=== PATIENT | female | born 1955 | race Caucasian/White ===

== ENCOUNTER 2019-10-26 10:25 | Outpatient (CLI) | payer OTHER, SELFPAY ==
--- NOTE | ~2019-10-26 | MM_ITS ---
EXAMINATION: MM screening [facility] BI w jasmin HISTORY: Screening mammogram TECHNIQUE: Craniocaudal and mediolateral oblique 3-D tomosynthesis images were obtained and synthetic 2-D images were generated. CAD analysis was submitted and interpreted. COMPARISON: Comparison to multiple prior studies sequentially, with oldest reviewed study dated 09/29. BREAST PARENCHYMAL COMPOSITION: There are scattered areas of fibroglandular density. FINDINGS: Postsurgical changes redemonstrated in the left breast without change. There is no evidence of suspicious mass, calcification, or architectural distortion to suggest malignancy in either breas t. There has been no suspicious interval change. IMPRESSION: 1. No mammographic evidence of malignancy. 2. Recommend routine screening mammography in one year. BI-RADS Category 2: Benign finding(s). Reviewed, dictated and finalized at location A. ITY ASSURANCE INSPECTOR
== END 2019-10-26 10:26 | disposition home or self-care (01) ==
PROVIDERS: PCP Family Medicine; Referring Provider Nurse Practitioner Obstetrics & Gynecology; Visit Provider Internal Medicine Hematology & Oncology
DX: Z12.31 Encounter for screening mammogram for malignant neoplasm of breast (principal)
CPT/HCPCS: 77063; 77067

== ENCOUNTER 2020-07-03 08:05 | Outpatient (CLI) | payer OTHER, SELFPAY ==
[2020-07-03 09:22] LABS: Basophils Absolute Auto 0.1 K/mm3 (0.0-0.1); Basophils Percent Auto 1.1 % (0.2-1.2); Eosinophils Absolute Auto 0.6 K/mm3 (0-0.3); Eosinophils Percent Auto 9.2 % (0-4.4); Hematocrit 38.7 % (37.0-47.0); Hemoglobin 12.9 g/dL (12.0-15.0); Immature Granulocyte Absolute 0.01 K/mm3 (0.00-0.031); Immature Granulocyte Percent A 0.2 % (0-0.5); Lymphocytes Absolute Auto 2.34 K/mm3 (0.9-3.2); Lymphocytes Percent Auto 35.4 % (18.3-44.2); Mean Corpuscular HGB Conc 33.3 g/dl (32-36); Mean Platelet Volume 9.8 fl (7.4-10.4); Monocytes Absolute Auto 0.7 K/mm3 (0.1-0.6); Monocytes Percent Auto 10.7 % (2.6-8.5); Neutrophils Absolute Auto 2.9 K/mm3 (1.3-6.7); Neutrophils Percent Auto 43.4 % (45.5-73.1); Platelet Count Result 280 k/mm3 (150-375); Red Blood Count 4.16 M/mm3 (4.2-5.4); Red Cell Distribution Width 12.8 % (11.5-14.5); White Blood Count 6.6 K/mm3 (4.5-10.0)
[2020-07-03 11:49] LABS: Alanine Aminotransferase 20 U/L (4-35); Albumin Level 4.7 g/dL (3.5-5.1); Alkaline Phosphatase 82 U/L (38-126); Anion Gap 10 mmol/L (8-16); Aspartate Amino Transferase 34 U/L (14-36); Bilirubin,Total 0.4 mg/dL (0.2-1.3); Blood Urea Nitrogen 16 mg/dL (7-17); Calcium 9.7 mg/dL (8.4-10.2); Carbon Dioxide 31 mmol/L (22-30); Chloride 101 mmol/L (98-107); Cholesterol 192 mg/dL (0-200); Estimated Glomerular Filt Rate > 60; Glucose 98 mg/dL (65-105); HDL Direct 58 mg/dL; Potassium 4.3 mmol/L (3.4-5.0); Sodium 142 mmol/L (137-145); Triglycerides 140 mg/dL (<150)
[2020-07-03 11:59] LABS: LDL Cholesterol Direct 101 mg/dL
[2020-07-03 12:05] LABS: Free T4 Free Thyroxine 1.36 ng/mL (0.78-2.19)
[2020-07-03 12:19] LABS: Immunoglobulin G 722 mg/dL (700-1600); Immunoglobulin M 66 mg/dL (40-230)
[2020-07-03 12:26] LABS: Thyroid Stimulating Hormone 0.988 uIU/mL (0.465-4.680)
[2020-07-03 12:42] LABS: Immunoglobulin A 1028 mg/dL (70-400)
[2020-07-03 12:59] LABS: Hemoglobin A1C 5.5 % (<5.7)
[2020-07-05 21:43] LABS: Kappa\\Lambda Light Chains 6.11 (0.26-1.65); Lambda Light Chain 15.7 mg/L (5.7-26.3)
[2020-07-06 21:42] LABS: Abnormal Protein Band 1 0.5 g/dL; Alpha 1 Globulin 0.3 g/dL (0.2-0.3); Alpha 2 Globulin 0.8 g/dL (0.5-0.9); Beta 1 Globulin 0.5 g/dL (0.4-0.6); Gamma Globulin 1.2 g/dL (0.8-1.7); Protein, Total 7.3 g/dL (6.1-8.1)
== END 2020-07-03 08:06 | disposition home or self-care (01) ==
PROVIDERS: PCP Family Medicine; Visit Provider Internal Medicine Hematology & Oncology
DX: E11.9 Type 2 diabetes mellitus without complications (principal); E78.00 Pure hypercholesterolemia, unspecified; E03.9 Hypothyroidism, unspecified
CPT/HCPCS: 36415; 80053; 80061; 82784; 83036; 83883; 84155; 84165; 84439; 84443; 85025; 86334

== ENCOUNTER 2020-10-30 13:52 | Outpatient (CLI) | payer OTHER, SELFPAY ==
--- NOTE | ~2020-10-30 | DEXA_ITS ---
Bone Density Report Name: Mirian Morgan Age: 65 Sex: Female Ethnicity: White Date of : 1955 Indication: osteopenia; parental hip fracture; height loss; cancer; postmenopausal Referring Provider: Tony Hammer Study: Bone densitometry was performed. Exam Date: October 30, 2020 Accession number: [id number] Bone Density: Region BMD T-score Z-score Classification AP Spine (L1, L2, L3) 0.847 -1.6 0.3 Osteopenia Femoral Neck (Left) 0.674 -1.6 0.1 Osteopenia Total Hip (Left) 0.890 -0.4 0.9 Normal Total Hip Bilateral Avg 0.905 -0.3 1.0 Normal Femoral Neck (Right) 0.683 -1.5 0.1 Osteopenia Total Hip (Right) 0.919 -0.2 1.2 Normal World Health Organization criteria for BMD impression classify patients as: Normal (T-score at or above -1.0), Osteopenia (T-score between -1.0 and -2.5), or Osteoporosis (T-score at or below -2.5). 10-year Fracture Risk(1): Major Osteoporotic Fracture 16% Hip Fracture 1.6% Reported Risk Factors: [place] (), Neck BMD=0.683, BMI=29.4, parental fracture (1) FRAX(R) Version 3.08. Fracture probability calculated for an untreated patient. Fracture probability may be lower if the patient has received treatment. Previous Exams: Region Exam Age BMD T-score BMD Change BMD Change Date g/cm2 vs Baseline vs Previous AP Spine(L1, L2, L3) 10/30/2020 65 0.847 -1.6 -0.060(-6.6%)* -0.047(-5.3%)* 10/20/2018 63 0.894 -1.1 -0.012(-1.4%) -0.012(-1.4%) 10/05/2015 60 0.907 -1.0 Total Hip(Left) 10/30/2020 65 0.890 -0.4 0.008(0.9%) -0.117(-11.6%) 10/20/2018 63 1.006 0.5 0.124(14.1%)* 0.124(14.1%)* 10/05/2015 60 0.882 -0.5 Total Hip(Right) 10/30/2020 65 0.919 -0.2 -0.031(-3.2%)* -0.115(-11.2%) 10/20/2018 63 1.034 0.8 0.085(8.9%)* 0.085(8.9%)* 10/05/2015 60 0.950 0.1 *Denotes significance at 95% confidence level, LSC for AP Spine = 0.022 g/cm2, LSC for Total Hip = 0.027 g/cm2 Clinical Information Provided by Patient: Parent has had a hip fracture Has used the following medications: Vitamin D, Calcium Has the following medical conditions: Cancer, BREAST CA Patient maximum height was 67 Menopause Age: 48 Onset of menses at age 8 Number of children 0 Impression: The patient has low bone mass, based on the Total Spine T-score. The patient has an estimated ten-year risk of hip fracture of 1.6% and an estimated ten-year risk of major fracture of 16%, based on the WHO
--- NOTE | ~2020-10-30 | MM_ITS ---
EXAMINATION: MM screening marjorie BI w jasmin HISTORY: Screening TECHNIQUE: Craniocaudal and mediolateral oblique 3-D tomosynthesis images were obtained and synthetic 2-D images were generated. CAD analysis was submitted and interpreted. COMPARISON: No prior mammogram is available for comparison at this institution. BREAST PARENCHYMAL COMPOSITION: Comparison to multiple prior studies sequentially, with oldest review ed study dated 10/05/2015. FINDINGS: Stable architectural distortion of the left breast, consistent with previous lumpectomy sit e. There is no evidence of suspicious mass, calcification, or architectural distortion to suggest mal ignancy in either breast. There has been no suspicious interval change. IMPRESSION: 1. No mammographic evidence of malignancy. 2. Recommend routine screening mammography in one year. BI-RADS Category 2: Benign finding(s). Reviewed, dictated and finalized at location A. E TECHNOLOGIST
== END 2020-10-30 13:53 | disposition home or self-care (01) ==
LOC: ANHIMG 13:55
PROVIDERS: PCP Family Medicine; Visit Provider Internal Medicine Hematology & Oncology
DX: Z12.31 Encounter for screening mammogram for malignant neoplasm of breast (principal); M81.0 Age-related osteoporosis without current pathological fracture; M85.88 Other specified disorders of bone density and structure, other site; M85.852 Other specified disorders of bone density and structure, left thigh; M85.851 Other specified disorders of bone density and structure, right thigh
CPT/HCPCS: 77063; 77067; 77080

== ENCOUNTER 2021-07-04 08:44 | Outpatient (CLI) | payer MEDICARE, SELFPAY ==
[2021-07-04 09:06] LABS: Basophils Absolute Auto 0.1 K/mm3 (0.0-0.1); Basophils Percent Auto 1.3 % (0.2-1.2); Eosinophils Absolute Auto 0.4 K/mm3 (0-0.3); Eosinophils Percent Auto 7.3 % (0-4.4); Hematocrit 38.1 % (37.0-47.0); Hemoglobin 12.9 g/dL (12.0-15.0); Immature Granulocyte Absolute 0.01 K/mm3 (0.00-0.031); Immature Granulocyte Percent A 0.2 % (0-0.5); Lymphocytes Absolute Auto 2.06 K/mm3 (0.9-3.2); Mean Corpuscular HGB Conc 33.9 g/dl (32-36); Mean Corpuscular Hemoglobin 31.5 pg (26-34); Mean Corpuscular Volume 92.9 fl (80-100); Mean Platelet Volume 8.9 fl (7.4-10.4); Monocytes Absolute Auto 0.6 K/mm3 (0.1-0.6); Monocytes Percent Auto 9.7 % (2.6-8.5); Neutrophils Absolute Auto 2.9 K/mm3 (1.3-6.7); Neutrophils Percent Auto 47.5 % (45.5-73.1); Platelet Count Result 273 k/mm3 (150-375); Red Cell Distribution Width 12.5 % (11.5-14.5); White Blood Count 6.1 K/mm3 (4.5-10.0)
[2021-07-04 11:16] LABS: Alanine Aminotransferase 29 U/L (4-35); Albumin Level 4.7 g/dL (3.5-5.1); Alkaline Phosphatase 78 U/L (38-126); Anion Gap 9 mmol/L (8-16); Aspartate Amino Transferase 33 U/L (14-36); Bilirubin,Total 0.6 mg/dL (0.2-1.3); Blood Urea Nitrogen 21 mg/dL (7-17); Calcium 9.7 mg/dL (8.4-10.2); Carbon Dioxide 27 mmol/L (22-30); Chloride 105 mmol/L (98-107); Estimated Glomerular Filt Rate > 60; Glucose 115 mg/dL (65-110); Potassium 4.3 mmol/L (3.4-5.0); Sodium 141 mmol/L (137-145)
[2021-07-04 11:52] LABS: Immunoglobulin G 672 mg/dL (700-1600); Immunoglobulin M 59 mg/dL (40-230)
[2021-07-04 12:19] LABS: Immunoglobulin A 993 mg/dL (70-400)
[2021-07-08 13:05] LABS: Kappa\\Lambda Light Chains 6.12 (0.26-1.65); Lambda Light Chain 16.8 mg/L (5.7-26.3)
[2021-07-08 20:49] LABS: Abnormal Protein Band 1 0.5 g/dL; Alpha 1 Globulin 0.3 g/dL (0.2-0.3); Alpha 2 Globulin 0.8 g/dL (0.5-0.9); Beta 1 Globulin 0.5 g/dL (0.4-0.6); Gamma Globulin 1.3 g/dL (0.8-1.7); Protein, Total 7.3 g/dL (6.1-8.1)
== END 2021-07-04 08:45 | disposition home or self-care (01) ==
PROVIDERS: PCP Family Medicine; Referring Provider Internal Medicine Hematology & Oncology; Visit Provider Internal Medicine Endocrinology, Diabetes & Metabolism
DX: D47.2 Monoclonal gammopathy (principal)
CPT/HCPCS: 36415; 80053; 82784; 83883; 84155; 84165; 85025

== ENCOUNTER 2021-11-01 14:18 | Outpatient (CLI) | payer MEDICARE, SELFPAY ==
--- NOTE | ~2021-11-01 | MM_ITS ---
EXAMINATION: MM screening [facility] BI w jasmin HISTORY: Screening mammogram, history of left breast cancer TECHNIQUE: Craniocaudal and mediolateral oblique 3-D tomosynthesis images were obtained and synthetic 2-D images were generated. CAD analysis was submitted and interpreted. COMPARISON: 10/30/2020, 10/26/2019, 10/20/2018 BREAST PARENCHYMAL COMPOSITION: There are scattered areas of fibroglandular density. FINDINGS: There are stable lumpectomy changes in the upper outer quadrant of the left breast. There i s no evidence of suspicious mass, calcification, or architectural distortion to suggest malignancy in either breast. There has been no suspicious interval change. IMPRESSION: 1. No mammographic evidence of malignancy. 2. Recommend routine screening mammography in one year. BI-RADS Category 2: Benign finding(s). Reviewed, dictated and finalized at location A. ING ANODE WORKER
== END 2021-11-01 14:19 | disposition home or self-care (01) ==
LOC: ANHIMG 14:21
PROVIDERS: PCP Family Medicine; Visit Provider Internal Medicine Hematology & Oncology
DX: Z12.31 Encounter for screening mammogram for malignant neoplasm of breast (principal)
CPT/HCPCS: 77063; 77067

== ENCOUNTER 2022-07-03 08:24 | Outpatient (CLI) | payer MEDICARE, SELFPAY ==
[2022-07-03 08:50] LABS: Basophils Absolute Auto 0.1 K/mm3 (0.0-0.1); Eosinophils Absolute Auto 0.3 K/mm3 (0-0.3); Eosinophils Percent Auto 5.1 % (0-4.4); Hematocrit 39.6 % (37.0-47.0); Hemoglobin 13.4 g/dL (12.0-15.0); Immature Granulocyte Absolute 0.02 K/mm3 (0.00-0.031); Immature Granulocyte Percent A 0.3 % (0-0.5); Lymphocytes Absolute Auto 2.11 K/mm3 (0.9-3.2); Mean Corpuscular HGB Conc 33.8 g/dl (32-36); Mean Corpuscular Hemoglobin 31.5 pg (26-34); Mean Corpuscular Volume 93.2 fl (80-100); Mean Platelet Volume 9.3 fl (7.4-10.4); Monocytes Absolute Auto 0.6 K/mm3 (0.1-0.6); Neutrophils Absolute Auto 2.9 K/mm3 (1.3-6.7); Neutrophils Percent Auto 48.6 % (45.5-73.1); Platelet Count Result 263 k/mm3 (150-375); Red Blood Count 4.25 M/mm3 (4.2-5.4)
[2022-07-03 09:39] LABS: Cholesterol 272 mg/dL (0-200); HDL Direct 47 mg/dL; Triglycerides 199 mg/dL (<150)
[2022-07-03 09:42] LABS: Alanine Aminotransferase 72 U/L (6-35); Albumin Level 4.7 g/dL (3.5-5.1); Alkaline Phosphatase 74 U/L (38-126); Anion Gap 12 mmol/L (8-16); Aspartate Amino Transferase 55 U/L (14-36); Bilirubin,Total 0.5 mg/dL (0.2-1.3); Blood Urea Nitrogen 20 mg/dL (7-17); Calcium 9.4 mg/dL (8.4-10.2); Carbon Dioxide 27 mmol/L (22-30); Chloride 100 mmol/L (98-107); Estimated Glomerular Filt Rate > 60; Glucose 133 mg/dL (65-110); Potassium 4.6 mmol/L (3.4-5.0); Sodium 139 mmol/L (137-145)
[2022-07-03 09:50] LABS: LDL Cholesterol Direct 157 mg/dL
[2022-07-03 10:06] LABS: Creatinine Urine 115.3 mg/dL
[2022-07-03 10:09] LABS: Immunoglobulin G 634 mg/dL (700-1600); Immunoglobulin M 56 mg/dL (40-230)
[2022-07-03 10:28] LABS: Immunoglobulin A 991 mg/dL (70-400)
[2022-07-03 10:28] LABS: MALB Creatinine Ratio < 5.2 mg/g (0-30); Microalbumin Urine Random < 6.0 mg/L (0-16.7)
[2022-07-03 14:06] LABS: Free T4 Free Thyroxine 1.28 ng/mL (0.78-2.19); Vitamin D 25 Hydroxy 51.3 ng/mL
[2022-07-06 06:09] LABS: Abnormal Protein Band 1 0.5 g/dL; Albumin 4.2 g/dL (3.8-4.8); Alpha 1 Globulin 0.3 g/dL (0.2-0.3); Alpha 2 Globulin 0.8 g/dL (0.5-0.9); Beta 1 Globulin 0.5 g/dL (0.4-0.6); Gamma Globulin 1.2 g/dL (0.8-1.7); Protein, Total 7.5 g/dL (6.1-8.1)
[2022-07-07 15:23] LABS: Kappa\\Lambda Light Chains 5.42 (0.26-1.65); Lambda Light Chain 13.4 mg/L (5.7-26.3)
== END 2022-07-03 08:25 | disposition home or self-care (01) ==
LOC: ANHLAB 08:26
PROVIDERS: Nurse Practitioner Family; PCP Family Medicine; Visit Provider Internal Medicine Hematology & Oncology
DX: D47.2 Monoclonal gammopathy (principal); E11.9 Type 2 diabetes mellitus without complications; K76.0 Fatty (change of) liver, not elsewhere classified; M85.851 Other specified disorders of bone density and structure, right thigh; M85.852 Other specified disorders of bone density and structure, left thigh; I10 Essential (primary) hypertension; E55.9 Vitamin D deficiency, unspecified; E03.9 Hypothyroidism, unspecified
CPT/HCPCS: 36415; 80053; 80061; 82043; 82306; 82607; 82784; 83883; 84155; 84165; 84439; 84443; 85025

== ENCOUNTER 2022-11-04 13:43 | Outpatient (CLI) | payer MEDICARE, SELFPAY ==
--- NOTE | ~2022-11-04 | MM_ITS ---
EXAMINATION: MM screening marjorie BI w jasmin HISTORY: Screening mammogram, history of left breast cancer TECHNIQUE: Craniocaudal and mediolateral oblique 3-D tomosynthesis images were obtained and synthetic 2-D images were generated. CAD analysis was submitted and interpreted. COMPARISON: 11/01/2021, 10/30/2020, 10/26/2019 BREAST PARENCHYMAL COMPOSITION: There are scattered areas of fibroglandular density. FINDINGS: Stable lumpectomy changes are again noted in the upper outer quadrant of the left breast. N o suspicious mass, calcification, or architectural distortion are identified in either breast to sugg est malignancy. There has been no suspicious interval change. IMPRESSION: 1. No mammographic evidence of malignancy. 2. Recommend routine screening mammography in one year. BI-RADS Category 2: Benign finding(s). Reviewed, dictated and finalized at location A. AURANT COOK
--- NOTE | ~2022-11-04 | DEXA_ITS ---
Bone Density Report Name: FRANCESCO JEAN Age: 67 Sex: Female Ethnicity: White Date of : 1955 Indication: postmenopausal; screening for osteoporosis; parental hip fracture; height loss; cancer; Referring Provider: ARMOND VALDEZ Study: Bone densitometry was performed. Exam Date: November 04, 2022 Accession number: [id number] Bone Density: Region BMD T-score Z-score Classification AP Spine(L1, L2, L3) 0.885 -1.2 0.8 Osteopenia Femoral Neck (Left) 0.674 -1.6 0.2 Osteopenia Total Hip (Left) 0.916 -0.2 1.3 Normal Femoral Neck (Right) 0.691 -1.4 0.3 Osteopenia Total Hip (Right) 0.961 0.2 1.6 Normal Total Hip Mean 0.939 0.0 1.5 Normal World Health Organization criteria for BMD impression classify patients as: Normal (T-score at or above -1.0), Osteopenia (T-score between -1.0 and -2.5), or Osteoporosis (T-score at or below -2.5). 10-year Fracture Risk(1): Major Osteoporotic Fracture 15% Hip Fracture 2.4% Reported Risk Factors: [place] (), Neck BMD=0.674, BMI=33.2, parental fracture (1) FRAX(R) Version 3.08. Fracture probability calculated for an untreated patient. Fracture probability may be lower if the patient has received treatment. Clinical Information Provided by Patient: Parent has had a hip fracture Has used the following medications: Prolia (i.e. denosumab), Vitamin D, Calcium Has the following medical conditions: Cancer, Breast Cancer Patient maximum height was 67 Menopause Age: 48 Onset of menses at age 8 Number of children 0 Impression: The patient has low bone mass, based on the Left Femoral Neck T-score. The patient has an estimated ten-year risk of hip fracture of 2.4% and an estimated ten-year risk of major fracture of 15%, based on the WHO FRAX algorithm. The patient has risk factors, including: parental hip fracture. Discussion: BONE DENSITY IS LOW AT ONE OR MORE SKELETAL SITES. This patient's lowest T-score is low at one or more skeletal sites. It meets the World Health Organization's (WHO) criteria for ?low bone mass? (T-score between -1.0 and -2.5). The patient's 10-year risk of fracture as calculated by FRAX is less than the threshold where pharmacological therapy is recommended by the National Osteoporosis Foundation (NOF). However, all treatment decisions require clinical judgment and consideration of individual patient factors, including patient preferences, comorbidities, previous drug use, risk factors not captured in the FRAX model (e.g., frailty, falls, vitamin D deficiency, increased bone turnover, interval significant decline in bone density) and possible under or overestimation of fracture risk by FRAX. The patient should follow a healthful lifestyle (good nutrition with adequate calcium and vitamin D, and appropriate weight-bearing exercise).
== END 2022-11-04 13:44 | disposition home or self-care (01) ==
LOC: ANHIMG 13:45
PROVIDERS: PCP Family Medicine; Visit Provider Internal Medicine Hematology & Oncology
DX: Z12.31 Encounter for screening mammogram for malignant neoplasm of breast (principal); M81.0 Age-related osteoporosis without current pathological fracture; M85.88 Other specified disorders of bone density and structure, other site; M85.852 Other specified disorders of bone density and structure, left thigh; M85.851 Other specified disorders of bone density and structure, right thigh
CPT/HCPCS: 77063; 77067; 77080

== ENCOUNTER 2023-07-03 08:18 | Outpatient (CLI) | payer MEDICARE, SELFPAY ==
[2023-07-03 08:39] LABS: Basophils Absolute Auto 0.1 K/mm3 (0.0-0.1); Basophils Percent Auto 1.1 % (0.2-1.2); Eosinophils Absolute Auto 0.5 K/mm3 (0-0.3); Eosinophils Percent Auto 8.3 % (0-4.4); Hematocrit 37.1 % (37.0-47.0); Hemoglobin 12.3 g/dL (12.0-15.0); Immature Granulocyte Absolute 0.06 K/mm3 (0.00-0.031); Immature Granulocyte Percent A 0.9 % (0-0.5); Lymphocytes Absolute Auto 2.07 K/mm3 (0.9-3.2); Lymphocytes Percent Auto 31.9 % (18.3-44.2); Mean Corpuscular HGB Conc 33.2 g/dl (32-36); Mean Corpuscular Hemoglobin 30.4 pg (26-34); Mean Corpuscular Volume 91.8 fl (80-100); Mean Platelet Volume 9.7 fl (7.4-10.4); Monocytes Absolute Auto 0.7 K/mm3 (0.1-0.6); Monocytes Percent Auto 10.2 % (2.6-8.5); Neutrophils Absolute Auto 3.1 K/mm3 (1.3-6.7); Neutrophils Percent Auto 47.6 % (45.5-73.1); Platelet Count Result 254 k/mm3 (150-375); Red Blood Count 4.04 M/mm3 (4.2-5.4); Red Cell Distribution Width 13.5 % (11.5-14.5); White Blood Count 6.5 K/mm3 (4.5-10.0)
[2023-07-03 10:38] LABS: Alanine Aminotransferase 113 U/L (6-35); Albumin Level 4.5 g/dL (3.5-5.1); Alkaline Phosphatase 83 U/L (38-126); Anion Gap 8 mmol/L (8-16); Aspartate Amino Transferase 83 U/L (14-36); Bilirubin,Total 0.4 mg/dL (0.2-1.3); Blood Urea Nitrogen 17 mg/dL (7-17); Calcium 9.7 mg/dL (8.4-10.2); Carbon Dioxide 29 mmol/L (22-30); Chloride 101 mmol/L (98-107); Estimated Glomerular Filt Rate > 60; Glucose 150 mg/dL (65-110); Potassium 4.3 mmol/L (3.4-5.0); Sodium 138 mmol/L (137-145)
[2023-07-03 13:27] LABS: Immunoglobulin G 470 mg/dL (700-1600); Immunoglobulin M 33 mg/dL (40-230)
[2023-07-03 17:51] LABS: Cholesterol 173 mg/dL (0-200); HDL Direct 39 mg/dL; Triglycerides 214 mg/dL (<150)
[2023-07-03 18:01] LABS: LDL Cholesterol Direct 92 mg/dL
[2023-07-03 18:26] LABS: Microalbumin Urine Random 7.1 mg/L (0-16.7)
[2023-07-03 18:27] LABS: Creatinine Urine 137.2 mg/dL; MALB Creatinine Ratio 5.2 mg/g (0-30)
[2023-07-03 18:40] LABS: Free T4 Free Thyroxine 1.47 ng/mL (0.78-2.19); Vitamin D 25 Hydroxy 47.1 ng/mL
[2023-07-04 00:06] LABS: Immunoglobulin A 1294 mg/dL (70-400)
== END 2023-07-03 08:19 | disposition home or self-care (01) ==
PROVIDERS: Nurse Practitioner Family; PCP Family Medicine; Visit Provider Internal Medicine Hematology & Oncology
DX: E03.9 Hypothyroidism, unspecified (principal); E11.9 Type 2 diabetes mellitus without complications; E55.9 Vitamin D deficiency, unspecified; E66.9 Obesity, unspecified; E78.00 Pure hypercholesterolemia, unspecified; I10 Essential (primary) hypertension; D47.2 Monoclonal gammopathy
CPT/HCPCS: 36415; 80053; 80061; 82043; 82306; 82607; 82784; 84439; 84443; 85025

== ENCOUNTER 2023-07-14 08:51 | Outpatient (CLI) | payer MEDICARE, SELFPAY ==
[2023-07-16 15:05] LABS: Alpha 1 Globulin 0.3 g/dL (0.2-0.3); Alpha 2 Globulin 0.9 g/dL (0.5-0.9); Beta 1 Globulin 0.4 g/dL (0.4-0.6); Gamma Globulin 1.6 g/dL (0.8-1.7); Protein, Total 7.6 g/dL (6.1-8.1)
[2023-07-18 21:33] LABS: Lambda Light Chain 12.5 mg/L (5.7-26.3)
== END 2023-07-14 08:52 | disposition home or self-care (01) ==
PROVIDERS: PCP Family Medicine; Visit Provider Internal Medicine Hematology & Oncology
DX: D47.2 Monoclonal gammopathy (principal)
CPT/HCPCS: 36415; 83883; 84155; 84165

== ENCOUNTER 2023-08-13 08:06 | Outpatient (CLI) | payer MEDICARE, SELFPAY ==
--- NOTE | ~2023-08-13 | US_ITS ---
US abdomen limited INDICATION: Fatty liver PROCEDURE: Realtime right upper abdominal ultrasound. COMPARISON: 07/20/2018 FINDINGS: The pancreas is normal without focal mass or pancreatic ductal dilation. For echotexture i s increased, consistent with fatty infiltration. There is normal directional flow in the portal vein . The gallbladder is normal without stones, gallbladder wall thickening or pericholecystic fluid. Comm on bile duct measures 4 mm. No sonographic Reyna's sign. IMPRESSION: 1: Fatty infiltration of the liver. Reviewed, dictated and finalized at location A. PLATE STAMPER
== END 2023-08-13 08:07 | disposition home or self-care (01) ==
PROVIDERS: PCP Family Medicine; Visit Provider Internal Medicine Gastroenterology
DX: K76.0 Fatty (change of) liver, not elsewhere classified (principal)
CPT/HCPCS: 76705

== ENCOUNTER → 2023-08-18 14:06 | Outpatient (CLI) | payer MEDICARE, SELFPAY ==
--- NOTE | ~2023-08-18 | XR_ITS ---
XR lumbar spine 2-3V 08/18/2023 15:22 Indication: Low back pain Procedure: 3 views lumbar spine Comparison: CT dated 05/21/2018 Findings: There is a mild superior endplate compression fracture of L5, age indeterminate. There is m oderate disc narrowing at L4-5 and L5-S1. There is grade 1 spondylolisthesis at L4-5. There is facet hypertrophy at L4-5 and L5-S1. Impression: 1: Age-indeterminate superior endplate compression fracture of L5 with approximately 15% loss of vert ebral body height. Consider correlation with CT or MRI. 2: Moderate lumbar spondylosis. Reviewed, dictated and finalized at location A. [employer] Impression: 1: Age-indeterminate superior endplate compression fracture of L5 with approxim ately 15% loss of vertebral body height. Consider correlation with CT or MRI. 2: Moderate lumbar spondylosis.
== END ==
PROVIDERS: PCP Family Medicine; Visit Provider Nurse Practitioner Family
DX: M47.896 Other spondylosis, lumbar region (principal)
CPT/HCPCS: 72100

== ENCOUNTER → 2023-08-21 10:40 | Outpatient (CLI) | payer MEDICARE, SELFPAY ==
--- NOTE | ~2023-08-21 | CT_ITS ---
Noncontrast CT scan of the lumbar spine CLINICAL HISTORY: Back pain TECHNIQUE: Axial noncontrast imaging of the lumbar spine was performed. Sagittal and coronal reformat jeanette images were constructed. Dose reduction technique was used on this scan by utilizing automated ex posure control and iterative reconstruction technique. The dose-length product (DLP) was 846.80 mGy-c m. FINDINGS: There is mild compression deformity superior endplate region of L5, probably acute to subac gosia. There is 7 mm anterolisthesis of L4 over L5. At L1-L2, there is no significant disc bulge or herniation. No spinal canal stenosis or neural forami nal narrowing. At L2-L3, there is minimal disc bulge with mild facet arthropathy. No central canal stenosis. There i s mild left neural foraminal narrowing. Right neural foramen preserved. At L3-L4, there is minimal disc bulge and mild facet arthropathy. No definite central canal stenosis or neural foraminal narrowing. At L4-L5, disc bulge/uncovering with facet arthropathy result in probable severe spinal canal stenosi s/thecal sac compression. There is advanced bilateral neural foraminal narrowing. At L5-S1, there is no significant disc bulge or herniation. No spinal canal stenosis. There is probab le mild to moderate bilateral neural foraminal narrowing. Paravertebral soft tissues are unremarkable. Impression: Mild compression deformity of L5, probably acute. 7 mm anterolisthesis of L4 over L5. Severe degenerative spondylosis at L4-L5, as detailed above. Mild degenerative spondylosis the remainder of the lumbar spine. Reviewed, dictated and finalized at [facility]. DULE ANALYST Impression: Mild compression deformity of L5, probably acute. 7 mm anterolisthesis of L4 over L5. Severe degenerative spondylosis at L4-L5, as detailed above. Mild degenerative spondylosis the remainder of the lumbar spine.
== END ==
PROVIDERS: PCP Chiropractor; Visit Provider Nurse Practitioner Family
DX: M54.41 Lumbago with sciatica, right side (principal); M47.896 Other spondylosis, lumbar region
CPT/HCPCS: 72131

== ENCOUNTER → 2023-09-26 11:00 | Outpatient (CLI) | payer MEDICARE, SELFPAY ==
--- NOTE | ~2023-09-26 | MR_ITS ---
MRI of the lumbar spine Clinical History: Fracture, pain Technique: Axial T2-weighted images, and sagittal T1-weighted, T2-weighted, and and T2 fat-sat images were acquired. Findings: There is probable acute, mild compression fracture deformity at the inferior plate region o f L3. There is an acute to subacute moderate compression deformity of L5. There is 6 mm anterolisthes is of L4 over L5. At L1-L2, there is no disc bulge or herniation. There is mild facet joint hypertrophy. No central can al stenosis or neural foraminal narrowing. At L2-L3, there is minimal disc bulge with mild to moderate facet arthropathy. No central canal steno sis or neural foraminal narrowing. At L3-L4, there is no disc bulge or herniation. There is advanced facet arthropathy. No central canal stenosis. There is mild to moderate bilateral neural foraminal narrowing. At L4-L5, there is disc bulge and severe facet arthropathy, which in conjunction with mild retropulsi on/listhesis, results in severe spinal canal stenosis/thecal sac compression. There is moderate to ad vanced bilateral neural foraminal narrowing. At L5-S1, there is minimal disc bulge. No central canal stenosis or neural foraminal narrowing eviden t. Paravertebral soft tissues are unremarkable. Impression: Acute, mild compression fracture of the inferior endplate region of L3. Acute to subacute moderate compression fracture deformity of L5. 6 mm anterolisthesis of L4 over L5. Associated severe degenerative spondylosis at L4-L5, as detailed above. Reviewed, dictated and finalized at [facility]. ER SERVICES REPRESENTATIVE Impression: Acute, mild compression fracture of the inferior endplate region of L3. Acute to subacute moderate compression fracture deformity of L5. 6 mm anterolisthesis of L4 over L5. Associated severe degenerative spondylosis at L4-L5, as detailed above.
== END ==
PROVIDERS: PCP Chiropractor; Visit Provider Nurse Practitioner Family
DX: S32.000A Wedge compression fracture of unspecified lumbar vertebra, initial encounter for closed fracture (principal); X58.XXXA Exposure to other specified factors, initial encounter
CPT/HCPCS: 72148

== ENCOUNTER 2023-10-02 18:41 | Emergency (ER) | payer MEDICARE, SELFPAY ==
[2023-10-02] VITALS (9 sets, daily range): BP systolic 174–189; BP diastolic 81–95; PULSE 79–125; RESP 15–20; TEMP 36.7; O2SAT 94–100
--- NOTE | ~2023-10-02 | CT_ITS ---
EXAMINATION: CT lumbar spine wo con DATE: 10/02/2023 20:37 INDICATION: Worsening low back pain post kyphoplasty one day prior. TECHNIQUE: Computed tomography (CT) of the lumbar spine was performed without intravenous contrast. A utomated exposure control and iterative reconstruction technique were employed. The dose-length produ ct was 1418.45 mGy-cm. COMPARISON: CT dated 08/21/2023 and lumbar spine MR dated 09/26/2023 FINDINGS: Unchanged 7 mm anterolisthesis L4 on L5. Superior endplate compression fracture at T10 with 10% centr al vertebral body height loss. T12 burst fracture with one third anterior vertebral body height loss and 2 mm retropulsion. L3 inferior endplate compression fracture with 10% central vertebral body heig ht loss. L5 compression fracture with 50% central vertebral body height loss. The fractures at T12, L 3 and L5 are relatively recent with marrow edema on the MRI from 6 days prior and with either new or increased vertebral body height loss when compared with the CT from 6 weeks prior. The anterior to ce ntral vertebral body height loss at T12 appears normally increased since the recent MRI. There is new 15% central vertebral body height loss at L2 with increased concavity to the inferior endplate consi stent with a compression fracture new since the recent MRI. Also new since the most recent prior study are vertebroplasties at both L3 and L5. Additional subacut e sagittally oriented insufficiency fractures at the bilateral sacral ala. Mild disc height loss at L 4-L5 and L5-S1. Mild subcutaneous edema posterior to the lower lumbar spine likely related to the rec ent prior vertebral plasties. The following disc levels are specifically discussed: T11-T12: The disc does not extend beyond the endplate margin. There is mild central canal stenosis re sulting from the 2 mm retropulsion of the superior aspect of the posterior wall of T12. There is mild bilateral facet joint osteoarthritis. There is no neural foraminal stenosis. T12-L1: The disc does not extend beyond the endplate margin. There is mild bilateral facet joint oste oarthritis. There is no neural foraminal stenosis. There is no central canal stenosis. L1-L2: The disc does not extend beyond the endplate margin. There is mild right and moderate left fac et joint osteoarthritis. There is no neural foraminal stenosis. There is no central canal stenosis. L2-L3: Disc is mildly bulging. There is moderate bilateral facet joint osteoarthritis. There is mild bilateral neural foraminal stenosis. There is mild central canal stenosis. L3-L4: Small bilateral foraminal zone disc protrusions. There is mild left and moderate right facet j oint osteoarthritis. There is mild bilateral neural foraminal stenosis. There is mild central canal s tenosis. L4-L5: Disc is bulging. There is severe bilateral facet joint osteoarthritis. There is moderate bilat eral neural foraminal stenosis. There is severe central canal stenosis. L5-S1: Disc is bulging. There is mild to moderate bilateral facet joint osteoarthritis. There is mild right and minimal left neural foraminal stenosis. There is no central canal stenosis. IMPRESSION: 1. Multiple acute and subacute compression and burst fractures in the thoracic spine with interval ve rtebroplasties at L3 and L5. There has been minimal progression of the subacute T12 compression fract ure and there is a new mild inferior endplate compression fracture at L3. 2. Mild lumbar spondylosis but with unchanged 7 mm anterolisthesis L4 on L5 which contributes to beatriz re central canal stenosis at this level. 3. Subacute bilateral sagittal oriented sacral ala insufficiency fractures. Reviewed, dictated and finalized at location A. L VIAL GRINDER
--- NOTE | 2023-10-02 19:38 | ED.BACK ---
HPI - Back Pain/Injury General Chief Complaint: Back Pain/Injury Stated Complaint: CHRONIC BACK PAIN WORSE AFTER KYPHOPLASTY Time Seen by Provider: 10/02/23 19:02 History of Present Illness HPI Narrative: Patient is a 68-year-old female presenting with lower back pain. Patient states that she was dealing with a lot of chronic back pain over the last 6 months. States that she was seeing an interventional pain doctor and she underwent kyphoplasty of L3 and L5 yesterday. States that she was told that she would have no pain following the procedure. Unfortunately, she had severe lower back pain today that felt like her prior episodes of back pain. States that it was shooting pain up and down her back. No numbness or weakness. Reports intermittent incontinence that was present prior to the procedure. No saddle anesthesia. No fevers or chills. Related Data Home Medications Medication Instructions Recorded Confirmed aspirin 81 mg tablet,delayed 81 mg PO DAILY 08/09/19 08/18/23 release (Adult Low Dose Aspirin) omega 4-fwb-fjq-fish oil 1,000 mg 1 cap PO BID 02/08/20 08/18/23 (120 mg-180 mg) capsule (Fish Oil) cholecalciferol (vitamin D3) 25 2,000 unit PO DAILY 02/09/20 08/18/23 mcg (1,000 unit) capsule fluticasone furoate 50 inhalation PRN 07/12/20 08/18/23 mcg/actuation blister powder for inhalation magnesium 250 mg tablet 500 mg PO DAILY 05/16/21 08/18/23 acetaminophen 650 mg 650 mg PO Q12H 07/17/23 08/18/23 tablet,extended release (Tylenol 8 Hour) calcium carb,cit ER 600 mg-vit D3 tablet PO 07/17/23 08/18/23 12.5 mcg (500 unit) tablet,ext.rel fluticasone propionate 50 1 spray intranasal DAILY PRN 07/17/23 08/18/23 mcg/actuation nasal spray,suspension lactulose 10 gram oral packet 10 g PO BID 07/17/23 08/18/23 naproxen sodium 220 mg tablet 220 mg PO BID PRN 07/17/23 08/18/23 (Aleve) perservision multivitamin w/300IU BYMOUTH 07/17/23 08/18/23 Vit D melatonin 3 mg capsule 3 mg PO QHS 08/18/23 08/18/23 Allergies Allergy/AdvReac Type Severity Reaction Status Date / Time venom-wasp Allergy Severe swelling Verified 10/02/23 18:43 latex Allergy Mild rash Verified 10/02/23 18:43 Vymqexl-VOG-EiG Reductase AdvReac Intermediate muscle Verified 10/02/23 18:43 Inhibitor cramping Review of Systems Review of Systems: All systems reviewed & are unremarkable except as noted in HPI and below PMFSH Past Medical History Medical History Breast CA Diabetes type 2, controlled Essential hypertension Hepatic steatosis History of left breast cancer 05/2009 - s/p lumpectomy, radiation, & chemotherapy History of malignant carcinoid tumor of large intestine Hypothyroidism, acquired MGUS (monoclonal gammopathy of unknown significance) Normal colonoscopy GRETEL (obstructive sleep apnea) Osteopenia Pure hypercholesterolemia, unspecified Slow transit constipation Tortuous colon Urinary incontinence, mixed Vitamin D deficiency, unspecified Surgical History Surgical History History of appendectomy (~2003) History of arthroscopy of left knee 1986 - s/p skiing accident History of lumpectomy of left breast (~05/2009) History of right hemicolectomy (~2003) History of tonsillectomy (~1958) History of wisdom tooth extraction (~1974) Family History Family History Father Hypertension Family history of diabetes mellitus in first degree relative Family history of arthritis Family history of type 2 diabetes mellitus Mother Hypertension Family history of cardiac disorder Family history of arthritis Patient's mother is Sibling Diabetes mellitus Hypertension Family history of arthritis Family history of type 2 diabetes mellitus Other Family history of congestive heart failure Family history of emphysema F
[2023-10-02] MEDS: oxyCODONE/ACETAMINOPHEN (*CRX) 5-325 MG TABLET 1 TABLET PO (20:15)
[2023-10-02] MEDS: ONDANSETRON HCL ODT 4 MG TABLET PO (20:16)
== END 2023-10-02 22:06 | disposition home or self-care (01) ==
PROVIDERS: Emergency Provider Emergency Medicine; PCP Family Medicine
DX: M48.56XA Collapsed vertebra, not elsewhere classified, lumbar region, initial encounter for fracture (principal); Z98.890 Other specified postprocedural states; E11.9 Type 2 diabetes mellitus without complications; I10 Essential (primary) hypertension; E03.9 Hypothyroidism, unspecified; E78.00 Pure hypercholesterolemia, unspecified; E55.9 Vitamin D deficiency, unspecified; N39.46 Mixed incontinence; G47.33 Obstructive sleep apnea (adult) (pediatric); M85.80 Other specified disorders of bone density and structure, unspecified site; Z85.3 Personal history of malignant neoplasm of breast; Z85.030 Personal history of malignant carcinoid tumor of large intestine; Z92.21 Personal history of antineoplastic chemotherapy; Z92.3 Personal history of irradiation; Z90.49 Acquired absence of other specified parts of digestive tract; Z79.82 Long term (current) use of aspirin; Z79.84 Long term (current) use of oral hypoglycemic drugs; M47.816 Spondylosis without myelopathy or radiculopathy, lumbar region; M48.061 Spinal stenosis, lumbar region without neurogenic claudication
CPT/HCPCS: 72131; 99284; A9270

== ENCOUNTER 2023-10-07 16:57 | Observation (INO) | payer MEDICARE, SELFPAY ==
--- NOTE | ~2023-10-07 | CT_ITS ---
EXAMINATION: CT lumbar spine wo con DATE: 10/07/2023 20:09 INDICATION: lumbar pain . TECHNIQUE: Computed tomography (CT) of the lumbar spine was performed without intravenous contrast. A utomated exposure control and iterative reconstruction technique were employed. The dose-length produ ct was 1442.85 mGy-cm. COMPARISON: 10/02/2023. FINDINGS: 5 nonrib-bearing lumbar-type vertebral bodies. Pedicles intact. Stable 2 mm retrolisthesis at L2-3. Stable 6 mm anterolisthesis at L4-5. Worsening, now moderate height loss at L2. Stable mild height loss at L3. Subtle increased height loss of the burst fracture at T12. Stable height loss L5. Subtle increased concavity of the superior endplate of L1. Stable vertebroplasty cement at L3 and L5. Multilevel facet arthropathy. Multilevel degenerative disc disease. Stable bilateral sacral insuffic iency fractures. Severe central canal narrowing at L4-5. IMPRESSION: Worsening, now moderate compression fracture at L2. Mild interval worsening of the T12 burst fracture . Subtle, new superior endplate deformity at L1. Reviewed, dictated and finalized at location K. ONAL COVERAGE SPECIALIST IMPRESSION: Worsening, now moderate compression fracture at L2. Mild interval worsening of the T12 burst fracture. Subtle, new superior endplate deformity at L1.
[2023-10-07 17:16] VITALS: BP 157/76; PULSE 122; RESP 22; TEMP 36.4; O2SAT 94
[2023-10-07 19:25] VITALS: BP 167/79; PULSE 128; RESP 17; O2SAT 94
--- NOTE | 2023-10-07 19:41 | ED.BACK ---
HPI - Back Pain/Injury General Chief Complaint: Back Pain/Injury Stated Complaint: low back pain Time Seen by Provider: 10/07/23 19:17 History of Present Illness HPI Narrative: 68-year-old female with a history of multiple compression fractures s/p L3 and L5 kyphoplasty on 10/01/[address] Rodríguez reports to the emergency department for low back pain. Patient states she was getting off of the toilet this morning and got up too quickly, lunged forward and tweaked her back. She did not fall to the ground or hit her head. Since then, she is reporting increasing pain to her low back that is worse with movement. She has been wearing an LSO while ambulating in the car, otherwise does not wear it. She has been ambulating with a walker or using a wheelchair as needed. The patient was seen in our ER on 10/02/2023 for back pain after her procedure. She had a CT scan done at that time which showed a new compression fracture of L2. Patient states she contacted her pain management doctor who is scheduled another kyphoplasty for L2 in 2 days. The patient was prescribed 5 mg Percocets without improvement, she was recently pump to 7.5 mg Percocets with some improvement. she is also taking methocarbamol. States today, the Percocet and methocarbamol has not been taking pain. She reports some urinary incontinence that is chronic and unchanged from her baseline. Denies urinary retention saddle anesthesia lower extremity weakness or numbness. Denies fever or rashes to kyphoplasty site. Related Data Home Medications Medication Instructions Recorded Confirmed aspirin 81 mg tablet,delayed 81 mg PO DAILY 08/09/19 08/18/23 release (Adult Low Dose Aspirin) omega 3-sjo-uxb-fish oil 1,000 mg 1 cap PO BID 02/08/20 08/18/23 (120 mg-180 mg) capsule (Fish Oil) cholecalciferol (vitamin D3) 25 2,000 unit PO DAILY 02/09/20 08/18/23 mcg (1,000 unit) capsule fluticasone furoate 50 inhalation PRN 07/12/20 08/18/23 mcg/actuation blister powder for inhalation magnesium 250 mg tablet 500 mg PO DAILY 05/16/21 08/18/23 acetaminophen 650 mg 650 mg PO Q12H 11/16/23 12/18/23 tablet,extended release (Tylenol 8 Hour) calcium carb,cit ER 600 mg-vit D3 tablet PO 07/17/23 08/18/23 12.5 mcg (500 unit) tablet,ext.rel fluticasone propionate 50 1 spray intranasal DAILY PRN 07/17/23 08/18/23 mcg/actuation nasal spray,suspension lactulose 10 gram oral packet 10 g PO BID 07/17/23 08/18/23 naproxen sodium 220 mg tablet 220 mg PO BID PRN 07/17/23 08/18/23 (Aleve) perservision multivitamin w/300IU BYMOUTH 07/17/23 08/18/23 Vit D melatonin 3 mg capsule 3 mg PO QHS 08/18/23 08/18/23 Allergies Allergy/AdvReac Type Severity Reaction Status Date / Time venom-wasp Allergy Severe swelling Verified 10/07/23 18:31 latex Allergy Mild rash Verified 10/07/23 18:31 Roeskco-EXQ-MwW Reductase AdvReac Intermediate muscle Verified 10/07/23 18:31 Inhibitor cramping Review of Systems Review of Systems: CONSTITUTIONAL: Denies fever, chills, or sweats. EYES: Denies visual changes, redness, or discharge. ENT: Denies rhinorrhea, congestion, sore throat, or otalgia. CARDIOVASCULAR: Denies chest pain, palpitations, or edema. RESPIRATORY: Denies cough or dyspnea. GASTROINTESTINAL: Denies abdominal pain, nausea, vomiting, or diarrhea. GENITOURINARY: Denies dysuria or hematuria. SKIN: Denies rash or itching. MUSCULOSKELETAL: See HPI NEUROLOGIC: Denies headache, numbness, or weakness. PSYCHIATRIC: Denies anxiety or depression. FOR[facility]LY [facility] Past Medical History Medical History Breast CA Diabetes type 2, controlled Essential hypertension Hepatic steatosis History of left breast cancer 05/2009 - s/p lumpectomy, radiation, & chemotherapy History of malignant carcinoid tumor of large intestine Hypothyroidism, acquired MGUS (monoclonal gammopathy of unknown significance) Normal colonoscopy GRETEL (obstructive sle
[2023-10-07] MEDS: ONDANSETRON HCL ODT 4 MG TABLET PO (19:47)
[2023-10-07] MEDS: HYDROmorphone HCL INJ (*CRX) 1 MG/ML SYR IM ×2 (19:48→23:04)
[2023-10-07 21:03] VITALS: BP 177/81; PULSE 117; RESP 17; O2SAT 94
--- NOTE | 2023-10-07 21:47 | ECG_ITS ---
Measurements Intervals [place] Rate: 113 P: 30 SD: 143 QRS: -48 QRSD: 86 T: 30 QT: 320 QTc: 440 Interpretive Statements SINUS TACHYCARDIA LEFT ANTERIOR FASCICULAR BLOCK [QRS AXIS <= -45, QR IN I, RS IN II] POSSIBLE ANTERIOR MYOCARDIAL INFARCTION , PROBABLY OLD [30 ms Q WAVE IN V3/V4, OR R < 0.2 mV IN V4] NO PREVIOUS ECG AVAILABLE FOR COMPARISON Electronically Signed On 10-08-2023 15:10:34 WEB PRODUCTION ASSISTANT by Andrew Tellez M.D.
[2023-10-07 22:19] VITALS: BP 159/88; PULSE 112; O2SAT 94
[2023-10-07 23:06] VITALS: BP 158/91; PULSE 121; O2SAT 93
[2023-10-07 23:25] LABS: Basophils Absolute Auto 0.1 K/mm3 (0.0-0.1); Basophils Percent Auto 0.8 % (0.2-1.2); Eosinophils Absolute Auto 0.4 K/mm3 (0-0.3); Eosinophils Percent Auto 3.6 % (0-4.4); Hemoglobin 11.2 g/dL (12.0-15.0); Immature Granulocyte Absolute 0.09 K/mm3 (0.00-0.031); Immature Granulocyte Percent A 0.9 % (0-0.5); Immature Platelet Fraction Pct 3.6 % (0.9-11.2); Lymphocytes Absolute Auto 2.15 K/mm3 (0.9-3.2); Lymphocytes Percent Auto 22.4 % (18.3-44.2); Mean Corpuscular Hemoglobin 29.8 pg (26-34); Mean Corpuscular Volume 93.1 fl (80-100); Mean Platelet Volume 10.1 fl (7.4-10.4); Monocytes Absolute Auto 0.9 K/mm3 (0.1-0.6); Monocytes Percent Auto 9.5 % (2.6-8.5); Neutrophils Percent Auto 62.8 % (45.5-73.1); Nucleated Red Blood Cells Perc 0.3 % (0.0-0.2); Platelet Count Result 282 k/mm3 (150-375); Red Blood Count 3.76 M/mm3 (4.2-5.4); Red Cell Distribution Width 14.2 % (11.5-14.5); White Blood Count 9.6 K/mm3 (4.5-10.0)
[2023-10-07 23:35] LABS: Alanine Aminotransferase 49 U/L (6-35); Albumin Level 4.6 g/dL (3.5-5.1); Alkaline Phosphatase 99 U/L (38-126); Anion Gap 9 mmol/L (8-16); Aspartate Amino Transferase 42 U/L (14-36); Bilirubin,Total 0.4 mg/dL (0.2-1.3); Blood Urea Nitrogen 24 mg/dL (7-17); Calcium 9.7 mg/dL (8.4-10.2); Carbon Dioxide 27 mmol/L (22-30); Chloride 100 mmol/L (98-107); Estimated CRCL calculation 64 ml/min; Estimated Glomerular Filt Rate > 60; Glucose 146 mg/dL (65-110); Potassium 4.3 mmol/L (3.4-5.0); Sodium 136 mmol/L (137-145)
[2023-10-07 23:38] LABS: Appearance Urine Cloudy (Clear); Bacteria Urine None Seen /hpf; Bilirubin Urine Negative (Negative); Blood Urine Negative (Negative); Calcium Oxalate Crystals Urine Present /hpf; Color Urine Dark Yellow (Yellow); Glucose Urine UA Negative (Negative); Hyaline Casts Urine Present /lpf; Ketones Urine Trace mg/dL (Negative); Leukocyte Esterase Ur Negative LEU/UL (Negative); Need Manual Microscopic Reviewed; Nitrate Urine Negative (Negative); Protein Urine 1+ mg/dL (Negative); RBC Urine 0-2 /hpf (0-2); Squamous Epithelial Cell Urine Occasional /hpf (Few); WBC Urine 0-5 /hpf
[2023-10-07 23:40] LABS: Add Urine Microscopic? YES; Specific Grav Ur 1.037 (1.001-1.035)
[2023-10-08] MEDS: SODIUM CHLORIDE 0.9% IV 1,000 ML 999 ML IV CONT (00:06)
[2023-10-08 00:24] VITALS: BP 174/95; PULSE 107; RESP 17; O2SAT 93
[2023-10-08 01:39] VITALS: BP 165/81; PULSE 109; RESP 20; TEMP 36.6; O2SAT 91; BMI 32.0
[2023-10-08] MEDS: HYDROmorphone HCL INJ (*CRX) 1 MG/ML SYR IV PUSH ×3 (01:43→10:36)
[2023-10-08] MEDS: ONDANSETRON INJ 4 MG/2 ML VIAL IV PUSH ×4 (01:45→15:09)
[2023-10-08 05:11] VITALS: BP 163/89; PULSE 113; RESP 18; TEMP 36.7; O2SAT 91
[2023-10-08 08:18] VITALS: O2SAT 96
[2023-10-08 08:36] LABS: Glucose Point of Care 196 mg/dl (65-105)
--- NOTE | 2023-10-08 11:41 | PM.IMHP ---
H&P: HPI History of Present Illness Date/Time: 10/08/23 7634 Chief Complaint: Back Pain, Compression Fx Narrative: 68-year-old female with a history of multiple compression fractures s/p L3 and L5 kyphoplasty on 10/01/[address] Rodríguez. She presented to ER with concerns for ongoing back pain that was not well controlled with PO mediations. Of note patient was also seen in ER on 10/02 for same issue of uncontrolled back pain, at this occurrence CT which showed a new compression fracture of L2.? Patient states she contacted her pain management doctor who is scheduled another kyphoplasty for L2?on tomorrow 10/09 at 8:15am, at that time her pain medication of Percocet was increased to 7.5mg and methocarbamol TID. She returned to ER for this episode stated she tweaked her back when trying to insert suppository for constipation. CT on 10/07 showed Worsening, now moderate compression fracture at L2. Mild interval worsening of the T12 burst fracture. Subtle, new superior endplate deformity at L1. She denied and saddle anestheisa, lower extremity weakness. Her urinary issues are a chronic condition and remain at baseline. She was admitted for pain control, PT and OT. She stated that her back is very fragile and she is afraid to move due to potentially getting another fracture. She was ordered dilaudid and zofran for overnight control. Today she stated that her pain is ok if she doesn't move. Reluctant to start PO medications as she said they did not control pain. Review of Systems Review of Systems: All systems reviewed & are unremarkable except as noted in HPI and below PMFSH Past Medical History Medical History (Updated 10/08/23 @ 12:07 by Wilma Bustos APRN) Breast CA Constipation due to pain medication Diabetes type 2, controlled Essential hypertension Hepatic steatosis History of left breast cancer 05/2009 - s/p lumpectomy, radiation, & chemotherapy History of malignant carcinoid tumor of large intestine Hypothyroidism, acquired MGUS (monoclonal gammopathy of unknown significance) Normal colonoscopy GRETEL (obstructive sleep apnea) Osteopenia Pure hypercholesterolemia, unspecified Slow transit constipation Tortuous colon Urinary incontinence, mixed Vitamin D deficiency, unspecified Surgical History Surgical History History of appendectomy (~2003) History of arthroscopy of left knee 1986 - s/p skiing accident History of lumpectomy of left breast (~05/2009) History of right hemicolectomy (~2003) History of tonsillectomy (~1958) History of wisdom tooth extraction (~1974) Family History Family History Father Hypertension Family history of diabetes mellitus in first degree relative Family history of arthritis Family history of type 2 diabetes mellitus Mother Hypertension Family history of cardiac disorder Family history of arthritis Patient's mother is Sibling Diabetes mellitus Hypertension Family history of arthritis Family history of type 2 diabetes mellitus Other Family history of congestive heart failure Family history of emphysema Family history of glaucoma Social History Social History Social History: Patient lives in [place] with her Severino Allen. Smoking status: Never smoker Alcohol intake: never Drinks per week: 1 Alcohol use details: rarely Substance use: never Substance use type: does not use Do You Feel Safe in your Home?: Yes Lack of Transportation: No Lack of Food: Never True Current Housing: I Have Housing Concerned About Future Housing: No Difficulty Paying Gas/Electric Bills: No Difficulty Paying for Meds: No Currently Unemployed: No Education: Bachelor's Degree Difficulty w/ Childcare or Family Care: No Living arrangements: with family Occupation/Education: retir
[2023-10-08 12:27] LABS: Glucose Point of Care 163 mg/dl (65-105)
[2023-10-08] MEDS: LORazepam (*CRX) 0.5 MG TABLET PO (12:32)
[2023-10-08] MEDS: amLODIPine BESYLATE 5 MG TABLET 10 MG PO (12:32)
[2023-10-08] MEDS: methocarbamoL 750 MG TABLET PO ×2 (12:33→17:04)
[2023-10-08] MEDS: lisinopriL 10 MG TABLET PO (12:33)
[2023-10-08 12:34] VITALS: BP 172/88; PULSE 101; RESP 18; TEMP 36.7; O2SAT 91
--- NOTE | 2023-10-08 14:23 | WPDNEUROSGCN ---
Assessment and Plan Assessment and plan (1) Low back pain: Code(s): M54.50 - Low back pain, unspecified Status: Acute (2) Thoracic compression fracture: Code(s): S22.000A - Wedge compression fracture of unspecified thoracic vertebra, initial encounter for closed fracture Status: Acute (3) Compression fx, lumbar spine: Qualifiers: Encounter type: initial encounter Lumbar vertebra fracture level: L2 Qualified Code(s): S32.020A - Wedge compression fracture of second lumbar vertebra, initial encounter for closed fracture Code(s): S32.000A - Wedge compression fracture of unspecified lumbar vertebra, initial encounter for closed fracture Status: Acute Assessment and Plan: The patient is a pleasant 68-year-old female who presents with intractable back pain with a history of L3, 5 compression fractures status post recent kyphoplasty and was found to have new and worsening compression fractures at T12, L2 and inferior endplate of L3. On exam the patient is neurologically intact without any focal deficits, she also has no radicular leg symptoms. The patient has an hwh-ldb-nrzik LSO brace and is currently wearing it, I did look at this brace and help with adjustment specially from a sitting to stand position there is some areas that is pushing on her back and making her discomfort worse at times. Patient is scheduled to follow-up with [facility] and have an L2 kyphoplasty tomorrow, patient can be discharged home with good pain control then she can proceed with this procedure as it may help alleviate her acute fracture pain. I explained to her that there is no surgical interventions at this time for these fractures and her exam is reassuring. I do recommend she continue to wear the LSO brace when sitting upright and ambulating, she can remove this for showers briefly and when lying reclined. I would plan to treat her in the brace for at least 3 months. I encouraged her to follow up with the Reclast treatment and may be beneficial for her to see a bone health specialist. Patient is going to discuss further with electric brain wave equipment mechanic. The patient can follow-up with us in our outpatient clinic the next 4-6 weeks, we would obtained thoracolumbar x-rays AP and lateral views in the upright position just prior to this visit. Our info will be left in the discharge tab. Krysta Jason PA-C Neurosurgery Consult date: 10/08/23 Reason for consult: Compression fractures HPI: Mirian Morgan is a 68 year old female with hx significant subacute L3,5 compression fractures. The patient states she developed sudden onset of back pain in early August while taking a 20-30minute car ride. When her pain persisted she saw her PCP and xrays were obtained that revealed these compression fractures. She then had an MRI on 09/26/23 to determine chronicity, the L3 was reported acute and the L5 was subacute. The patient then saw Dr. Rodríguez with [facility], a lumbar brace was provided and then the patient had kyphoplasty procedures at both levels. She states when the pain continued she presented to the ED on 10/02/23 and was found to have a mild new compression fractures at T12 and L2, and new inferior endplate compression at L3 on CT scan. The patient was discharged home, scheduled to have L2 kyphoplasty but then then re-presented to the ER for intractable back pain with repeat CT study on 10/07/23 showing further progression of the L2 and T12 compression fractures. She denies any wrap around torso pain and no leg symptoms including weakness, radicular pain, or sensory changes. She is set up to start Reclast injections upon discharge and is also proceeding with an L2 kyphoplasty. Review of Systems Review of Systems: All systems reviewed & are unremarkable except as noted in HPI and below PMFSH Past Medical History Medical History (Updated 10/08/23 @ 14:35 by Krysta Jason PA-C) Breast CA Constipation due to pain medication
[2023-10-08] MEDS: oxyCODONE HCL (*CRX) 2.5 MG TAB IR PO (15:04)
[2023-10-08] MEDS: oxyCODONE/ACETAMINOPHEN (*CRX) 5-325 MG TABLET 1 TABLET PO (15:05)
[2023-10-08] MEDS: LACTULOSE 20 GM/30 ML UDC 10 GM PO (17:04)
[2023-10-08] MEDS: OMEGA 3 POLYUNSAT FATTY ACIDS 1 GM CAP PO (17:04)
--- NOTE | 2023-10-08 17:58 | PM.DS ---
DS: Admitting Diagnosis Discharge Date 10/08/23 Admitting Diagnosis Back pain DS: Discharge Diagnosis Discharge Diagnosis (1) Compression fx, lumbar spine: Qualifiers: Encounter type: initial encounter Lumbar vertebra fracture level: L2 Qualified Code(s): S32.020A - Wedge compression fracture of second lumbar vertebra, initial encounter for closed fracture Code(s): S32.000A - Wedge compression fracture of unspecified lumbar vertebra, initial encounter for closed fracture Status: Acute Assessment and Plan: S/P L3 and L5 kyphoplasty on 10/01/[address] Rodríguez CT on 10/07: Worsening, now moderate compression fracture at L2. Mild interval worsening of the T12 burst fracture. Subtle, new superior endplate deformity at L1. Appt with Dr Rod[facility]guez at [facility] in [place] on 10/09 for Kyphoplasty for new lumbar fractures. Patient stated she work with PCP to get Reclast infusions- not yet occurred will happen at [facility] Admitted for pain control- IV dilaudid 1mg q4hr 10/08: 1500- Neurosurgery consult- patient can be discharged home with good pain control then she can proceed with this procedure as it may help alleviate her acute fracture pain. Continue LSO brace.Follow-up with outpatient clinic the next 4-6 weeks Pain controlled without IV medication at this time. OK to DC home and Kypho tomorrow am Address further pain control with Dr Rodríguez at [facility] in [place] (2) Low back pain: Code(s): M54.50 - Low back pain, unspecified Status: Acute Assessment and Plan: See #1 (3) Essential hypertension: Code(s): I10 - Essential (primary) hypertension Status: Acute Assessment and Plan: Hypertensive in ER- likely due to pain Patient also admits to not taking medications yesterday Resume home amlodipine and lisinopril Remains hypertensive but contributes to anxiety of anticipation of pain. DC home, continue home medications (4) Hypothyroidism, acquired: Code(s): E03.9 - Hypothyroidism, unspecified Status: Acute Assessment and Plan: Occurred after chemo for breast cancer Resume home Synthroid. DC home, continue home medicatons (5) Vitamin D deficiency, unspecified: Code(s): E55.9 - Vitamin D deficiency, unspecified Status: Acute Assessment and Plan: Osteopenia Continue home Vitamin D DC home, Continue home medications (6) Osteopenia: Qualifiers: Osteopenia location: femoral neck Laterality: bilateral Qualified Code(s): M85.851 - Other specified disorders of bone density and structure, right thigh; M85.852 - Other specified disorders of bone density and structure, left thigh Code(s): M85.80 - Other specified disorders of bone density and structure, unspecified site Status: Acute Assessment and Plan: Acute and Chronic PCP for reclast infusions- Not yet receiving. Continue Calcium, Vit D, Ocuvite DC home with home medications follow up with the Reclast treatment and may be beneficial for her to see a bone health specialist (7) Constipation due to pain medication: Code(s): K59.03 - Drug induced constipation Status: Acute Assessment and Plan: Acute and Chronic Stated last BM was last week. Hx of GI issues with constipation. HX of hemicolectomy. Constipation increased due to use of percocet Continue lactulose Ordered Senokot Continue home bowel regimen. Pain medication sparingly to reduce incident of constipation DS: Summary Hospital Course Reason for hospitalization: Back Pain Hospital Course: 68-year-old female with a history of multiple compression fractures s/p L3 and L5 kyphoplasty on 10/01/[address] Rodríguez. She presented to ER with concerns for ongoing back pain that was not well controlled with PO mediations. Of note patient was also seen in ER on 10/02 for same issue of uncontrolled back pain, at this occurrence CT which showed a new
== END 2023-10-08 18:59 | disposition home or self-care (01) ==
LOC: ANHED 10-08 00:17 → ANH2MED 10-08 01:16
PROVIDERS: Admitting Provider Internal Medicine; Emergency Provider Physician Assistant; PCP Family Medicine; Visit Provider Internal Medicine
DX: S32.020A Wedge compression fracture of second lumbar vertebra, initial encounter for closed fracture (principal); S22.080A Wedge compression fracture of T11-T12 vertebra, initial encounter for closed fracture; X50.0XXA Overexertion from strenuous movement or load, initial encounter; Z99.89 Dependence on other enabling machines and devices; Z98.890 Other specified postprocedural states; N39.46 Mixed incontinence; E11.9 Type 2 diabetes mellitus without complications; R00.0 Tachycardia, unspecified; I10 Essential (primary) hypertension; I44.4 Left anterior fascicular block; E03.9 Hypothyroidism, unspecified; M85.851 Other specified disorders of bone density and structure, right thigh; M85.852 Other specified disorders of bone density and structure, left thigh; K59.03 Drug induced constipation; D47.2 Monoclonal gammopathy; G47.33 Obstructive sleep apnea (adult) (pediatric); E78.00 Pure hypercholesterolemia, unspecified; E55.9 Vitamin D deficiency, unspecified; Z90.49 Acquired absence of other specified parts of digestive tract; Z85.3 Personal history of malignant neoplasm of breast; Z79.82 Long term (current) use of aspirin; Z92.21 Personal history of antineoplastic chemotherapy; Z92.3 Personal history of irradiation; Z79.1 Long term (current) use of non-steroidal anti-inflammatories (NSAID); Z79.84 Long term (current) use of oral hypoglycemic drugs; Z79.899 Other long term (current) drug therapy; Z83.3 Family history of diabetes mellitus; Z82.49 Family history of ischemic heart disease and other diseases of the circulatory system
CPT/HCPCS: 36415; 72131; 80053; 81001; 82948; 85025; 85055; 93005; 96361; 96372; 96374; 96375; 96376; 99285; A9270; G0378; J1100; J1170; J2405; J7030

== ENCOUNTER 2023-10-15 17:01 | Outpatient (CLI) | payer MEDICARE, SELFPAY | END 2023-10-15 17:02 | disposition home or self-care (01) | PROVIDERS: PCP Family Medicine; Visit Provider Family Medicine | DX: N39.0 Urinary tract infection, site not specified (principal) | CPT/HCPCS: 87086 ==

== ENCOUNTER 2023-11-05 10:16 | Outpatient (CLI) | payer MEDICARE, SELFPAY ==
--- NOTE | ~2023-11-05 | XR_ITS ---
EXAMINATION: XR lumbar spine 2-3V DATE: 11/05/2023 10:39 INDICATION: Lumbar compression fracture. TECHNIQUE: 3 views of lumbar spine were obtained. COMPARISON: Lumbar spine radiographs 08/18/2023, CT 10/07/2023 FINDINGS: There is 5 mm anterolisthesis of L4 on L5. There is a compression fracture of T11 with 1/5 loss of height. There is a burst fracture of T12 with 2/5 loss of height. There are fractures of L1, L2, L3, and L5 vertebral bodies with changes of vertebroplasties. There is moderately decreased disc height at L4-L5. There is multilevel facet joint osteoarthritis, severe at L4-L5. IMPRESSION: 1. T11 compression fracture, new from 10/07/2023. 2. T12 burst fracture, worsened from 10/07/2023. 3. Moderate lumbar spondylosis. Reviewed, dictated and finalized at location E. P TREATMENT SPECIALIST
== END 2023-11-05 10:17 ==
PROVIDERS: PCP Family Medicine; Visit Provider Physician Assistant
DX: S22.081A Stable burst fracture of T11-T12 vertebra, initial encounter for closed fracture (principal); X58.XXXA Exposure to other specified factors, initial encounter; S22.081D Stable burst fracture of T11-T12 vertebra, subsequent encounter for fracture with routine healing; X58.XXXD Exposure to other specified factors, subsequent encounter; M47.896 Other spondylosis, lumbar region
CPT/HCPCS: 72100

== ENCOUNTER 2023-11-07 10:00 | Outpatient (CLI) | payer MEDICARE, SELFPAY ==
--- NOTE | ~2023-11-07 | DEXA_ITS ---
Bone Density Report Name: FRANCESCO JEAN Age: 68 Sex: Female Ethnicity: White Date of : 1955 Indication: osteopenia; parental hip fracture; height loss; prior fracture; cancer; Referring Provider: CHANEL ARGUETA Study: Bone densitometry was performed. Exam Date: November 07, 2023 Accession number: [id number] Bone Density: Region BMD T-score Z-score Classification AP Spine(L4) 0.812 -2.3 0.0 Osteopenia Femoral Neck (Left) 0.618 -2.1 -0.3 Osteopenia Total Hip (Left) 0.842 -0.8 0.7 Normal Femoral Neck (Right) 0.692 -1.4 0.4 Osteopenia Total Hip (Right) 0.785 -1.3 0.2 Osteopenia Total Hip Mean 0.813 -1.1 0.5 Osteopenia World Health Organization criteria for BMD impression classify patients as: Normal (T-score at or above -1.0), Osteopenia (T-score between -1.0 and -2.5), or Osteoporosis (T-score at or below -2.5). 10-year Fracture Risk: FRAX not reported because: Prior hip or vertebral fracture Previous Exams: Region Exam Age BMD T-score BMD Change BMD Change Date g/cm2 vs Baseline vs Previous AP Spine (L4) 11/07/2023 68 0.812 -2.3 -0.116 (-12.5% -0.092 (-10.1% 10/20/2018 63 0.904 -1.4 -0.024 (-2.6%) -0.024 (-2.6%) 10/05/2015 60 0.928 -1.2 Total Hip(Left) 11/07/2023 68 0.842 -0.8 -0.040 (-4.5%) -0.074 (-8.1%) 11/04/2022 67 0.916 -0.2 0.034 (3.9%)* 0.026 (3.0%) 10/30/2020 65 0.890 -0.4 0.008 (0.9%) -0.117 (-11.6% 10/20/2018 63 1.006 0.5 0.124 (14.1%)* 0.124 (14.1%)* 10/05/2015 60 0.882 -0.5 Total Hip(Right) 11/07/2023 68 0.785 -1.3 -0.165 (-17.3% -0.176 (-18.3% 11/04/2022 67 0.961 0.2 0.012 (1.2%) 0.042 (4.6%)* 10/30/2020 65 0.919 -0.2 -0.031 (-3.2%) -0.115 (-11.2% 10/20/2018 63 1.034 0.8 0.085 (8.9%)* 0.085 (8.9%)* 10/05/2015 60 0.950 0.1 *Denotes significance at 95% confidence level, LSC for AP Spine = 0.022 g/cm2, LSC for Total Hip = 0.027 g/cm2 Clinical Information Provided by Patient: Have had a previous hip or vertebral fracture Has had a low trauma fracture Parent has had a hip fracture Has used the following medications: Vitamin D, Calcium Has the following medical conditions: Cancer, Breast Cancer Patient maximum height was 67 Menopause Age: 48 No regular weight bearing exercise Onset of menses at age 8 Number of children 0 Impression: The patient has low bone mass, based on the Total Spine T-score. The patient has ri
--- NOTE | ~2023-11-07 | MM_ITS ---
EXAMINATION: MM diagnostic marjorie BI w jasmin HISTORY: Outside 11/07/2023 CT abdomen pelvis examination reported spiculated nodular density with calc ifications and overlying skin thickening/retraction in the left breast TECHNIQUE: ML, MLO and CC 3-D tomosynthesis images of both breasts were performed and synthetic 2-D i mages were generated. CAD analysis was submitted and interpreted. COMPARISON: 11/04/2022, 11/01/2021 bilateral screening mammogram examinations BREAST PARENCHYMAL COMPOSITION: There are scattered areas of fibroglandular density. FINDINGS: Stable postoperative changes are again noted in the left breast from partial mastectomy for breast cancer, without significant change since 11/01/2021. There is chronic scarring, benign calcific ation and overlying retraction. No interval suspicious mass or new architectural distortion, malignant calcification, skin thickening or new retraction of either breast is evident. IMPRESSION: 1. Status post left partial mastectomy for breast cancer; no evidence of malignancy in either breast is detected 2. Routine annual mammographic screening and any additional breast imaging as may be clinically appro priate is recommended BI-RADS Category 2: Benign finding(s). Reviewed, dictated and finalized at location A. P IMPRESSION: 1. Status post left partial mastectomy for breast cancer; no evidence of malign jane in either breast is detected 2. Routine annual mammographic screening and any additional breast imaging as m ay be clinically appropriate is recommended BI-RADS Category 2: Benign finding(s).
== END 2023-11-07 10:01 | disposition home or self-care (01) ==
LOC: ANHIMG 10:01
PROVIDERS: PCP Family Medicine; Visit Provider Family Medicine
DX: S22.000A Wedge compression fracture of unspecified thoracic vertebra, initial encounter for closed fracture (principal); S32.000A Wedge compression fracture of unspecified lumbar vertebra, initial encounter for closed fracture; Z78.0 Asymptomatic menopausal state; R92.8 Other abnormal and inconclusive findings on diagnostic imaging of breast; M85.88 Other specified disorders of bone density and structure, other site; M85.852 Other specified disorders of bone density and structure, left thigh; M85.851 Other specified disorders of bone density and structure, right thigh
CPT/HCPCS: 77062; 77066; 77080; G0279

== ENCOUNTER 2023-11-08 08:14 | Outpatient (CLI) | payer MEDICARE, SELFPAY ==
--- NOTE | ~2023-11-08 | XR_ITS ---
EXAMINATION: XR thoracic spine 2V DATE: 11/08/2023 10:17 INDICATION: Wedge compression fracture of unspecified vertebra. TECHNIQUE: 3 views of the thoracic spine standing were obtained. COMPARISON: Lumbar spine radiographs 11/05/2023, 08/18/2023, CT 10/07/2023 FINDINGS: Bone alignment is normal. There is a compression fracture of T11 with 1/5 loss of height. T here is a burst fracture of T12 with 2/5 loss of height. There is mildly decreased disc height at T8- T9. There are endplate osteophytes at multiple levels. IMPRESSION: 1. T11 compression fracture, stable from 11/05/2023, but new from 10/07/2023. 2. Subacute T12 burst fracture, stable from 10/07/23. 3. Mild thoracic spondylosis. Reviewed, dictated and finalized at location E. CARRIER
--- NOTE | ~2023-11-08 | XR_ITS ---
EXAMINATION: XR lumbar spine 2-3V DATE: 11/08/2023 10:17 INDICATION: Wedge compression fracture of unspecified vertebral body of lumbar region. TECHNIQUE: 3 views of lumbar spine on 4 radiographs including standing views were obtained. COMPARISON: Lumbar spine radiographs 11/05/2023, CT 10/07/2023 FINDINGS: There is 3 degrees levocurvature of thoracolumbar spine. There is 5 mm anterolisthesis of L 4 on L5. Again seen are fractures of T11-L5 vertebral bodies with changes of vertebroplasty at L1, L2 , L3, and L5. The compression fractures of T11 and L4 are stable from 11/05/2023, but new from 10/07/2023 . There is mildly decreased disc height at L2-L3, L4-L5, and L5-S1. There is multilevel facet joint o steoarthritis, severe in lower lumbar spine. IMPRESSION: 1. Subacute compression fractures of T11 and L4, stable from 11/05/2023, but new from 10/07/23. 2. Mild lumbar spondylosis. Reviewed, dictated and finalized at location E. C PASTOR
== END 2023-11-08 08:15 ==
PROVIDERS: PCP Family Medicine; Visit Provider Physician Assistant
DX: M47.894 Other spondylosis, thoracic region (principal); M47.896 Other spondylosis, lumbar region; S22.080D Wedge compression fracture of T11-T12 vertebra, subsequent encounter for fracture with routine healing; X58.XXXD Exposure to other specified factors, subsequent encounter
CPT/HCPCS: 72070; 72100

== ENCOUNTER 2023-11-11 14:17 | Outpatient (CLI) | payer MEDICARE, SELFPAY ==
--- NOTE | ~2023-11-11 | XR_ITS ---
EXAMINATION: [id number] DATE: 11/11/2023 14:35 INDICATION: Right rib pain. TECHNIQUE: A frontal view of the chest and 2 views on 3 radiographs of the right ribs were obtained. COMPARISON: None. FINDINGS: There is no pneumonia, pleural effusion, or pneumothorax. The heart size is normal. Surgica l clips overlie left axilla. There is a fracture of anterior right seventh rib. IMPRESSION: 1. Fracture of right seventh rib. Reviewed, dictated and finalized at location A.
== END 2023-11-11 14:18 ==
LOC: MICIMG 14:18
PROVIDERS: PCP Family Medicine; Visit Provider Nurse Practitioner Family
DX: R07.81 Pleurodynia (principal); S22.31XA Fracture of one rib, right side, initial encounter for closed fracture; X58.XXXA Exposure to other specified factors, initial encounter
CPT/HCPCS: 71101

== ENCOUNTER 2023-12-15 08:28 | Outpatient (CLI) | payer MEDICARE, SELFPAY ==
[2023-12-15 09:18] LABS: Basophils Percent Auto 0.8 % (0.2-1.2); Eosinophils Absolute Auto 0.1 K/mm3 (0-0.3); Eosinophils Percent Auto 3.3 % (0-4.4); Hematocrit 34.5 % (37.0-47.0); Hemoglobin 11.5 g/dL (12.0-15.0); Immature Granulocyte Absolute 0.03 K/mm3 (0.00-0.031); Immature Granulocyte Percent A 0.8 % (0-0.5); Lymphocytes Absolute Auto 0.52 K/mm3 (0.9-3.2); Lymphocytes Percent Auto 14.4 % (18.3-44.2); Mean Corpuscular HGB Conc 33.3 g/dl (32-36); Mean Corpuscular Hemoglobin 31.2 pg (26-34); Mean Corpuscular Volume 93.5 fl (80-100); Mean Platelet Volume 8.7 fl (7.4-10.4); Monocytes Absolute Auto 0.5 K/mm3 (0.1-0.6); Neutrophils Absolute Auto 2.4 K/mm3 (1.3-6.7); Neutrophils Percent Auto 65.7 % (45.5-73.1); Platelet Count Result 272 k/mm3 (150-375); Red Blood Count 3.69 M/mm3 (4.2-5.4); Red Cell Distribution Width 15.9 % (11.5-14.5); White Blood Count 3.6 K/mm3 (4.5-10.0)
[2023-12-15 09:55] LABS: Alanine Aminotransferase 30 U/L (6-35); Albumin Level 4.4 g/dL (3.5-5.1); Alkaline Phosphatase 123 U/L (38-126); Anion Gap 6 mmol/L (4-12); Aspartate Amino Transferase 25 U/L (14-36); Bilirubin,Total 0.4 mg/dL (0.2-1.3); Blood Urea Nitrogen 11 mg/dL (7-17); Carbon Dioxide 27 mmol/L (22-30); Chloride 105 mmol/L (98-107); Estimated Glomerular Filt Rate > 60; Glucose 208 mg/dL (65-110); Sodium 138 mmol/L (137-145)
[2023-12-15 09:57] LABS: Immunoglobulin A 571 mg/dL (70-400); Immunoglobulin G 402 mg/dL (700-1600); Immunoglobulin M 34 mg/dL (40-230)
[2023-12-15 21:39] LABS: Free T4 Free Thyroxine 1.83 ng/mL (0.78-2.19)
[2023-12-17 00:53] LABS: Protein, Total 6.5 g/dL (6.1-8.1)
[2023-12-17 13:14] LABS: Ionized Calcium 5.1 mg/dL (4.7-5.5)
[2023-12-17 14:14] LABS: Kappa\\Lambda Light Chains 3.86 (0.26-1.65); Lambda Light Chain 9.2 mg/L (5.7-26.3)
[2023-12-17 17:19] LABS: Abnormal Protein Band 1 0.3 g/dL (NONE DETECTED); Albumin 3.5 g/dL (3.8-4.8); Alpha 1 Globulin 0.4 g/dL (0.2-0.3); Beta 1 Globulin 0.5 g/dL (0.4-0.6); Gamma Globulin 0.7 g/dL (0.8-1.7)
[2023-12-19 06:53] LABS: Immunoglobulin A 534 mg/dL (70-320); TTG IGA AB <1.0 U/mL
[2023-12-20 03:48] LABS: Adrenocorticotropic Hormone 15 pg/mL (6-50)
== END 2023-12-15 08:29 | disposition home or self-care (01) ==
LOC: ANHLAB 08:30
PROVIDERS: Internal Medicine; PCP Family Medicine; Visit Provider Internal Medicine Hematology & Oncology
DX: E11.65 Type 2 diabetes mellitus with hyperglycemia (principal); E83.52 Hypercalcemia; I10 Essential (primary) hypertension; M81.0 Age-related osteoporosis without current pathological fracture; R20.2 Paresthesia of skin
CPT/HCPCS: 36415; 80053; 82024; 82330; 82784; 83883; 84155; 84165; 84439; 84443; 85025; 86364

== ENCOUNTER 2023-12-17 14:36 | Outpatient (CLI) | payer MEDICARE, SELFPAY ==
[2023-12-17 16:31] LABS: Total Volume 24 Hour Urine 1600 ml
[2023-12-17 17:02] LABS: Creatinine 24 Hour Urine 0.9 gm/24 (0.8-1.8); Creatinine Urine 57.2 mg/dL
== END 2023-12-17 14:37 | disposition home or self-care (01) ==
PROVIDERS: PCP Family Medicine; Visit Provider Internal Medicine Hematology & Oncology
DX: E83.52 Hypercalcemia (principal); R20.2 Paresthesia of skin; E11.65 Type 2 diabetes mellitus with hyperglycemia; I10 Essential (primary) hypertension; M81.0 Age-related osteoporosis without current pathological fracture
CPT/HCPCS: 81050; 82340; 82570

== ENCOUNTER 2023-12-23 09:27 | Outpatient (CLI) | payer MEDICARE, SELFPAY ==
--- NOTE | ~2023-12-23 | MR_ITS ---
EXAMINATION: MR lumbar spine wo/w con DATE: 12/23/2023 11:11 INDICATION: Plasmacytoma with spinal cord compression. Mid and low back pain. TECHNIQUE: Magnetic resonance imaging (MRI) of the lumbar spine was performed without and with 15 mL MultiHance intravenous contrast. COMPARISON: CT lumbar spine 10/07/2023, MRI lumbar spine 09/26/23, radiographs 11/08/2023 FINDINGS: There is 6 degrees dextrocurvature of lumbar spine. There is 5 mm anterolisthesis of L4 on L5. There is a compression fracture of superior endplate of T11 with less than 1/5 loss of height and edema-like marrow signal intensity. There is a chronic compression fracture of T12 with worsening fr om 09/26/2023. There are burst fractures of L1, L2, L3, and L5 with edema-like marrow signal intensity , enhancement, and changes of vertebroplasty. There is a chronic compression fracture of L4 with 1/5 loss of height with worsening from 09/26/2023. The distal spinal cord signal intensity is normal. The conus medullaris is at L1. The following disc levels are specifically discussed: L1-L2: The disc does not extend beyond the endplate margin. There is moderate bilateral facet joint o steoarthritis. There is mild right neural foraminal stenosis. There is mild central canal stenosis. L2-L3: Disc is bulging. There is severe bilateral facet joint osteoarthritis. There is mild bilateral neural foraminal stenosis. There is mild central canal stenosis. L3-L4: There is a right foraminal protrusion. There is severe bilateral facet joint osteoarthritis. T here is mild bilateral neural foraminal stenosis. There is no central canal stenosis. L4-L5: The disc is mildly bulging. There is severe bilateral facet joint osteoarthritis. There is mil d bilateral neural foraminal stenosis. There is moderate central canal stenosis. L5-S1: The disc does not extend beyond the endplate margin. There is severe bilateral facet joint ost eoarthritis. There is mild bilateral neural foraminal stenosis. There is no central canal stenosis. IMPRESSION: 1. Subacute L1 compression fracture, stable from 11/08/2023. 2. Moderate lumbar spondylosis. Reviewed, dictated and finalized at location E.
--- NOTE | ~2023-12-23 | MR_ITS ---
EXAMINATION: MR thoracic spine wo/w con DATE: 12/23/2023 11:11 INDICATION: Thoracic radiculopathy. Mid to low back pain. TECHNIQUE: Magnetic resonance imaging (MRI) of the thoracic spine was performed without and with 15 m L MultiHance intravenous contrast. COMPARISON: Thoracic spine radiographs 11/08/2023 FINDINGS: Bone alignment is normal. There are compression fractures of T3 and T4 with less than 1/5 l oss of height with edema-like marrow signal intensity. There is enhancement in the posterior elements of T4 and T5. There is a burst fracture of T8 with 1/5 loss of height and edema-like marrow signal i ntensity and enhancement. There is a burst fracture of T9 with 1/5 loss of height and edema-like dominik ow signal intensity and enhancement. There is a compression fracture of T11 with 1/5 loss of height a nd edema-like marrow signal intensity and enhancement. There is a chronic burst fracture of T12. Ther e is mildly decreased disc height at multiple levels. At T3-T4, there is a central protrusion with mi ld central canal stenosis. At T8-T9, there is a central extrusion with mild central canal stenosis. There is multilevel facet joint osteoarthritis, severe at many levels. There is multilevel mild neura l foraminal stenosis bilaterally. There is moderate neural foraminal stenosis bilaterally at T10-T11. The spinal cord signal intensity is normal. IMPRESSION: 1. Enhancement in the posterior elements at T4 and T5, consistent with malignancy. 2. Subacute compression fractures of T3, T4, and T11. 3. Acute versus subacute burst fractures of T8 and T9. 4. Mild thoracic spondylosis. Reviewed, dictated and finalized at location E. IMPRESSION: 1. Enhancement in the posterior elements at T4 and T5, consistent with malignan cy. 2. Subacute compression fractures of T3, T4, and T11. 3. Acute versus subacute burst fractures of T8 and T9. 4. Mild thoracic spondylosis.
== END 2023-12-23 09:28 ==
PROVIDERS: PCP Internal Medicine Hematology & Oncology; Visit Provider Anesthesiology Pain Medicine
DX: M47.24 Other spondylosis with radiculopathy, thoracic region (principal); S22.030D Wedge compression fracture of third thoracic vertebra, subsequent encounter for fracture with routine healing; S22.040D Wedge compression fracture of fourth thoracic vertebra, subsequent encounter for fracture with routine healing; S22.080D Wedge compression fracture of T11-T12 vertebra, subsequent encounter for fracture with routine healing; S32.010D Wedge compression fracture of first lumbar vertebra, subsequent encounter for fracture with routine healing; X58.XXXD Exposure to other specified factors, subsequent encounter; M47.896 Other spondylosis, lumbar region
CPT/HCPCS: 72157; 72158; A9577

== ENCOUNTER 2024-01-02 12:50 | Outpatient (RCR) | payer MEDICARE, SELFPAY ==
--- NOTE | 2023-12-26 09:59 | PHAR ---
DARZALEX ROUNDED FROM 1,350MG DOWN TO 1,300 MG (3.8%) TO REDUCE WASTE DUE TO VIAL SIZE.
[2024-01-02 13:31] LABS: Alanine Aminotransferase 25 U/L (6-35); Albumin Level 4.7 g/dL (3.5-5.1); Alkaline Phosphatase 115 U/L (38-126); Anion Gap 10 mmol/L (4-12); Aspartate Amino Transferase 32 U/L (14-36); Bilirubin,Total 0.4 mg/dL (0.2-1.3); Blood Urea Nitrogen 14 mg/dL (7-17); Carbon Dioxide 26 mmol/L (22-30); Chloride 106 mmol/L (98-107); Estimated CRCL calculation 84 ml/min; Estimated Glomerular Filt Rate > 60; Glucose 170 mg/dL (65-110); Potassium 3.9 mmol/L (3.4-5.0); Sodium 142 mmol/L (137-145)
[2024-01-02 14:11] VITALS: BP 148/73; PULSE 112; RESP 18; TEMP 36.7; O2SAT 98
[2024-01-02] MEDS: ZOLEDRONIC ACID 4 MG/100 ML 100 ML 300 MG IVPB (14:25)
[2024-01-02 15:58] LABS: Hepatitis B Surface Antigen Negative (Negative)
== END 2024-01-14 08:27 ==
LOC: AMCINF 12:50
PROVIDERS: Referring Provider Family Medicine; Visit Provider Internal Medicine Hematology & Oncology
DX: C90.00 Multiple myeloma not having achieved remission (principal); C79.51 Secondary malignant neoplasm of bone; M85.89 Other specified disorders of bone density and structure, multiple sites; Z86.2 Personal history of diseases of the blood and blood-forming organs and certain disorders involving the immune mechanism; Z85.3 Personal history of malignant neoplasm of breast; Z90.49 Acquired absence of other specified parts of digestive tract; Z98.1 Arthrodesis status; Z98.890 Other specified postprocedural states; Z92.3 Personal history of irradiation
CPT/HCPCS: 36415; 80053; 81479; 85610; 85730; 87340; 96365; J3489

== ENCOUNTER 2024-01-02 12:58 | Outpatient (CLI) | payer MEDICARE, SELFPAY ==
[2024-01-02 14:10] LABS: INR 0.9; Prothrombin Time 12.6 Seconds (11.1-14.7)
[2024-01-02 14:11] LABS: Partial Thromboplastin Time 23.4 Seconds (22.3-36.8)
== END 2024-01-02 12:59 | disposition home or self-care (01) ==
LOC: ANHLAB 13:01
PROVIDERS: Surgery; PCP Internal Medicine Hematology & Oncology; Visit Provider Internal Medicine Hematology & Oncology
DX: C90.00 Multiple myeloma not having achieved remission (principal); Z01.818 Encounter for other preprocedural examination
CPT/HCPCS: 36415; 85610; 85730

== ENCOUNTER 2024-01-05 01:26 | Day surgery (SDC) | payer MEDICARE, SELFPAY ==
[2024-01-01 09:40] VITALS: BMI 28.3
--- NOTE | 2024-01-01 10:17 | PC.NURSE ---
Report to the Outpatient Waiting Room, entrance under the green pavilion located off [facility], at time __9:00AM on date ___01/05/24____. Planned Procedure Time: __11:00AM . Time changes happen often and if your time is changed the preop area will call you the afternoon before. - You and your visitor will be asked to self-screen and do not enter if you have any COVID symptoms. - A mask is optional within the hospital at this time. Patients may have clear liquids (water, carbonated beverages, clear teas, apple juice) until 3 hours prior to surgery with a maximum of 20 ounces. - No food from midnight until time of surgery. Take the following medications with a SIP of water the morning of surgery: ___AMLODIPINE, LEVOTHYROXINE.__LORAZEPAM, ZOFRAN & HYDROCODONE NEEDED DO NOT STOP ANY OF YOUR OTHER PRESCRIPTION MEDICATIONS PRIOR TO SURGERY ?EXCEPT THE FOLLOWING Medications to discontinue per physician ___HOLD ALL VITAMINS/SUPPLEMENTS 3 DAYS PRE-OP Date to take last dose 01/01/24 Please no make-up, nail thai, hairspray, perfume, deodorant, or body powder the day of surgery. No jewelry (including any body piercings) or valuables the day of surgery, leave them at home. Please take a shower or bath the night before, or the morning of, surgery with an antibacterial soap. Wear comfortable, loose fitting clothing. - Jewelry must be removed prior to entering the operating room. Rings and piercings that are not removed may be cut off. - The hospital will not accept responsibility for valuables. - Please leave all valuables, including medications, at home the day of surgery. If you are going home after surgery, a licensed regional company truck driver must drive you home. - NO public transportation without another adult if you receive anesthesia. - We recommend that an adult stay with you for 24 hours following discharge. - We also recommend that you do not drive, make important decision, drink alcoholic beverages, or take any drugs that were not prescribed by your health care provider for at least 24 hours after your discharge time. Follow any additional instructions given to you from your surgeon. If you or anyone in your household have experienced Covid symptoms in the past week, please notify your surgeon or the nurse liaison at the phone number below for possible testing. Telephone instructions given to ____PATIENT and asked if any additional questions and then verbalized understanding. Patient advised to call surgeon office or pre surgery nurse liaison [phone] if any additional questions.
[2024-01-05] VITALS (7 sets, daily range): BP systolic 101–127; BP diastolic 57–64; PULSE 92–110; RESP 15–20; TEMP 37; O2SAT 93–96
--- NOTE | ~2024-01-05 | XR_ITS ---
EXAMINATION: XR chest port-a-cath/central DATE: 01/05/2024 13:52 INDICATION: Port placement. TECHNIQUE: A single frontal view of the chest was obtained. COMPARISON: Chest single view 11/11/2023 FINDINGS: There is mild atelectasis in the lower lung zones. No pleural effusion or pneumothorax. The heart size is normal. There are surgical clips in the left axilla. There is a right subclavian port with tip at superior cavoatrial junction. IMPRESSION: 1. Port tip at the superior cavoatrial junction. Reviewed, dictated and finalized at location A.
--- NOTE | ~2024-01-05 | XR_ITS ---
EXAMINATION: XR fl guide central line place DATE: 01/05/2024 13:52 INDICATION: Port placement. TECHNIQUE: 2 intraoperative fluoroscopic views of the chest were obtained. I was not present. Fluoros copy exposure time was 21 seconds. COMPARISON: Chest single view 01/05/2024 FINDINGS: The endotracheal tube tip is in expected position in the trachea. There is a right chest po rt with tip at superior cavoatrial junction. There is mild atelectasis in right lower lung zone. IMPRESSION: 1. Port tip at superior cavoatrial junction. Reviewed, dictated and finalized at location A.
[2024-01-05 10:36] LABS: Glucose Point of Care 138 mg/dl (65-105)
--- NOTE | 2024-01-05 11:33 | WPDANESEPPF ---
Anes - Initial Pre Proc Eval Procedure: Operation Date: 01/05/24 11:00 Proposed Procedures p Insertion Lydia Cath - Eddie Chen MD Date/Time: 01/05/24 11:33 Surgeon: Eddie Chen MD Pre Op Diagnosis: multiple myeloma, non remission Patient Data Age: 68 Gender: F Height: 1.7 m Weight: 83.4 kg Allergies Allergy/AdvReac Type Severity Reaction Status Date / Time venom-wasp Allergy Severe swelling Verified 01/05/24 10:35 latex Allergy Mild rash Verified 01/05/24 10:35 Pojmcii-[id number]-[id number] Reductase AdvReac Intermediate muscle Verified 01/05/24 10:35 Inhibitor cramping Home Medications Medication Instructions Recorded Confirmed Type cholecalciferol (vitamin D3) 25 1,000 unit PO HS 02/09/20 01/05/24 History mcg (1,000 unit) capsule ezetimibe 10 mg tablet (Zetia) 10 mg PO DAILY 90 days #90 tabs 03/20/23 01/05/24 Rx calcium carb,cit ER 600 mg-vit D3 1 tablet PO BID 07/17/23 01/05/24 History 12.5 mcg (500 unit) tablet,ext.rel amlodipine 10 mg tablet 10 mg PO DAILY #90 tabs 09/12/23 01/05/24 Rx lorazepam 0.5 mg tablet 0.5 mg PO BID PRN Anxiety #60 tabs 11/11/23 01/05/24 Rx diclofenac sodium 1 % topical gel 4 g topical TID PRN Pain 12/02/23 01/05/24 History docusate sodium 100 mg capsule 100 mg PO DAILY 12/02/23 01/05/24 History levothyroxine 112 mcg tablet 112 mcg PO DAILY@0630 12/02/23 01/05/24 History ondansetron 4 mg disintegrating 4 mg PO Q6H PRN nausea and vomiting 12/02/23 01/05/24 History tablet sennosides 8.6 mg tablet (senna) 8.6 mg PO BID 12/02/23 01/05/24 History blood-glucose meter (Blood Glucose #1 ea 12/13/23 01/05/24 Rx Monitoring kit) pen needle, diabetic 31 gauge x #100 ea 12/13/23 01/05/24 Rx 1/4 (1st Tier Unifine Pentips) simethicone 80 mg chewable tablet 80 mg PO QID PRN gas pain #30 tabs 12/13/23 01/05/24 Rx sitagliptin phosphate 50 mg tablet 50 mg PO DAILY #90 tabs 12/16/23 01/05/24 Rx (Januvia) lactulose 10 gram/15 mL oral 20 g PO DAILY 12/19/23 01/05/24 History solution magnesium oxide 400 mg PO DAILY 12/19/23 01/05/24 History omega-3 fatty acids 1,000 mg 1,000 mg PO BID 12/19/23 01/05/24 History capsule rosuvastatin 5 mg tablet 5 mg PO .3xweekly 12/19/23 01/05/24 History vitamins A,C,L-idyh-pgwvzy 4,296 1 cap PO BID 12/19/23 01/05/24 History mcg-226 mg-90 mg capsule (PreserVision AREDS) lisinopril 30 mg tablet 30 mg PO DAILY #90 tabs 12/22/23 01/05/24 Rx acetaminophen 500 mg tablet 1,000 mg PO Q6H PRN Pain 01/01/24 01/05/24 History acyclovir 400 mg tablet 400 mg PO DAILY 01/01/24 01/05/24 History aspirin 81 mg tablet 81 mg PO DAILY 01/01/24 01/05/24 History dexamethasone 4 mg tablet 40 mg PO WEEKLY 01/01/24 01/05/24 History ibuprofen 200 mg tablet 200 mg PO Q6H PRN Pain 01/01/24 01/05/24 History lenalidomide 25 mg capsule 25 mg PO HS 01/01/24 01/05/24 History (Revlimid) lidocaine-prilocaine 2.5 %-2.5 % See Rx Instructions .Route .COMPLEX 01/01/24 01/05/24 History topical cream methocarbamol 500 mg tablet 500 mg PO TID PRN Spasms 01/01/24 01/05/24 History ondansetron HCl 8 mg tablet 8 mg PO Q6-8H PRN Nausea 01/01/24 01/05/24 History oxycodone-acetaminophen 5 mg-325 1 tablet PO Q6-8H PRN Pain 01/01/24 01/05/24 History mg tablet polyethylene glycol 3350 17 17 g PO DAILY 01/01/24 01/05/24 History gram/dose oral powder (Miralax) sulfamethoxazole 800 1 tablet PO DIRECTED 01/01/24 01/05/24 History mg-trimethoprim 160 mg tablet Laboratory Tests 01/05/24 09:44 POC Capillary Glucose 138 H mg/dl (65-105) Patient hx anesthesia problems: post op nausea/vomiting Family hx anesthesia problems: none Results Review: All pre-operative results and documents have been reviewed as part of the pre-operative evaluation. [facility] Past Medical History Medical History Breast CA Constipation due to pain medication Diabetes type 2, controlled Essential hypertension Hepatic steato
--- NOTE | 2024-01-05 12:11 | PM.IMHP ---
H&P: HPI History of Present Illness Date/Time: 01/05/24 12:11 Chief Complaint: Refractory multiple myeloma. Narrative: Patient is a 68-year-old female who has a history of multiple myeloma which is now become refractory. She needs chemotherapy and a possible bone marrow transplant. She presents for placement kaiden catheter. Patient has a prior history of left breast cancer and underwent left breast lumpectomy, left breast radiation, and left actually lymph node dissection in 2008. She had a kaiden catheter at that time placed the right upper anterior chest. A kaiden catheter was removed amount 12 to 13 years ago. She has had no prior history of DVT in the right upper extremity. Review of Systems Review of Systems: The remainder of the review of systems to include constitutional, HEENT, cardiovascular, respiratory, GI, , integumentary, musculoskeletal, endocrine, immunologic, hematologic, psychiatric, and neurologic are all negative except for which is mentioned above in the HPI. [facility] Past Medical History Medical History Breast CA Constipation due to pain medication Diabetes type 2, controlled Essential hypertension Hepatic steatosis History of left breast cancer 05/2009 - s/p lumpectomy, radiation, & chemotherapy History of malignant carcinoid tumor of large intestine Hypothyroidism, acquired MGUS (monoclonal gammopathy of unknown significance) Normal colonoscopy GRETEL (obstructive sleep apnea) Osteopenia Pure hypercholesterolemia, unspecified Slow transit constipation Tortuous colon Urinary incontinence, mixed Vitamin D deficiency, unspecified Surgical History Surgical History History of appendectomy (~2003) History of arthroscopy of left knee 1986 - s/p skiing accident History of lumpectomy of left breast (~05/2009) History of right hemicolectomy (~2003) History of tonsillectomy (~1958) History of wisdom tooth extraction (~1974) Family History Family History Father Hypertension Family history of diabetes mellitus in first degree relative Family history of arthritis Family history of type 2 diabetes mellitus Mother Hypertension Family history of cardiac disorder Family history of arthritis Patient's mother is Sibling Diabetes mellitus Hypertension Family history of arthritis Family history of type 2 diabetes mellitus Other Family history of congestive heart failure Family history of emphysema Family history of glaucoma Social History Social History Social History: Patient lives in [place] with her Severino Allen. Smoking status: Never smoker Alcohol intake: current Drinks per week: 1 Alcohol use details: rarely Substance use: never Substance use type: does not use Do You Feel Safe in your Home?: Yes Lack of Transportation: No Lack of Food: Never True Current Housing: I Have Housing Concerned About Future Housing: No Difficulty Paying Gas/Electric Bills: No Difficulty Paying for Meds: No Currently Unemployed: No Education: Bachelor's Degree Difficulty w/ Childcare or Family Care: No Living arrangements: with family Additional living arrangements comments: [facility] Occupation/Education: retired Gender identity (if verbalized by the patient): Female Sexual Orientation (if Verbalized by the Patient): Straight or Heterosexual Spiritual care concerns: No Agree to blood products: Yes Meds Home Medications and Allergies Home Medications Medication Instructions Recorded Confirmed Type cholecalciferol (vitamin D3) 25 1,000 unit PO HS 02/09/20 01/05/24 History mcg (1,000 unit) capsule ezetimibe 10 mg tablet (Zetia) 10 mg PO DAILY 90 days #90 tabs 03/20/23 01/05/24 Rx calcium carb,cit ER 600
--- NOTE | 2024-01-05 12:17 | WPDHPUPDATE1 ---
History and Physical Update Update Date/Time: 01/05/24 12:17 History and Physical has been reviewed, including an updated exam of the patient. There are NO changes in the patient's condition. Risks, benefits, and alternatives have been discussed and questions answered. Patient agrees to proceed with procedure.
[2024-01-05] MEDS: ceFAZolin 2 GM/D5W 50 ML 2 GM/50 ML BAG IVPB (12:33)
[2024-01-05] MEDS: BUPivacaine HCL 0.5% 10 ML AMP 30 ML INFILTRATE (13:11)
[2024-01-05] MEDS: LIDO 1%/EPINEPHRINE 1:100,000 20 ML VIAL 30 ML INFILTRATE (13:12)
[2024-01-05] MEDS: HEPARIN SODIUM 1,000 UNITS/ML VIAL 1000 UNITS IV PUSH (13:15)
[2024-01-05] MEDS: HEPARIN SODIUM 5,000 UNITS/ML VIAL 5000 UNITS IRRIGATION (13:15)
--- NOTE | 2024-01-05 13:34 | W.PM.PROC2 ---
Procedure Note - Detailed Date of Procedure 01/05/24 Pre-op Diagnosis multiple myeloma, non remission Post-op Diagnosis Same Procedure Performed Placement of right subclavian vein single-lumen port a catheter with intraoperative fluoroscopy Surgeon Eddie Chen MD Sider Mechanic Viviane Mejia CLASSIFIED COPY CONTROL CLERK Anesthesia General Indications Patient is a 68-year-old female who is being treated for multiple myeloma. She needs a kaiden catheter placed. Findings None significant Description of Procedure After informed consent was obtained patient brought to the operating room she was placed supine position then general anesthesia endotracheally was admitted here as the patient had a laryngospasm upon induction. She was stable with intubation. We then proceeded to prep and drape the bilateral upper anterior neck and chest in usual sterile fashion. Time-out was then performed correctly identifying the patient as well as procedure to be performed. She was given perioperative IV antibiotics. I then approach placement of the kaiden catheter via the right subclavian vein. 1% lidocaine mixed 0.5% Marcaine was then injected just below the medial 3rd of the right clavicle in the right upper anterior chest. A transverse incision was then made the scalpel then dissection was carried down through the subcutaneous tissues with electrocautery into the anterior pectoralis fascia was encountered. Then with blunt finger and electrocautery dissection I created the subcutaneous port pocket below the incision. I then placed the patient in the head-down Trendelenburg position. A long 18gauge needle was then used to attempt cannulation of the right subclavian vein. On the 1st attempt I ended up cannulating the right subclavian artery. There was right pulsatile blood return and the needle was removed. Pressure was held on the area to achieve good hemostasis. On the 2nd attempt I was able to easily cannulate the right subclavian vein. There was prompt return of dark venous appearing blood. A guidewire was passed through the needle into the right subclavian vein and down into the superior vena cava. Needle was removed and an intraoperative fluoroscopy was used to look at the tip of the guidewire. The guidewire was in proper position a distal superior vena cava. I then proceeded to advanced a dilator breakaway sheath over the guidewire. The dilator and guidewire were removed leaving the sheath in place. Lastly a 9.6 Bulgarian single-lumen catheter was advanced through the sheath into the right subclavian vein subsequently down into the right atrium of the heart. The sheath was then torn away leaving the catheter in place. Then with intraoperative fluoroscopy I visualized the tip of the catheter and then pulled back on the catheter externals the chest wall into the tip was in the superior vena cava on fluoroscopy. The catheter was then cut to the appropriate length the skin level and attached to the Smart Port. The port was then secured in subcu port pocket on 3 sides with 3-0 Prolene sutures. I then accessed the port and aspirated blood through the port. It was then flushed with heparinized saline solution. The port pocket was then irrigated sterile saline solution hemostasis was good. I then closed the port pocket utilizing interrupted 3-0 Vicryl sutures in subcutaneous tissues. The skin edges were then approximated utilizing a running subcuticular 4 Monocryl suture. I then accessed the port 1 last time percutaneously utilizing the Felix needle. It aspirated blood easily again and then I flushed with 5000units of IV heparin. There is then cleaned and then skin glue was applied. The patient tolerated the procedure well no complications. All sponges, needles, and instrument counts were correct at the end procedure. EBL was _25__cc. The patient was awakened and taken to recovery in stable and satisfactory condition. Postprocedure chest x-ray is pending at time of dictation . Im
[2024-01-05] MEDS: LACTATED RINGERS 1,000 ML 30 ML IV CONT (13:38)
[2024-01-05 13:58] LABS: Glucose Point of Care 124 mg/dl (65-105)
[2024-01-05] MEDS: ACETAMINOPHEN 325 MG TABLET 650 MG PO (14:55)
== END 2024-01-05 15:22 | disposition home or self-care (01) ==
PROVIDERS: PCP Family Medicine; Referring Provider Internal Medicine Hematology & Oncology; Visit Provider Surgery
PROC: (CPT 36561; principal; 2024-01-05 11:00)
DX: C90.00 Multiple myeloma not having achieved remission (principal); E11.9 Type 2 diabetes mellitus without complications; I10 Essential (primary) hypertension; E03.9 Hypothyroidism, unspecified; G47.33 Obstructive sleep apnea (adult) (pediatric); M85.88 Other specified disorders of bone density and structure, other site; E78.00 Pure hypercholesterolemia, unspecified; N39.46 Mixed incontinence; E55.9 Vitamin D deficiency, unspecified; K59.00 Constipation, unspecified; Z79.82 Long term (current) use of aspirin; Z79.891 Long term (current) use of opiate analgesic; Z79.85 Long-term (current) use of injectable non-insulin antidiabetic drugs; Z79.1 Long term (current) use of non-steroidal anti-inflammatories (NSAID); Z79.84 Long term (current) use of oral hypoglycemic drugs; Z98.890 Other specified postprocedural states; Z90.49 Acquired absence of other specified parts of digestive tract; Z85.3 Personal history of malignant neoplasm of breast; Z92.3 Personal history of irradiation; Z92.21 Personal history of antineoplastic chemotherapy; Z85.038 Personal history of other malignant neoplasm of large intestine; Z82.49 Family history of ischemic heart disease and other diseases of the circulatory system
CPT/HCPCS: 36561; 77001; 82948; A9270; C1788; J0330; J0690; J1100; J1644; J2250; J2405; J2704; J3010; J7030; J7120

== ENCOUNTER 2024-01-30 11:00 | Outpatient (RCR) | payer MEDICARE, SELFPAY ==
[2023-12-30 13:37] VITALS: BMI 30.2
[2023-12-30 13:38] VITALS: BMI 30.2
== END 2024-01-30 14:42 | disposition home or self-care (01) ==
LOC: ANHDMC 11:00
PROVIDERS: PCP Internal Medicine Hematology & Oncology; Visit Provider Internal Medicine
DX: E11.65 Type 2 diabetes mellitus with hyperglycemia (principal); M81.0 Age-related osteoporosis without current pathological fracture; Z71.3 Dietary counseling and surveillance
CPT/HCPCS: 97802; G0108

== ENCOUNTER 2024-02-02 04:28 | Day surgery (SDC) | payer MEDICARE, SELFPAY ==
[2024-01-29 09:18] VITALS: BMI 31.4
--- NOTE | 2024-01-29 09:43 | PC.NURSE ---
Addendum entered by Anna Ochoa RN 01/30/24 08:21: Pt aware nothing to eat or drink after midnight. Original Note: Report to the Outpatient Waiting Room, entrance under the [facility] pavilion located off [facility], at time _11:00AM on date ___02/02/24____. Planned Procedure Time: __1:00PM . Time changes happen often and if your time is changed the preop area will call you the afternoon before. - You and your visitor will be asked to self-screen and do not enter if you have any COVID symptoms. - A mask is optional within the hospital at this time. Patients may have clear liquids (water, carbonated beverages, clear teas, apple juice) until 3 hours prior to surgery with a maximum of 20 ounces. - No food from midnight until time of surgery - Infants may have breast milk until 4 hours before surgery, infant formula 6 hours prior to surgery. - Children will be allowed to drink immediately following surgery. If applicable, please bring a bottle or sippy cup to assist with drinking. Juice, water, soda, and popsicles are readily available. For infants on formula, please bring formula the day of surgery. Pacifiers are allowed. Take the following medications with a SIP of water the morning of surgery: ____LEVOTHYROXINE. MAY TAKE LORAZEPAM, ZOFRAN OR OXYCODONE NEEDED. DO NOT STOP ANY OF YOUR OTHER PRESCRIPTION MEDICATIONS PRIOR TO SURGERY ?EXCEPT THE FOLLOWING Medications to discontinue per physician ___HOLD ASPIRIN AND NSAIDS 7 DAYS PRE-OP PER DR VELASQUEZ AHUJA AWARE THAT SHE WILL BE HOLDING FOR ONLY 6 DAYS PER PATIENT (LAST DOSE 01/27/24) HOLD ALL VITAMINS/SUPPLEMENTS 3 DAYS PRE-OP PER ANESTHESIA- LAST DOSE 01/29/24 Please no make-up, nail kyrgyz, hairspray, perfume, deodorant, or body powder the day of surgery. No jewelry (including any body piercings) or valuables the day of surgery, leave them at home. Please take a shower or bath the night before, or the morning of, surgery with an antibacterial soap. Wear comfortable, loose fitting clothing. Children are encouraged to wear pajamas. - Jewelry must be removed prior to entering the operating room. Rings and piercings that are not removed may be cut off. - The hospital will not accept responsibility for valuables. - Please leave all valuables, including medications, at home the day of surgery. If you are going home after surgery, a licensed driver/sales workers must drive you home. - NO public transportation without another adult if you receive anesthesia. - We recommend that an adult stay with you for 24 hours following discharge. - We also recommend that you do not drive, make important decision, drink alcoholic beverages, or take any drugs that were not prescribed by your health care provider for at least 24 hours after your discharge time. For Pediatric surgeries, we recommend two adults accompany the child home. Follow any additional instructions given to you from your surgeon. If you or anyone in your household have experienced Covid symptoms in the past week, please notify your surgeon or the nurse liaison at the phone number below for possible testing. Telephone instructions given to ___PATIENT and asked if any additional questions and then verbalized understanding. Patient advised to call surgeon office or pre surgery nurse liaison [phone] if any additional questions.
[2024-02-02] VITALS (10 sets, daily range): BP systolic 114–156; BP diastolic 46–77; PULSE 89–101; RESP 16–19; TEMP 36–36.1; O2SAT 96–100
--- NOTE | ~2024-02-02 | XR_ITS ---
EXAMINATION: XR fluoroscopy no charge DATE: 02/02/2024 14:40 INDICATION: Wedge compression fractures of thoracic and lumbar vertebrae with nonunion. Chronic back pain. TECHNIQUE: 43 intraoperative fluoroscopic views of the thoracic and lumbar spine were obtained. I was not present. Fluoroscopy exposure time was 6 minutes and 54 seconds. COMPARISON: Thoracic and lumbar spine MRI 12/23/2023 FINDINGS: Images demonstrate fractures of T8, T9, T11, and L4 vertebral bodies with changes of verteb roplasty. Again seen are changes of vertebroplasties at multiple lumbar levels. IMPRESSION: 1. New vertebroplasties at T8, T9, T11, and L4. Reviewed, dictated and finalized at location A.
--- NOTE | 2024-02-02 07:26 | WPDHPUPDATE1 ---
History and Physical Update Update Date/Time: 02/02/24 07:26 History and Physical has been reviewed, including an updated exam of the patient. There are NO changes in the patient's condition. Risks, benefits, and alternatives have been discussed and questions answered. Patient agrees to proceed with procedure.
--- NOTE | 2024-02-02 07:28 | W.PM.PROC2 ---
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 Senile Osteoporosis, Chronic Back Pain, Multiple Myeloma Post-op Diagnosis Same Procedure Performed Percutaneous Balloon- assisted vertebral augmentation of T8, T9, T11, L4 under Fluoroscopic Guidance (Kyphoplasty) with intraosseous bone biopsy at T8, T9, L4. Surgeon Jose Maria Grady MD Anesthesia General (GETA with local infiltration in the prone position.) and Local Description of Procedure INFORMED CONSENT: Risks, benefits and alternatives to the procedure were discussed in detail with the patient who expressed explicit understanding and consent to proceed. Patient was informed verbally and in written form regarding the risks associated with the procedure including the low risk of serious infection, bleeding/bruising, allergic reaction, pulmonary embolus/edema, extravasation of cement requiring surgical intervention, worsening fracture, nerve or organ injury, paralysis, procedural site pain or discomfort, worsening pain and/or mobility, failure to treat and/or disfigurement. The patient expressed explicit understanding and consent to proceed. All materials required for the procedure were available prior to procedure start. Site and side were marked prior to procedure and confirmed in the presence of the patient. PROCEDURE IN DETAIL: After full informed consent was obtained, IV access was obtained by Anesthesia without difficulty. The patient was escorted to the operative theater. Supplemental oxygen initiated to maintain O2 saturation between 92-99%. Careful positioning was undertaken and ASA standard monitors applied and checked routinely throughout the case. Prophylactic antibiotics were administered prior to procedure start. Patient was placed in the prone position in optimal extension using pillows and the thoracolumbar spine was prepared and draped in the usual sterile manner using ChloraPrep scrub, allowed to dry completely. Fluoroscopy in the AP and lateral position was used with perfect linear projections at the T8 level. Percutaneous trocar was introduced from a rightward approach (transpedicular approach) via a small stab skin incision using a #11 scalpel following adequate anesthesia via infiltration of a 1:1 admixture of 2% PF lidocaine with epinephrine and 0.5% PF bupivacaine through a 2 inch 27-gauge needle after negative aspiration. Anesthesia was extended to periosteum with a 3.5 inch 22g Quincke spinal needle. A 10-gauge trocar with a yoon tip was introduced through the skin and docked on the right posterior pedicle of T8 in the superolateral (11 o'clock) position. Under live fluoroscopy, alternating between AP and lateral views, the trocar was advanced anteriorly, medially and inferiorly using a metal surgical mallet, taking care to advance only in the AP view, using lateral views to confirm depth and direction. In the AP view, as the tip of the trocar approached (but did not violate) the medial inferior border of the pedicle, lateral view was utilized to confirm advancement of the trocar through the pedicle and into the posterior third of the vertebral body. Using the store custodian-provided bone biopsy device, an intravertebral core biopsy was obtained from each level treated and sent in an appropriately-labeled sterile specimen cup with formalin for pathological analysis. A 20 ml balloon catheter prefilled with IsoVue 300M contrast medium was advanced to the anteromedial portion of the vertebral body in the lateral view and inflated with contrast to a volume 5 ml or less at a pressure of 700 psi or less, creating an appropriately sized cavity within the anteromedial vertebral body. The cement introducer was then advanced into the far end of the cavity and the void was filled in a continuous fashion, monitored in both the lateral and AP views utilizing a total of 3-5 mm of polymethylmethacrylate containing nonionic
[2024-02-02 11:23] LABS: Glucose Point of Care 144 mg/dl (65-105)
[2024-02-02] MEDS: SCOPOLAMINE 1 MG PATCH 1 PATCH TRANSDERM (12:12)
[2024-02-02] MEDS: LACTATED RINGERS 1,000 ML 30 ML IV CONT (12:20)
[2024-02-02] MEDS: ceFAZolin 2 GM/D5W 50 ML 2 GM/50 ML BAG IVPB (12:23)
[2024-02-02] MEDS: LIDOCAINE HCL 2% PF INJ 5 ML VIAL 10 ML INFILTRATE (13:02)
[2024-02-02] MEDS: ACETAMINOPHEN 500 MG TABLET 1000 MG PO (15:41)
[2024-02-02 16:10] LABS: Glucose Point of Care 180 mg/dl (65-105)
[2024-02-02] MEDS: diazePAM INJ (*CRX) 10 MG/2 ML SYRINGE 2.5 MG IV PUSH (16:30)
== END 2024-02-02 17:25 | disposition home or self-care (01) ==
PROVIDERS: PCP Family Medicine; Visit Provider Anesthesiology Pain Medicine
PROC: (CPT 22514; principal; 2024-02-02 13:00)
DX: S22.000K Wedge compression fracture of unspecified thoracic vertebra, subsequent encounter for fracture with nonunion (principal); S32.00 Fracture of unspecified lumbar vertebra; X50.0XXD Overexertion from strenuous movement or load, subsequent encounter; C90.00 Multiple myeloma not having achieved remission; M48.04 Spinal stenosis, thoracic region; M81.0 Age-related osteoporosis without current pathological fracture; E11.42 Type 2 diabetes mellitus with diabetic polyneuropathy; I10 Essential (primary) hypertension; E03.9 Hypothyroidism, unspecified; G47.33 Obstructive sleep apnea (adult) (pediatric); E78.00 Pure hypercholesterolemia, unspecified; E55.9 Vitamin D deficiency, unspecified; K59.03 Drug induced constipation; K59.01 Slow transit constipation; Z85.030 Personal history of malignant carcinoid tumor of large intestine; Z85.3 Personal history of malignant neoplasm of breast; Z92.3 Personal history of irradiation; Z92.21 Personal history of antineoplastic chemotherapy
CPT/HCPCS: 22514; 22515 ×3; 82948; 88307; 88311; 88342; 99199; A9270; J0690; J2371; J2405; J2704; J3010; J3360; J7120; Q9965

== ENCOUNTER 2024-04-14 13:30 | Outpatient (CLI) | payer MEDICARE, SELFPAY ==
--- NOTE | 2024-04-14 14:30 | NEURO_ITS ---
Impression: # Complains of gait dysfunction. History of multiple myeloma and kyphoplasty. # Left peroneal neuropathy. # Needle/EMG exam with no fibs but decreased motor unit potentials. # Spontaneous Babinski noted bilaterally during exam. # Clinical correlation recommended. Nerve Conduction Studies Anti Sensory Summary Table Stim Site NR Peak (ms) P-T Amp (?V) Site1 Site2 Delta-P (ms) Dist (cm) Elian (m/s) Left Sup Fibular Anti Sensory (Ant Lat Mall) 14 cm 3.7 6.8 14 cm Ant Lat Mall 3.7 16.0 43 Right Sup Fibular Anti Sensory (Ant Lat Mall) 14 cm 4.0 20.7 14 cm Ant Lat Mall 4.0 16.0 40 Left Sural Anti Sensory (Lat Mall) Calf 3.9 23.3 Calf Lat Mall 3.9 16.0 41 Right Sural Anti Sensory (Lat Mall) Calf 3.5 15.2 Calf Lat Mall 3.5 16.0 46 Motor Summary Table Stim Site NR Onset (ms) O-P Amp (mV) Site1 Site2 Delta-0 (ms) Dist (cm) Elian (m/s) Left Peroneal Motor (Vastus Med) MINIMAL RESPONSE Ankle NR Popit Ankle 0.0 Popit NR Right Peroneal Motor (Vastus Med) Ankle 3.4 2.2 Popit Ankle 8.6 40.0 47 Popit 12.0 1.9 Left Tibial Motor (Abd Vilallba Brev) Ankle 4.1 1.7 Knee Ankle 9.3 42.0 45 Knee 13.4 1.6 Right Tibial Motor (Abd Villalba Brev) Ankle 4.1 2.5 Knee Ankle 9.2 43.0 47 Knee 13.3 1.3 F Wave Studies NR F-Lat (ms) L-R F-Lat (ms) Left Peroneal (Mrkrs) (EDB) NO RESPONSE NR Right Peroneal (Mrkrs) (EDB) 52.50 Left Tibial (Mrkrs) (Abd Hallucis) 54.84 0.54 Right Tibial (Mrkrs) (Abd Hallucis) 54.30 0.54 EMG Side Muscle Nerve Root Ins Act Fibs Amp Dur Recrt Comment Right AntTibialis Dp Br Fibular L4-5 Nml Nml Nml >12ms +2 Right Gastroc Tibial S1-2 Nml Nml Nml >12ms +2 Right Fibularis Long Sup Br Fibular L5-S1 Nml Nml Nml >12ms +2 Right Flex Dig Long Tibial L5-S2 Nml Nml Nml >12ms Nml Right Ext Dig Brev Dp Br Fibular L5, S1 Nml Nml Nml >12ms +2 Right QuadratusFem QuadFemoris L4-5, S1 Nml Nml Nml >12ms +2 Left AntTibialis Dp Br Fibular L4-5 Nml Nml Nml >12ms +2 Left Gastroc Tibial S1-2 Nml Nml Nml >12ms +2 Left Fibularis Long Sup Br Fibular L5-S1 Nml Nml Nml >12ms +2 Left Flex Dig Long Tibial L5-S2 Nml Nml Nml >12ms +1 Left Ext Dig Brev Dp Br Fibular L5, S1 Nml Nml Nml >12ms +2 Left QuadratusFem QuadFemoris L4-5, S1 Nml Nml Nml >12ms +2 MTDD
== END 2024-04-14 13:31 | disposition home or self-care (01) ==
LOC: ANHNEURO 13:31
PROVIDERS: PCP Family Medicine; Visit Provider Nurse Practitioner Family
DX: S24.101A Unspecified injury at T1 level of thoracic spinal cord, initial encounter (principal); M79.669 Pain in unspecified lower leg; X58.XXXA Exposure to other specified factors, initial encounter; R94.131 Abnormal electromyogram [EMG]
CPT/HCPCS: 95886; 95910

== ENCOUNTER 2024-11-16 10:05 | Outpatient (CLI) | payer MEDICARE, SELFPAY ==
--- NOTE | ~2024-11-16 | XR_ITS ---
XR chest 2V Ordering provider: Jose Maria Grady MD History: 69 years Female with . S22.009A - Unspecified fracture of unspecified thoracic v... . Comparison: January 05, 2024 FINDINGS: MEDIASTINUM: The cardiac silhouette is not enlarged. Right Port-A-Cath with the tip overlying superio r vena cava. LUNGS: No infiltrates, effusions or pneumothorax. OTHER: No free air under the diaphragm. Multilevel vertebroplasty. IMPRESSION: No acute cardiopulmonary pathology. Reviewed, dictated and finalized at location A.
--- NOTE | 2024-11-16 10:14 | ECG_ITS ---
Test Date: 2024-11-16 10:51:55 Measurements Intervals Ohlman Rate: 64 P: 36 CO: 165 QRS: -29 QRSD: 81 T: 24 QT: 364 QTc: 377 Interpretive Statements SINUS RHYTHM LOW QRS VOLTAGE IN PRECORDIAL LEADS [QRS DEFLECTION < 1.0 mV IN CHEST LEADS] POSSIBLE ANTERIOR MYOCARDIAL INFARCTION [30 ms Q WAVE IN V3/V4, OR R < 0.2 mV IN V4], OF INDETERMINATE AGE ABNORMAL ECG ARTIFACT LIMITS INTERPRETATION Electronically Signed On 11-17-2024 12:05:01 CDT by Shakir Jaimes M.D.
--- OUTSIDE RECORDS SUMMARY | 2024-11-16 11:24 | XMS_ITS | Encounter Summary ---
Author Organization [facility] Address [address] [place] [address] Care Team Providers Care Bereavement Coordinator Name Role Phone Desiree Woodruff MD Primary Care Pro vider Encounter Details Date Type Department Care Team (Late st Contact Info) Description 11/04/2023 Telephone [facility] - [place] [address] [facility] [address] [place] [address] Tony Hammer MD [address] [facility] [address] [place] [address] Social History Tobacco Use Types Packs/Day Years Used Date Smoking Tobacco: Never Smokeless Tobacco: Never Alcohol Use Standard Drinks/Week Comments Yes 0 (1 standard drink = 0.6 oz pur e alcohol) Comments No Sex and Gender Information Value Date Recorded Sex Assigned at Not on file 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
--- OUTSIDE RECORDS SUMMARY | 2024-11-16 11:24 | XMS_ITS | Encounter Summary ---
Author Organization [facility] Address [address] [place] [address] Care Team Providers Care Production Team Leader Name Role Phone Desiree Woodruff MD Primary Care Pro vider Encounter Details Date Type Department Care Team (Late st Contact Info) Description 11/15/2024 Orders Only [facility]ology - [place] [address] 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
--- OUTSIDE RECORDS SUMMARY | 2024-11-16 11:24 | XMS_ITS | Clinical Summary ---
Author Organization [facility] Address [address] [place] [address] Phone Care Team Providers Care Outpatient Admitting Clerk Name Role Phone Mali Corona MD Primary Care Provider Mali Corona MD Unavailable [phone] Allergies Active Allergy Reactions Criticality Noted Date Comments Latex Rash 10/09/2023 Medications calcium carbonate 600 MG Tablet Take 600 mg by mouth 2 times daily. Active Multiple Vitamins-Mineral s (PRESERVISION AREDS 2+MULTI VIT PO) Take 1 Tablet by mouth in the morning and at bedtime. Active aspirin 81 MG Chewable Tablet Take 81 mg by mouth daily. Active fish oil-omega-3 fatty acids 1000 MG Capsule Take 1,000 mg by mouth in the morning and at bedtime. Active levothyroxine (SYNTHROID) 112 MCG Tablet Take 112 mcg by mouth daily. Active Cholecalciferol (Vitamin D3) 1000 units Capsule Take 2,000 Units by mouth daily. Active metFORMIN (GLUCOPHAGE) 500 MG Tablet Take 1,000 mg by mouth 2 times daily (with meals). Active rosuvastatin (CRESTOR) 5 MG Tablet Take 5 mg by mouth three times a week. Friday, Friday, Active amLODIPine (NORVASC) 10 MG Tablet Take 10 mg by mouth daily. Active lisinopril (PRINIVIL, ZESTRIL) 10 MG Tablet Take 10 mg by mouth daily. Active Magnesium 250 MG Tablet Take 250 mg by mouth in the morning and at bedtime. Active ezetimibe (ZETIA) 10 MG Tablet Take 10 mg by mouth daily. Active linaclotide (LINZESS) 290 MCG Capsule Take 290 mcg by mouth as needed for Other. Active methocarbamol (ROBAXIN) 750 MG Tablet Take 750 mg by mouth 3 times daily. Active oxyCODONE-acetam inophen (PERCOCET) 7.5-325 MG Tablet Take 1 Tablet by mouth every 4 hours as needed. Active ondansetron (ZOFRAN-ODT) 4 MG TABLET DISPERSIBLE Take 1 Tablet by mouth every 6 hours as needed for Nausea - 1st line. 30 Tablet Active senna (SENOKOT) 8.6 MG Tablet Take 1 Tablet by mouth daily. 30 Tablet 4 Active Active Problems Problem Noted Date Diagnosed Date Constipation 10/10/2023 Osteoporosis of lumbar spine 10/09/2023 Lumbar back pain 10/09/2023 Type 2 diabetes mellitus 10/09/2023 Hypertension 10/09/2023 Hyperlipidemia 10/09/2023 Hypothyroidism 10/09/2023 Anemia 10/09/2023 Breast cancer 10/09/2023 Status post left breast lumpectomy 10/09/2023 Family History Medical History Relation Name Comments No Known Problems Father No Known Problems Mother Relation Name Status Comments Father Mother Social History Tobacco Use Types Packs/Day Years Used Date Smoking Tobacco: Never Smokeless Tobacco: Never Tobacco Cessation:Counseling Given: Not Answered Alcohol Use Standard Drinks/Week Comments Never 0 (1 standard drink = 0.6 oz pur e alcohol) [facility] Utilities Answer Date Recorded In the past 12 months has [employer], gas, oil, or water [employer] threatened to shut off services in your home? Patient declined 10/09/2023 Social Connection and Isolation Panel [NHANES] A nswer Date Recorded In a typical week, how many times do you talk on the phone with family, friends, or neighbors? Patient declined 10/09/2023 How often do you get togethe r with friends or relatives? Patient declined 10/09/2023 How often do you attend religion or presybeterian serv ices? Patient declined 10/09/2023 Do you belong to any clubs o r organizations such as religion groups, unions, fraternal or athletic groups, or school groups? Patient declined 10/09/2023 How often do you attend meet ings of the clubs or organizations you belong to? Patient declined 10/09/2023 Are you , , di vorced, , never , or living with a partner? Patient declined 10/09/2023 AUDIT-C Answer Date Recorded Q1: How often do you have a drink containing alc ohol? Patient declined 10/09/2023 Q2: How many drinks containi ng alcohol do you have on a typical day when you are drinking? Patient declined 10/09/2023 Q3: How often do you have si x or more drinks on one occasion? Patient declined 10/09/2023 Overall Financial Resource Strain (CARDIA) Answe r Date Recorded How hard is it for you to pa y for the very basics like food, housing, medical care, and heating? Patient declined 10/09/2023 [facility] - Occupational Stress Questionnaire Answer Date Recorded Do you feel stress - tense, restless, nervous, or anxious, or unable to sleep at night because your mind is troubled all the time - these days? Patient declined 10/09/2023 Exercise Vital Sign Answer Date Recorde d On average, how many days pe r week do you engage in moderate to strenuous exercise (like a brisk walk)? Patient declined On average, how many minutes do you engage in exercise at this level? Patient declined 10/09/2023 Hunger Vital Sign Answer Date Recorded Within the past 12 months, y ou worried that your food would run out before you got the money to buy more. Patient declined Within the past 12 months, t he food you bought just didn't last and you didn't have money to get more. Patient declined 04/2024 PRAPARE - Transportation Answer Date Re corded In the past 12 months, has l ack of transportation kept you from medical appointments or from getting medications? Patient declined 10/09/2023 In the past 12 months, has l ack of transportation kept you from meetings, work, or from getting things needed for daily living? Patient declined 10/09/2023 Housing Stability Vital Sign Answer Tyson e Recorded In the last 12 months, was t here a time when you were not able to pay the mortgage or rent on time? Patient declined 10/09/19 24 In the last 12 months, how many places have you lived? 1 10/09/2023 In the last 12 months, was t here a time when you did not have a steady place to sleep or slept in a chcf (including now)? Patient declined 10/09/2023 Sexually Active Control Partners Comments Not Currently Comments No Sex and Gender Information Value Date Recorded Sex Assigned at Not on file Legal Sex Female 12:06 PM STOVE MECHANIC Gender Identity Not on file Sexual Orientation Not on file Last Filed Vital Signs Vital Sign Reading Time Taken Comments Blood Pressure 150/81 10/10/2023 5:27 AM STOVE MECHANIC Pulse 117 10/10/2023 8:16 AM STOVE MECHANIC Temperature 36.6 C (97.9 F) 10/10/2023 5:27 AM STOVE MECHANIC Respiratory Rate 22 10/10/2023 5:27 AM STOVE MECHANIC Oxygen Saturation 91% 10/10/2023 8:16 AM STOVE MECHANIC Inhaled Oxygen Concentration - - Weight 90.7 kg (200 lb) 10/09/2023 10:43 PM STOVE MECHANIC Height 170.2 cm (5' 7 ) 10/09/2023 10:43 PM STOVE MECHANIC Body Mass Index 31.32 10/09/2023 10:43 PM STOVE MECHANIC Plan of Treatment Health Maintenance Due Date Last Done Comments Diabetes: Eye Exam 1953 Diabetes: Foot Exam 1955 Hepatitis C Virus (HCV) Screening 1955 Colonoscopy 1998 Colorectal Cancer Screening 1998 Cologuard 2003 Immunochemical Fecal Occult Blood 2003 Mammogram 10/30/2021 10/30/2020, 09/2020, 10/26/2019 DEXA Bone Density 10/30/2022 10/30/2020 Diabetes: Hemoglobin A1c 04/08/2024 10/09/2023 Influenza Immunization (#1) 2024 10, 05/30/2022, 06/06/2021, Additional history exists SARS-COV-2 Immunization ( season) 2024 05/19/2023, 01/08/2023, 05/10/2022, Additional history exists Diabetes: Nephropathy Screening 10/09/2024 10/09/2023 DTaP/Tdap/Td Immunization Discontinued 05/17/2018 TdaP Immunization Completed 05/17/2018 Zoster Immunization Completed 05/10/2019, 9 Pneumococcal Immunization (50+ years) Completed 07/16/2022, 05/10/2019 Respiratory Syncytial Virus (RSV) Immunization (Adult) Completed 07/31/2023 Hepatitis B Immunization Aged Out No longer eligible based on patient's age to complete this topic Meningococcal Immunization (ACWY) Aged Out No longer eligible based on patient's age to complete this topic Rotavirus Immunization Aged Out No lo nger eligible based on patient's age to complete this topic Medical Devices Implanted Type Area Pencil Inspector Device Identifier Shelf Expiration Date Model / Serial / Lot [employer]ople[employer] M4 Hospital Account Liaison With [employer] Implanted:Qty: 2 on 10/09/2023 by Altagracia Rodríguez MD at [facility] N/A: Spine Lumbar BAIRON 10/01/2024 [id number] / [id number] / [id number] Procedures Procedure Name Priority Date/Time Associated Diagnosis Comments CMP (COMPREHENSIVE METABOLIC PANEL) STAT 10/09/2023 2:33 PM STOVE MECHANIC HEMOGLOBIN A1C W/ ESTIMATED GLUCOSE STAT 10/09/2023 2:33 PM STOVE MECHANIC from Last 3 Months or Most Recently Relevant to Health Maintenance Results * (ABNORMAL) Hemoglobin A1C w/ Estimated Glucose (10/09/2023 2:33 PM STOVE MECHANIC) HGB-A1C 6.8(H) 4.0 - 6.0 % 10/09/2023 3:09 PM STOVE MECHANIC [facility] Est Average Glucose 148.5 mg/dL 10/09/2023 3:09 PM STOVE MECHANIC [facility] Blood Venipuncture / Unknown 10/09/2023 2:33 PM STOVE MECHANIC 10/09/2023 2:39 PM STOVE MECHANIC Narrative [facility] - 10/09/2023 3:09 PM STOVE MECHANIC HEMOGLOBIN A1C: DIABETIC PATIENTS: WELL-CONTROLLED: 6.2 - 7.0 INTERMEDIATE WELL-CONTROLLED: 7.0 - 9.0 POORLY-CONTROLLED: >9.0 us Kathya Hayes MD CHEMISTRY ORDERABLES Final Re sult [facility] [address] [place] [address] * (ABNORMAL) CMP (Comprehensive Metabolic Panel) (10/09/2023 2:33 PM STOVE MECHANIC) SODIUM 141 136 - 145 mmol/L 10/09/2023 3:09 PM [facility] POTASSIUM 3.9 3.5 - 5.1 mmol/L 10/09/2023 3:09 PM [facility] CHLORIDE 106 98 - 107 mmol/L 10/09/2023 3:09 PM [facility] CO2, VENOUS 25 22 - 30 mmol/L 10/09/2023 3:09 PM [facility] ANION GAP 13.9 <18.0 mmol/L 10/09/2023 3:09 PM [facility] GLUCOSE 109(H) 70 - 99 mg/dL 10/09/2023 3:09 PM [facility] BUN 13 10 - 20 mg/dL 10/09/2023 3:09 PM [facility] CREATININE, BLOOD 0.73 0.60 - 1.00 mg/dL 10/09/2023 3:09 PM [facility] BUN/CREATININE RATIO 18 12 - 20 ratio 10/09/2023 3:09 PM [facility] TOTAL PROTEIN 7.8 6.3 - 8.2 g/dL 10/09/2023 3:09 PM [facility] ALBUMIN 3.9 3.5 - 5.0 g/dL 10/09/2023 3:09 PM [facility] A/G RATIO 1.0 1.0 - 2.2 10/09/2023 3:09 PM STOVE MECHANIC [facility] CALCIUM 9.0 8.7 - 10.5 mg/dL 10/09/2023 3:09 PM STOVE MECHANIC [facility] T BILI 0.3 0.2 - 1.2 mg/dL 10/09/2023 3:09 PM STOVE MECHANIC [facility] SGOT (AST) 44(H) 5 - 34 U/L 10/09/2023 3:09 PM STOVE MECHANIC [facility] SGPT (ALT) 44 0 - 55 U/L 10/09/2023 3:09 PM STOVE MECHANIC [facility] ALKALINE PHOSPHATASE 81 40 - 150 U/L 10/09/2023 3:09 PM STOVE MECHANIC [facility] GFR, ESTIMATED >60 >=60 10/09/2023 3:09 PM [facility] Comment: Creatinine Clearance is the preferred criteria for selecting drug dose adjustments in renally impaired patients. The GFR is provided as additional pertinent clinical information. GFR is reported in mL/min/1.73 sq m. Calculation based on the Chronic Kidney Disease Epidemiology Collaboration (CKD- EPI) equation refit without adjustment for race. GFR, EST. >60 >=60 024 3:09 PM STOVE MECHANIC [facility] GFR, EST. NONAFRICAN >60 >=60 10/09/2023 3:09 PM [facility] Blood Venipuncture / Unknown 10/09/2023 2:33 PM STOVE MECHANIC 10/09/2023 2:39 PM STOVE MECHANIC us Kathya Hayes MD CHEMISTRY ORDERABLES Final Re sult [facility] [address] [place] [address] from Last 3 Months or Most Recently Relevant to Health Maintenance Insurance MEDICARE C [facility] Advance Directives * Full Code (Latest Code Status on File) Date Activated Date Inactivated Comments 10/09/2023 2:07 PM 10/10/2023 3:51 PM CPR-Full Treat ment: FULL ARREST: Attempt Resuscitation/CPR wit intubation and mechanical ventilation. PRE-ARREST: Use entire range of life support measures to stabilize the patient. Care Teams Outpatient Admitting Clerk Relationship Specialty Start Date End Date Mali Corona MD [address] [place] [address] [address] [place] [address] PCP - General Family Medicine 10/09/23 Mali Corona MD [address] [place] [address] [address] [place] [address] Family Medicine 10/09/23
--- OUTSIDE RECORDS SUMMARY | 2024-11-16 11:24 | XMS_ITS | Encounter Summary ---
Author Organization [facility] Address [address] [place] [address] Phone Care Team Providers Care Toilet And Laundry Soap Supervisor Name Role Phone Ovi Rodriguez MD Unavailable [phone] Florence Acosta MD Unavailable [phone] Mali Corona MD Primary Care Provider Tony Hammer MD Unavailable [phone] Claudette Rosen DPT Unavailable [phone] Encounter Details Date Type Department Care Team (Late st Contact Info) Description 11/15/2024 Orders Only [facility] Bone Marrow Transplant [address] [facility] [address] [place] [address] Zafar Gary, RN Multiple myeloma in remission (HCC) (Primary Dx) Social History Tobacco Use Types Packs/Day Years Used Date Smoking Tobacco: Never Smokeless Tobacco: Never Alcohol Use Standard Drinks/Week Comments Not Currently 0 (1 standard drink = 0.6 oz pur e alcohol) OASIS D0700: Social Isolation Answer Da te Recorded Frequency of experiencing loneliness or isolatio n Never 08/04/2024 OASIS A1250: Transportation Answer Date Recorded Lack of Transportation (Medical) No 08/04/2024 Lack of Transportation (Non-Medical) No 08/04/2024 Patient Unable or Declines to Respond No 08/04/2024 OASIS B1300: Health Literacy Answer Tyson e Recorded Frequency of needing help to read materials from doctor or pharmacy Never 08/04/2024 [facility] Utilities Answer Date Recorded In the past 12 months has th e electric, gas, oil, or water company threatened to shut off services in your home? No 06/09/2024 Social Connection and Isolat ion Panel [NHANES] Answer Date Recorded In a typical week, how many times do you talk on the phone with family, friends, or neighbors? More than three times a week 06/09/2024 How often do you get togethe r with friends or relatives? More than three times a week 06/09/2024 How often do you attend chur ch or confucianist services? Never 06/09/2024 Do you belong to any clubs o r organizations such as druze groups, unions, fraternal or athletic groups, or school groups? Yes 06/09/2024 How often do you attend meet ings of the clubs or organizations you belong to? More than 4 times per year 06/09/2024 Are you , , di vorced, , never , or living with a partner? 06/09/2024 AUDIT-C Answer Date Recorded Q1: How often do you have a drink containing alcohol? Never 06/23/2024 Q2: How many drinks containi ng alcohol do you have on a typical day when you are drinking? Patient does not drink Q3: How often do you have si x or more drinks on one occasion? Never 06/23/2024 Overall Financial Resource Strain (CARDIA) Answe r Date Recorded How hard is it for you to pa y for the very basics like food, housing, medical care, and heating? Not hard at all 06/09/2024 PHQ-2 Answer Date Recorded PHQ-2 Total Score 0 06/09/2024 Hunger Vital Sign Answer Date Recorded Within the past 12 months, y ou worried that your food would run out before you got the money to buy more. Never true 06/09/20 24 Within the past 12 months, t he food you bought just didn't last and you didn't have money to get more. Never true 06/09/2024 PRAPARE - Transportation Answer Date Re corded In the past 12 months, has l ack of transportation kept you from medical appointments or from getting medications? No 05/2024 In the past 12 months, has l ack of transportation kept you from meetings, work, or from getting things needed for daily living? No 06/09/2024 Housing Stability Vital Sign Answer Tyson e Recorded In the last 12 months, was t here a time when you were not able to pay the mortgage or rent on time? No 11/27/2023 In the last 12 months, how many places have you lived? 1 11/27/2023 In the last 12 months, was t here a time when you did not have a steady place to sleep or slept in a [place] (including now)? No 11/27/2023 Housing Stability Vital Sign Answer Tyson e Recorded In the last 12 months, was t here a time when you were not able to pay the mortgage or rent on time? No 06/09/2024 In the past 12 months, how m any times have you moved where you were living? 0 06/09/2024 At any time in the past 12 m [facility], were you homeless or living in a [place] (including now)? No 06/09/2024 Personal Safety Answer Date Recorded Have you ever been in or are you currently in a harmful physical or emotional relationship or is someone making you feel afraid or unsafe? Denies 06/23/2024 Comments No Sex and Gender Information Value Date Recorded Sex Assigned at Not on file Legal Sex Female 11:17 AM UNDERWRITER SOLICITATION DIRECTOR Gender Identity Not on file Sexual Orientation Not on file documented as of this encounter Plan of Treatment Not on file documented as of this encounter Visit Diagnoses Diagnosis Multiple myeloma in remission (HCC)- Primary Multiple myeloma in remission documented in this encounter Orders Appointment Requests Count Last Ordered Date Fi rst Ordered Date ONCBCN VACCINE APPOINTMENT REQUEST 1 2024 documented in this encounter Care Teams Toilet And Laundry Soap Supervisor Relationship Specialty Start Date End Date Mali Corona MD [facility] [address] [place] [address] PCP - General Family Practice 12/11/23 Ovi Rodriguez MD [address] [id number] [place] [address] Medical Oncologist/Gas Roller Operator Medical Oncology 11/28/23 Florence Acosta MD [address] [facility] [phone] [place] [address] Radiation Oncologist Radiation Oncology 12/08/23 Tony Hammer MD [address] [address] Referring Physician Hematology 01/07/24 Claudette Rosen DPT [address] [facility] [address] [place] [address] Physical Therapist Physical Therapy 08/12/24 documented as of this encounter
--- OUTSIDE RECORDS SUMMARY | 2024-11-16 11:24 | XMS_ITS | Encounter Summary ---
Author Organization [facility] Address [address] [place] [address] Care Team Providers Care Sales Mgr Name Role Phone Ovi Rodriguez MD Unavailable [phone] Florence Acosta MD Unavailable [phone] Mali Corona MD Primary Care Provider Tony Hammer MD Unavailable [phone] Claudette Rosen DPT Unavailable [phone] Encounter Details Date Type Department Care Team (Late st Contact Info) Description 10/11/2024 Telephone [facility] Advanced Medicine Radiation Oncology [address] [facility] Advanced Medicine [place], [place] [id number] Florence Acosta MD [address] [facility] [address] [place] [address] Social History Tobacco Use Types Packs/Day Years [...] materials from doctor or pharmacy Never 08/04/2024 [facility] Utilities Answer Date Recorded In the past [...] often do you attend chur ch or yazidism services? Never 06/09/2024 Do you belong to any clubs o r organizations such as voodoo groups, unions, fraternal or athletic groups, or [...] medical appointments or from getting medications? No 10/0 05/2024 In the past 12 months, has [...] place to sleep or slept in a detention (including now)? No 11/27/2023 Housing Stability Vital Sign Answer Tyson e Recorded In the last 12 months, was t here a time when you were not able to pay the mortgage or rent on time? No 06/09/2024 In the past 12 months, how m any times have you moved where you were living? 0 06/09/2024 At any time in the past 12 m [facility], were you homeless or living in a detention (including now)? No 06/09/2024 Personal Safety Answer Date Recorded Have you ever been in or are you currently in a harmful physical or emotional relationship or is someone making you feel afraid or unsafe? Denies 06/23/2024 Comments No Sex and Gender Information Value Date Recorded Sex Assigned at Not on file Legal Sex Female 11:17 AM MANAGER BANK Gender Identity Not on file Sexual Orientation Not on file documented as of this encounter Plan of Treatment Not on file documented as of this encounter Visit Diagnoses Not on filedocumented in this encounter Care Teams Sales Mgr Relationship Specialty Start Date End Date Mali Corona MD [facility] [address] [place] [address] PCP - General Family Practice 12/11/23 Ovi Rodriguez MD [address] [phone] [place] [address] Medical Oncologist/Brasswind Instrument Repairer Medical Oncology 11/28/23 Florence Acosta MD [address] [facility] [phone] [place] [address] Radiation Oncologist Radiation Oncology 12/08/23 Tony Hammer MD [address] [facility] [address] [place] [phone] Referring Physician Hematology 01/07/24 Claudette Rosen DPT [address] [facility] [address] [place] [address] Physical Therapist Physical Therapy 08/12/24 documented as of this encounter
--- OUTSIDE RECORDS SUMMARY | 2024-11-16 11:24 | XMS_ITS | Clinical Summary ---
Author Organization [facility] 8 [facility] Address [address] [facility] [address] [place] [address] Phone Care Team Providers Care Licsw Name Role Phone Ovi Rodriguez MD Unavailable [phone] Florence Acosta MD Unavailable [phone] Mali Corona MD Primary Care Provider Tony Hammer MD Unavailable [phone] Claudette Rosen DPT Unavailable [phone] Allergies Active Allergy Reactions Criticality Noted Date Comments Latex Rash Medium 07/07/2015 Morphine Other (See comments) Low 05/27/2024 Constipation Oxycodone Vomiting Low 05/27/2024 Medications EPINEPHrine (EPIPEN) 0.3 mg/0.3 mL auto-injection syringeIndicatio ns:Anaphylaxis 017 Active ONETOUCH VERIO stripIndications :Diabetes Mellitus TEST BID 3 019 Active ONETOUCH DELICA LANCETS 33 gauge misc UTD BID 3 019 Active ezetimibe (ZETIA) 10 mg tabletIndication s:hyperlipidemia Take 1 tablet (10 mg total) by mouth daily Active fteqmnib-uup-wbf n-FA-vit K-lut 8 mg iron-400 mcg-50 mcg tabletIndication s:supplement 017 Active naloxone (NARCAN) 4 mg/actuation spray,non-aeroso lIndications:Opi oid Toxicity 02/05/2 024 Active omega-3 fatty acids-fish oil 300-1,000 mg capsuleIndicatio ns:hypertriglyce ridemia Take by mouth 2 (two) times a day Active polyethylene glycol (MIRALAX) 17 gram/dose bulk powderIndication s:constipation Take 17 g by mouth daily as needed Active rosuvastatin (CRESTOR) 5 mg tabletIndication s:hyperlipidemia Take 1 tablet (5 mg total) by mouth 3 (three) times a week Active amLODIPine (NORVASC) 10 mg tabletIndication s:hypertension Take 1 tablet (10 mg total) by mouth daily 2024 Active magnesium oxide (MAG-OX) 400 mg (241.3 mg elemental magnesium) tabletIndication s:hypomagnesemia Take 0.5 tablets (200 mg total) by mouth daily 024 2024 Active senna (SENOKOT) 8.6 mg tabletIndication s:constipation Take 1 tablet by mouth 2 (two) times a day 024 2024 Active levothyroxine (SYNTHROID) 112 mcg tabletIndication s:hypothyroidism Take 1 tablet (112 mcg total) by mouth early education teacher before breakfast Active diclofenac sodium (VOLTAREN) 1 % gelIndications:O steoarthritis Apply 4 g topically 3 (three) times a day Active dextrose 15 gram/32 mL gel in packetIndication s:hypoglycemic disorder Take 32 mL (15 g total) by mouth every 15 (fifteen) minutes as needed (blood glucose less than 70 mg/dL) Active lidocaine-priloc thao creamIndications :Administration of Local Anesthesia Apply topically Active TRESIBA 100 unit/mL (3 mL) pen for injectionIndicat ions:type 2 diabetes mellitus INJECT 6 UNITS UNDER SKIN EVERY DAY Active furosemide (LASIX) 40 mg tabletIndication s:Edema Take 1 tablet (40 mg total) by mouth daily as needed (for swelling. Do not take if no swelling present. Notify provider if taking consecutively for more than 5 days) 30 tablet Active Gvoke HypoPen 2-Pack 1 mg/0.2 mL auto-injectorInd ications:hypogly cemic disorder INJECT 0.2ML SUBCUTANEOUSLY ONCE A SINGLE DOSE. MAY REPEAT AFTER 15 MINUTES IF NO RESPONSE Active Easy Touch 32 gauge x 32 needleIndication s:Diabetes Mellitus USE TO INJECT FOUR TIMES DAILY Active lisinopriL (PRINIVIL,ZESTRI L) 30 mg tabletIndication s:hypertension Take 5 mg by mouth daily pt taking 1/[address] Edouard instuctions Active nystatin 100,000 unit/mL suspensionIndica tions:oral candidiasis Take 5 mL (500,000 Units total) by mouth 4 (four) times a day 473 mL Active Additional Information Patient not taking.Reported on 11/09/2024 cholecalciferol 25 mcg (1,000 unit) tabletIndication s:Vitamin D Deficiency Take 1 tablet (1,000 Units total) by mouth daily Active calcium carbonate-vitami n D3 (CALTRATE 600 + D) 1500 mg (600 mg elemental) -400 units per tabletIndication s:Prevention of Vitamin D Deficiency Take 1 tablet by mouth daily Active Januvia 50 mg tabletIndication s:type 2 diabetes mellitus Take 1 tablet (50 mg total) by mouth daily Active docusate sodium (COLACE) 100 mg capsuleIndicatio ns:constipation Take 1 capsule (100 mg total) by mouth 2 (two) times a day as needed for constipation Active ondansetron ODT (ZOFRAN-ODT) 8 mg disintegrating tabletIndication s:Prevention of Radiation-Induce d Nausea and Vomiting Take 1 tablet (8 mg total) by mouth every 8 (eight) hours as needed for nausea or vomiting 60 tablet Active prochlorperazine (COMPAZINE) 5 mg tabletIndication s:Nausea and Vomiting Take 1 tablet (5 mg total) by mouth every 6 (six) hours as needed for nausea or vomiting 30 tablet Active LYUMJEV 100 unit/mL pen for injectionIndicat ions:type 2 diabetes mellitus Blood glucose mg/dL: 149 or less: No insulin 150-199: administer 1 unit 200-249: administer 2 units 250-299: administer 3 units 300-349: administer 4 units 350-399: administer 5 units Over 400: adminster 5 units and call provider to discuss adjustments Active vit C,M-Ot-wcysr-lut ein-zeaxan 250-90-40-1 mg capsuleIndicatio ns:eye health Take 1 capsule by mouth 2 (two) times a day. Indications: eye health Active al & mag hydroxide with simethicone-diph enhydramine-lido mary ellen (MAGIC MOUTHWASH) suspension 6-9-8Cdmcayiybog :Multiple myeloma not having achieved remission (HCC) Swish and swallow 15 mL every 4 (four) hours as needed (swish and swallow every 4 hours as needed) 280 mL 2 Active Additional Information Patient not taking.Reported on 11/09/2024 traMADoL (ULTRAM) 50 mg tabletIndication s:Pain Take 1 tablet (50 mg total) by mouth every 6 (six) hours as needed for pain 90 tablet Active metoprolol XL (TOPROL-XL) 50 mg extended release tablet Take 1 tablet (50 mg total) by mouth daily Active melatonin 3 mg tablet,disintegr ating Take by mouth nightly Active Revlimid 10 mg capsuleIndicatio ns:Multiple myeloma in remission (HCC) TAKE 1 CAPSULE( 10MG TOTAL) BY MOUTH DAILY 28 capsule Active dexAMETHasone (DECADRON) 4 mg tablet TAKE 5 TABLETS BY MOUTH ONCE FOR 1 DOSE ON 10/13/2024. Active aspirin 81 mg enteric coated tablet Take 1 tablet (81 mg total) by mouth daily Active valACYclovir (VALTREX) 500 mg tabletIndication s:Prophylaxis, Medical Take 1 tablet (500 mg total) by mouth daily 90 tablet 3 025 2025 Active methocarbamoL (ROBAXIN) 500 mg tabletIndication s:Muscle Spasm Take 1 tablet (500 mg total) by mouth 3 (three) times a day as needed for muscle spasms 120 tablet 025 2025 Active LORazepam (ATIVAN) 0.5 mg tabletIndication s:anxiety Take 1 tablet (0.5 mg total) by mouth 2 (two) times a day as needed for anxiety 30 tablet 025 Active lenalidomide (REVLIMID) 10 mg capsuleIndicatio ns:Multiple myeloma in remission (HCC) Take 1 capsule (10 mg total) by mouth daily Take whole with water. Do not break, chew, or open. 025 Active LORazepam (ATIVAN) 0.5 mg tabletIndication s:anxiety Take by mouth 2 (two) times a day as needed 024 2024 Discontinued(R eorder) methocarbamoL (ROBAXIN) 500 mg tabletIndication s:Muscle Spasm Take 1 tablet (500 mg total) by mouth 3 (three) times a day as needed for muscle spasms 024 2024 Discontinued(R eorder) valACYclovir (VALTREX) 500 mg tabletIndication s:Prophylaxis, Medical Take 1 tablet (500 mg total) by mouth daily 90 tablet 3 024 2024 Discontinued(R eorder) lenalidomide (REVLIMID) 10 mg capsuleIndicatio ns:multiple myeloma Take 1 capsule (10 mg total) by mouth daily for 28 days 28 capsule 025 2024 Discontinued Active Problems Patient Care Coordination No te Formatting of this note is d ifferent from the original. BMT Inpatient Care Coordination Overview [place] [address] Treatment Plan Reason for Admission Auto Transplant/IEC Planning BMT/IEC Plan Melph Auto 06/09/2024 HLA typing/IDMs [] Insurance Approval [] Discharge Planning Anticipated Discharge Date 06/25/24 Patient Education Completed [x] 06/22/24- D/C bag given, auto edu, appts discussed and told will be @ [facility], questions answered 06/23/24- Edu w/ , questions answered 06/25/24- Discussed updated appts Issue to be Resolved Before Discharge Discharge Disposition home Requests Sent to Case Management, Pharmacy PA Team, or Medical Assistants Post-Discharge Follow-Up Living Situation/Distance from [place], [place] (35 min) Caregiver Spouse + family Lab/Transfusion Frequency Venous Access & Care Port 06/24/24- Re: port positional & IR evaluation: IR attending thinks 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 She might have a fibrin sheath, but with 1 of the lines out there might be a mandaen of blood flow. He said he doesn't think we will gain much by doing an evaluation. He suggests waiting, seeing if the line restores flow, and then if not they can schedule her for evaluation later Local Oncologist Contact Dr. Mario Alvarado in [place], [place] Post-Discharge Office Visit (H30) [facility] [place] [facility] @ [facility] Miscellaneous Notes: 12/01/23- Called Dr. Hammer ) to set up appt for when pt gets out of rehab- left , requested call back. Spoke with them- pt scheduled with Dr. Hammer December 17 @ 3:30. Will fax H&P and Prog Note. Told them pt will follow with us for transplant-related workup-- follow with them (Dr. Hammer) for chemo, etc. Faxed H&P and Progress note to Dr. Hammer (F: [phone]) Problem Noted Date Diagnosed Date HTN (hypertension) 06/08/2024 Assessment & Plan (06/08/2024 2:20 AM CDT): Continue with nonoperative 30 mg p.o. q.a.m. HLD (hyperlipidemia) 06/08/2024 Assessment & Plan (06/08/2024 2:20 AM CDT): Patient was previously on ezetimibe and rosuvastatin as home meds. Holding rosuvastatin given complaints of myalgias which she attributes to rosuvastatin use Continue with ezetimibe 10 mg p.o. q.d. Chronic pain syndrome 06/08/2024 Assessment & Plan (06/08/2024 2:22 AM CDT): The patient previously was using Tylenol as home med. She has prior history of allergies to oxycodone. Agreed to a trial of tramadol p.r.n. 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 Report called and patient transported. She is aware of the RUSTY and the urgency of evaluation.Once stable, I will address the underlying osteoporosis and potential evaluation for aggressive Rx. The MGUS was considered and there is path report showing no MM or other malignancy in the specimen Age-related osteoporosis wit h current pathological fracture with delayed healing 11/13/2023 Overview (11/13/2023): Bone Health 10/2023 T-score fn= -2.2 Spine cannot be performed. Secondary processes have been looked at to some degree. Assessment & Plan (11/13/2023 1:18 PM CDT): We cut the visit short given the shocking description of what may well represent the RUSTY. I will need to see the PTH level as well. I also will need a repeat T4 and TSH. MGUS has an actual very much known significance when it comes to bone and can accelerate bone loss. At this point options include DMAb, ZOL and FLORENTINO- and I would favor the later but this again is a reference note to review once we have excluded the RUSTY. Mass of thoracic vertebra 11/13/2023 Senile osteoporosis 11/07/2023 Anemia 10/09/2023 Assessment & Plan (06/08/2024 2:22 AM CDT): On admission,H/H- Transfuse per BMT protocol Type 2 diabetes mellitus, wi th long-term current use of insulin 10/09/2023 Assessment & Plan (06/08/2024 2:21 AM CDT): The patient was previously on Tresiba 6 units q.h.s. along with LYUMJEV (Lispro- aabc) slide as home regimen along with p.o. Januvia 50 mg p.o. q.d. Holding Januvia on admission Continue with Lantus 6 units SC q.h.s. Continue with SSI Hypothyroidism 10/09/2023 Assessment & Plan (06/08/2024 2:19 AM CDT): Continue with levothyroxine 112 mcg p.o. q.d. Malignant neoplasm of upper- outer quadrant of left breast in female, estrogen receptor positive 07/31/2018 Carcinoid tumor 05/08/2015 Breast cancer 12/22/2003 Resolved Problems Problem Noted Date Diagnosed Date Resolved Date Multiple myeloma and immunop roliferative neoplasms 06/07/2024 09/30/2024 Assessment & Plan (06/08/2024 2:19 AM CDT): The patient was initially diagnosed with multiple myeloma complicated by plasmacytoma in 10/2023. She initially presented with complaints of lower extremity numbness with scans remarkable for lytic lesions over the T4/T5, compression fracture at T10- T12, severe spinal canal stenosis L4-L5. MRI demonstrated multiple enhancing spinal lesions with largest at T4-T6, smaller lesions at T12 and L iliac, T11 compression fx, severe spinal canal stenosis and vertebral augmentation L1-L5. Biopsy from the vertebral mass was remarkable for kappa restricted plasma cell neoplasm. SPEP on admission was remarkable for small 1.0 g/dl M-spike while initial bone marrow biopsy was remarkable for normocellular marrow with trilineage hematopoiesis and ~10-20% involvement by plasma cell neoplasm. Initial PET-CT from 11/19 was remarkable for multiple bone and soft tissue lesions, especially in the spine, consistent with patient's known plasma cell neoplasm. The patient s deficits improved with steroids during that admission while ortho Oncology deferred any intervention at that point. per Radiation Oncology recommendations the patient underwent 10 fractions of 30 Gy local XRT to the spine after which she was started on DRd regimen. 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 [address] [place] [address] Multiple myeloma in remission (HCC) 11/09/2024 12:45 PM CDT Infusion [facility] [address] [place] [address] Multiple myeloma in remission (HCC) 11/09/2024 10:45 AM CDT Infusion [facility] [address] [place] [address] Multiple myeloma in remission (HCC) (Primary Dx) 11/09/2024 10:15 AM CDT Office Visit [facility] Bone Marrow Transplant [address] [place] [address] Jarrod Garcia, NIGEL Multiple myeloma in remission (HCC) (Primary Dx); Multiple myeloma not having achieved remission (HCC) 11/09/2024 9:45 AM CDT Clinical Support [facility] [address] [place] [address] Multiple myeloma in remission (HCC) 11/09/2024 9:32 AM CDT - 11/09/2024 11:59 PM CDT Hospital Encounter [facility] [address] [place] [phone] Multiple myeloma in remission (HCC) Discharge Disposition: Discharge to home or self care 11/09/2024 7:45 AM CDT - 11/09/2024 11:59 PM CDT Hospital Encounter [facility] [address] [place] [phone] Multiple myeloma in remission (HCC); Multiple myeloma not having achieved remission (HCC) Discharge Disposition: Discharge to home or self care 11/09/2024 Orders Only [facility] Bone Marrow Transplant [address] [facility] [address] [place] [address] Sarita Patiño, [facility] 10/28/2024 11:00 AM EARLY CHILDHOOD EDUCATION SPECIALIST Therapy [facility] Physical Therapy [address] [facility] [address] [place] [address] Claudette Rosen, DPYo Multiple myeloma not having achieved remission (HCC) (Primary Dx); Hx of spinal cord compression 10/26/2024 Telephone [facility] Orthopaedic Surgery [address] [facility] Advanced Medicine 12th [place] [address] [place] [address] Omid Hurtado PA 10/25/2024 Orders Only [facility] Bone Marrow Transplant [address] [facility] Floor 6 [place] [address] Rupa Zaragoza, [facility] 10/14/2024 Orders Only [facility] Bone Marrow Transplant [address] [facility] Floor 6 [place] [address] Rupa Zaragoza, [facility] 10/12/2024 3:00 PM EARLY CHILDHOOD EDUCATION SPECIALIST Infusion [facility] [place] [address] [place] [address] Multiple myeloma in remission (HCC) 10/12/2024 1:00 PM EARLY CHILDHOOD EDUCATION SPECIALIST Infusion [facility] [place] [address] [place] [address] Multiple myeloma in remission (HCC) 10/12/2024 12:00 PM EARLY CHILDHOOD EDUCATION SPECIALIST Infusion [facility] [address] [place] [address] Multiple myeloma in remission (HCC) (Primary Dx) 10/12/2024 11:15 AM EARLY CHILDHOOD EDUCATION SPECIALIST Clinical Support [place] [address] [place] [address] Multiple myeloma in remission (HCC) 10/12/2024 11:05 AM EARLY CHILDHOOD EDUCATION SPECIALIST - 10/12/2024 11:59 PM EARLY CHILDHOOD EDUCATION SPECIALIST Hospital Encounter [facility] [address] [place] [address] Multiple myeloma not having achieved remission (HCC); Multiple myeloma in remission (HCC) Discharge Disposition: Discharge to home or self care 10/12/2024 Orders Only [facility] Oncology [address] [facility] Floor 6 [place] [phone] Ovi Rodriguez MD 10/12/2024 Orders Only [facility] Bone Marrow Transplant [address] [facility] Floor 6 [place] [address] Rupa Zaragoza, [facility] 10/12/2024 Orders Only [facility] Bone Marrow Transplant [address] [place] [phone] Zafar Gary, EBONIE Multiple myeloma in remission (HCC) (Primary Dx) 10/11/2024 Telephone [facility] Radiation Oncology [address] [place] [address] Advanced [place] [address] Florence Acosta MD 10/11/2024 Orders Only [facility] Bone Marrow Transplant [address] [facility] Floor 6 [place] [phone] Jarrod Garcia DNP 10/11/2024 Orders Only [facility] Bone Marrow Transplant [address] [facility] Floor [address] [place] [phone] Rupa Zaragoza [facility] 10/06/2024 Orders Only [facility] Bone Marrow Transplant [address] [facility] Floor 6 [place] [phone] Rupa Zaragoza [facility] 10/06/2024 Orders Only [facility] Bone Marrow Transplant [address] [facility] 6 [place] [phone] JocelynRupa daltonJoyce 10/06/2024 Telephone [facility] Advanced Medicine Radiation Oncology [address] [place] [address] Marleny Melo NP 10/06/2024 Orders Only [facility] Bone Marrow Transplant [address] [facility] 6 [place] [phone] Zafar Gary, EBONIE Multiple myeloma in remission (HCC) (Primary Dx) 10/06/2024 Orders Only [facility] Advanced Medicine Radiation Oncology [address] [place] [address] Marleny Melo NP Breast nodule (Primary Dx); Inconclusive mammogram; Multiple myeloma in remission (HCC) 10/05/2024 3:00 PM EARLY CHILDHOOD EDUCATION SPECIALIST Therapy [facility] Occupational Therapy [address] [phone] Nu Dawson OT Weakness (Primary Dx); Decreased activities of daily living (ADL) 10/05/2024 1:44 PM EARLY CHILDHOOD EDUCATION SPECIALIST - 10/05/2024 11:59 PM EARLY CHILDHOOD EDUCATION SPECIALIST Hospital Encounter [facility] Advanced [facility] [address] [place] [address] Hx of breast cancer; Breast pain Discharge Disposition: Discharge to home or self care 10/05/2024 1:00 PM EARLY CHILDHOOD EDUCATION SPECIALIST - 10/05/2024 11:59 PM EARLY CHILDHOOD EDUCATION SPECIALIST Hospital Encounter [facility] Advanced [facility] [address] [place] [address] Hx of breast cancer; Breast pain Discharge Disposition: Discharge to home or self care 10/05/2024 10:15 AM EARLY CHILDHOOD EDUCATION SPECIALIST Office Visit [facility] Bone Marrow Transplant [address] [place] [phone] Ovi Rodriguez MD Multiple myeloma in remission (HCC) (Primary Dx); 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 [address] [place] [address] Discharge Disposition: Discharge to home or self care 10/01/2024 8:44 AM EARLY CHILDHOOD EDUCATION SPECIALIST - 10/01/2024 11:59 PM EARLY CHILDHOOD EDUCATION SPECIALIST Hospital Encounter 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) Discharge Disposition: Discharge to home or self care 10/01/2024 Plan of Care Documentation [facility] Occupational Therapy [address] [place] [phone] 09/30/2024 3:00 PM EARLY CHILDHOOD EDUCATION SPECIALIST Therapy [facility] Physical Therapy [address] [place] [phone] Claudette Rosen, DPT Multiple myeloma not having achieved remission (HCC) (Primary Dx); Hx of spinal cord compression 09/30/2024 2:00 PM EARLY CHILDHOOD EDUCATION SPECIALIST Therapy [facility] Occupational Therapy [address] [place] [phone] Nu Dawson, OT Weakness (Primary Dx); Decreased activities of daily living (ADL); Deficit in activities of daily living (ADL) 09/29/2024 8:43 PM EARLY CHILDHOOD EDUCATION SPECIALIST - 09/29/2024 11:59 PM EARLY CHILDHOOD EDUCATION SPECIALIST Hospital Encounter [facility] [address] [place] [address] Discharge Disposition: Discharge to home or self care 09/29/2024 8:42 PM EARLY CHILDHOOD EDUCATION SPECIALIST - 09/29/2024 11:59 PM EARLY CHILDHOOD EDUCATION SPECIALIST Hospital Encounter [facility] ([facility]) [address] [place] [address] Discharge Disposition: Discharge to home or self care 09/29/2024 8:00 PM EARLY CHILDHOOD EDUCATION SPECIALIST - 09/29/2024 11:59 PM EARLY CHILDHOOD EDUCATION SPECIALIST Hospital Encounter [facility] ([facility]) [address] [place] [id number] Discharge Disposition: Discharge to home or self care 09/29/2024 7:57 PM EARLY CHILDHOOD EDUCATION SPECIALIST - 09/29/2024 11:59 PM EARLY CHILDHOOD EDUCATION SPECIALIST Hospital Encounter [facility] ([facility]) [address] [place] [id number] Discharge Disposition: Discharge to home or self care 09/29/2024 Telephone [facility] Radiation Oncology [address] [place] [address] Advanced Medicine [facility] [place] [address] Marleny Melo, TING 09/28/2024 Telephone [facility] Oncology [facility] [place] [phone] Farida Mckeon RMA 09/28/2024 Orders Only [facility] Bone Marrow Transplant [address] [place] [phone] Zafar Gary, RN 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 ([facility]) [address] [place] [id number] Hx of spinal cord compression; Multiple myeloma in remission (HCC); Bilateral low back pain without sciatica, unspecified chronicity Discharge Disposition: Discharge to home or self care 09/24/2024 Orders Only [facility] ONCOLOGY Scanning, Provider 09/21/2024 Telephone [facility] Bone Marrow Transplant [address] [facility] 6 [place] [address] Jarrod Garcia, NIGEL 09/21/2024 Orders Only [facility] Bone Marrow Transplant [address] [facility] 6 [place] [phone] Sarita Patiño myrtle 09/21/2024 Orders Only [facility] Bone Marrow Transplant [address] [place] [phone] Zafar Gary, RN Multiple myeloma not having achieved remission (HCC) (Primary Dx) 09/17/2024 Orders Only [facility] Bone Marrow Transplant [facility] 6 [place] [phone] Sarita Patiño myrtle 09/14/2024 2:28 PM EARLY CHILDHOOD EDUCATION SPECIALIST - 09/14/2024 11:59 PM EARLY CHILDHOOD EDUCATION SPECIALIST Hospital Encounter [facility] PATHOLOGY [address] [address] 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) Discharge Disposition: Discharge to home or self care 09/14/2024 1:00 PM EARLY CHILDHOOD EDUCATION SPECIALIST Infusion [facility] [address] [place] [address] 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); Multiple myeloma not having achieved remission (HCC) 09/14/2024 12:00 PM EARLY CHILDHOOD EDUCATION SPECIALIST Infusion [facility] [address] [place] [address] Multiple myeloma not having achieved remission (HCC) (Primary Dx) 09/14/2024 11:30 AM EARLY CHILDHOOD EDUCATION SPECIALIST Office Visit [facility] Bone Marrow Transplant [address] [place] [address] Jarrod Garcia, NIGEL 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); Multiple myeloma not having achieved remission (HCC); Abscess 09/14/2024 11:00 AM EARLY CHILDHOOD EDUCATION SPECIALIST Clinical Support [facility] [address] [place] [address] 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) 09/14/2024 9:32 AM EARLY CHILDHOOD EDUCATION SPECIALIST - 09/14/2024 11:59 PM EARLY CHILDHOOD EDUCATION SPECIALIST Hospital Encounter [facility] [address] [place] [phone] Multiple myeloma not having achieved remission (HCC); 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); Vitamin D deficiency Discharge Disposition: Discharge to home or self care 09/14/2024 Orders Only [facility] [address] [place] [id number] Ovi Rodriguez MD 09/14/2024 Orders Only [facility] Oncology [facility] [place] [phone] Ovi Rodriguez MD 09/07/2024 Orders Only [facility] Bone Marrow Transplant [address] [place] [phone] Zafar Gary RN 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) 09/02/2024 Telephone [facility] Radiation Oncology [facility] [place] [address] Florence Acosta MD 09/02/2024 Telephone [facility] Radiation Oncology [facility] [place] [address] Marleny Melo NP 09/02/2024 Telephone [facility] Radiation Oncology [address] [facility] [place] [address] Marleny Melo NP 08/30/2024 10:00 AM EARLY CHILDHOOD EDUCATION SPECIALIST Therapy [facility] Physical Therapy [address] [phone] Claudette Rosen DPT Multiple myeloma not having achieved remission (HCC) (Primary Dx); Hx of spinal cord compression 08/26/2024 1:07 PM EARLY CHILDHOOD EDUCATION SPECIALIST - 08/26/2024 11:59 PM EARLY CHILDHOOD EDUCATION SPECIALIST Hospital Encounter [facility] [address] [place] [address] Breast pain; Hx of breast cancer Discharge Disposition: Discharge to home or self care 08/26/2024 1:07 PM EARLY CHILDHOOD EDUCATION SPECIALIST - 08/26/2024 11:59 PM EARLY CHILDHOOD EDUCATION SPECIALIST Hospital Encounter [facility] [address] [place] [address] Breast pain; Hx of breast cancer Discharge Disposition: Discharge to home or self care 08/23/2024 11:00 AM EARLY CHILDHOOD EDUCATION SPECIALIST Therapy [facility] Physical Therapy [address] [facility] [address] [place] [phone] Claudette Rosen, DPYo Multiple myeloma not having achieved remission (HCC) (Primary Dx); Hx of spinal cord compression from Last 3 Months Immunizations Immunization Administration Dates Next Due COVID-19 mRNA ([employer]) 0.3 m L (30 mcg) vaccine (12 years and up) 11/09/2024,10/12/2024 Influenza, Quad, Adjuvantate d, Intramuscular 06/30/2023,06/06/2021,05/30/2020 Influenza, Quadrivalent, Hig h Dose, Preservative Free, Intrr 05/30/2022 Influenza, Quadrivalent, Spl it, Preservative Free, Intramuscular 05/18/2018,05/17/2018 Influenza, Trivalent, High D ose, Split, Preservative Free, Intramuscular 10/12/2024,05/10/2019 Influenza, Trivalent, IM (MDV) 05/26/2017 Influenza, Trivalent, Preser vative Free, Intramuscular 06/25/2016,05/29/2015 Influenza, Unspecified 08/05/2017,07/16/2016,01/2015 Pneumococcal Conjugate Pcv20 07/16/2022 Pneumococcal Polysaccharide PPV23 05/10/2019 RSV Vaccine, Pref, Recombina nt, Subunit, Adjuvanted, PF, IM (Arexvy) 07/31/2023 Tdap 05/18/2018,05/17/2018 ZOSTER LIVE 08/05/2017,07/16/2016 ZOSTER Recombinant 05/10/2019,03/03/2019 Surgical History Surgery Date Site/Laterality Comments HEMICOLECTOMY 09/01/2003 - 08/31/2004 BREAST LUMPECTOMY 09/01/2008 - 08/31/2009 TONSILECTOMY, ADENOIDECTOMY, BILATERAL MYRINGOTOMY AND TUBES BIOPSY DEEP BONE 11/14/2023 N/A PORTACATH PLACEMENT 01/05/2024 BREAST BIOPSY 09/01/2010 - 08/31/2011 Right BREAST BIOPSY 09/01/2008 - 08/31/2009 Left PORT REMOVAL 09/01/2009 - 08/31/2010 LEFT COLECTOMY 09/01/2003 - 08/31/2004 TONSILLECTOMY 09/01/1958 - 08/31/1959 MOLE REMOVAL 09/01/1983 - 08/31/1984 Right shoulder COLONOSCOPY 09/01/2017 - 08/31/20182003, 2005, 2008 TUNNELED LINE PLACEMENT > 5 YEARS 05/31/2024 N/A REMOVE TUNNELED LINE 06/23/2024 Left Medical History Medical History Date Comments Diabetes mellitus (HCC) Hypertension Hypercholesteremia Hypothyroid Osteoporosis Spinal stenosis Cancer (HCC) PONV (postoperative nausea and vomiting) Motion sickness Sleep apnea Family History Medical History Relation Name Comments Hip fracture Mother Anesthesia problems Neg Hx Malig Hypertension Neg Hx Malig Hyperthermia Neg Hx Pseudochol deficiency Neg Hx Relation Name Status Comments Mother Social History Tobacco Use Types Packs/Day Years Used Date Smoking Tobacco: Never Smokeless Tobacco: Never Tobacco Cessation:Counseling Given: Not Answered Alcohol Use Standard Drinks/Week Comments Not Currently [...] materials from doctor or pharmacy Never 08/04/2024 [facility] Utilities Answer Date Recorded In the [...] often do you attend chur ch or buddhism services? Never 06/09/2024 Do you belong to any clubs o r organizations such as christianity groups, unions, fraternal or athletic groups, or [...] place to sleep or slept in a alf (including now)? No 11/27/2023 Housing Stability Vital Sign Answer Tyson e Recorded In the last 12 months, was t here a time when you were not able to pay the mortgage or rent on time? No 06/09/2024 In the past 12 months, how m any times have you moved where you were living? 0 06/09/2024 At any time in the past 12 m [facility], were you homeless or living in a alf (including now)? No 06/09/2024 Personal Safety Answer Date Recorded Have you ever been in or are you currently in a harmful physical or emotional relationship or is someone making you feel afraid or unsafe? Denies 06/23/2024 Comments No Sex and Gender Information Value Date Recorded Sex Assigned at Not on file Legal Sex Female 11:17 AM EARLY CHILDHOOD EDUCATION SPECIALIST Gender Identity Not on file Sexual Orientation Not on file Obstetrics History Last Filed Vital Signs Vital Sign Reading Time Taken Comments Blood Pressure 121/57 11/09/2024 2:00 PM CDT Pulse 75 11/09/2024 2:00 PM CDT Temperature 36.1 C (97 F) 11/09/2024 2:00 PM CDT Respiratory Rate 18 11/09/2024 2:00 PM CDT Oxygen Saturation 97% 11/09/2024 2:00 PM CDT Inhaled Oxygen Concentration - - Weight 86.9 kg (191 lb 9.6 oz) 11/09/2024 10:58 AM CDT Height 167.6 cm (5' 6 ) 06/07/2024 6:26 PM CDT Body Mass Index 30.93 06/07/2024 6:26 PM CDT Plan of Treatment Health Maintenance Due Date Last Done Comments Colon Cancer Screening-Colonoscopy 1953 Hepatitis C Screening 1955 Dilated Eye Exam 1953 Foot Exam 1953 Hepatitis B Screening 1971 Well Visit 65+ 2018 Hemoglobin A1C 11/25/2024 05/28/2024, 0804/2024, 11/14/2023 Covid-19 Vaccine ( season) 2025 11/09/2024, 10/12/2024, 05/19/2024, Additional history exists Depression Screening 05/27/2025 05/27/2024, 11/13/19 Fall Risk Assessment 06/25/2025 06/25/2024 Breast Cancer Screening-Mammogram 08/26/2025 08/26/2024, 10/30/2020, 10/30/2020, Additional history exists Albumin Creatinine Ratio, Urine 11/09/2025 , 08/03/2024 Lipid Panel 11/09/2025 11/09/2024, 10/2023, 05/28/2024, Additional history exists eGFR 11/09/2025 11/09/2024, 10/30, 10/12/2024, Additional history exists Osteoporosis Screening-Bone Density Scan 04/28/2026 04/28/2024, 11/13/2023, 11/13/2023, Additional history exists DTaP/Tdap/Td Vaccine (3 - Td or Tdap) 05/18/2028 05/18/2018, 05/17/2018 Zoster Vaccine Completed 05/10/2019, 10/2018, 08/05/2017, Additional history exists Pneumococcal vaccine 65+ Completed 07/16/2022, 0 05/2019 Influenza Vaccine Completed 10/12/2024, , 05/30/2022, Additional history exists Procedures Procedure Name Priority Date/Time Associated Diagnosis Comments DIFFERENTIAL AUTO Routine 11/09/2024 12:00 PM CDT Multiple myeloma in remission (HCC) CBC WITH AUTO DIFFERENTIAL Routine 11/09/2024 12:00 PM CDT Multiple myeloma in remission (HCC) CLINICAL PATHOLOGY REPORT Routine 11/09/2024 10:05 AM CDT EGFR Routine 11/09/2024 10:05 AM CDT Multiple myeloma in remission (HCC) TYPE AND SCREEN Routine 11/09/2024 10:05 AM CDT Multiple myeloma not having achieved remission (HCC) COMPREHENSIVE METABOLIC PANEL Routine 11/09/2024 10:05 AM CDT Multiple myeloma in remission (HCC) IGA Routine 11/09/2024 10:05 AM CDT Multiple myeloma in remission (HCC) IGG Routine 11/09/2024 10:05 AM CDT Multiple myeloma in remission (HCC) IGM Routine 11/09/2024 10:05 AM CDT Multiple myeloma in remission (HCC) IMMUNOGLOBULIN FREE LIGHT CHAINS Routine 11/09/2024 10:05 AM CDT Multiple myeloma in remission (HCC) LACTATE DEHYDROGENASE Routine 11/09/2024 10:05 AM CDT Multiple myeloma in remission (HCC) PROTEIN ELECTROPHORESIS, WITH REFLEX, SERUM Routine 11/09/2024 10:05 AM CDT Multiple myeloma in remission (HCC) EGFR Routine 11/09/2024 9:51 AM CDT T4, FREE Routine 11/09/2024 9:51 AM CDT TSH Routine 11/09/2024 9:51 AM CDT ALBUMIN CREATININE RATIO, URINE Routine 11/09/2024 9:51 AM CDT COMPREHENSIVE METABOLIC PANEL Routine 11/09/2024 9:51 AM CDT LIPID PANEL Routine 11/09/2024 9:51 AM CDT VITAMIN D 25 HYDROXY Routine 11/09/2024 9:51 AM CDT EGFR STAT 10/12/2024 11:19 AM EARLY CHILDHOOD EDUCATION SPECIALIST Multiple myeloma in remission (HCC) DIFFERENTIAL AUTO Routine 10/12/2024 11:19 AM EARLY CHILDHOOD EDUCATION SPECIALIST Multiple myeloma in remission (HCC) CBC WITH AUTO DIFFERENTIAL Routine 10/12/2024 11:19 AM EARLY CHILDHOOD EDUCATION SPECIALIST Multiple myeloma in remission (HCC) COMPREHENSIVE METABOLIC PANEL STAT 10/12/2024 11:19 AM EARLY CHILDHOOD EDUCATION SPECIALIST Multiple myeloma in remission (HCC) TYPE AND SCREEN Routine 10/12/2024 11:19 AM EARLY CHILDHOOD EDUCATION SPECIALIST Multiple myeloma not having achieved remission (HCC) DIAGNOSTIC MAMMOGRAM RIGHT W BRANNON Schedule Routine, Read Routine (OP Routine) 10/05/2024 2:19 PM EARLY CHILDHOOD EDUCATION SPECIALIST Hx of breast cancer Breast pain US BREAST RIGHT LIMITED Schedule Routine, Read Routine (OP Routine) 10/05/2024 1:51 PM EARLY CHILDHOOD EDUCATION SPECIALIST Hx of breast cancer Breast pain IMMUNOGLOBULIN FREE LIGHT CHAINS Routine 10/05/2024 10:00 AM EARLY CHILDHOOD EDUCATION SPECIALIST 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) PROTEIN ELECTROPHORESIS, WITH REFLEX, SERUM Routine 10/05/2024 10:00 AM EARLY CHILDHOOD EDUCATION SPECIALIST 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) EGFR Routine 10/05/2024 10:00 AM EARLY CHILDHOOD EDUCATION SPECIALIST 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) DIFFERENTIAL AUTO Routine 10/05/2024 10:00 AM EARLY CHILDHOOD EDUCATION SPECIALIST 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) CBC WITH AUTO DIFFERENTIAL Routine 10/05/2024 10:00 AM EARLY CHILDHOOD EDUCATION SPECIALIST 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) COMPREHENSIVE METABOLIC PANEL Routine 10/05/2024 10:00 AM EARLY CHILDHOOD EDUCATION SPECIALIST 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) IGA Routine 10/05/2024 10:00 AM EARLY CHILDHOOD EDUCATION SPECIALIST 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) IGG Routine 10/05/2024 10:00 AM EARLY CHILDHOOD EDUCATION SPECIALIST 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) IGM Routine 10/05/2024 10:00 AM EARLY CHILDHOOD EDUCATION SPECIALIST 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) LACTATE DEHYDROGENASE Routine 10/05/2024 10:00 AM EARLY CHILDHOOD EDUCATION SPECIALIST 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) TYPE AND SCREEN Routine 10/05/2024 10:00 AM EARLY CHILDHOOD EDUCATION SPECIALIST Multiple myeloma not having achieved remission (HCC) CLINICAL PATHOLOGY REPORT Routine 10/05/2024 10:00 AM EARLY CHILDHOOD EDUCATION SPECIALIST PET/CT FDG SKULL TO THIGH Schedule Routine, Read Routine (OP Routine) 10/01/2024 11:24 AM EARLY CHILDHOOD EDUCATION SPECIALIST 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) NEURO MR OUTSIDE REFERENCE Routine 09/29/2024 8:43 PM EARLY CHILDHOOD EDUCATION SPECIALIST NEURO MR OUTSIDE REFERENCE Routine 09/29/2024 8:42 PM EARLY CHILDHOOD EDUCATION SPECIALIST NEURO CT OUTSIDE REFERENCE Routine 09/29/2024 8:00 PM EARLY CHILDHOOD EDUCATION SPECIALIST NEURO CT OUTSIDE REFERENCE Routine 09/29/2024 7:57 PM EARLY CHILDHOOD EDUCATION SPECIALIST MRI SPINE TOTAL COMPLETE W WO CONTRAST Schedule Routine, Read Routine (OP Routine) 09/27/2024 2:45 PM EARLY CHILDHOOD EDUCATION SPECIALIST Hx of spinal cord compression Multiple myeloma in remission (HCC) Bilateral low back pain without sciatica, unspecified chronicity SCAN - PATHOLOGY 09/24/2024 CLONOSEQ Routine 09/15/2024 11:49 AM EARLY CHILDHOOD EDUCATION SPECIALIST HEMATOLOGIC MOLECULAR ALGORITHM Routine 09/15/2024 11:49 AM EARLY CHILDHOOD EDUCATION SPECIALIST 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) SURGICAL PATHOLOGY Routine 09/14/2024 2: 28 PM EARLY CHILDHOOD EDUCATION SPECIALIST 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) FLOW LEUKEMIA/LYMPHOMA Routine 09/14/2024 2:27 PM EARLY CHILDHOOD EDUCATION SPECIALIST 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) CYTOGENETICS TRACKING ORDER Routine 09/14/2024 2:27 PM EARLY CHILDHOOD EDUCATION SPECIALIST 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) SPECIMEN TRACKING Routine 09/14/2024 12:03 PM EARLY CHILDHOOD EDUCATION SPECIALIST 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) CLINICAL PATHOLOGY REPORT Routine 09/14/2024 11:11 AM EARLY CHILDHOOD EDUCATION SPECIALIST EGFR Routine 09/14/2024 11:11 AM EARLY CHILDHOOD EDUCATION SPECIALIST 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) DIFFERENTIAL AUTO Routine 09/14/2024 11:11 AM EARLY CHILDHOOD EDUCATION SPECIALIST 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) BETA 2 MICROGLOBULIN SERUM Routine 09/14/2024 11:11 AM EARLY CHILDHOOD EDUCATION SPECIALIST 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) CBC WITH AUTO DIFFERENTIAL Routine 09/14/2024 11:11 AM EARLY CHILDHOOD EDUCATION SPECIALIST 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) COMPREHENSIVE METABOLIC PANEL Routine 09/14/2024 11:11 AM EARLY CHILDHOOD EDUCATION SPECIALIST 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) IGA Routine 09/14/2024 11:11 AM EARLY CHILDHOOD EDUCATION SPECIALIST 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) IGG Routine 09/14/2024 11:11 AM EARLY CHILDHOOD EDUCATION SPECIALIST 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) IGM Routine 09/14/2024 11:11 AM EARLY CHILDHOOD EDUCATION SPECIALIST 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) IMMUNOTYPING Routine 09/14/2024 11:11 AM EARLY CHILDHOOD EDUCATION SPECIALIST 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) IMMUNOGLOBULIN FREE LIGHT CHAINS Routine 09/14/2024 11:11 AM EARLY CHILDHOOD EDUCATION SPECIALIST 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) LACTATE DEHYDROGENASE Routine 09/14/2024 11:11 AM EARLY CHILDHOOD EDUCATION SPECIALIST 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) PROTEIN ELECTROPHORESIS, WITH REFLEX, SERUM Routine 09/14/2024 11:11 AM EARLY CHILDHOOD EDUCATION SPECIALIST 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) VITAMIN D 25 HYDROXY Routine 09/14/2024 11:11 AM EARLY CHILDHOOD EDUCATION SPECIALIST 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) Vitamin D deficiency TYPE AND SCREEN Routine 09/14/2024 11:11 AM EARLY CHILDHOOD EDUCATION SPECIALIST Multiple myeloma not having achieved remission (HCC) CYTOGENETICS Routine 09/14/2024 12:00 AM EARLY CHILDHOOD EDUCATION SPECIALIST US BREAST RIGHT LIMITED Schedule Routine, Read Routine (OP Routine) 08/26/2024 2:39 PM EARLY CHILDHOOD EDUCATION SPECIALIST Breast pain Hx of breast cancer DIAGNOSTIC MAMMOGRAM BILATERAL W BRANNON Schedule Routine, Read Routine (OP Routine) 08/26/2024 2:03 PM EARLY CHILDHOOD EDUCATION SPECIALIST Breast pain Hx of breast cancer HEMOGLOBIN A1C Routine 05/28/2024 8:28 AM CDT Other blood donor, stem cells Multiple myeloma not having achieved remission (HCC) DEXA AXIAL AND FOREARM BONE DENSITY SCAN Schedule Routine, Read Routine (OP Routine) 04/28/2024 2:49 PM CDT Multiple myeloma not having achieved remission (HCC) from Last 3 Months or Most Recently Relevant to Health Maintenance Results * (ABNORMAL) Differential, auto (11/09/2024 12:00 PM CDT) Neutrophil abs 3.0 1.5 - 6.5 K/cumm Comment:Testing performed by : [facility], [place] [address] Imm gran abs 0.0 0.0 - 0.1 K/cumm DEBORAH MATTA Comment:Testing performed by : [facility] [place] [address] Lymphocyte abs 1.0 0.8 - 3.3 K/cumm CERNER CH Comment:Testing performed by : [facility] [place] [address] Monocyte abs 0.6 0.2 - 0.8 K/cumm CERNER CH Comment:Testing performed by : [facility] [place] [address] Eosinophil abs 0.6(H) 0.0 - 0.5 K/cumm CERNER CH Comment:Testing performed by : [facility] [place] [address] Basophil abs 0.1 0.0 - 0.1 K/cumm CERNER CH Comment:Testing performed by : [facility] [place] [address] Neutrophil pct 57.3 % CERNER CH Comment: Interpretive Data Percent cell count reference ranges are not reported, since discordance with absolute values may lead to misinterpretation of CBC data. Current Interpretive Data was last revised on 2017. Testing performed by: [facility] [place] [address] Imm gran pct 0.6 % CERNER CH Comment: Interpretive Data Percent cell count reference ranges are not reported, since discordance with absolute values may lead to misinterpretation of CBC data. Current Interpretive Data was last revised on 2017. Testing performed by: [facility] [place] [address] Lymphocyte pct 18.3 % CERNER CH Comment: Interpretive Data Percent cell count reference ranges are not reported, since discordance with absolute values may lead to misinterpretation of CBC data. Current Interpretive Data was last revised on 2017. Testing performed by: [facility] [place] [address] Monocyte pct 11.7 % CERNER CH Comment: Interpretive Data Percent cell count reference ranges are not reported, since discordance with absolute values may lead to misinterpretation of CBC data. Current Interpretive Data was last revised on 2017. Testing performed by: [facility] [place] [address] Eosinophil pct 10.6 % CERNER CH Comment: Interpretive Data Percent cell count reference ranges are not reported, since discordance with absolute values may lead to misinterpretation of CBC data. Current Interpretive Data was last revised on 2017. Testing performed by: [facility] [place] [address] Basophil pct 1.5 % DEBORAH Comment: Interpretive Data Percent cell count reference ranges are not reported, since discordance with absolute values may lead to misinterpretation of CBC data. Current Interpretive Data was last revised on 2017. Testing performed by: [facility] [place] [address] Blood 11/09/2024 12:0 0 PM CDT 11/09/2024 12:06 PM CDT Ovi Rodriguez MD LAB BLOOD ORDERABLES Fin al Result DEBORAH [address] [address] Department [place] [address] * (ABNORMAL) CBC with auto differential (11/09/2024 12:00 PM CDT) WBC 5.3 3.8 - 9.9 K/cumm Comment:Testing performed by : [facility] [place] [address] Hgb 11.6(L) 11.9 - 15.5 g/dL DEBORAH Comment:Testing performed by : [facility] [place] [address] Hct 34.4(L) 35.6 - 45.5 % DEBORAH Comment:Testing performed by : [facility] [place] [address] Plt 174 150 - 400 K/cumm DEBORAH Comment:Testing performed by : [facility] [place] [address] MPV 9.3 9.1 - 12.3 fL DEBORAH Comment:Testing performed by : [facility] [place] [address] RBC 3.70(L) 3.90 - 5.20 M/cumm DEBORAH Comment:Testing performed by : [facility] [place] [address] MCV 93.0 81.3 - 96.4 fL CERJUAN CH Comment:Testing performed by : [facility] at [facility], [place] [address] MCH 31.4 27.1 - 33.3 pg DEBORAH MATTA Comment:Testing performed by : [facility] at [facility], [place] [address] MCHC 33.7 32.3 - 35.7 g/dL DEBORAH MATTA Comment:Testing performed by : [facility] [place] [address] RDW CV 13.1 11.1 - 14.9 % DEBORAH MATTA Comment:Testing performed by : [facility] [place] [address] RDW SD 44.5 35.7 - 48.1 fL DEBORAH MATTA Comment:Testing performed by : [facility] [place] [address] NRBC abs 0.00 0.00 - 0.01 K/cumm DEBORAH MATTA Comment:Testing performed by : [facility] [place] [address] Blood 11/09/2024 12:0 0 PM CDT 11/09/2024 12:06 PM CDT Ovi Rodriguez MD LAB BLOOD ORDERABLES Fin al Result Performing Organization Address City/State/[facility] Co de Phone Number DEBORAH [address] [place] [address] * Clinical pathology report (11/09/2024 10:05 AM CDT) Miscellaneous 11/09/2024 10: 05 AM CDT 11/11/2024 8:36 AM CDT Narrative 11/11/2024 4:31 PM CDT EPIC results best viewed via link to PDF [facility] Department of Pathology [address] [place] [address] Final Report Note to Patients: This report may contain a detailed description of human tissue sent by a health care provider to the laboratory for pathologic evaluation. The content of this report is essential for diagnosis and may provide important critical findings. This information may be unfamiliar to patients to review without a medical professional present. It is advised that the patient review this report in the presence of a health care provider who can answer questions and explain the details. Patient Name: FRANCESCO JEAN Address: [address] [place] [address] Gender: F : 1955 (Age: 69) Service: Location: N : [id number] Hospital #: [id number] Patient Type: CH EP REF LAB SERIES Taken: 11/09/2024 Received: 11/11/2024 Accessioned: 11/11/2024 Physician(s): Ovi Rodriguez M.D. Specimen(s) Received A: Blood (serum) Serum Protein ElectrophoresisReported:11/11/2024 Interpretation: Serum Protein Electrophoresis: Marked hypogammaglobulinemia. Comment: Serum Protein Electrophoresis: Electrophoresis shows a marked hypogammaglobulinemia. See Epic and/or separate report for protein fraction table. Cachorro Etienne MD PhDReport Electronically Reviewed and Signed Out By Cachorro Etienne MD PhD 11/11/2024 16:30:53 The performance characteristics of some immunohistochemical stains, fluorescence in-situ hybridization tests and immunophenotyping by flow cytometry cited in this report (if any) were determined by the Surgical Pathology Department at [facility] as part of an ongoing quality management coordinator program and in compliance with federally mandated regulations drawn from the Clinical Laboratory Improvement Act of 1988 (CLIA '88). Some of these tests rely on the use of analyte specific reagents and are subject to specific labeling requirements by the US Food and Drug Administration. Such diagnostic tests may only be performed in a facility that is certified by the Department of Health and Human Services as a high complexity laboratory under CLIA '88. The FDA has determined that such clearance or approval is not necessary. This test is used for clinical purposes. It should not be regarded as investigational or for research. Nevertheless, federal rules concerning the medical use of analyte specific reagents require that the following disclaimer be attached to the report: This test was developed and its performance characteristics determined by the Surgical Pathology Department [facility]. It has not been cleared or approved by the U. S. Food and Drug Administration. REPORT IMAGES AND SCANNED DOCUMENTS, IF INCLUDED, ONLY VIEWABLE IN PDF VERSION OF REPORTe o Ovi Rdoriguez MD LAB PATHOLOGY ORDERABLES Final Result * eGFR (11/09/2024 10:05 AM CDT) eGFR 84 >=60 mL/min/1. 73 m2 Comment: Interpretive Data Reference Interval Normal >/= 90 mL/min/1.73m2 Mildly decreased* 60 - 89 mL/min/1.73m2 Mildly to moderately decreased 45 - 59 mL/min/1.73m2 Moderately to severely decreased 30 - 44 mL/min/1.73m2 Severely decreased 15 - 29 mL/min/1.73m2 Kidney Failure < 15 mL/min/1.73m2 *Relative to young adult level Estimated glomerular filtration rate is determined by the 2020 CKD-EPI equation recommended by the National Kidney Foundation (A Unifying Approach to GFR Estimation: Recommendations of the NKF-ASK Task Force on Reassessing the Inclusion of Race in Diagnosing Kidney Disease, JASN 2020). The CKD-EPI equation should not be used for patients with unstable renal function and has not been validated in children and those over 70. Current interpretive data was last reviewed 2021. Testing performed by: [facility] at [facility], [place] [address] Blood 11/09/2024 10:0 5 AM CDT 11/09/2024 10:10 AM CDT Ovi Rodriguez MD LAB BLOOD ORDERABLES Fin al Result [facility] [address] Department [place] [address] * Immunoglobulin free light chains (11/09/2024 10:05 AM CDT) [place]/Lambda ratio 1.40 0.26 - 1.65 [place] free light chain 1.44 0.33 - 1.94 mg/dL DEBORAH MATTA Comment: Interpretive Data The Iza Ig [place] FLC assay procedure was used. Results from different manufacturers or methods may not be comparable. Serial testing should be performed using the same method. Lambda free light chain 1.06 0.57 - 2.63 mg/dL DEBORAH MATTA Comment: Interpretive Data The Iza Ig Lambda FLC assay procedure was used. Results from different manufacturers or methods may not be comparable. Serial testing should be performed using the same method. Blood 11/09/2024 10:0 5 AM CDT 11/09/2024 11:45 AM CDT Ovi Rodriguez MD LAB BLOOD ORDERABLES Fin al Result Performing Organization Address [facility] Co de Phone Number DEBORAH MATTA [address] [address] Department of [employer] [place] [address] * (ABNORMAL) Type and screen (11/09/2024 10:05 AM CDT) [place], indirect Positive(A) ABO Rh A Positive [facility] Blood 11/09/2024 10:0 5 AM CDT 11/09/2024 10:56 AM CDT Narrative [facility] - 11/09/2024 12:45 PM CDT Has the patient had Daratumumab or Isatuximab in the past 6 months?->Unknown Ovi Rodriguez MD LAB BLOOD BANK TEST ORDE RABLES Final Result Performing Organization Address [facility] de Phone Number DEBORAH MATTA [address] Department of [employer] [place] [address] * (ABNORMAL) Protein electrophoresis with reflex, serum with interpretation (11/09/2024 10:05 AM CDT) Protein, sr 5.8(L) 6.2 - 8.2 g/dL Albumin 3.8 3.2 - 5.0 g/dL CERNER CH Alpha-1 globulin 0.3 0.2 - 0.4 g/dL CERNER CH Alpha-2 globulin 0.7 0.5 - 1.0 g/dL CERNER CH Beta-1 globulin 0.4 0.3 - 0.6 g/dL CERNER CH Beta-2 globulin 0.3 0.2 - 0.6 g/dL CERNER CH Gamma globulin 0.2(L) 0.5 - 1.7 g/dL CERNER SPEP interp See Cl Path Rpt CERNER CH Blood 11/09/2024 10:0 5 AM CDT 11/09/2024 11:45 AM CDT Ovi Rodriguez MD LAB BLOOD ORDERABLES Fin al Result Performing Organization Address [facility] de Phone Number DEBORAH [address] [address] Department of [employer] [place] [address] * Lactate dehydrogenase (LD) (11/09/2024 10:05 AM CDT) Lactate dehydrogenase (LDH) 179 100 - 250 Units/L Comment:Testing performed by : [facility] at [facility], [place] [address] Blood 11/09/2024 10:0 5 AM CDT 11/09/2024 10:10 AM CDT Ovi Rodriguez MD LAB BLOOD ORDERABLES Mohan jeanette Result - Final Performing Organization Address [facility] de Phone Number [facility] [address] [address] Department of [employer] [place] [address] * (ABNORMAL) IgA (11/09/2024 10:05 AM CDT) Immunoglobulin A 68(L) 70 - 400 mg/dL Blood 11/09/2024 10:0 5 AM CDT 11/09/2024 10:50 AM CDT Ovi Rodriguez MD LAB BLOOD ORDERABLES Fin al Result Performing Organization Address [facility] de Phone Number [facility] [address] [address] Department of [employer] [place] [address] * (ABNORMAL) IgM (11/09/2024 10:05 AM CDT) Immunoglobulin M <25(L) 40 - 150 mg/dL Blood 11/09/2024 10:0 5 AM CDT 11/09/2024 10:50 AM CDT Ovi Rodriguez MD LAB BLOOD ORDERABLES Fin al Result Performing Organization Address City/[facility]/ZIP Co de Phone Number DEBORAH MATTA [address] [address] Department [employer] [place], [place] [id number] * (ABNORMAL) IgG (11/09/2024 10:05 AM CDT) [facility] Immunoglobulin G <300(L) 700 - 1,600 mg/dL Blood 11/09/2024 10:0 5 AM CDT 11/09/2024 10:50 AM CDT Ovi Rodriguez MD LAB BLOOD ORDERABLES Fin al Result Performing Organization Address [facility] de Phone Number DEBORAH MATTA [address] [address] Department [employer] [place] [address] * (ABNORMAL) Comprehensive metabolic panel (11/09/2024 10:05 AM CDT) [facility] Sodium 139 135 - 145 mmol/L Comment:Testing performed by : [facility] [place] [address] Potassium, pl 4.5 3.3 - 4.9 mmol/L CERNER CH Comment:Testing performed by : [facility] [place] [id number] Chloride 104 97 - 110 mmol/L CERNER CH Comment:Testing performed by : [facility] [place] [address] CO2 26 22 - 32 mmol/L CERNER CH Comment:Testing performed by : [facility] [place] [address] Anion gap 9 2 - 15 mmol/L CERNER CH Comment:Testing performed by : [facility] [place] [address] BUN 22 6 - 25 mg/dL CERNER CH Comment:Testing performed by : [facility] [place] [id number] Creatinine 0.76 0.60 - 1.10 mg/dL CERNER CH Comment:Testing performed by : [facility] [place] [id number] Glucose 117 70 - 199 mg/dL CERNER CH Comment: Interpretive Data Fasting glucose >/= 126 mg/dl is diagnostic for diabetes. Fasting is defined as no caloric intake for at least 8 hours. Fasting glucose between 100 mg/dl to 125 mg/dl is diagnostic of prediabetes. In a patient with classic symptoms of hyperglycemia or hyperglycemic crisis, a random glucose >/= 200 mg/dl is diagnostic for diabetes. In the absence of unequivocal hyperglycemia, results should be confirmed by repeat testing. The classification and Diagnosis of Diabetes Diabetes Care 2021; 46: S19-S40. Current interpretive data was last revised 2022. Testing performed by: [facility] [place] [address] Calcium 9.3 8.5 - 10.3 mg/dL CERNER CH Comment:Testing performed by : [facility] [place] [address] Bilirubin, total 0.2 0.1 - 1.2 mg/dL CERNER CH Comment:Testing performed by : [facility] [place] [address] Protein, pl 6.2(L) 6.5 - 8.5 g/dL CERNER CH Comment:Testing performed by : [facility] [place] [address] Albumin 3.9 3.5 - 5.0 g/dL CERNER CH Comment:Testing performed by : [facility] [place] [address] Alk phos 62 40 - 130 Units/L CERNER CH Comment:Testing performed by : [facility] [place] [address] ALT 19 7 - 45 Units/L CERNER CH Comment:Testing performed by : [facility] [place] [address] AST 20 10 - 45 Units/L CERNER CH Comment:Testing performed by : [facility] [place] [address] Blood 11/09/2024 10:0 5 AM CDT 11/09/2024 10:10 AM CDT Ovi Rodriguez MD LAB BLOOD ORDERABLES Mohan jeanette Result - Final Performing Organization Address City/State/[facility] de Phone Number DEBORAH MATTA [address] Department [place] [address] * eGFR (11/09/2024 9:51 AM CDT) eGFR 84 >=60 mL/min/1. 73 m2 Comment: Interpretive Data Reference Interval Normal >/= 90 mL/min/1.73m2 Mildly decreased* 60 - 89 mL/min/1.73m2 Mildly to moderately decreased 45 - 59 mL/min/1.73m2 Moderately to severely decreased 30 - 44 mL/min/1.73m2 Severely decreased 15 - 29 mL/min/1.73m2 Kidney Failure < 15 mL/min/1.73m2 *Relative to young adult level Estimated glomerular filtration rate is determined by the 2020 CKD-EPI equation recommended by the National Kidney Foundation (A Unifying Approach to GFR Estimation: Recommendations of the NKF-ASK Task Force on Reassessing the Inclusion of Race in Diagnosing Kidney Disease, JASN 2020). The CKD-EPI equation should not be used for patients with unstable renal function and has not been validated in children and those over 70. Current interpretive data was last reviewed 2021. Testing performed by: [facility] at [facility], [place] [address] Blood 11/09/2024 9:51 AM CDT 11/09/2024 10:10 AM CDT us Henry Gross MD LAB BLOOD ORDERABLES Final R esult Performing Organization Address [facility] Co de Phone Number DEBORAH MATTA [address] [address] Department of [employer] [place] [address] * Albumin Creatinine Ratio, Urine (11/09/2024 9:51 AM CDT) Albumin Ur <12.0 mg/L Comment: Interpretive Data No reference range established. Current interpretive data was last revised 2019. Creatinine Ur 26.0 mg/dL DEBORAH Comment: Interpretive Data No reference range established. Current interpretive data was last revised 2019. Albumin Creatinine Ratio, Ur See Comment 1 - 29 DEBORAH MATTA Comment:Unable to calculate Urine 11/09/2024 9:51 AM CDT 11/09/2024 10:51 AM CDT Henry Gross MD LAB URINE ORDERABLES Final R esult Performing Organization Address [facility] Co de Phone Number KURTJUAN [address] [address] [facility] [employer] [place] [address] * Vitamin D 25 hydroxy (11/09/2024 9:51 AM CDT) Vitamin D 25-OH 32 30 - 80 ng/mL Blood 11/09/2024 9:51 AM CDT 11/09/2024 11:45 AM CDT Henry Gross MD LAB BLOOD ORDERABLES Final R esult Performing Organization Address [facility] Co de Phone Number KURTJUAN MATTA [address] [address] [facility] [employer] [place] [address] * TSH (11/09/2024 9:51 AM CDT) Thyroid Stimulating Hormone 3.13 0.30 - 4.20 mcIUnit/mL Blood 11/09/2024 9:51 AM CDT 11/09/2024 10:50 AM CDT Henry Gross MD LAB BLOOD ORDERABLES Final R esult Performing Organization Address [facility] Co de Phone Number DEBORAH MATTA [address] [address] [facility] [employer] [place], [place] [id number] * T4, free (11/09/2024 9:51 AM CDT) Free T4 1.40 0.90 - 1.70 ng/dL Blood 11/09/2024 9:51 AM CDT 11/09/2024 10:50 AM CDT us Henry Gross MD LAB BLOOD ORDERABLES Final R esult DEBORAH MATAT [address] [address] Department [place] [address] * Lipid panel (11/09/2024 9:51 AM CDT) Cholesterol 161 30 - 199 mg/dL Comment: Interpretive Data Ages < or = 19 years Acceptable: <170 mg/dL Borderline high: 170-199 mg/dL High: >or= 200 mg/dL Ages > or = 20 years Desirable: <200 mg/dL Borderline high: 200-239 mg/dL High: >or= 240 mg/dL Literature References: 1. Expert Panel on Integrated Guidelines for Cardiovascular Health and Risk Reduction in Children and Adolescents. Pediatrics 2011;128:S213 2. NCEP Expert Panel. Circulation 2004;110:227 Current Interpretive Data was last revised on 2018. Triglycerides 105 <=149 mg/dL DEBORAH MATTA Comment: Interpretive Data Ages < or = 9 years Acceptable: <75 mg/dL Borderline high: 75-99 mg/dL High: >or= 100 mg/dL Ages 10 to 20 years Acceptable: <90 mg/dL Borderline high: 90-129 mg/dL High: >or= 130 mg/dL Ages > or = 20 years Desirable: <150 mg/dL Borderline high: 150-199 mg/dL High: 200-499 mg/dL Very high: >or= 499 mg/dL Literature References: 1. Expert Panel on Integrated Guidelines for Cardiovascular Health and Risk Reduction in Children and Adolescents. Pediatrics 2011;128:S213 2. NCEP Expert Panel. Circulation 2004;110:227 Current Interpretive Data was last revised on 2018. HDL 69 >=40 mg/dL DEBORAH MATTA Comment: Interpretive Data Ages < or = 19 years Acceptable: >45 mg/dL Borderline low: 40-45 mg/dL Low: <40 mg/dL Ages > or = 20 years Desirable: >or= 60 mg/dL Low: <40 mg/dL Literature References: 1. Expert Panel on Integrated Guidelines for Cardiovascular Health and Risk Reduction in Children and Adolescents. Pediatrics 2011;128:S213 2. NCEP Expert Panel. Circulation 2004;110:227 Current Interpretive Data was last revised on 2018. LDL, calculated 73 <=129 mg/dL DEBORAH MATTA Comment: Interpretive Data Ages < or = 19 years Acceptable: <110 mg/dL Borderline high: 110-129 mg/dL High: >or= 130 mg/dL Ages > or = 20 years Optimal: <100 mg/dL Near optimal: 100-129 mg/dL Borderline high: 130-159 mg/dL High: >160 mg/dL Calculated using the Dariel LDL-C estimating equation. This equation was implemented on 2024. Prior to this date LDL-C was estimated using the Friedewald equation. Literature References: 1. Expert Panel on Integrated Guidelines for Cardiovascular Health and Risk Reduction in Children and Adolescents. Pediatrics 2011;128:S213 2. NCEP Expert Panel. Circulation 2004;110:227 3. Dariel Crawford et al. LARRY Cardiol. 2019December 30;5(5):540-548. doi: 10.1001/jamacardio.2020.0013 Current Interpretive Data was last revised on 2024. Non-HDL Cholesterol 92 mg/dL DEBORAH MATTA Comment: Interpretive Data Ages < or = 19 years Acceptable: <120 mg/dL Borderline high: 120-144 mg/dL High: >145 mg/dL Ages > or = 20 years When triglycerides are >200 mg/dL, Non-HDL cholesterol is a secondary target of therapy with treatment goals that are 30 mg/dL greater than the LDL cholesterol target. Literature References: 1. Expert Panel on Integrated Guidelines for Cardiovascular Health and Risk Reduction in Children and Adolescents. Pediatrics 2011;128:S213 2. NCEP Expert Panel. Circulation 2004;110:227 Current Interpretive Data was last revised on 2018. Chol/HDL ratio 2 DEBORAH MATTA Blood 11/09/2024 9:51 AM CDT 11/09/2024 10:50 AM CDT us Henry Gross MD LAB BLOOD ORDERABLES Final R esult DEBORAH MATTA [address] [facility] Department [place] [address] * (ABNORMAL) Comprehensive metabolic panel (11/09/2024 9:51 AM CDT) Sodium 138 135 - 145 mmol/L Comment:Testing performed by : [facility] [place] [address] Potassium, pl 4.5 3.3 - 4.9 mmol/L CERNER Comment:Testing performed by : [facility] [place] [address] Chloride 104 97 - 110 mmol/L CERNER Comment:Testing performed by : [facility] [place] [address] CO2 25 22 - 32 mmol/L CERNER Comment:Testing performed by : [facility] [place] [address] Anion gap 9 2 - 15 mmol/L [facility] Comment:Testing performed by : [facility] [place] [address] BUN 22 6 - 25 mg/dL [facility] Comment:Testing performed by : [facility] [place] [address] Creatinine 0.76 0.60 - 1.10 mg/dL [facility] Comment:Testing performed by : [facility] [place] [address] Glucose 117 70 - 199 mg/dL [facility] Comment: Interpretive Data Fasting glucose >/= 126 mg/dl is diagnostic for diabetes. Fasting is defined as no caloric intake for at least 8 hours. Fasting glucose between 100 mg/dl to 125 mg/dl is diagnostic of prediabetes. In a patient with classic symptoms of hyperglycemia or hyperglycemic crisis, a random glucose >/= 200 mg/dl is diagnostic for diabetes. In the absence of unequivocal hyperglycemia, results should be confirmed by repeat testing. The classification and Diagnosis of Diabetes Diabetes Care 202; 46: S19-S40. Current interpretive data was last revised 2022. Testing performed by: [facility] [place] [address] Calcium 9.2 8.5 - 10.3 mg/dL [facility] Comment:Testing performed by : [facility] [place] [id number] Bilirubin, total 0.2 0.1 - 1.2 mg/dL CERNER Comment:Testing performed by : [facility] [place] [address] Protein, pl 6.0(L) 6.5 - 8.5 g/dL CERNER CH Comment:Testing performed by : [facility] [place] [address] Albumin 4.0 3.5 - 5.0 g/dL CERNER Comment:Testing performed by : [facility] [place] [address] Alk phos 62 40 - 130 Units/L CERNER CH Comment:Testing performed by : [facility] [place] [address] ALT 18 7 - 45 Units/L CERNER Comment:Testing performed by : [facility] [place] [address] AST 20 10 - 45 Units/L CERNER Comment:Testing performed by : [facility] [place] [address] Blood 11/09/2024 9:51 AM CDT 11/09/2024 9:52 AM CDT Henry Gross MD LAB BLOOD ORDERABLES Final R esult DEBORAH MATTA [address] [address] Department [place] [address] * eGFR (10/12/2024 11:19 AM EARLY CHILDHOOD EDUCATION SPECIALIST) eGFR >90 >=60 mL/min/1. 73 m2 Comment: Interpretive Data Reference Interval Normal >/= 90 mL/min/1.73m2 Mildly decreased* 60 - 89 mL/min/1.73m2 Mildly to moderately decreased 45 - 59 mL/min/1.73m2 Moderately to severely decreased 30 - 44 mL/min/1.73m2 Severely decreased 15 - 29 mL/min/1.73m2 Kidney Failure < 15 mL/min/1.73m2 *Relative to young adult level Estimated glomerular filtration rate is determined by the 2020 CKD-EPI equation recommended by the National Kidney Foundation (A Unifying Approach to GFR Estimation: Recommendations of the NKF-ASK Task Force on Reassessing the Inclusion of Race in Diagnosing Kidney Disease, JASN 202). The CKD-EPI equation should not be used for patients with unstable renal function and has not been validated in children and those over 70. Current interpretive data was last reviewed 2021. Testing performed by: [facility] [place] [address] Blood 10/12/2024 11:1 9 AM EARLY CHILDHOOD EDUCATION SPECIALIST 10/12/2024 11:25 AM EARLY CHILDHOOD EDUCATION SPECIALIST us Ovi Rodriguez MD LAB BLOOD ORDERABLES Fin al Result DEBORAH [address] [address] Department [place] [address] * (ABNORMAL) Differential, auto (10/12/2024 11:19 AM EARLY CHILDHOOD EDUCATION SPECIALIST) Neutrophil abs 9.1(H) 1.5 - 6.5 K/cumm Comment:Testing performed by : [facility] [place] [address] Imm gran abs 0.0 0.0 - 0.1 K/cumm CERNER Comment:Testing performed by : [facility] [place] [address] Lymphocyte abs 1.4 0.8 - 3.3 K/cumm CERJUAN Comment:Testing performed by : [facility] [place] [address] Monocyte abs 0.9(H) 0.2 - 0.8 K/cumm CERNER Comment:Testing performed by : [facility] [place] [address] Eosinophil abs 1.5(H) 0.0 - 0.5 K/cumm CERJUAN Comment:Testing performed by : [facility] [place] [address] Basophil abs 0.1 0.0 - 0.1 K/cumm CERNER Comment:Testing performed by : [facility] [place] [address] Neutrophil pct 70.0 % CERNER Comment: Interpretive Data Percent cell count reference ranges are not reported, since discordance with absolute values may lead to misinterpretation of CBC data. Current Interpretive Data was last revised on 2017. Testing performed by: [facility] [place] [address] Imm gran pct 0.3 % CERNER Comment: Interpretive Data Percent cell count reference ranges are not reported, since discordance with absolute values may lead to misinterpretation of CBC data. Current Interpretive Data was last revised on 2017. Testing performed by: [facility] [place] [address] Lymphocyte pct 10.7 % CERNER Comment: Interpretive Data Percent cell count reference ranges are not reported, since discordance with absolute values may lead to misinterpretation of CBC data. Current Interpretive Data was last revised on 2017. Testing performed by: [facility] [place] [address] Monocyte pct 7.1 % CERNER Comment: Interpretive Data Percent cell count reference ranges are not reported, since discordance with absolute values may lead to misinterpretation of CBC data. Current Interpretive Data was last revised on 2017. Testing performed by: [facility] [place] [address] Eosinophil pct 11.4 % CERNER Comment: Interpretive Data Percent cell count reference ranges are not reported, since discordance with absolute values may lead to misinterpretation of CBC data. Current Interpretive Data was last revised on 2017. Testing performed by: [facility] [place] [address] Basophil pct 0.5 % CERNER Comment: Interpretive Data Percent cell count reference ranges are not reported, since discordance with absolute values may lead to misinterpretation of CBC data. Current Interpretive Data was last revised on 2017. Testing performed by: [facility] [place] [address] Blood 10/12/2024 11:1 9 AM EARLY CHILDHOOD EDUCATION SPECIALIST 10/12/2024 11:23 AM EARLY CHILDHOOD EDUCATION SPECIALIST us Ovi Rodriguez MD LAB BLOOD ORDERABLES Fin al Result DEBORAH MATTA [id number] [address] Department [place] [address] * (ABNORMAL) CBC with auto differential (10/12/2024 11:19 AM EARLY CHILDHOOD EDUCATION SPECIALIST) WBC 13.0(H) 3.8 - 9.9 K/cumm Comment:Testing performed by : [facility] [place] [address] Hgb 11.5(L) 11.9 - 15.5 g/dL CERNER CH Comment:Testing performed by : [facility] [place] [address] Hct 34.1(L) 35.6 - 45.5 % CERNER CH Comment:Testing performed by : [facility] [place] [address] Plt 198 150 - 400 K/cumm CERNER CH Comment:Testing performed by : [facility] [place] [address] MPV 9.1 9.1 - 12.3 fL CERNER CH Comment:Testing performed by : [facility] [place] [address] RBC 3.59(L) 3.90 - 5.20 M/cumm CERNER CH Comment:Testing performed by : [facility] [place] [address] MCV 95.0 81.3 - 96.4 fL CERNER CH Comment:Testing performed by : [facility] [place] [address] MCH 32.0 27.1 - 33.3 pg CERNER CH Comment:Testing performed by : [facility] [place] [address] MCHC 33.7 32.3 - 35.7 g/dL CERNER CH Comment:Testing performed by : [facility] [place] [address] RDW CV 12.5 11.1 - 14.9 % CERNER CH Comment:Testing performed by : [facility] [place] [address] RDW SD 43.8 35.7 - 48.1 fL CERNER CH Comment:Testing performed by : [facility] [place] [address] NRBC abs 0.00 0.00 - 0.01 K/cumm CERJUAN Comment:Testing performed by : [facility] [place] [address] Blood 10/12/2024 11:1 9 AM EARLY CHILDHOOD EDUCATION SPECIALIST 10/12/2024 11:23 AM EARLY CHILDHOOD EDUCATION SPECIALIST Ovi Rodriguez MD LAB BLOOD ORDERABLES Fin al Result Performing Organization Address [facility] Co de Phone Number DEBORAH SIGRID [id number] [address] Department of [employer] [place] [address] * (ABNORMAL) Type and screen (10/12/2024 11:19 AM EARLY CHILDHOOD EDUCATION SPECIALIST) Pathologist [facility] ABO Rh A Positive [place], indirect Positive(A) DEBORAH Blood 10/12/2024 11:1 9 AM EARLY CHILDHOOD EDUCATION SPECIALIST 10/12/2024 1:26 PM EARLY CHILDHOOD EDUCATION SPECIALIST Narrative DEBORAH - 10/12/2024 2:20 PM EARLY CHILDHOOD EDUCATION SPECIALIST Has the patient had Daratumumab or Isatuximab in the past 6 months?->Unknown Ovi Rodriguez MD LAB BLOOD BANK TEST ORDE RABLES Final Result Performing Organization Address [facility] de Phone Number DEBORAH [id number] [address] Department of [employer] [place] [address] * (ABNORMAL) Comprehensive metabolic panel (10/12/2024 11:19 AM EARLY CHILDHOOD EDUCATION SPECIALIST) Pathologist [facility] Sodium 141 135 - 145 mmol/L Comment:Testing performed by : [facility] [place] [address] Potassium, pl 4.4 3.3 - 4.9 mmol/L CERNER CH Comment:Testing performed by : [facility] [place] [address] Chloride 103 97 - 110 mmol/L CERNER CH Comment:Testing performed by : [facility] [place] [address] CO2 28 22 - 32 mmol/L CERNER CH Comment:Testing performed by : [facility] [place] [address] Anion gap 10 2 - 15 mmol/L CERNER CH Comment:Testing performed by : [facility] [place] [address] BUN 18 6 - 25 mg/dL CERNER CH Comment:Testing performed by : [facility] [place] [address] Creatinine 0.65 0.60 - 1.10 mg/dL CERNER CH Comment:Testing performed by : [facility] [place] [address] Glucose 134 70 - 199 mg/dL CERNER CH Comment: Interpretive Data Fasting glucose >/= 126 mg/dl is diagnostic for diabetes. Fasting is defined as no caloric intake for at least 8 hours. Fasting glucose between 100 mg/dl to 125 mg/dl is diagnostic of prediabetes. In a patient with classic symptoms of hyperglycemia or hyperglycemic crisis, a random glucose >/= 200 mg/dl is diagnostic for diabetes. In the absence of unequivocal hyperglycemia, results should be confirmed by repeat testing. The classification and Diagnosis of Diabetes Diabetes Care 2021; 46: S19-S40. Current interpretive data was last revised 2022. Testing performed by: [facility] [place] [address] Calcium 10.1 8.5 - 10.3 mg/dL CERNER CH Comment:Testing performed by : [facility] [place] [address] Bilirubin, total 0.3 0.1 - 1.2 mg/dL CERNER CH Comment:Testing performed by : [facility] [place] [address] Protein, pl 6.3(L) 6.5 - 8.5 g/dL CERNER CH Comment:Testing performed by : [facility] [place] [address] Albumin 4.2 3.5 - 5.0 g/dL CERNER CH Comment:Testing performed by : [facility] [place] [address] Alk phos 72 40 - 130 Units/L CERNER CH Comment:Testing performed by : [facility] [place] [address] ALT 11 7 - 45 Units/L CERNER CH Comment:Testing performed by : [facility] [place] [address] AST 17 10 - 45 Units/L CERNER CH Comment:Testing performed by : [facility], [place] [address] Blood 10/12/2024 11:1 9 AM EARLY CHILDHOOD EDUCATION SPECIALIST 10/12/2024 11:23 AM EARLY CHILDHOOD EDUCATION SPECIALIST us Ovi Rodriguez MD LAB BLOOD ORDERABLES Fin al Result DEBORAH MATTA [address] [address] Department [place] [address] * Diagnostic Mammogram Right W [place] (10/05/2024 2:19 PM EARLY CHILDHOOD EDUCATION SPECIALIST) Anatomical Region Laterality Modality Breast Right Mammography 10/05/2024 2:43 PM EARLY CHILDHOOD EDUCATION SPECIALIST Impressions 10/05/2024 3:15 PM EARLY CHILDHOOD EDUCATION SPECIALIST Slight interval evolution of likely fat necrosis/hematoma in the upper outer right breast 10:00 position 3 cm from the nipple mammographically. 12 week follow-up repeat right diagnostic mammogram and RIGHT breast ultrasound is recommended to document further evolution/resolution. OVERALL FINAL ASSESSMENT: BI-RADS Category 3: Probably Benign. RECOMMENDATION: 12 week follow-up repeat right breast digastric mammogram and RIGHT breast ultrasound recommended to document further evolution/resolution of likely resolving fat necrosis/hematoma in the upper outer right breast 10:00 position 3 cm from the nipple. Dr. Evaristo Mohr discussed the above findings and recommendations with the patient, who expressed her understanding of the management plan. Dictated by: Evaristo Mohr M.D. The radiology attending physician has personally reviewed this study, and had reviewed and/or edited this written report and agrees with it. Electronically signed by: Mitzy Abdalla M.D. Narrative 10/05/2024 3:15 PM EARLY CHILDHOOD EDUCATION SPECIALIST EXAMINATION: RIGHT UNILATERAL DIGITAL DIAGNOSTIC MAMMOGRAM AND DIGITAL BREAST TOMOSYNTHESIS; RIGHT BREAST SONOGRAM HISTORY: 69-year-old patient with history of left-sided breast cancer status post remote breast conservation therapy and multiple myeloma presenting for six-week follow-up of suspected upper outer right breast hematoma/fat necrosis. COMPARISON: Mammogram and ultrasound from 08/26/2024, and additional mammograms dating back to. TECHNIQUE: Full field digital mammographic views of the RIGHT breast were performed, including computer aided detection (CAD) and digital breast tomosynthesis (DBT). Directed ultrasound evaluation of the RIGHT breast was performed. BREAST PARENCHYMAL COMPOSITION: There are scattered areas of fibroglandular density. MAMMOGRAM FINDINGS: Redemonstrated focal asymmetry in the superficial upper outer right breast at superficial depth 3 cm from the nipple, which has developed slightly more internal fat density compared to prior examination, particularly within a more rounded component at the posterior-superior aspect which also appears slightly decreased in size (now measuring 2.4 mm, previously 3.3 mm on 08/26/2024). This is felt again to likely represent fat necrosis which has slightly evolved from prior. No additional suspicious mammographic abnormalities are identified in the RIGHT breast. SONOGRAM FINDINGS: Redemonstrated mixed echogenicity mass with internal cystic spaces at the right breast 10:00 position 3 cm from the nipple, which has developed slightly more internal fat attenuation compared to prior examination in keeping with evolving fat necrosis/hematoma and measures 1.5 x 0.8 x 1.1 cm in size (previously 1.5 x 0.7 x 1.1 cm). This is not significantly changed in size given differences in measurement technique. Procedure Note Mitzy Abdalla MD - 10/05/2024 EXAMINATION: RIGHT UNILATERAL DIGITAL DIAGNOSTIC MAMMOGRAM AND DIGITAL BREAST TOMOSYNTHESIS; RIGHT BREAST SONOGRAM HISTORY: 69-year-old patient with history of left-sided breast cancer status post remote breast conservation therapy and multiple myeloma presenting for six-week follow-up of suspected upper outer right breast hematoma/fat necrosis. COMPARISON: Mammogram and ultrasound from 08/26/2024, and additional mammograms dating back to. TECHNIQUE: Full field digital mammographic views of the RIGHT breast were performed, including computer aided detection (CAD) and digital breast tomosynthesis (DBT). Directed ultrasound evaluation of the RIGHT breast was performed. BREAST PARENCHYMAL COMPOSITION: There are scattered areas of fibroglandular density. MAMMOGRAM FINDINGS: Redemonstrated focal asymmetry in the superficial upper outer right breast at superficial depth 3 cm from the nipple, which has developed slightly more internal fat density compared to prior examination, particularly within a more rounded component at the posterior-superior aspect which also appears slightly decreased in size (now measuring 2.4 mm, previously 3.3 mm on 08/26/2024). This is felt again to likely represent fat necrosis which has slightly evolved from prior. No additional suspicious mammographic abnormalities are identified in the RIGHT breast. SONOGRAM FINDINGS: Redemonstrated mixed echogenicity mass with internal cystic spaces at the right breast 10:00 position 3 cm from the nipple, which has developed slightly more internal fat attenuation compared to prior examination in keeping with evolving fat necrosis/hematoma and measures 1.5 x 0.8 x 1.1 cm in size (previously 1.5 x 0.7 x 1.1 cm). This is not significantly changed in size given differences in measurement technique. IMPRESSION: Slight interval evolution of likely fat necrosis/hematoma in the upper outer right breast 10:00 position 3 cm from the nipple mammographically. 12 week follow-up repeat right diagnostic mammogram and RIGHT breast ultrasound is recommended to document further evolution/resolution. OVERALL FINAL ASSESSMENT: BI-RADS Category 3: Probably Benign. RECOMMENDATION: 12 week follow-up repeat right breast digastric mammogram and RIGHT breast ultrasound recommended to document further evolution/resolution of likely resolving fat necrosis/hematoma in the upper outer right breast 10:00 position 3 cm from the nipple. Dr. Evaristo Mohr discussed the above findings and recommendations with the patient, who expressed her understanding of the management plan. Dictated by: Evaristo Mohr M.D. The radiology attending physician has personally reviewed this study, and had reviewed and/or edited this written report and agrees with it. Electronically signed by: Mitzy Abdalla M.D. us Marleny Melo NP IMG MAMMO PROCEDURES Final Resul t * US Breast Right Limited (10/05/2024 1:51 PM EARLY CHILDHOOD EDUCATION SPECIALIST) Anatomical Region Laterality Modality Breast Right Ultrasound 10/05/2024 2:43 PM EARLY CHILDHOOD EDUCATION SPECIALIST Impressions 10/05/2024 3:15 PM EARLY CHILDHOOD EDUCATION SPECIALIST Slight interval evolution of likely fat necrosis/hematoma in the upper outer right breast 10:00 position 3 cm from the nipple mammographically. 12 week follow-up repeat right diagnostic mammogram and RIGHT breast ultrasound is recommended to document further evolution/resolution. OVERALL FINAL ASSESSMENT: BI-RADS Category 3: Probably Benign. RECOMMENDATION: 12 week follow-up repeat right breast digastric mammogram and RIGHT breast ultrasound recommended to document further evolution/resolution of likely resolving fat necrosis/hematoma in the upper outer right breast 10:00 position 3 cm from the nipple. Dr. Evaristo Mohr discussed the above findings and recommendations with the patient, who expressed her understanding of the management plan. Dictated by: Evaristo Mohr M.D. The radiology attending physician has personally reviewed this study, and had reviewed and/or edited this written report and agrees with it. Electronically signed by: Mitzy Abdalla M.D. Narrative 10/05/2024 3:15 PM EARLY CHILDHOOD EDUCATION SPECIALIST EXAMINATION: RIGHT UNILATERAL DIGITAL DIAGNOSTIC MAMMOGRAM AND DIGITAL BREAST TOMOSYNTHESIS; RIGHT BREAST SONOGRAM HISTORY: 69-year-old patient with history of left-sided breast cancer status post remote breast conservation therapy and multiple myeloma presenting for six-week follow-up of suspected upper outer right breast hematoma/fat necrosis. COMPARISON: Mammogram and ultrasound from 08/26/2024, and additional mammograms dating back to. TECHNIQUE: Full field digital mammographic views of the RIGHT breast were performed, including computer aided detection (CAD) and digital breast tomosynthesis (DBT). Directed ultrasound evaluation of the RIGHT breast was performed. BREAST PARENCHYMAL COMPOSITION: There are scattered areas of fibroglandular density. MAMMOGRAM FINDINGS: Redemonstrated focal asymmetry in the superficial upper outer right breast at superficial depth 3 cm from the nipple, which has developed slightly more internal fat density compared to prior examination, particularly within a more rounded component at the posterior-superior aspect which also appears slightly decreased in size (now measuring 2.4 mm, previously 3.3 mm on 08/26/2024). This is felt again to likely represent fat necrosis which has slightly evolved from prior. No additional suspicious mammographic abnormalities are identified in the RIGHT breast. SONOGRAM FINDINGS: Redemonstrated mixed echogenicity mass with internal cystic spaces at the right breast 10:00 position 3 cm from the nipple, which has developed slightly more internal fat attenuation compared to prior examination in keeping with evolving fat necrosis/hematoma and measures 1.5 x 0.8 x 1.1 cm in size (previously 1.5 x 0.7 x 1.1 cm). This is not significantly changed in size given differences in measurement technique. Procedure Note Mitzy Abdalla MD - 10/05/2024 EXAMINATION: RIGHT UNILATERAL DIGITAL DIAGNOSTIC MAMMOGRAM AND DIGITAL BREAST TOMOSYNTHESIS; RIGHT BREAST SONOGRAM HISTORY: 69-year-old patient with history of left-sided breast cancer status post remote breast conservation therapy and multiple myeloma presenting for six-week follow-up of suspected upper outer right breast hematoma/fat necrosis. COMPARISON: Mammogram and ultrasound from 08/26/2024, and additional mammograms dating back to. TECHNIQUE: Full field digital mammographic views of the RIGHT breast were performed, including computer aided detection (CAD) and digital breast tomosynthesis (DBT). Directed ultrasound evaluation of the RIGHT breast was performed. BREAST PARENCHYMAL COMPOSITION: There are scattered areas of fibroglandular density. MAMMOGRAM FINDINGS: Redemonstrated focal asymmetry in the superficial upper outer right breast at superficial depth 3 cm from the nipple, which has developed slightly more internal fat density compared to prior examination, particularly within a more rounded component at the posterior-superior aspect which also appears slightly decreased in size (now measuring 2.4 mm, previously 3.3 mm on 08/26/2024). This is felt again to likely represent fat necrosis which has slightly evolved from prior. No additional suspicious mammographic abnormalities are identified in the RIGHT breast. SONOGRAM FINDINGS: Redemonstrated mixed echogenicity mass with internal cystic spaces at the right breast 10:00 position 3 cm from the nipple, which has developed slightly more internal fat attenuation compared to prior examination in keeping with evolving fat necrosis/hematoma and measures 1.5 x 0.8 x 1.1 cm in size (previously 1.5 x 0.7 x 1.1 cm). This is not significantly changed in size given differences in measurement technique. IMPRESSION: Slight interval evolution of likely fat necrosis/hematoma in the upper outer right breast 10:00 position 3 cm from the nipple mammographically. 12 week follow-up repeat right diagnostic mammogram and RIGHT breast ultrasound is recommended to document further evolution/resolution. OVERALL FINAL ASSESSMENT: BI-RADS Category 3: Probably Benign. RECOMMENDATION: 12 week follow-up repeat right breast digastric mammogram and RIGHT breast ultrasound recommended to document further evolution/resolution of likely resolving fat necrosis/hematoma in the upper outer right breast 10:00 position 3 cm from the nipple. Dr. Evaristo Mohr discussed the above findings and recommendations with the patient, who expressed her understanding of the management plan. Dictated by: Evaristo Mohr M.D. The radiology attending physician has personally reviewed this study, and had reviewed and/or edited this written report and agrees with it. Electronically signed by: Mitzy Abdalla M.D. Marleny Melo EARLY CHILDHOOD EDUCATION WORKER IMG MAMMO PROCEDURES Final Resul t * (ABNORMAL) Immunoglobulin free light chains (10/05/2024 10:00 AM EARLY CHILDHOOD EDUCATION SPECIALIST) [place]/Lambda ratio 2.00(H) 0.26 - 1.65 [place] free light chain 0.63 0.33 - 1.94 mg/dL DEBORAH MATTA Comment: Interpretive Data The Iza Ig [place] FLC assay procedure was used. Results from different manufacturers or methods may not be comparable. Serial testing should be performed using the same method. Lambda free light chain 0.31(L) 0.57 - 2.63 mg/dL DEBORAH Comment: Interpretive Data The Iza Ig [place] FLC assay procedure was used. Results from different manufacturers or methods may not be comparable. Serial testing should be performed using the same method. Blood 10/05/2024 10:0 0 AM EARLY CHILDHOOD EDUCATION SPECIALIST 10/05/2024 11:28 AM EARLY CHILDHOOD EDUCATION SPECIALIST Jarrod Garcia [facility] LAB BLOOD ORDERABLES Amanda santana Result [facility] [address] [address] Department [place] [address] * (ABNORMAL) Protein electrophoresis with reflex, serum with interpretation (10/05/2024 10:00 AM EARLY CHILDHOOD EDUCATION SPECIALIST) Protein, sr 6.0(L) 6.2 - 8.2 g/dL Albumin 3.9 3.2 - 5.0 g/dL CERNER CH Alpha-1 globulin 0.3 0.2 - 0.4 g/dL CERNER CH Alpha-2 globulin 0.8 0.5 - 1.0 g/dL CERNER CH Beta-1 globulin 0.4 0.3 - 0.6 g/dL CERNER CH Beta-2 globulin 0.3 0.2 - 0.6 g/dL CERNER CH Gamma globulin 0.2(L) 0.5 - 1.7 g/dL [facility] interp See Cl Path Rpt [facility] Blood 10/05/2024 10:0 0 AM EARLY CHILDHOOD EDUCATION SPECIALIST 10/05/2024 11:28 AM EARLY CHILDHOOD EDUCATION SPECIALIST Jarrod Garcia [facility] LAB BLOOD ORDERABLES Amanda l Result Performing Organization Address [facility] Co de Phone Number DEBORAH MATTA [address] [address] Department of [employer] [place] [address] * eGFR (10/05/2024 10:00 AM EARLY CHILDHOOD EDUCATION SPECIALIST) eGFR >90 >=60 mL/min/1. 73 m2 Comment: Interpretive Data Reference Interval Normal >/= 90 mL/min/1.73m2 Mildly decreased* 60 - 89 mL/min/1.73m2 Mildly to moderately decreased 45 - 59 mL/min/1.73m2 Moderately to severely decreased 30 - 44 mL/min/1.73m2 Severely decreased 15 - 29 mL/min/1.73m2 Kidney Failure < 15 mL/min/1.73m2 *Relative to young adult level Estimated glomerular filtration rate is determined by the 2020 CKD-EPI equation recommended by the National Kid[employer] (A Unifying Approach to GFR Estimation: Recommendations of the NKF-ASK Task Force on Reassessing the Inclusion of Race in Diagnosing Kidney Disease, JASN 2020). The CKD-EPI equation should not be used for patients with unstable renal function and has not been validated in children and those over 70. Current interpretive data was last reviewed 2021. Testing performed by: [facility], [place] [address] Blood 10/05/2024 10:0 0 AM EARLY CHILDHOOD EDUCATION SPECIALIST 10/05/2024 10:06 AM EARLY CHILDHOOD EDUCATION SPECIALIST Jarrod Weber Jose [facility] LAB BLOOD ORDERABLES Amanda l Result Performing Organization Address City/[facility]/ZIP Co de Phone Number DEBORAH [address] [address] Department [place] [address] * (ABNORMAL) Differential, auto (10/05/2024 10:00 AM EARLY CHILDHOOD EDUCATION SPECIALIST) Neutrophil abs 4.0 1.5 - 6.5 K/cumm Comment:Testing performed by : [facility] [place] [address] Imm gran abs 0.0 0.0 - 0.1 K/cumm CERNER CH Comment:Testing performed by : [facility] [place] [address] Lymphocyte abs 1.6 0.8 - 3.3 K/cumm CERNER CH Comment:Testing performed by : [facility] [place] [address] Monocyte abs 0.9(H) 0.2 - 0.8 K/cumm CERNER CH Comment:Testing performed by : [facility] [place] [address] Eosinophil abs 1.6(H) 0.0 - 0.5 K/cumm CERNER CH Comment:Testing performed by : [facility] [place] [address] Basophil abs 0.1 0.0 - 0.1 K/cumm CERNER CH Comment:Testing performed by : [facility] [place] [address] Neutrophil pct 49.3 % CERNER CH Comment: Interpretive Data Percent cell count reference ranges are not reported, since discordance with absolute values may lead to misinterpretation of CBC data. Current Interpretive Data was last revised on 2017. Testing performed by: [facility] [place] [address] Imm gran pct 0.4 % CERNER CH Comment: Interpretive Data Percent cell count reference ranges are not reported, since discordance with absolute values may lead to misinterpretation of CBC data. Current Interpretive Data was last revised on 2017. Testing performed by: [facility] [place] [address] Lymphocyte pct 19.0 % CERNER CH Comment: Interpretive Data Percent cell count reference ranges are not reported, since discordance with absolute values may lead to misinterpretation of CBC data. Current Interpretive Data was last revised on 2017. Testing performed by: [facility] [place] [address] Monocyte pct 11.4 % CERNER Comment: Interpretive Data Percent cell count reference ranges are not reported, since discordance with absolute values may lead to misinterpretation of CBC data. Current Interpretive Data was last revised on 2017. Testing performed by: [facility] [place] [id number] Eosinophil pct 19.3 % DBEORAH MATTA Comment: Interpretive Data Percent cell count reference ranges are not reported, since discordance with absolute values may lead to misinterpretation of CBC data. Current Interpretive Data was last revised on 2017. Testing performed by: [facility] [place] [address] Basophil pct 0.6 % DEBORAH Comment: Interpretive Data Percent cell count reference ranges are not reported, since discordance with absolute values may lead to misinterpretation of CBC data. Current Interpretive Data was last revised on 2017. Testing performed by: [facility] [place] [address] Blood 10/05/2024 10:0 0 AM EARLY CHILDHOOD EDUCATION SPECIALIST 10/05/2024 10:06 AM EARLY CHILDHOOD EDUCATION SPECIALIST Jarrod Garcia [facility] LAB BLOOD ORDERABLES Amanda dillon Result DEBORAH [address] Department [place] [address] * (ABNORMAL) CBC with auto differential (10/05/2024 10:00 AM EARLY CHILDHOOD EDUCATION SPECIALIST) WBC 8.2 3.8 - 9.9 K/cumm Comment:Testing performed by : [facility] [place] [address] Hgb 11.8(L) 11.9 - 15.5 g/dL DEBORAH MATTA Comment:Testing performed by : [facility] [place] [address] Hct 35.0(L) 35.6 - 45.5 % DEBORAH MATTA Comment:Testing performed by : [facility] [place] [address] Plt 220 150 - 400 K/cumm DEBORAH MATTA Comment:Testing performed by : [facility] [place] [address] MPV 9.1 9.1 - 12.3 fL DEBORAH Comment:Testing performed by : [facility] [place] [address] RBC 3.65(L) 3.90 - 5.20 M/cumm DEBORAH CH Comment:Testing performed by : [facility] [place] [address] MCV 95.9 81.3 - 96.4 fL DEBORAH CH Comment:Testing performed by : [facility] [place] [address] MCH 32.3 27.1 - 33.3 pg DEBORAH CH Comment:Testing performed by : [facility] [place] [address] MCHC 33.7 32.3 - 35.7 g/dL DEBORAH CH Comment:Testing performed by : [facility] [place] [address] RDW CV 12.7 11.1 - 14.9 % DEBORAH CH Comment:Testing performed by : [facility] [place] [address] RDW SD 44.7 35.7 - 48.1 fL DEBORAH CH Comment:Testing performed by : [facility] [place] [address] NRBC abs 0.00 0.00 - 0.01 K/cumm DBEORAH MATTA Comment:Testing performed by : [facility] [place] [address] Blood 10/05/2024 10:0 0 AM EARLY CHILDHOOD EDUCATION SPECIALIST 10/05/2024 10:06 AM EARLY CHILDHOOD EDUCATION SPECIALIST Jarrod Garcia [facility] LAB BLOOD ORDERABLES Amanda l Result DEBORAH [address] Department [place] [address] * Lactate dehydrogenase (LD) (10/05/2024 10:00 AM EARLY CHILDHOOD EDUCATION SPECIALIST) Lactate dehydrogenase (LDH) 183 100 - 250 Units/L Comment:Testing performed by : [facility] [place] [address] Blood 10/05/2024 10:0 0 AM EARLY CHILDHOOD EDUCATION SPECIALIST 10/05/2024 10:06 AM EARLY CHILDHOOD EDUCATION SPECIALIST Jarrod Weber Jose DNP LAB BLOOD ORDERABLES Edit ed Result - Final Performing Organization Address [facility]/State/ZIP Co de Phone Number DEBORAH MATTA [id number] [address] [facility] [employer] [place] [address] * (ABNORMAL) IgA (10/05/2024 10:00 AM EARLY CHILDHOOD EDUCATION SPECIALIST) Immunoglobulin A <50(L) 70 - 400 mg/dL Blood 10/05/2024 10:0 0 AM EARLY CHILDHOOD EDUCATION SPECIALIST 10/05/2024 10:44 AM EARLY CHILDHOOD EDUCATION SPECIALIST Jarrod Tia Garcia [facility] LAB BLOOD ORDERABLES Amanda l Result Performing Organization Address [facility] de Phone Number KURTJUAN MATTA [address] [address] [facility] [employer] [place] [address] * (ABNORMAL) IgM (10/05/2024 10:00 AM EARLY CHILDHOOD EDUCATION SPECIALIST) Immunoglobulin M <25(L) 40 - 150 mg/dL Blood 10/05/2024 10:0 0 AM EARLY CHILDHOOD EDUCATION SPECIALIST 10/05/2024 10:44 AM EARLY CHILDHOOD EDUCATION SPECIALIST Jarrod Garcia [facility] LAB BLOOD ORDERABLES Amanda l Result Performing Organization Address [facility] Co de Phone Number KURTJUAN MATTA [address] [facility] [employer] [place] [address] * (ABNORMAL) IgG (10/05/2024 10:00 AM EARLY CHILDHOOD EDUCATION SPECIALIST) Immunoglobulin G <300(L) 700 - 1,600 mg/dL Blood 10/05/2024 10:0 0 AM EARLY CHILDHOOD EDUCATION SPECIALIST 10/05/2024 10:44 AM EARLY CHILDHOOD EDUCATION SPECIALIST Jarrod Garcia DNP LAB BLOOD ORDERABLES Amanda l Result Performing Organization Address City/[facility] Co de Phone Number DEBORAH [address] [place] [address] * (ABNORMAL) Comprehensive metabolic panel (10/05/2024 10:00 AM EARLY CHILDHOOD EDUCATION SPECIALIST) Sodium 142 135 - 145 mmol/L Comment:Testing performed by : [facility] [place] [address] Potassium, pl 4.6 3.3 - 4.9 mmol/L CERNER CH Comment:Testing performed by : [facility] [place] [address] Chloride 105 97 - 110 mmol/L CERNER CH Comment:Testing performed by : [facility] [place] [address] CO2 26 22 - 32 mmol/L CERNER CH Comment:Testing performed by : [facility] [place] [address] Anion gap 11 2 - 15 mmol/L CERNER CH Comment:Testing performed by : [facility] [place] [address] BUN 18 6 - 25 mg/dL CERNER CH Comment:Testing performed by : [facility] [place] [address] Creatinine 0.67 0.60 - 1.10 mg/dL CERNER CH Comment:Testing performed by : [facility] [place] [address] Glucose 131 70 - 199 mg/dL CERNER Comment: Interpretive Data Fasting glucose >/= 126 mg/dl is diagnostic for diabetes. Fasting is defined as no caloric intake for at least 8 hours. Fasting glucose between 100 mg/dl to 125 mg/dl is diagnostic of prediabetes. In a patient with classic symptoms of hyperglycemia or hyperglycemic crisis, a random glucose >/= 200 mg/dl is diagnostic for diabetes. In the absence of unequivocal hyperglycemia, results should be confirmed by repeat testing. The classification and Diagnosis of Diabetes Diabetes Care 202; 46: S19-S40. Current interpretive data was last revised 2022. Testing performed by: [facility] [place] [address] Calcium 9.5 8.5 - 10.3 mg/dL CERNER CH Comment:Testing performed by : [facility] [place] [address] Bilirubin, total 0.2 0.1 - 1.2 mg/dL CERNER CH Comment:Testing performed by : [facility] [place] [address] Protein, pl 6.2(L) 6.5 - 8.5 g/dL CERNER CH Comment:Testing performed by : [facility] [place] [address] Albumin 4.2 3.5 - 5.0 g/dL CERNER CH Comment:Testing performed by : [facility] [place] [address] Alk phos 73 40 - 130 Units/L CERNER CH Comment:Testing performed by : [facility] [place] [address] ALT 13 7 - 45 Units/L CERNER CH Comment:Testing performed by : [facility] [place] [address] AST 19 10 - 45 Units/L CERNER CH Comment:Testing performed by : [facility] [place] [address] Blood 10/05/2024 10:0 0 AM EARLY CHILDHOOD EDUCATION SPECIALIST 10/05/2024 10:06 AM EARLY CHILDHOOD EDUCATION SPECIALIST us Jarrod Garcia DNP LAB BLOOD ORDERABLES Edit ed Result - Final DEBORAH MATTA [address] [place] [address] * (ABNORMAL) Type and screen (10/05/2024 10:00 AM EARLY CHILDHOOD EDUCATION SPECIALIST) ABO Rh A Positive L[place], indirect Positive(A) CERNER Blood 10/05/2024 10:0 0 AM EARLY CHILDHOOD EDUCATION SPECIALIST 10/05/2024 10:47 AM EARLY CHILDHOOD EDUCATION SPECIALIST [facility]ative [facility] 10/05/2024 1:00 PM EARLY CHILDHOOD EDUCATION SPECIALIST Has the patient had Daratumumab or Isatuximab in the past 6 months?->Unknown Ovi Rodriguez MD LAB BLOOD BANK TEST ORDE RABLES Final Result DEBORAH MATTA [address] [place] [address] * Clinical pathology report (10/05/2024 10:00 AM EARLY CHILDHOOD EDUCATION SPECIALIST) Miscellaneous 10/05/2024 10: 00 AM EARLY CHILDHOOD EDUCATION SPECIALIST 10/07/2024 8:33 AM EARLY CHILDHOOD EDUCATION SPECIALIST Narrative 10/10/2024 10:56 AM EARLY CHILDHOOD EDUCATION SPECIALIST [facility] results best viewed via link to PDF [facility] Department of Pathology [address] [place] [id number] Final Report Note to Patients: This report may contain a detailed description of human tissue sent by a health care provider to the laboratory for pathologic evaluation. The content of this report is essential for diagnosis and may provide important critical findings. This information may be unfamiliar to patients to review without a medical professional present. It is advised that the patient review this report in the presence of a health care provider who can answer questions and explain the details. Patient Name: FRANCESCO JEAN Address: [address] [place] [address] Gender: F : 1955 (Age: 69) Service: Location: [facility] #: [id number] Patient Type: [facility] REF LAB SERIES Taken: 10/05/2024 Received: 10/07/2024 Accessioned: 10/07/2024 Physician(s): OWEN Beckman Specimen(s) Received A: Blood (serum) Serum Protein ElectrophoresisReported:10/10/2024 Interpretation: Serum Protein Electrophoresis: Marked hypogammaglobulinemia. Comment: Serum Protein Electrophoresis: Electrophoresis shows a marked hypogammaglobulinemia. See [facility] and/or separate report for protein fraction table. Cachorro Etienne MD PhDReport Electronically Reviewed and Signed Out By Cachorro Etienne MD PhD 10/10/2024 10:54:06 The performance characteristics of some immunohistochemical stains, fluorescence in-situ hybridization tests and immunophenotyping by flow cytometry cited in this report (if any) were determined by the Surgical Pathology Department at [facility] as part of an ongoing quality management coordinator program and in compliance with federally mandated regulations drawn from the Clinical Laboratory Improvement Act of 1988 (CLIA '88). Some of these tests rely on the use of analyte specific reagents and are subject to specific labeling requirements by the US Food and Drug Administration. Such diagnostic tests may only be performed in a facility that is certified by the Department of Health and Human Services as a high complexity laboratory under CLIA '88. The FDA has determined that such clearance or approval is not necessary. This test is used for clinical purposes. It should not be regarded as investigational or for research. Nevertheless, federal rules concerning the medical use of analyte specific reagents require that the following disclaimer be attached to the report: This test was developed and its performance characteristics determined by the Surgical Pathology Department [facility]. It has not been cleared or approved by the U. S. Food and Drug Administration. REPORT IMAGES AND SCANNED DOCUMENTS, IF INCLUDED, ONLY VIEWABLE IN PDF VERSION OF REPORTe o Jarrod Weber [facility] LAB PATHOLOGY ORDERABLES Final Result * PET/CT FDG Skull to Thigh (10/01/2024 11:24 AM EARLY CHILDHOOD EDUCATION SPECIALIST) Anatomical Region Laterality Modality N/A Positron Emissio n Tomography (PET) 10/01/2024 11:5 8 AM EARLY CHILDHOOD EDUCATION SPECIALIST Impressions 10/01/2024 12:23 PM EARLY CHILDHOOD EDUCATION SPECIALIST 1. Near complete resolution of previously hypermetabolic osseous lesions as described above in keeping with patient's known myeloma. 2. No new hypermetabolic osseous lesion. Dictated by: Familia Hodge MD The radiology attending physician has personally reviewed this study, and had reviewed and/or edited this written report and agrees with it. Electronically signed by: DO Greta Spain 10/01/2024 12:23 PM EARLY CHILDHOOD EDUCATION SPECIALIST EXAMINATION: TUMOR FDG-PET/CT IMAGING DATE OF STUDY: 10/01/2024 SCANNER: [facility] N PET Vision (NV1). This is a high-resolution scanner, which can result in higher SUVs (and even detection of new small lesions) compared to older scanners. RADIOPHARMACEUTICAL: 17.08 mCi F-18 Fluorodeoxyglucose (FDG) i.v. Injection site: Port HISTORY: 69-year-old woman with with IgA-kappa multiple myeloma diagnosed October 2023 via biopsy of T4-T5 mass, status post radiation, chemotherapy completed May 2024, and autologous stem cell transplant on 06/09/2024. 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 The study is requested for restaging after completion of therapy. Subsequent treatment strategy. TECHNIQUE: The patient's fasting blood glucose level, measured by glucometer before injection of FDG, was 118 mg/dL. After intravenous administration of FDG, noncontrast CT images were obtained for attenuation correction and for fusion with emission PET images to allow for anatomical localization of PET findings. Emission PET images were then obtained. The study was interpreted on the [employer] workstation. The mean liver SUV (reported for software quality engineer purposes) is 3.0. The total scanned area was skull vertex to knees. Images of the body were obtained starting 62 minutes after injection of tracer. All reported SUVs are maximum SUVs, unless otherwise specified. COMPARISON: FDG PET/CT 11/19/2023, MRI total spine 09/27/2024 DESCRIPTORS OF LESION FDG AVIDITY: Minimal: <= blood pool Mild: > blood pool and <= liver Moderate: > liver and <= 2x SUVmax liver Moderate to marked: >2x SUVmax liver and <= 3x SUVmax liver Marked: > 3x SUVmax liver FINDINGS: Increased FDG uptake along the tip of a right internal jugular chest port catheter, likely representing a fibrin sheath. Interval near complete resolution of previously hypermetabolic osseous lesions involving the T4-T5 posterior elements, left posterior iliac bone, right acetabulum, and right proximal femoral shaft. There is mild residual uptake in the proximal right femoral shaft, with SUV of 3.0, previously 2.7 (axial image 272). Degenerative pattern uptake noted about both glenohumeral joints. Mild superior endplate compression deformities of T3, T4, T7, and T12 without increased FDG uptake. Kyphoplasty changes are noted at T8, T9, T11, and all lumbar vertebral bodies for management of compression deformities, none of which demonstrate suspicious focal FDG uptake. Left breast partial mastectomy changes and left axillary lymph node dissection without suspicious FDG uptake. Additional CT findings: Carotid artery, thoracic aorta, and coronary artery calcifications. Right lower lobe and lingular atelectasis. Trace pericardial effusion. Atherosclerotic calcifications of the abdominal aorta and its branches. Urinary bladder is decompressed. High density material noted within the distal small bowel which is nondilated. Changes of right hemicolectomy and reanastomosis. Right vastus lateralis lipoma. Procedure Note Swingle, Christopher David, DO - 10/01/2024 EXAMINATION: TUMOR FDG-PET/CT IMAGING DATE OF STUDY: 10/01/2024 SCANNER: [facility] Red [employer] (NV1). This is a high-resolution scanner, which can result in higher SUVs (and even detection of new small lesions) compared to older scanners. RADIOPHARMACEUTICAL: 17.08 mCi F-18 Fluorodeoxyglucose (FDG) i.v. Injection site: Port HISTORY: 69-year-old woman with with IgA-kappa multiple myeloma diagnosed October 2023 via biopsy of T4-T5 mass, status post radiation, chemotherapy completed May 2024, and autologous stem cell transplant on 06/09/2024. 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 The study is requested for restaging after completion of therapy. Subsequent treatment strategy. TECHNIQUE: The patient's fasting blood glucose level, measured by glucometer before injection of FDG, was 118 mg/dL. After intravenous administration of FDG, noncontrast CT images were obtained for attenuation correction and for fusion with emission PET images to allow for anatomical localization of PET findings. Emission PET images were then obtained. The study was interpreted on the [employer] workstation. The mean liver SUV (reported for software quality engineer purposes) is 3.0. The total scanned area was skull vertex to knees. Images of the body were obtained starting 62 minutes after injection of tracer. All reported SUVs are maximum SUVs, unless otherwise specified. COMPARISON: FDG PET/CT 11/19/2023, MRI total spine 09/27/2024 DESCRIPTORS OF LESION FDG AVIDITY: Minimal: <= blood pool Mild: > blood pool and <= liver Moderate: > liver and <= 2x SUVmax liver Moderate to marked: >2x SUVmax liver and <= 3x SUVmax liver Marked: > 3x SUVmax liver FINDINGS: Increased FDG uptake along the tip of a right internal jugular chest port catheter, likely representing a fibrin sheath. Interval near complete resolution of previously hypermetabolic osseous lesions involving the T4-T5 posterior elements, left posterior iliac bone, right acetabulum, and right proximal femoral shaft. There is mild residual uptake in the proximal right femoral shaft, with SUV of 3.0, previously 2.7 (axial image 272). Degenerative pattern uptake noted about both glenohumeral joints. Mild superior endplate compression deformities of T3, T4, T7, and T12 without increased FDG uptake. Kyphoplasty changes are noted at T8, T9, T11, and all lumbar vertebral bodies for management of compression deformities, none of which demonstrate suspicious focal FDG uptake. Left breast partial mastectomy changes and left axillary lymph node dissection without suspicious FDG uptake. Additional CT findings: Carotid artery, thoracic aorta, and coronary artery calcifications. Right lower lobe and lingular atelectasis. Trace pericardial effusion. Atherosclerotic calcifications of the abdominal aorta and its branches. Urinary bladder is decompressed. High density material noted within the distal small bowel which is nondilated. Changes of right hemicolectomy and reanastomosis. Right vastus lateralis lipoma. IMPRESSION: 1. Near complete resolution of previously hypermetabolic osseous lesions as described above in keeping with patient's known myeloma. 2. No new hypermetabolic osseous lesion. Dictated by: Familia Hodge MD The radiology attending physician has personally reviewed this study, and had reviewed and/or edited this written report and agrees with it. Electronically signed by: Aleks Cesar DO us Ovi Rodriguez MD IMG PET PROCEDURES Final Result * Neuro MR Outside Reference (09/29/2024 8:43 PM EARLY CHILDHOOD EDUCATION SPECIALIST) Impressions [facility] - 09/29/2024 8:43 PM EARLY CHILDHOOD EDUCATION SPECIALIST These images are for Reference purposes only and have not been reviewed by [facility] Radiology. There will be no report generated by a [facility] Radiologist. Narrative RAD_PACS_[facility] - 09/29/2024 8:43 PM EARLY CHILDHOOD EDUCATION SPECIALIST EXAMINATION: Images For Reference Purposes Only us Florence Acosta MD IMG MRI PROCEDURES Final R esult [facility]ACS[facility] * Neuro MR Outside Reference (09/29/2024 8:42 PM EARLY CHILDHOOD EDUCATION SPECIALIST) Impressions [facility] - 09/29/2024 8:42 PM EARLY CHILDHOOD EDUCATION SPECIALIST These images are for Reference purposes only and have not been reviewed by [facility] Radiology. There will be no report generated by a [facility] Radiologist. Narrative RAD_PACS_[facility] - 09/29/2024 8:42 PM EARLY CHILDHOOD EDUCATION SPECIALIST EXAMINATION: Images For Reference Purposes Only Florence Acosta MD IMG MRI PROCEDURES Final R esult Performing Organization Address [facility] de Phone Number [email or web address] * Neuro CT Outside Reference (09/29/2024 8:00 PM EARLY CHILDHOOD EDUCATION SPECIALIST) Impressions RAD_PACS_[facility] - 09/29/2024 8:00 PM EARLY CHILDHOOD EDUCATION SPECIALIST These images are for Reference purposes only and have not been reviewed by [facility] Radiology. There will be no report generated by a [facility] Radiologist. Narrative RAD_PACS_[facility] - 09/29/2024 8:00 PM EARLY CHILDHOOD EDUCATION SPECIALIST EXAMINATION: Images For Reference Purposes Only Florence Acosta MD IMG CT PROCEDURES Final Re sult Performing Organization Address [facility] de Phone Number [email or web address] * Neuro CT Outside Reference (09/29/2024 7:57 PM EARLY CHILDHOOD EDUCATION SPECIALIST) Impressions RAD_PACS_[facility] - 09/29/2024 7:57 PM EARLY CHILDHOOD EDUCATION SPECIALIST These images are for Reference purposes only and have not been reviewed by [facility] Radiology. There will be no report generated by a [facility] Radiologist. Narrative RAD_PACS_[facility] - 09/29/2024 7:57 PM EARLY CHILDHOOD EDUCATION SPECIALIST EXAMINATION: Images For Reference Purposes Only Floernce Acosta MD IMG CT PROCEDURES Final Re sult Performing Organization Address [facility] de Phone Number [email or web address] * MRI Spine Total Complete W WO Contrast (09/27/2024 2:45 PM EARLY CHILDHOOD EDUCATION SPECIALIST) Anatomical Region Laterality Modality Spine N/A Magnetic Resonan ce 09/27/2024 5:21 PM EARLY CHILDHOOD EDUCATION SPECIALIST Impressions 09/27/2024 5:23 PM EARLY CHILDHOOD EDUCATION SPECIALIST 1. Multiple pathologic fractures, including new fractures as above without new high grade stenosis or cord compression. 2. Multilevel osseous metastatic disease, overall progressed. 3. Resolution of epidural metastatic disease at T5, status post laminectomy/decompression with chronic myelomalacia at this level. Dictated by: Raul Macias M.D. The radiology attending physician has personally reviewed this study, and had reviewed and/or edited this written report and agrees with it. Electronically signed by: Rosas Arroyo M.D. Narrative 09/27/2024 5:23 PM EARLY CHILDHOOD EDUCATION SPECIALIST EXAMINATION: 1. Magnetic resonance imaging (MRI) of the cervical spine without and with contrast 2. Magnetic resonance imaging (MRI) of the thoracic spine without and with contrast 3. Magnetic resonance imaging (MRI) of the lumbar spine without and with contrast HISTORY: 69-year-old woman with persistent mid to lower back pain, concern for lytic malignant lesion. TECHNIQUE: Multiplanar multi-weighted MRI of the cervical spine was performed without and with intravenous contrast using the standard protocol. Multiplanar multi-weighted MRI of the thoracic was performed without and with intravenous contrast using the standard protocol. Multiplanar multi-weighted MRI of the lumbar spine was performed without and with intravenous contrast using the standard protocol. Contrast information: 16 mL Gadoterate Meglumine COMPARISON: MR of the spine from 11/13/2023 FINDINGS: Exam degraded by motion. CERVICAL SPINE: Mild multilevel cervical spondylosis. The alignment of the cervical spine is normal. Vertebral bodies demonstrate normal signal intensity on all sequences. No acute fracture is identified. The craniocervical junction is normal. The visualized portions of the skull base and the posterior fossa are normal.Faint T2 hyperintense signal in the spinal cord at C5-C6 which could represent motion versus compressive myelopathy; could not be confirmed on remaining views due to motion. The remaining spinal cord demonstrates normal signal intensity on limited views. Intervertebral disks show mild degenerative changes, similar to prior exam. Normal flow voids are present in the vertebral arteries. There is no abnormal contrast enhancement. THORACIC/LUMBAR SPINE: New lytic infiltrative marrow lesions and endplate fracture with mild compression deformities, most prominently including T7-T9, T11-L1, and L4; similar to mildly progressed chronic pathologic compression fractures at L2, L3 and L5. Multiple vertebral body augmentations such as L1-L3 and at L5. Mild upper endplate fractures at T3 and T4 are chronic, but new since 11/13/2023. Improvement in focus of dorsal metastatic disease at the posterior elements of T5. Postlaminectomy changes. Abnormal spinal cord signal here suggests myelomalacia. Levoconvex curvature of the thoracic spine. Similar moderate to severe spinal canal stenosis representing a combination of degenerative change and infiltrative ventral epidural metastatic disease with degree of stenosis similar to the prior examination, most pronounced at L2-L3, and L4-L5. The disks are normal in configuration. There is no facet arthropathy. There is no neuroforaminal stenosis. There is no spinal canal stenosis. The conus medullaris terminates at the level of L2. Procedure Note Rosas Arroyo MD - 09/27/2024 EXAMINATION: 1. Magnetic resonance imaging (MRI) of the cervical spine without and with contrast 2. Magnetic resonance imaging (MRI) of the thoracic spine without and with contrast 3. Magnetic resonance imaging (MRI) of the lumbar spine without and with contrast HISTORY: 69-year-old woman with persistent mid to lower back pain, concern for lytic malignant lesion. TECHNIQUE: Multiplanar multi-weighted MRI of the cervical spine was performed without and with intravenous contrast using the standard protocol. Multiplanar multi-weighted MRI of the thoracic was performed without and with intravenous contrast using the standard protocol. Multiplanar multi-weighted MRI of the lumbar spine was performed without and with intravenous contrast using the standard protocol. Contrast information: 16 mL Gadoterate Meglumine COMPARISON: MR of the spine from 11/13/2023 FINDINGS: Exam degraded by motion. CERVICAL SPINE: Mild multilevel cervical spondylosis. The alignment of the cervical spine is normal. Vertebral bodies demonstrate normal signal intensity on all sequences. No acute fracture is identified. The craniocervical junction is normal. The visualized portions of the skull base and the posterior fossa are normal.Faint T2 hyperintense signal in the spinal cord at C5-C6 which could represent motion versus compressive myelopathy; could not be confirmed on remaining views due to motion. The remaining spinal cord demonstrates normal signal intensity on limited views. Intervertebral disks show mild degenerative changes, similar to prior exam. Normal flow voids are present in the vertebral arteries. There is no abnormal contrast enhancement. THORACIC/LUMBAR SPINE: New lytic infiltrative marrow lesions and endplate fracture with mild compression deformities, most prominently including T7-T9, T11-L1, and L4; similar to mildly progressed chronic pathologic compression fractures at L2, L3 and L5. Multiple vertebral body augmentations such as L1-L3 and at L5. Mild upper endplate fractures at T3 and T4 are chronic, but new since 11/13/2023. Improvement in focus of dorsal metastatic disease at the posterior elements of T5. Postlaminectomy changes. Abnormal spinal cord signal here suggests myelomalacia. Levoconvex curvature of the thoracic spine. Similar moderate to severe spinal canal stenosis representing a combination of degenerative change and infiltrative ventral epidural metastatic disease with degree of stenosis similar to the prior examination, most pronounced at L2-L3, and L4-L5. The disks are normal in configuration. There is no facet arthropathy. There is no neuroforaminal stenosis. There is no spinal canal stenosis. The conus medullaris terminates at the level of L2. IMPRESSION: 1. Multiple pathologic fractures, including new fractures as above without new high grade stenosis or cord compression. 2. Multilevel osseous metastatic disease, overall progressed. 3. Resolution of epidural metastatic disease at T5, status post laminectomy/decompression with chronic myelomalacia at this level. Dictated by: Raul Macias M.D. The radiology attending physician has personally reviewed this study, and had reviewed and/or edited this written report and agrees with it. Electronically signed by: Rosas Arroyo M.D. us Marleny Melo EARLY CHILDHOOD EDUCATION WORKER IMG MRI PROCEDURES Final Result * SCAN - PATHOLOGY (09/24/2024) us Provider Scanning Edited Result - Final * ClonoSeq (09/15/2024 11:49 AM EARLY CHILDHOOD EDUCATION SPECIALIST) ClonoSeq See attached scanned report for results. Bone marrow 09/15/2024 11:4 9 AM EARLY CHILDHOOD EDUCATION SPECIALIST 09/15/2024 3:43 PM EARLY CHILDHOOD EDUCATION SPECIALIST us Ovi Rodriguez MD LAB PATHOLOGY ORDERABLES Final Result [facility] Department [place] [address] * Hematologic Molecular Algorithm Bone marrow (09/15/2024 11:49 AM EARLY CHILDHOOD EDUCATION SPECIALIST) Heme Molecular Algorithm Received Bone marrow 09/15/2024 11:4 9 AM EARLY CHILDHOOD EDUCATION SPECIALIST 09/15/2024 12:35 PM EARLY CHILDHOOD EDUCATION SPECIALIST Narrative [facility] - 09/22/2024 11:37 AM EARLY CHILDHOOD EDUCATION SPECIALIST Tube information: [place] top Clinical History / Treatment Plan:->MM s/p auto sct Select diagnosis - - Appropriate molecular tests will be performed based on histopathological diagnosis.->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; No additional testing indicated us Ovi Rodriguez MD LAB BODY FLUIDS AND STOO LS ORDERABLES Final Result [facility] Department [place] [address] * Surgical pathology (09/14/2024 2:28 PM EARLY CHILDHOOD EDUCATION SPECIALIST) Bone marrow (Bone Marrow Biopsy) 09/14/2024 2:28 PM EARLY CHILDHOOD EDUCATION SPECIALIST 09/15/2024 9:38 AM EARLY CHILDHOOD EDUCATION SPECIALIST Narrative PATHOLOGY [facility] - 09/16/2024 3:39 PM EARLY CHILDHOOD EDUCATION SPECIALIST EPIC results best viewed via link to PDF [facility] Laboratory [place] [address] Note to Patients: This report may contain a detailed description of human tissue sent by a health care provider to the laboratory for pathologic evaluation. The content of this report is essential for diagnosis and may provide important critical findings. This information may be unfamiliar to patients to review without a medical professional present. It is advised that the patient review this report in the presence of a health care provider who can answer questions and explain the details. SURGICAL PATHOLOGY REPORT FINAL WITH ADDENDUM Patient Name: FRANCESCO JEAN Gender: F : 1955 (Age: 69) Address: [address] [place], [place] [id number] [facility] #: [id number] Taken:09/14/2024 Received:09/15/2024 Reported: 09/16/2024 Patient Type: [facility] SPECIMEN Service: Laboratory Location: Physician(s): Ovi Rodriguez M.D. Diagnosis: Bone marrow, right posterior iliac crest, core biopsy, clot, and aspirate: - Normocellular bone marrow with progressive multilineage hematopoiesis - No increase in plasma cells - See flow cytometry addendum and comment /09/16/2024 12:14 By this signature, I attest that the above diagnosis is based upon my personal examination of the slides(and/or other material indicated in the diagnosis). Dick Dunaway M.D. Report Electronically Reviewed and Signed Out By Dick Dunaway M.D. 09/16/2024 15:39:49 Diagnosis Comment For details on the peripheral blood smear (if submitted), bone marrow aspirate, and core biopsy, please see the attached synoptic report. If applicable, correlation with concurrent flow cytometry (Addenda/Procedures below), cytogenetics/FISH, and molecular studies is suggested for full evaluation. Microscopic Description and Comment: Microscopic examination substantiates the above cited diagnosis. History: The patient is a 69-year-old woman with a history of multiple myeloma (IgG kappa) with complex Karyotype, she underwent auto SCT on D0 = 06/09/2024 . Operative procedure: Bone marrow biopsy. Specimen(s) Received: A: Bone marrow biopsy, right posterior iliac crest B: Bone Marrow Clot - BJ C: Bone marrow, right aspirate for flow cytometry Gross Description: Received in two formalin jars labeled with the patient's identifiers. A. Received in formalin, labeled RPIC core and consists of two soliman and brown cores of bone with attached hemorrhagic material measuring 0.8 and 1.0 cm each in length by 0.2-0.3 cm in diameter. Labeled A1. EDTA decalcification.. Jar 0. B. Received in formalin, labeled RPIC clot and consists of a 2.8 x 2.3 x 1.1 cm fragment of hemorrhagic material. Labeled B1. Jar 0. sxst/09/15/2024 13:32 PA(s): Fiordaliza Marino CBC: Date: 09/15/2024 WBCs: 8.4x10^3/mcl Hemoglobin: 11.9g/dl Hematocrit: 36.0% Platelets: 205x10^3/mcl Mean corpuscular volume (MCV): 96.3fl Red cell distribution width (RDW-CV): 13.1% Neutrophils, absolute: 4.9 K/cumm Lymphocytes, absolute: 1.4 K/cumm Monocytes, absolute: 1.1 K/cumm Eosinophils, absolute: 0.9 K/cumm Basophils, absolute: 0.1 K/cumm Neutrophils: 58.2% Lymphocytes: 16.6% Monocytes: 12.7% Eosinophils: 11.0% Basophils: 1.1% Peripheral blood smear (Espinoza-Giemsa): Not received Bone marrow aspirate smear (Espinoza-Giemsa stain): Quality: Adequate Spicules: Present Marrow cellularity: Within normal limits Myeloid maturation: Normal Erythroid maturation: Normal Myeloid/Erythroid Ratio: Within normal limits Megakaryocyte number: Within normal limits Megakaryocytic maturation: Normal Lymphocytes: Normal Plasma cells: Normal Iron: Gale Score 0-2 (Decreased). Gale score is a grading method for interpretation of bone marrow iron stain and provides an assessment of total bone marrow iron stores. Differential count: Total # of Cells Counted:200 Blasts: 0 Promyelocytes: 0 Myelocytes+Metamyelocytes:23 Bands+Neutrophils:32 Eosinophils: 4 Basophils: 0 Plasma cells: 1 Lymphocytes: 4 Monocytes: 2 Erythroids: 34 Bone marrow core biopsy (decalcified, H&E and Leder stains): Right, iliac crest Quality: Adequate, Fragmented Cellularity: 30-40% Myeloid maturation: Normal Erythroid maturation: Normal The Leder stain shows that the Myeloid/Erythroid Ratio is: Within normal limits Megakaryocyte number: Within normal limits Megakaryocytic maturation: Normal The Leder stain is used to assess for lymphoid aggregates: None Plasma cells: Normal Reticulin and Trichrome stains show: No significant fibrosis (MF-0) CLOT SECTION: The bone marrow clot section including Leder and H&E stains are: Similiar in cellularity and composition to the bone marrow core By this signature, I attest that the above diagnosis is based upon my personal examination of the slides(and/or other material). Addenda/Procedures Flow Cytometry Ordered:09/15/2024Status:Signed OutFlow Cytometry Complete:09/16/2024y:Dick Dunaway M.D.Flow Cytometry Signed Out: 09/16/2024 Diagnosis C. Bone marrow, right aspirate for flow cytometry: - No significant plasma cell population identified Comment Specimen quality: Adequate Flow cytometry reveals no increase in CD138+ plasma cells. There are too few plasma cells to draw meaningful conclusions about clonality. CD20 and CD56 expression are essentially negative. Correlation with morphology (if submitted), clinical and laboratory data is recommended. A malignant process cannot be excluded solely on the basis of this assay. A Espinoza-Giemsa stained cytospin from the flow cytometry specimen was examined for internal software quality engineer purposes. Flow cytometry was performed using antibodies to the following cellular antigens: CD45, CD19, CD20, [place], Lambda, CD38, CD138, CD56. Total antigens analyzed: 8 By this signature, I attest that the above diagnosis is based upon my personal examination of the slides(and/or other material indicated in the diagnosis). Dick Dunaway M.D.Report Electronically Reviewed and Signed Out By Dick Dunaway M.D. 09/16/2024 15:37:05Janet Castanon M.D. The performance characteristics of some immunohistochemical stains, fluorescence in-situ hybridization tests and immunophenotyping by flow cytometry cited in this report (if any) were determined by the Surgical Pathology and Flow Cytometry Departments at [facility] as part of an ongoing quality management coordinator program and in compliance with federally mandated regulations drawn from the Clinical Laboratory Improvement Act of 1988 (CLIA '88). Some of these tests rely on the use of analyte specific reagents and are subject to specific labeling requirements by the US Food and Drug Administration. Such diagnostic tests may only be performed in a facility that is certified by the Department of Health and Human Services as a high complexity laboratory under CLIA '88. The FDA has determined that such clearance or approval is not necessary. This test is used for clinical purposes. It should not be regarded as investigational or for research. Nevertheless, federal rules concerning the medical use of analyte specific reagents require that the following disclaimer be attached to the report: This test was developed and its performance characteristics determined by the Surgical Pathology and Flow Cytometry Departments of [facility]. It has not been cleared or approved by the U. S. Food and Drug Administration. IMAGES AND SCANNED DOCUMENTS, IF INCLUDED, ONLY VIEWABLE IN PDF VERSION OF REPORT Ovi Rodriguez MD LAB PATHOLOGY ORDERABLES Final Result PATHOLOGY [facility] 3rd Floor [place], [place] [phone] * Cytogenetics Specimen Tracking Bone marrow (09/14/2024 2:27 PM EARLY CHILDHOOD EDUCATION SPECIALIST) Cytotenetics Tracking Order Received Bone marrow 09/14/2024 2:27 PM EARLY CHILDHOOD EDUCATION SPECIALIST 09/15/2024 3:41 PM EARLY CHILDHOOD EDUCATION SPECIALIST Narrative [facility] - 09/15/2024 3:42 PM EARLY CHILDHOOD EDUCATION SPECIALIST Please read the Cytogenetics Epic requisition for specimen collection requirements. Ovi Rodriguez MD LAB BODY FLUIDS AND STOO LS ORDERABLES Final Result Performing Organization Address [facility] Co de Phone Number [facility] Department [place] [address] * Flow Leukemia/Lymphoma Bone marrow (09/14/2024 2:27 PM EARLY CHILDHOOD EDUCATION SPECIALIST) Pathologist [facility] Espinoza Stain Test Completed Leukemia/Lymp dacia Result See separate Surgical Pathology report. [facility] Bone marrow 09/14/2024 2:27 PM EARLY CHILDHOOD EDUCATION SPECIALIST 09/15/2024 1:01 PM EARLY CHILDHOOD EDUCATION SPECIALIST Narrative [facility] - 09/16/2024 12:28 PM EARLY CHILDHOOD EDUCATION SPECIALIST Tube information: Green top (Sodium Heparin) Ovi Rodriguez MD LAB PATHOLOGY ORDERABLES Final Result Performing Organization Address City/[facility]/ZIP Co de Phone Number [facility] [place] [address] * Specimen tracking (09/14/2024 12:03 PM EARLY CHILDHOOD EDUCATION SPECIALIST) Specimen Bone Marrow Comment:Testing performed by : [facility] at [facility], [place] [address] Specimen sent to Other [facility] Comment: Sent STAT to Coleman Testing performed by: [facility] [place] [facility] [address] Date sent [id number] DEBORAH Comment:Testing performed by : [facility] at [facility], [place] [address] Other 09/14/2024 12:0 3 PM EARLY CHILDHOOD EDUCATION SPECIALIST 09/14/2024 3:44 PM EARLY CHILDHOOD EDUCATION SPECIALIST Narrative DEBORAH - 09/14/2024 4:05 PM EARLY CHILDHOOD EDUCATION SPECIALIST BM received at 1520 at [facility]. Sent Stat to Coleman. Ovi Rodriguez MD LAB BLOOD ORDERABLES Fin al Result Performing Organization Address City/[facility] Co de Phone Number DEBORAH [address] [address] [employer] [place] [address] * Immunotyping, serum (09/14/2024 11:11 AM EARLY CHILDHOOD EDUCATION SPECIALIST) Immunofixation See Cl Path Rpt Blood 09/14/2024 11:1 1 AM EARLY CHILDHOOD EDUCATION SPECIALIST 09/14/2024 11:54 AM EARLY CHILDHOOD EDUCATION SPECIALIST Ovi Rodriguez MD LAB BLOOD ORDERABLES Fin al Result Performing Organization Address [facility] de Phone Number DEBORAH [address] [address] Department [place] [employer] [place] [address] * Clinical pathology report (09/14/2024 11:11 AM EARLY CHILDHOOD EDUCATION SPECIALIST) Miscellaneous 09/14/2024 11: 11 AM EARLY CHILDHOOD EDUCATION SPECIALIST 09/16/2024 8:05 AM EARLY CHILDHOOD EDUCATION SPECIALIST Narrative 09/17/2024 2:41 PM EARLY CHILDHOOD EDUCATION SPECIALIST EPIC results best viewed via link to PDF [facility] Department of Pathology [address] [place] [id number] Final Report Note to Patients: This report may contain a detailed description of human tissue sent by a health care provider to the laboratory for pathologic evaluation. The content of this report is essential for diagnosis and may provide important critical findings. This information may be unfamiliar to patients to review without a medical professional present. It is advised that the patient review this report in the presence of a health care provider who can answer questions and explain the details. Patient Name: FRANCESCO JEAN Address: [address] [place] [address] Gender: F : 1955 (Age: 69) Service: Location: [facility] #: [id number] Patient Type: CH EP REF LAB SERIES Taken: 09/14/2024 Received: 09/16/2024 Accessioned: 09/16/2024 Physician(s): Ovi Rodriguez M.D. Specimen(s) Received A: Blood (serum) Serum Protein Electrophoresis with Immunofixation/ImmunotypingReported:09/17/2024 Interpretation: Serum Protein Electrophoresis: Marked hypogammaglobulinemia. Serum Protein Immunofixation: Normal serum immunofixation study. Comment: Serum Protein Electrophoresis: Marked hypogammaglobulinemia. Serum Protein Immunofixation: Examination of G, A and M heavy chains as well as kappa and lambda light chains reveals no evidence of abnormal peaks. See Epic and/or separate report for protein fraction table. Cachorro Etienne MD PhDReport Electronically Reviewed and Signed Out By Cachorro Etienne MD PhD 09/17/2024 14:40:00 The performance characteristics of some immunohistochemical stains, fluorescence in-situ hybridization tests and immunophenotyping by flow cytometry cited in this report (if any) were determined by the Surgical Pathology Department at [facility] as part of an ongoing quality management coordinator program and in compliance with federally mandated regulations drawn from the Clinical Laboratory Improvement Act of 1988 (CLIA '88). Some of these tests rely on the use of analyte specific reagents and are subject to specific labeling requirements by the US Food and Drug Administration. Such diagnostic tests may only be performed in a facility that is certified by the Department of Health and Human Services as a high complexity laboratory under CLIA '88. The FDA has determined that such clearance or approval is not necessary. This test is used for clinical purposes. It should not be regarded as investigational or for research. Nevertheless, federal rules concerning the medical use of analyte specific reagents require that the following disclaimer be attached to the report: This test was developed and its performance characteristics determined by the Surgical Pathology Department [facility]. It has not been cleared or approved by the U. S. Food and Drug Administration. REPORT IMAGES AND SCANNED DOCUMENTS, IF INCLUDED, ONLY VIEWABLE IN PDF VERSION OF REPORTe o us Ovi Rodriguez MD LAB PATHOLOGY ORDERABLES Final Result * eGFR (09/14/2024 11:11 AM EARLY CHILDHOOD EDUCATION SPECIALIST) Pathologist [facility] eGFR >90 >=60 mL/min/1. 73 m2 Comment: Interpretive Data Reference Interval Normal >/= 90 mL/min/1.73m2 Mildly decreased* 60 - 89 mL/min/1.73m2 Mildly to moderately decreased 45 - 59 mL/min/1.73m2 Moderately to severely decreased 30 - 44 mL/min/1.73m2 Severely decreased 15 - 29 mL/min/1.73m2 Kidney Failure < 15 mL/min/1.73m2 *Relative to young adult level Estimated glomerular filtration rate is determined by the 2020 CKD-EPI equation recommended by the National Kidney Foundation (A Unifying Approach to GFR Estimation: Recommendations of the NKF-ASK Task Force on Reassessing the Inclusion of Race in Diagnosing Kidney Disease, JASN 2020). The CKD-EPI equation should not be used for patients with unstable renal function and has not been validated in children and those over 70. Current interpretive data was last reviewed 2021. Testing performed by: [facility] [place] [address] Blood 09/14/2024 11:1 1 AM EARLY CHILDHOOD EDUCATION SPECIALIST 09/14/2024 11:14 AM EARLY CHILDHOOD EDUCATION SPECIALIST Ovi Rodriguez MD LAB BLOOD ORDERABLES Fin al Result DEBORAH MATTA [address] [address] Department [place] [address] * (ABNORMAL) Differential, auto (09/14/2024 11:11 AM EARLY CHILDHOOD EDUCATION SPECIALIST) Pathologist [facility] Neutrophil abs 4.9 1.5 - 6.5 K/cumm Comment:Testing performed by : [facility] [place] [address] Imm gran abs 0.0 0.0 - 0.1 K/cumm DEBORAH MATTA Comment:Testing performed by : [facility] [place] [address] Lymphocyte abs 1.4 0.8 - 3.3 K/cumm CERNER CH Comment:Testing performed by : [facility] [place] [address] Monocyte abs 1.1(H) 0.2 - 0.8 K/cumm CERNER CH Comment:Testing performed by : [facility] [place] [address] Eosinophil abs 0.9(H) 0.0 - 0.5 K/cumm CERNER CH Comment:Testing performed by : [facility] [place] [address] Basophil abs 0.1 0.0 - 0.1 K/cumm CERNER CH Comment:Testing performed by : [facility] [place] [address] Neutrophil pct 58.2 % CERNER CH Comment: Interpretive Data Percent cell count reference ranges are not reported, since discordance with absolute values may lead to misinterpretation of CBC data. Current Interpretive Data was last revised on 2017. Testing performed by: [facility] [place] [address] Imm gran pct 0.4 % CERNER CH Comment: Interpretive Data Percent cell count reference ranges are not reported, since discordance with absolute values may lead to misinterpretation of CBC data. Current Interpretive Data was last revised on 2017. Testing performed by: [facility] [place] [address] Lymphocyte pct 16.6 % CERNER CH Comment: Interpretive Data Percent cell count reference ranges are not reported, since discordance with absolute values may lead to misinterpretation of CBC data. Current Interpretive Data was last revised on 2017. Testing performed by: [facility] [place] [address] Monocyte pct 12.7 % CERNER CH Comment: Interpretive Data Percent cell count reference ranges are not reported, since discordance with absolute values may lead to misinterpretation of CBC data. Current Interpretive Data was last revised on 2017. Testing performed by: [facility] [place] [address] Eosinophil pct 11.0 % CERNER CH Comment: Interpretive Data Percent cell count reference ranges are not reported, since discordance with absolute values may lead to misinterpretation of CBC data. Current Interpretive Data was last revised on 2017. Testing performed by: [facility] at [facility], [place] [address] Basophil pct 1.1 % DEBORAH Comment: Interpretive Data Percent cell count reference ranges are not reported, since discordance with absolute values may lead to misinterpretation of CBC data. Current Interpretive Data was last revised on 2017. Testing performed by: [facility] at [facility], [place] [address] Blood 09/14/2024 11:1 1 AM EARLY CHILDHOOD EDUCATION SPECIALIST 09/14/2024 11:14 AM EARLY CHILDHOOD EDUCATION SPECIALIST Ovi Rodriguez MD LAB BLOOD ORDERABLES Fin al Result Performing Organization Address [facility] de Phone Number [facility] [phone] [address] [facility] [employer] [place] [address] * (ABNORMAL) Immunoglobulin free light chains (09/14/2024 11:11 AM EARLY CHILDHOOD EDUCATION SPECIALIST) Pathologist [facility] [place]/Lambda ratio 2.70(H) 0.26 - 1.65 [place] free light chain 0.67 0.33 - 1.94 mg/dL DEBORAH Comment: Interpretive Data The Iza Ig [place] FLC assay procedure was used. Results from different manufacturers or methods may not be comparable. Serial testing should be performed using the same method. Lambda free light chain 0.25(L) 0.57 - 2.63 mg/dL DEBORAH Comment: Interpretive Data The Iza Ig [place] FLC assay procedure was used. Results from different manufacturers or methods may not be comparable. Serial testing should be performed using the same method. Blood 09/14/2024 11:1 1 AM EARLY CHILDHOOD EDUCATION SPECIALIST 09/14/2024 11:54 AM EARLY CHILDHOOD EDUCATION SPECIALIST Ovi Rodriguez MD LAB BLOOD ORDERABLES Fin al Result Performing Organization Address [facility] de Phone Number [facility] [id number] [address] [facility] [employer] [place] [address] * (ABNORMAL) CBC with auto differential (09/14/2024 11:11 AM EARLY CHILDHOOD EDUCATION SPECIALIST) WBC 8.4 3.8 - 9.9 K/cumm Comment:Testing performed by : [facility] [place] [address] Hgb 11.9 11.9 - 15.5 g/dL CERNER CH Comment:Testing performed by : [facility] [place] [address] Hct 36.0 35.6 - 45.5 % CERNER CH Comment:Testing performed by : [facility] [place] [address] Plt 205 150 - 400 K/cumm CERNER CH Comment:Testing performed by : [facility] [place] [address] MPV 8.9(L) 9.1 - 12.3 fL CERNER CH Comment:Testing performed by : [facility] [place] [address] RBC 3.74(L) 3.90 - 5.20 M/cumm CERNER CH Comment:Testing performed by : [facility] [place] [address] MCV 96.3 81.3 - 96.4 fL CERNER CH Comment:Testing performed by : [facility] [place] [address] MCH 31.8 27.1 - 33.3 pg CERNER CH Comment:Testing performed by : [facility] [place] [address] MCHC 33.1 32.3 - 35.7 g/dL CERNER CH Comment:Testing performed by : [facility] [place] [address] RDW CV 13.1 11.1 - 14.9 % CERNER CH Comment:Testing performed by : [facility] [place] [address] RDW SD 46.5 35.7 - 48.1 fL CERNER CH Comment:Testing performed by : [facility] [place] [address] NRBC abs 0.00 0.00 - 0.01 K/cumm CERNER CH Comment:Testing performed by : [facility] [place] [address] Blood 09/14/2024 11:1 1 AM EARLY CHILDHOOD EDUCATION SPECIALIST 09/14/2024 11:14 AM EARLY CHILDHOOD EDUCATION SPECIALIST Ovi Rodriguez MD LAB BLOOD ORDERABLES Fin al Result Performing Organization Address [facility] Co de Phone Number DEBORAH MATTA [phone] [address] [facility] [employer] [place] [address] * Vitamin D 25 hydroxy (09/14/2024 11:11 AM EARLY CHILDHOOD EDUCATION SPECIALIST) Pathologist [facility] Vitamin D 25-OH 38 30 - 80 ng/mL Blood 09/14/2024 11:1 1 AM EARLY CHILDHOOD EDUCATION SPECIALIST 09/14/2024 11:54 AM EARLY CHILDHOOD EDUCATION SPECIALIST Ovi Rodriguez MD LAB BLOOD ORDERABLES Fin al Result Performing Organization Address [facility] de Phone Number DEBORAH MATTA [address] [address] [facility] [employer] [place] [address] * (ABNORMAL) Type and screen (09/14/2024 11:11 AM EARLY CHILDHOOD EDUCATION SPECIALIST) Pathologist [facility] [place], indirect Positive(A) ABO Rh A Positive [facility] Blood 09/14/2024 11:1 1 AM EARLY CHILDHOOD EDUCATION SPECIALIST 09/14/2024 12:05 PM EARLY CHILDHOOD EDUCATION SPECIALIST Narrative [facility] - 09/14/2024 2:25 PM EARLY CHILDHOOD EDUCATION SPECIALIST Has the patient had Daratumumab or Isatuximab in the past 6 months?->Unknown Ovi Rodriguez MD LAB BLOOD BANK TEST ORDE RABLES Final Result Performing Organization Address [facility] de Phone Number DEBORAH MATTA [phone] [address] [facility] [employer] [place] [address] * (ABNORMAL) Protein electrophoresis with reflex, serum (09/14/2024 11:11 AM EARLY CHILDHOOD EDUCATION SPECIALIST) Pathologist [facility] Protein, sr 6.2 6.2 - 8.2 g/dL Albumin 4.1 3.2 - 5.0 g/dL [facility] Alpha-1 globulin 0.3 0.2 - 0.4 g/dL [facility] Alpha-2 globulin 0.9 0.5 - 1.0 g/dL CERNER CH Beta-1 globulin 0.4 0.3 - 0.6 g/dL CERNER CH Beta-2 globulin 0.3 0.2 - 0.6 g/dL CERNER CH Gamma globulin 0.2(L) 0.5 - 1.7 g/dL CERNER CH SPEP interp See Cl Path Rpt CERNER CH Blood 09/14/2024 11:1 1 AM EARLY CHILDHOOD EDUCATION SPECIALIST 09/14/2024 11:54 AM EARLY CHILDHOOD EDUCATION SPECIALIST Ovi Rodriguez MD LAB BLOOD ORDERABLES Fin al Result Performing Organization Address [facility] Co de Phone Number [facility] [address] [address] [employer] [place] [address] * Lactate dehydrogenase (LD) (09/14/2024 11:11 AM EARLY CHILDHOOD EDUCATION SPECIALIST) Lactate dehydrogenase (LDH) 189 100 - 250 Units/L Comment:Testing performed by : [facility] at [facility], [place] [address] Blood 09/14/2024 11:1 1 AM EARLY CHILDHOOD EDUCATION SPECIALIST 09/14/2024 11:14 AM EARLY CHILDHOOD EDUCATION SPECIALIST Result [facility] Ovi Rodriguez MD LAB BLOOD ORDERABLES Mohan jeanette Result - Final Performing Organization Address [facility] Co de Phone Number [facility] [address] [address] Department of [employer] [place] [address] * (ABNORMAL) IgA (09/14/2024 11:11 AM EARLY CHILDHOOD EDUCATION SPECIALIST) Immunoglobulin A <50(L) 70 - 400 mg/dL Blood 09/14/2024 11:1 1 AM EARLY CHILDHOOD EDUCATION SPECIALIST 09/14/2024 11:55 AM EARLY CHILDHOOD EDUCATION SPECIALIST Ovi Rodriguez MD LAB BLOOD ORDERABLES Fin al Result Performing Organization Address [facility] Co de Phone Number DEBORAH [address] [address] Department [place] [employer] [place] [address] * (ABNORMAL) IgM (09/14/2024 11:11 AM EARLY CHILDHOOD EDUCATION SPECIALIST) Immunoglobulin M <25(L) 40 - 150 mg/dL Blood 09/14/2024 11:1 1 AM EARLY CHILDHOOD EDUCATION SPECIALIST 09/14/2024 11:55 AM EARLY CHILDHOOD EDUCATION SPECIALIST Ovi Rodriguez MD LAB BLOOD ORDERABLES Fin al Result Performing Organization Address [facility] de Phone Number DEBORAH MATTA [address] [address] [facility] [employer] [place] [address] * (ABNORMAL) IgG (09/14/2024 11:11 AM EARLY CHILDHOOD EDUCATION SPECIALIST) Immunoglobulin G <300(L) 700 - 1,600 mg/dL Blood 09/14/2024 11:1 1 AM EARLY CHILDHOOD EDUCATION SPECIALIST 09/14/2024 11:55 AM EARLY CHILDHOOD EDUCATION SPECIALIST Ovi Rodriguez MD LAB BLOOD ORDERABLES Fin al Result Performing Organization Address [facility] de Phone Number KURTJUAN MATTA [address] [address] [facility] [employer] [place] [address] * Beta 2 microglobulin, serum (09/14/2024 11:11 AM EARLY CHILDHOOD EDUCATION SPECIALIST) Beta 2 Microglobulin, Serum 2.10 1.00 - 2.50 mg/L Comment: Interpretive Data The Iza Beta-2 microglobulin assay procedure was used. Results from different manufacturers or methods may not be comparable. Serial testing should be performed using the same method. Testing performed by: [facility], [address] [place] [address] Blood 09/14/2024 11:1 1 AM EARLY CHILDHOOD EDUCATION SPECIALIST 09/14/2024 9:51 PM EARLY CHILDHOOD EDUCATION SPECIALIST Ovi Rodriguez MD LAB BLOOD ORDERABLES Fin al Result Performing Organization Address [facility] Co de Phone Number DEBORAH MATTA [address] [address] [facility] [employer] [place] [address] * (ABNORMAL) Comprehensive metabolic panel (09/14/2024 11:11 AM EARLY CHILDHOOD EDUCATION SPECIALIST) Sodium 140 135 - 145 mmol/L Comment:Testing performed by : [facility] [place] [address] Potassium, pl 4.4 3.3 - 4.9 mmol/L CERNER CH Comment:Testing performed by : [facility] [place] [address] Chloride 103 97 - 110 mmol/L CERNER CH Comment:Testing performed by : [facility] [place] [address] CO2 26 22 - 32 mmol/L CERNER CH Comment:Testing performed by : [facility] [place] [address] Anion gap 11 2 - 15 mmol/L CERNER CH Comment:Testing performed by : [facility] [place] [address] BUN 21 6 - 25 mg/dL CERNER CH Comment:Testing performed by : [facility] [place] [address] Creatinine 0.60 0.60 - 1.10 mg/dL CERNER CH Comment:Testing performed by : [facility] [place] [address] Glucose 109 70 - 199 mg/dL CERNER CH Comment: Interpretive Data Fasting glucose >/= 126 mg/dl is diagnostic for diabetes. Fasting is defined as no caloric intake for at least 8 hours. Fasting glucose between 100 mg/dl to 125 mg/dl is diagnostic of prediabetes. In a patient with classic symptoms of hyperglycemia or hyperglycemic crisis, a random glucose >/= 200 mg/dl is diagnostic for diabetes. In the absence of unequivocal hyperglycemia, results should be confirmed by repeat testing. The classification and Diagnosis of Diabetes Diabetes Care 202; 46: S19-S40. Current interpretive data was last revised 2022. Testing performed by: [facility] [place] [address] Calcium 9.7 8.5 - 10.3 mg/dL CERNER CH Comment:Testing performed by : [facility] [place] [address] Bilirubin, total 0.3 0.1 - 1.2 mg/dL CERNER CH Comment:Testing performed by : [facility] [place] [address] Protein, pl 6.4(L) 6.5 - 8.5 g/dL CERNER CH Comment:Testing performed by : [facility] [place] [address] Albumin 4.2 3.5 - 5.0 g/dL CERNER CH Comment:Testing performed by : [facility] [place] [address] Alk phos 71 40 - 130 Units/L CERNER CH Comment:Testing performed by : [facility] [place] [address] ALT 11 7 - 45 Units/L CERNER CH Comment:Testing performed by : [facility] [place] [address] AST 16 10 - 45 Units/L CERNER CH Comment:Testing performed by : [facility] [place] [address] Blood 09/14/2024 11:1 1 AM EARLY CHILDHOOD EDUCATION SPECIALIST 09/14/2024 11:14 AM EARLY CHILDHOOD EDUCATION SPECIALIST Ovi Rodriguez MD LAB BLOOD ORDERABLES Mohan jeanette Result - Final [facility] [address] [address] Department of Laboratories [place], [place] [id number] * Cytogenetics (09/14/2024 12:00 AM EARLY CHILDHOOD EDUCATION SPECIALIST) Bone Marrow Biopsy 09/14/2024 09/14/2024 Narrative 09/21/2024 4:06 PM EARLY CHILDHOOD EDUCATION SPECIALIST [facility] results best viewed via link to PDF [facility] Department of Pathol [address] [place] [id number] Patient Information Name: FRANCESCO JEAN Gender: F : 1955 (Age: 69) Tissue: Bone Marrow w/ FISH Visit Information Hospital #: [id number] Facility: [facility] Service: [facility] Location: [facility]REACH Patient Type: WUAMP Specimen Information: Culture #: [id number] Date Collected: 09/14/2024 Date Accessioned: 09/15/2024 Date Ordered: 09/14/2024 Physician(s): Ovi Rodriguez M.D. Processing: CD138+ sorted plasma cells Indication: Hx: Multiple Myeloma Specimen Quality: Insufficient cells: FISH: MM panel not performed Low cell count: Insufficient for chromosome analysis CLINICAL REPORT FLUORESCENCE IN-SITU HYBRIDIZATION [FISH] Karyotype: Diagnosis: FISH ANALYSIS: NO NUCLEI RECOVERED FROM CD138+ EXTRACTION CHROMOSOME ANALYSIS: INSUFFICIENT CELL COUNT FOR CHROMOSOME STUDIES INTERPRETATION: Due to paucity of CD138+ extracted plasma cells in this specimen, the multiple myeloma FISH panel could not be performed. In addition, the low white blood cell count was insufficient to set up cultures for chromosome studies. Therefore, both the FISH and chromosome analysis studies have been cancelled. Chromosome analysis and Fluorescence In Situ Hybridization (FISH) analysis are performed using the [employer] Imaging System. Report Electronically Reviewed and Signed Out By Dave Arzola, PhD, FACMGDate Reported: 09/21/2024ssociate Professor, Division of Genomic & Molecular Pathology us Ovi Rodriguez MD LAB GENETIC TESTING Amanda l Result * US Breast Right Limited (08/26/2024 2:39 PM EARLY CHILDHOOD EDUCATION SPECIALIST) Anatomical Region Laterality Modality Breast Right Ultrasound 08/26/2024 2:45 PM EARLY CHILDHOOD EDUCATION SPECIALIST Impressions 08/26/2024 2:45 PM EARLY CHILDHOOD EDUCATION SPECIALIST Right breast mass 10 o'clock position has imaging and clinical features consistent with a resolving bruise. The method of initial detection of finding was 3D screening mammography (Sdbt). OVERALL FINAL ASSESSMENT: BI-RADS Category 3: Probably Benign. RECOMMENDATION: Recommend targeted right breast ultrasound in 6 weeks to document resolution. These findings and recommendations were discussed with the patient by Dr. Mccormack and all questions addressed. Electronically signed by: Ericka Mccormack M.D. Narrative 08/26/2024 2:45 PM EARLY CHILDHOOD EDUCATION SPECIALIST EXAMINATION: BILATERAL DIGITAL DIAGNOSTIC MAMMOGRAM INCLUDING CAD AND BILATERAL DIGITAL BREAST TOMOSYNTHESIS; RIGHT BREAST SONOGRAM HISTORY: 69-year-old female with a personal history of left breast cancer treated with breast conservation therapy. Patient recently underwent a bone marrow transplant for multiple myeloma. Patient bruises easily. COMPARISON: Multiple prior studies dating back to 2022 TECHNIQUE: Full field digital mammographic views of BOTH breasts were performed, including computer aided detection (CAD) and BILATERAL digital breast tomosynthesis (DBT). Directed ultrasound evaluation of the RIGHT breast was performed. BREAST PARENCHYMAL COMPOSITION: There are scattered areas of fibroglandular density. MAMMOGRAM FINDINGS: Changes of prior left breast conservation therapy are noted. There is a new superficial focal asymmetry in the anterior right breast 10 o'clock position. SONOGRAM FINDINGS: In the right breast 10 o'clock position 3 cm from the nipple is a superficial mixed echogenicity mass with internal cystic spaces. The imaging features are consistent with a resolving hematoma. On targeted physical exam this area is not palpable. Procedure Note Ericka Mccormack MD - 08/26/2024 EXAMINATION: BILATERAL DIGITAL DIAGNOSTIC MAMMOGRAM INCLUDING CAD AND BILATERAL DIGITAL BREAST TOMOSYNTHESIS; RIGHT BREAST SONOGRAM HISTORY: 69-year-old female with a personal history of left breast cancer treated with breast conservation therapy. Patient recently underwent a bone marrow transplant for multiple myeloma. Patient bruises easily. COMPARISON: Multiple prior studies dating back to 2022 TECHNIQUE: Full field digital mammographic views of BOTH breasts were performed, including computer aided detection (CAD) and BILATERAL digital breast tomosynthesis (DBT). Directed ultrasound evaluation of the RIGHT breast was performed. BREAST PARENCHYMAL COMPOSITION: There are scattered areas of fibroglandular density. MAMMOGRAM FINDINGS: Changes of prior left breast conservation therapy are noted. There is a new superficial focal asymmetry in the anterior right breast 10 o'clock position. SONOGRAM FINDINGS: In the right breast 10 o'clock position 3 cm from the nipple is a superficial mixed echogenicity mass with internal cystic spaces. The imaging features are consistent with a resolving hematoma. On targeted physical exam this area is not palpable. IMPRESSION: Right breast mass 10 o'clock position has imaging and clinical features consistent with a resolving bruise. The method of initial detection of finding was 3D screening mammography (Sdbt). OVERALL FINAL ASSESSMENT: BI-RADS Category 3: Probably Benign. RECOMMENDATION: Recommend targeted right breast ultrasound in 6 weeks to document resolution. These findings and recommendations were discussed with the patient by Dr. Mccormack and all questions addressed. Electronically signed by: Ericka Mccormack M.D. us Marleny Melo NP IMG MAMMO PROCEDURES Final Resul t * Diagnostic Mammogram Bilateral W [place] (08/26/2024 2:03 PM EARLY CHILDHOOD EDUCATION SPECIALIST) Anatomical Region Laterality Modality Breast Bilateral Mammography 08/26/2024 2:45 PM EARLY CHILDHOOD EDUCATION SPECIALIST Impressions 08/26/2024 2:45 PM EARLY CHILDHOOD EDUCATION SPECIALIST Right breast mass 10 o'clock position has imaging and clinical features consistent with a resolving bruise. The method of initial detection of finding was 3D screening mammography (Sdbt). OVERALL FINAL ASSESSMENT: BI-RADS Category 3: Probably Benign. RECOMMENDATION: Recommend targeted right breast ultrasound in 6 weeks to document resolution. These findings and recommendations were discussed with the patient by Dr. Mccormack and all questions addressed. Electronically signed by: Ericka Mccormack M.D. Narrative 08/26/2024 2:45 PM EARLY CHILDHOOD EDUCATION SPECIALIST EXAMINATION: BILATERAL DIGITAL DIAGNOSTIC MAMMOGRAM INCLUDING CAD AND BILATERAL DIGITAL BREAST TOMOSYNTHESIS; RIGHT BREAST SONOGRAM HISTORY: 69-year-old female with a personal history of left breast cancer treated with breast conservation therapy. Patient recently underwent a bone marrow transplant for multiple myeloma. Patient bruises easily. COMPARISON: Multiple prior studies dating back to 2022 TECHNIQUE: Full field digital mammographic views of BOTH breasts were performed, including computer aided detection (CAD) and BILATERAL digital breast tomosynthesis (DBT). Directed ultrasound evaluation of the RIGHT breast was performed. BREAST PARENCHYMAL COMPOSITION: There are scattered areas of fibroglandular density. MAMMOGRAM FINDINGS: Changes of prior left breast conservation therapy are noted. There is a new superficial focal asymmetry in the anterior right breast 10 o'clock position. SONOGRAM FINDINGS: In the right breast 10 o'clock position 3 cm from the nipple is a superficial mixed echogenicity mass with internal cystic spaces. The imaging features are consistent with a resolving hematoma. On targeted physical exam this area is not palpable. Procedure Note Ericka Mccormack MD - 08/26/2024 EXAMINATION: BILATERAL DIGITAL DIAGNOSTIC MAMMOGRAM INCLUDING CAD AND BILATERAL DIGITAL BREAST TOMOSYNTHESIS; RIGHT BREAST SONOGRAM HISTORY: 69-year-old female with a personal history of left breast cancer treated with breast conservation therapy. Patient recently underwent a bone marrow transplant for multiple myeloma. Patient bruises easily. COMPARISON: Multiple prior studies dating back to 2022 TECHNIQUE: Full field digital mammographic views of BOTH breasts were performed, including computer aided detection (CAD) and BILATERAL digital breast tomosynthesis (DBT). Directed ultrasound evaluation of the RIGHT breast was performed. BREAST PARENCHYMAL COMPOSITION: There are scattered areas of fibroglandular density. MAMMOGRAM FINDINGS: Changes of prior left breast conservation therapy are noted. There is a new superficial focal asymmetry in the anterior right breast 10 o'clock position. SONOGRAM FINDINGS: In the right breast 10 o'clock position 3 cm from the nipple is a superficial mixed echogenicity mass with internal cystic spaces. The imaging features are consistent with a resolving hematoma. On targeted physical exam this area is not palpable. IMPRESSION: Right breast mass 10 o'clock position has imaging and clinical features consistent with a resolving bruise. The method of initial detection of finding was 3D screening mammography (Sdbt). OVERALL FINAL ASSESSMENT: BI-RADS Category 3: Probably Benign. RECOMMENDATION: Recommend targeted right breast ultrasound in 6 weeks to document resolution. These findings and recommendations were discussed with the patient by Dr. Mccormack and all questions addressed. Electronically signed by: Ericka Mccormack M.D. us Marleny Melo NP IMG MAMMO PROCEDURES Final Resul t * (ABNORMAL) Hemoglobin A1c (05/28/2024 8:28 AM CDT) Hgb A1C 6.7(H) 4.0 - 5.6 % Estimated Average Glucose 146 mg/dL DEBORAH LIM Comment: The ADA recommends reporting an estimated Average Glucose (eAG) with all Hemoglobin A1c results using the equation derived from a study of 507 normal and diabetic adults. Minority populations were underrepresented and children were not included. (Diabetes Care 2020; 43(S1): S66-S76). The eAG is not equivalent to a fasting glucose. Blood 05/28/2024 8:28 AM CDT 05/28/2024 8:44 AM CDT us Ovi Rodriguez MD LAB BLOOD ORDERABLES Fin al Result DEBORAH LIM [facility] Department [place] [address] * Dexa Axial and Forearm Bone Density Scan (04/28/2024 2:49 PM CDT) Anatomical Region Laterality Modality Wrist, Body N/A Radiographic Lexi ging Narrative 04/28/2024 10:39 PM CDT Patient Name: Francesco Jean Date of : 1955 Date of scan: 04/28/2024 Bone mineral density was performed on a HoloHIGH MOBILITY Discovery Densitometer. Based on machine cross-calibration and precision studies the least significant changes of this densitometer is 0.024 g/cm2 at the spine, 0.020 g/cm2 at the total proximal femur, and 0.014g/cm2 at the forearm. HISTORY: This is a 68 y.o. postmenopausal female with a history of breast cancer, low bone mass, multiple myeloma, multiple fractures, thyroid disease, and vitamin D deficiency. She reports that she has never smoked. She has never used smokeless tobacco. Currently on treatment with calcium, vitamin D, zoledronic acid (Zometa), glucocorticoids, and thyroid hormone, previously treated with denosumab (Prolia) and aromatase inhibitor, and current complaint of back pain and leg pain. INDICATIONS: Menopause status, treatment monitoring, history of prior vertebral fracture, vitamin D deficiency, and currently on glucocorticoids for the past 6 month(s). FINDINGS: BONE MINERAL DENSITY OF THE PROXIMAL FEMUR Bone Mineral Density (BMD) of the left hip total was found to be 0.807 gm/cm2. This corresponds to a T-score standard deviations from the mean of young adults of -1.1. Femoral neck is 0.558 gm/cm2 with a T-score (standard deviations from the mean of young adults) of -2.6. When compared to the previous study of 11/13/2023 there has been a -0.022 gm/cm (-2.6%) decrease in bone density that is considered significant. BONE MINERAL DENSITY OF THE FOREARM Bone Mineral density (BMD) of the right proximal 1/3 of the radius measures 0.595 gm/cm2. This corresponds to a T-score (standard deviations from the mean of young adults) of -1.6. When compared to the previous study of 11/13/2023 there has been no significant changes in bone density. A forearm bone density study was performed instead of a spine study due to kyphoplasty. SUMMARY: Bone mineral density shows evidence of osteoporosis and marked increase risk of fracture. There has been a significant decrease in bone density since previous measurement. ADDITIONAL COMMENTS: Postmenopausal Women and Men Over 50: Diagnostic criteria: Osteoporosis: BMD at or below -2.5 T-score; Osteopenia (low bone mass): BMD between -1.0 and -2.5 T-score. If the patient has a history of a fragility fracture, a fracture that occurred with trauma equivalent to a fall from a standing position or less, then the diagnosis is osteoporosis regardless of bone density. The history and data sections of the bone mineral density scan were prepared by Anna Guo)(CBDT)who is accredited by the International Society of Clinical Densitometry. The overall patient assessment and scan interpretation were performed by Erica Ross M.D. who is certified by the International Society of Clinical Densitometry. [id number] Ovi Rodriguez MD IMG DXA PROCEDURES Final Result from Last 3 Months or Most Recently Relevant to Health Maintenance Insurance MEDICARE SOLUTIONS MEDICARE SOLUTIONS TRANSPLANT [employer] MEDICARE RISK Advance Directives For more information, please contact: [phone] Documents on File Type Date Recorded Patient Safety Deposit Boxes Custodian Expl anation ADVANCE DIRECTIVE 05/06/2024 3:59 PM Advanc e Directive * Full Code (Latest Code Status on File) Date Activated Date Inactivated Comments 06/07/2024 7:11 PM 06/25/2024 4:55 PM * Full Code Date Activated Date Inactivated Comments 05/31/2024 11:19 AM 06/01/2024 5:22 AM * Full Code Date Activated Date Inactivated Comments 11/14/2023 4:39 PM 12/02/2023 8:58 PM Care Teams Licsw Relationship Specialty Start Date End Date Mali Corona MD [address] [facility] [address] [place] [address] PCP - General Family Practice 12/11/23 Ovi Rodriguez MD [address] [facility] [phone] [place] [address] Medical Oncologist/Clinical Abstractor Medical Oncology 11/28/23 Florence Acosta MD [address] [facility] [phone] [place] [address] Radiation Oncologist Radiation Oncology 12/08/23 Tony Hammer MD [address] [phone] Referring Physician Hematology 01/07/24 Claudette Rosen, DPT [address] [facility] [address] 8502 [place] [address] Physical Therapist Physical Therapy 08/12/24
--- OUTSIDE RECORDS SUMMARY | 2024-11-16 11:25 | XMS_ITS | Encounter Summary ---
Author Organization [facility] Address [address] [place] [address] Phone Care Team Providers Care Informatics Pharmacist Name Role Phone Ovi Rodriguez MD Unavailable [phone] Florence Acosta MD Unavailable [phone] Mali Corona MD Primary Care Provider Tony Hammer MD Unavailable [phone] Claudette Rosen DPT Unavailable [phone] Encounter Details Date Type Department Care Team (Latest Contact Info) Description 12/23/2023 Orders Only [facility] Scanning, Provider Social History Tobacco Use Types Packs/Day Years Used Date Smoking Tobacco: Never Smokeless Tobacco: Never Alcohol Use Standard Drinks/Week Comments Not Currently 0 (1 standard drink = 0.6 oz pur e alcohol) [facility] Utilities Answer Date Recorded In the past 12 months has [employer], gas, oil, or water [employer] threatened to shut off services in your home? No 11/27/2023 Social Connection and Isolat ion Panel [NHANES] Answer Date Recorded In a typical week, how many times do you talk on the phone with family, friends, or neighbors? More than three times a week 11/27/2023 How often do you get togethe r with friends or relatives? Twice a week 11/27/2023 How often do you attend chur or sabianist services? More than 4 times per year 11/27/2023 Do you belong to any clubs o r organizations such as episcopal groups, unions, fraternal or athletic groups, or school groups? No 11/27/2023 How often do you attend meet ings of the clubs or organizations you belong to? Never 11/27/2023 Are you , , di vorced, , never , or living with a partner? 11/27/2023 Overall Financial Resource Strain (CARDIA) Answe r Date Recorded How hard is it for you to pa y for the very basics like food, housing, medical care, and heating? Not very hard 11/27/2023 PHQ-2 Answer Date Recorded PHQ-2 Total Score 0 11/27/2023 Hunger Vital Sign Answer Date Recorded Within the past 12 months, y ou worried that your food would run out before you got the money to buy more. Never true 11/27/19 24 Within the past 12 months, t he food you bought just didn't last and you didn't have money to get more. Never true 11/27/2023 PRAPARE - Transportation Answer Date Re corded In the past 12 months, has l ack of transportation kept you from medical appointments or from getting medications? No 10/31 In the past 12 months, has l ack of transportation kept you from meetings, work, or from getting things needed for daily living? No 11/27/2023 Housing Stability Vital Sign Answer [...] place to sleep or slept in a group home (including now)? No 11/27/2023 Personal Safety Answer Date Recorded Have you ever been in or are you currently in a harmful physical or emotional relationship or is someone making you feel afraid or unsafe? Denies 11/14/2023 Comments Unknown Sex and Gender Information Value Date Recorded Sex Assigned at Not on file Legal Sex Female 11:17 AM FISCAL SPECIALIST Gender Identity Not on file Sexual Orientation Not on file documented as of this encounter Plan of Treatment Not on file documented as of this encounter Procedures Procedure Name Priority Date/Time Associated Diagnosis Comments SCAN - RADIOLOGY/IMAGING 12/23/2023 documented in this encounter Results * SCAN - RADIOLOGY/IMAGING (12/23/2023) Anatomical Region Laterality Modality Other us Provider Scanning Final Result documented in this encounter Visit Diagnoses Not on filedocumented in this encounter Additional Health Concerns Infection Onset Date Last Indicated Resolved Time C. difficile suspected 06/18/2024 06/18/202406/18 10:25 PM CDT C. difficile Comment:Added in error. Pt had suspect flag for r/o. Negative on 06/18. 06/18/2024 06/18/2024 06/21/2024 1:49 PM C DT COVID: Suspected 2024 2024 2024 4:41 AM CDT documented as of this encounter Care Teams Informatics Pharmacist Relationship Specialty Start Date End Date Mali Corona MD [address] [facility] [address] [place] [address] PCP - General Family Practice 12/11/23 Ovi Rodriguez MD [address] [facility] [phone] [place], [place] [id number] Medical Oncologist/Balloon Dipper Medical Oncology 11/28/23 Florence Acosta MD [address] [facility] [phone] [place] [address] Radiation Oncologist Radiation Oncology 12/08/23 Tony Hammer MD [address] [facility] [address] [place] [address] Referring Physician Hematology 01/07/24 Claudette Rosen DPT [address] [facility] [address] [place] [address] Physical Therapist Physical Therapy 08/12/24 documented as of this encounter
--- OUTSIDE RECORDS SUMMARY | 2024-11-16 11:25 | XMS_ITS | Clinical Summary ---
Author Organization [facility] Rosalia Garcia Address [address] [place] [address] Care Team Providers Care Claims Collector Name Role Phone Desiree Woodruff MD Primary Care Pro vider Allergies Active Allergy Reactions Criticality Noted Date Comments Latex Rash Medium 07/07/2015 Medications calcium carbonate + vitamin D (CALTRATE+D) 600 mg(1,500mg) -400 unit Tablet Take 1 Tablet by mouth 2 times daily with meals. Active aspirin (ECOTRIN EC) 81 mg Tablet, Delayed Release (E.C.) Take 81 mg by mouth daily. Active omega-3 fatty acids-fish oil 300-1,000 mg Capsule Take by mouth 2 times daily. Active levothyroxine 125 mcg tablet Take 125 mcg by mouth daily tool sharpener. Acti ve cholecalcifer ol, Vitamin D3, 2,000 unit Tablet Take by mouth. Act sandra metFORMIN (GLUCOPHAGE) 500 mg tablet Take 1,500 mg by mouth daily with breakfast. Act sandra lisinopril (PRINIVIL) 10 mg tablet Take 30 mg by mouth daily. Active acetaminophen (TYLENOL) 500 mg tablet Take 500 mg by mouth every 6 hours as needed. Active polycarbophil calcium (FIBERCON) 625 mg tablet Take 625 mg by mouth 1 time daily as needed. Active naproxen sodium (ALEVE) 220 mg Tablet Take 220 mg by mouth every 4 hours as needed for Pain, Moderate. Activ e polyethylene glycol 3350 (MIRALAX) 17 gram/dose Powder Take 17 Grams by mouth 1 time daily as needed. Dissolve in 8 ounces of fluid and drink entire liquid Active EPINEPHrine (EPIPEN) 0.3 mg/0.3 mL Auto-Injector Inject 0.3 mg by intramuscular injection 1 time daily as needed for Anaphylaxis. Active magnesium oxide 250 mg magnesium Tablet Take 250 mg by mouth daily. Active multivit-min- txjn-DA-jigct n 8 mg iron-400 mcg-300 mcg Tablet 08/05/2017Multiple vitamin, po solid TabletPOdailyCurrent Medication 08/05/20 17 Active ezetimibe (ZETIA) 10 mg tablet Take 10 mg by mouth daily. Active rosuvastatin (CRESTOR) 5 mg tablet Take 5 mg by mouth twice weekly. Active Januvia 50 mg Tablet Take 1 Tablet by mouth daily. 12/16/19 24 Active dexAMETHasone (DECADRON) 4 mg tablet Take 10 tablet once a week on every Friday 40 Tablet 5 12/25/19 24 Active acyclovir (ZOVIRAX) 400 mg tablet Take 1 Tablet (400 mg) by mouth 2 times daily. 60 Tablet 5 12/25/19 24 Active sulfamethoxaz ole-trimethop rim (BACTRIM DS) 800-160 mg tablet Take 1 tablet twice a day on Friday and Friday 24 Tablet 5 12/25/19 24 Active ondansetron (ZOFRAN) 8 mg Tablet Take 1 Tablet (8 mg) by mouth every 8 hours as needed for Nausea/Emesis. 30 Tablet 2 12/25/19 24 Active lidocaine-boston locaine (EMLA) 2.5-2.5 % Cream Apply to affected area see administration instructions. 30 Gram 1 12/25/19 24 Active lenalidomide (REVLIMID) 25 mg capsule Take 1 capsule (25mg) by mouth once daily for 14 days on and 7 days off 14 Capsule 5 12/30/19 24 Active Active Problems Problem Noted Date Diagnosed Date MGUS (monoclonal gammopathy of unknown significa nce) 07/13/2020 History of left breast cancer/ carcinoid Tumor 1 10/14/2018 Encounters Date Type Department Care Team Description 11/15/2024 Orders Only [facility] Oncology and Hematology - [place] [address] [place] [phone] Tony Hammer MD History of left breast cancer/ carcinoid Tumor 11/06/2024 External Device Data STL ABSTRACTION Provider, Abstract 11/05/2024 External Device Data STL ABSTRACTION Provider, Abstract 11/02/2024 External Device Data STL ABSTRACTION Provider, Abstract 11/01/2024 Orders Only [facility] Oncology and Hematology - [place] [address] [place] [address] Tony Hammer MD History of left breast cancer/ carcinoid Tumor 10/19/2024 External Device Data STL ABSTRACTION Provider, Abstract 10/18/2024 Orders Only [facility] Oncology and Hematology - [place] [address] [place] [id number] Tony Hammer MD History of left breast cancer/ carcinoid Tumor 10/04/2024 Orders Only [facility] Oncology and Hematology - [place] [address] [place] [address] Tony Hammer MD History of left breast cancer/ carcinoid Tumor 09/23/2024 External Device Data STL ABSTRACTION Provider, Abstract 09/22/2024 External Device Data STL ABSTRACTION Provider, Abstract 09/21/2024 External Device Data STL ABSTRACTION Provider, Abstract 09/20/2024 Orders Only [facility] Oncology and Hematology - [place] [address] [place] [address] Tony Hammer MD History of left breast cancer/ carcinoid Tumor 09/14/2024 External Device Data STL ABSTRACTION Provider, Abstract 09/06/2024 Orders Only [facility] Oncology and Hematology - [place] [address] [place] [address] Tony Hammer MD History of left breast cancer/ carcinoid Tumor 08/23/2024 Orders Only [facility] Oncology and Hematology - [place] [address] [place] [address] Tony Hammer MD History of left breast cancer/ carcinoid Tumor from Last 3 Months Family History Medical History Relation Name Comments Diabetes Father Heart Disease Father Heart Disease Mother Heart Disease Sister Relation Name Status Comments Father Mother Sister Alive Social History Tobacco Use Types Packs/Day Years Used Date Smoking Tobacco: Never Smokeless Tobacco: Never Tobacco Cessation:Counseling Given: Not Answered Alcohol Use Standard Drinks/Week Comments Yes 0 (1 standard drink = 0.6 oz pur e alcohol) Comments No Sex and Gender Information Value Date Recorded Sex Assigned at Not on file Legal Sex 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 Gender Identity Not on file Sexual Orientation Not on file Last Filed Vital Signs Vital Sign Reading Time Taken Comments Blood Pressure 140/90 12/25/2023 9:49 AM CDT Pulse 103 12/25/2023 9:49 AM CDT Temperature 36.2 C (97.2 F) 12/25/2023 9:49 AM CDT Respiratory Rate 18 12/25/2023 9:49 AM CDT Oxygen Saturation 94% 12/25/2023 9:49 AM CDT Inhaled Oxygen Concentration - - Weight 81.1 kg (178 lb 12.8 oz) 12/25/2023 9:49 AM CDT Height 166.4 cm (5' 5.5 ) 07/12/2021 1:36 PM MEDICAL LAB SCIENTIST Body Mass Index 29.3 07/12/2021 1:36 PM MEDICAL LAB SCIENTIST Plan of Treatment Health Maintenance Due Date Last Done Comments DIABETES ANNUAL FOOT EXAM 1971 DIABETES ANNUAL RETINAL EXAM 1971 DIABETES MICROALBUMIN ANNUAL SCREEN 1971 LDL CHOLESTEROL ANNUAL 1971 COLORECTAL SCREENING 1998 Colorectal Cancer Screening 1998 FIT-DNA Q 3 years 1998 FIT/FOBT Q 1 year 1998 Flex Sig/CT Colonography Q 5 years 1998 RSV VACCINE (60+ or ) (1 - Risk 60-74 years 1-dose series) 2013 DIABETES HBA1C Q 6 MONTHS 11/25/20242023, 04/28/2024, 11/14/2023, Additional history exists COVID-19 Vaccine (3 - Pfizer risk series) 12/07/2024 11/09/2024, 10/12/2024 BREAST CANCER SCREENING 10/05/2025 10/05/19, 08/26/2024, 10/30/2020, Additional history exists DTAP/TDAP/TD VACCINES (3 - T d or Tdap) 05/18/2028 05/18/2018, 05/17/2018 ZOSTER VACCINE Completed 05/10/2019, 10/2018, 08/05/2017, Additional history exists PNEUMOCOCCAL VACCINE 50+ YEARS Completed 07/16/2022 , 05/10/2019 OSTEOPOROSIS SCREENING Completed , 04/28/2024, 11/13/2023, Additional history exists INFLUENZA VACCINE Completed 10/12/2024, , 05/30/2022, Additional history exists Procedures Procedure Name Priority Date/Time Associated Diagnosis Comments XR DEXA BONE DENSITY AXIAL 1 OR MORE SITES Routine 10/30/2020 Osteoporosis, unspecified osteoporosis type, unspecified pathological fracture presence MAMMO SCREEN BILAT W OR WO CAD Routine 10/30/2020 Visit for screening mammogram from Last 3 Months or Most Recently Relevant to Health Maintenance Results * XR DEXA BONE DENSITY AXIAL 1 OR MORE SITES (10/30/2020) Anatomical Region Laterality Modality Other Tony Hammer MD DIAGNOSTIC IMAGING ORDERABLES F inal Result from Last 3 Months or Most Recently Relevant to Health Maintenance Insurance RX OPTUM RX Member Subscriber Plan / Payer (Ef fective 2023-Present) Name:Mirian Morgan Relation to Subscriber:Self Name:Mirian Morgan Payer ID:Not on file Group ID:[id number] Type:RX Medicare Part D Address: [address] Care Teams Claims Collector Relationship Specialty Start Date End Date Desiree Woodruff MD PCP - General Family Practice 08/13/19
--- OUTSIDE RECORDS SUMMARY | 2024-11-16 11:25 | XMS_ITS | Encounter Summary ---
Author Organization [facility] Address [address] [place] [address] Care Team Providers Care Utilization Management Um Nurse Name Role Phone Ovi Rodriguez MD Unavailable [phone] Florence Acosta MD Unavailable [phone] Mali Corona MD Primary Care Provider Tony Hammer MD Unavailable [phone] Claudette Rosen DPT Unavailable [phone] Encounter Details Date Type Department Care Team (Late st Contact Info) Description 06/10/[address] [facility] Advanced Medicine Radiation Oncology [address] [facility] [place] [address] Florence Acosta MD [address] [facility] [address] [place] [address] Social History Tobacco Use Types Packs/Day Years Used Date Smoking Tobacco: Never Smokeless Tobacco: Never Alcohol Use Standard Drinks/Week Comments Not Currently 0 (1 standard drink = 0.6 oz pur e alcohol) [facility] Utilities Answer Date Recorded In the past 12 months has [employer] MD, gas, oil, or water company threatened to [...] often do you attend chur ch or hindu services? Never 06/09/2024 Do you belong to any clubs o r organizations such as faith groups, unions, fraternal or athletic groups, or school groups? Yes 06/09/2024 How often do you attend meet ings of the clubs or organizations you belong to? More than 4 times per year 06/09/2024 Are you , , di vorced, , never , or living with a partner? 06/09/2024 Overall Financial Resource Strain (CARDIA) Answe r [...] any time in the past 12 m [facility], were you homeless or living in a alf (including now)? No 06/09/2024 Personal Safety Answer Date Recorded Have you ever been in or are you currently in a harmful physical or emotional relationship or is someone making you feel afraid or unsafe? 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 Gender Identity Not on file Sexual Orientation [...] documented as of this encounter Care Teams Utilization Management Um Nurse Relationship Specialty Start Date End Date Mali Corona MD [address] [facility] [address] [place] [address] PCP - General Family Practice 12/11/23 Ovi Rodriguez MD [address] [facility] [id number] [place] [address] Medical Oncologist/Veterinary Receptionist Medical Oncology 11/28/23 Florence Acosta MD [address] [facility] [address] [id number] [place] [address] Radiation Oncologist Radiation Oncology 12/08/23 Tony Hammer MD [address] [place] [address] Referring Physician Hematology 01/07/24 Claudette Rosen DPT [address] [facility] [address] [place] [address] Physical Therapist Physical Therapy 08/12/24 documented as of this encounter
--- OUTSIDE RECORDS SUMMARY | 2024-11-16 11:25 | XMS_ITS | Continuity of Care Document ---
Author Organization [facility] Address [address] [place] [address] [place] [address] Phone Care Team Providers Care Manager Life Insurance Name Role Phone Jack AHUJA MD, Ovi Unavailable Unavaila ble Procedures Procedure Date COMPREHENSIVE HEARING TEST ENT PROCEDURE/SERVICE Hearing screening OFFICE CONSULTATION REFRACTION SPECIAL EYE EXAM, INITIAL LT Eye 2010 SPECIAL EYE EXAM, INITIAL RT Eye 2010 Advance Directives Directive Yes / No Effective Date File Name No Information Encounters Encounter Description Practice Location Reason(s) For Visit Diagnoses Date Provider Providers Copied on Encounter [facility] [address] [place], [place], [id number] tel:[phone] [facility] Optical EXAM EARS & HEARING NEC 1 Jack Dior. [facility] [address] [place], [address], [place]. tel:[phone] OFFICE CONSULTATION [facility] [address] [place], [place], [id number] tel:[phone] [facility] Punctate keratitisVitreou s degenerationDrus en (degenerative) of retinaIncipient senile cataract 1 Jack Dior. [facility] [address] [place] [place], [address], [place]. tel:[phone] Family History Family Member Type Diagnosis Age At Onset No Information Payers Payer name Insurance type Covered libertarian ID Authoriza tion(s) No Information Social History Type Description Quantity Date Captured Comments Sex Female Smoking Status No Information Chief Complaint And Reason For Visit No Information Reason For Referral Reason For Referral No Information History Of Present Illness Encounter Date Complaint History Of Prese nt Illness No Information Functional Status Date Functional Assessmen t No Information Instructions Date Instruction Additional Infor mation No Information Assessments Type Assessment Date No Information Patient Care Teams Name Effective Dates (start - stop) Status Members No Information
--- OUTSIDE RECORDS SUMMARY | 2024-11-16 11:25 | XMS_ITS | Clinical Summary ---
Author Organization [facility] Address [facility] [place] [address] Care Team Providers Care Chartered Accountant Name Role Phone Unavailable Primary Care Provider Unavailabl e Active Problems Problem Noted Date Diagnosed Date Senile osteoporosis 11/07/2023 Personal history of other drug therapy 4 Encounters Date Type Department Care Team Description 11/03/2024 Orders Only [place] [id number] Ronan Logan MD from Last 3 Months Social History Tobacco Use Types Packs/Day Years Used Date Smoking Tobacco: Never Assessed Comments Unknown Sex and Gender Information Value Date Recorded Sex Assigned at Not on file Legal Sex Female 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 Gender Identity Not on file Sexual Orientation Not on file Plan of Treatment Health Maintenance Due Date Last Done Comments Colorectal Cancer Screening Colonoscopy (10 Years) 1953 Hepatitis C 1971 DTaP, Tdap and Td Vaccines ( 1 - Tdap) 1972 Mammogram Screening 1993 Zoster Vaccines (1 of 2) 2003 Annual Medicare Wellness Visit 2018 Dexa Scan (General) 2018 Pneumococcal Vaccine: 65+ Ye ars (1 of 1 - PCV) 2018 COVID-19 Vaccine ( - 2023-2 5 season) 2024 Influenza Adult (#1) 2024 PHQ-2 (Physician [place]) 09/01/2024 RSV Immunization or 60+ Years (1 - 1-dose 75+ series) 2028 Meningococcal B Vaccine Aged Out No l onger eligible based on patient's age to complete this topic Meningococcal Vaccine Aged Out No smita cyndi eligible based on patient's age to complete this topic RSV Immunizations Under 20 Months Aged Out No longer eligible based on patient's age to complete this topic Insurance [facility]
--- OUTSIDE RECORDS SUMMARY | 2024-11-16 11:25 | XMS_ITS | Encounter Summary ---
Author Organization [facility] Healthcare Address [address] [place] [address] Care Team Providers Care Cotton Bag Clipper Name Role Phone Ovi Rodriguez MD Unavailable [phone] Florence Acosta MD Unavailable [phone] Mali Corona MD Primary Care Provider Tony Hammer MD Unavailable [phone] Claudette Rosen DPT Unavailable [phone] Encounter Details Date Type Department Care Team (Late st Contact Info) Description 09/02/2024 Telephone [facility] Advanced Medicine Radiation Oncology [address] [facility] [place] [address] Florence Acosta MD [address] [facility] [address] [place] [address] Social History Tobacco Use Types Packs/Day Years [...] materials from doctor or pharmacy Never 08/04/2024 [facility] Utilities Answer Date Recorded In the past [...] often do you attend chur ch or anglican services? Never 06/09/2024 Do you belong to any clubs o r organizations such as quaker groups, unions, fraternal or athletic groups, or [...] place to sleep or slept in a intermediate (including now)? No 11/27/2023 Housing Stability Vital Sign Answer Tyson e Recorded In the last 12 months, was t here a time when you were not able to pay the mortgage or rent on time? No 06/09/2024 In the past 12 months, how m any times have you moved where you were living? 0 06/09/2024 At [facility] time in the [facility] were you homeless or living in a intermediate (including now)? No 06/09/2024 Personal Safety Answer Date Recorded Have you ever been in or are you currently in a harmful physical or emotional relationship or is someone making you feel afraid or unsafe? 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 [facility] [address] [place] [address] PCP - General Family Practice 12/11/23 Ovi Rodriguez MD [id number] [place] [address] Medical Oncologist/Carpenter Labor Supervisor Medical Oncology 11/28/23 Florence Acosta MD [address] [facility] [phone] [place] [address] Radiation Oncologist Radiation Oncology 12/08/23 Tony Hammer MD [address] [facility] [address] [place] [id number] Referring Physician Hematology 01/07/24 Claudette Rosen DPT [address] [facility] [address] [place] [address] Physical Therapist Physical Therapy 08/12/24 documented as of this encounter
--- OUTSIDE RECORDS SUMMARY | 2024-11-16 11:25 | XMS_ITS | Encounter Summary ---
Author Organization [facility] Address [facility] [place] [address] Care Team Providers Care Advanced Registered Nurse Name Role Phone Unavailable Primary Care Provider Unavailabl e Encounter Details Date Type Department Care Team (Late st Contact Info) Description 11/07/2023 Therapy Plan [facility] [address] [facility] [address] [place] [address] Mali Corona MD [address] [facility] [address] [place] [address] Social History Tobacco Use Types Packs/Day Years Used Date Smoking Tobacco: Never Assessed Comments Unknown Sex and Gender Information Value Date Recorded Sex Assigned at Not on file 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
--- OUTSIDE RECORDS SUMMARY | 2024-11-16 11:26 | XMS_ITS | Referral Summary ---
Author Organization [facility] 8 [facility] Address 8 [facility] [address] [place] [address] Phone Care Team Providers Care Facilities Project Manager Name Role Phone Ovi Rodriguez MD Unavailable [phone] Florence Acosta MD Unavailable [phone] Mali Corona MD Primary Care Provider Tony Hammer MD Unavailable [phone] Claudette Rosen DPT Unavailable Encounters Date Type Department Care Team Description 11/15/2024 Orders Only [facility] Bone Marrow Transplant [address] [place] [phone] Zafar Gary, RN Multiple myeloma in remission (HCC) (Primary Dx) 11/10/2024 Orders Only [facility] Bone Marrow Transplant [address] [place] [phone] Sarita Patiño RPh 11/09/2024 Orders Only [facility] Bone Marrow Transplant [address] [place] [address] [phone] Sarita Patiño RPh 11/09/2024 9:32 AM CDT - 11/09/2024 11:59 PM CDT Hospital Encounter [facility] [address] [place] [phone] Multiple myeloma in remission (HCC) Discharge Disposition: Discharge to home or self care 11/09/2024 1:00 PM CDT Infusion [facility] [address] [address] Multiple myeloma in remission (HCC) 11/09/2024 12:45 PM CDT Infusion [place] [address] [place] [address] Multiple myeloma in remission (HCC) 11/09/2024 10:45 AM CDT Infusion [place] [address] [place] [address] Multiple myeloma in remission (HCC) (Primary Dx) 11/09/2024 9:45 AM CDT Clinical Support [place] [address] [place] [address] Multiple myeloma in remission (HCC) 11/09/2024 10:15 AM CDT Office Visit [facility] Bone Marrow Transplant [facility] [place] [address] Jarrod Garcia DNP Multiple myeloma in remission (HCC) (Primary Dx); Multiple myeloma not having achieved remission (HCC) 11/09/2024 7:45 AM CDT - 11/09/2024 11:59 PM CDT Hospital Encounter [facility] [address] [place] [phone] Multiple myeloma in remission (HCC); Multiple myeloma not having achieved remission (HCC) Discharge Disposition: Discharge to home or self care 10/28/2024 11:00 AM EXPORT CLERK Therapy [facility] Physical Therapy [address] [facility] [address] [place] [phone] Claudette Rosen, DPT Multiple myeloma not having achieved remission (HCC) (Primary Dx); Hx of spinal cord compression 10/26/2024 Telephone [facility] Orthopaedic Surgery [facility] Advanced [facility] 12th [place] [address] [place] [address] Omid Hurtado PA 10/25/2024 Orders Only [facility] Bone Marrow Transplant [address] [facility] Floor 6 [place] [address] Rupa Zaragoza [facility] 10/14/2024 Orders Only [facility] Bone Marrow Transplant [address] [facility] Floor 6 [place] [phone] Nik Rupa, [facility] 10/12/2024 Orders Only [facility] Oncology [address] [facility] Floor 6 [place] [phone] Ovi Rodriguez MD 10/12/2024 11:05 AM EXPORT CLERK - 10/12/2024 11:59 PM EXPORT CLERK Hospital Encounter [facility] [address] [place] [address] Multiple myeloma not having achieved remission (HCC); Multiple myeloma in remission (HCC) Discharge Disposition: Discharge to home or self care 10/12/2024 Orders Only [facility] Bone Marrow Transplant [address] [facility] Floor 6 [place] [phone] Rupa Zaragoza [facility] 10/12/2024 Orders Only [facility] Bone Marrow Transplant [address] [place] [phone] Zafar Gary, RN Multiple myeloma in remission (HCC) (Primary Dx) 10/12/2024 3:00 PM EXPORT CLERK Infusion [facility] [place] [address] [place] [address] Multiple myeloma in remission (HCC) 10/12/2024 1:00 PM EXPORT CLERK Infusion [facility] at [address] [place] [address] Multiple myeloma in remission (HCC) 10/12/2024 11:15 AM EXPORT CLERK Clinical Support [facility] [place] [address] [place] [address] Multiple myeloma in remission (HCC) 10/12/2024 12:00 PM EXPORT CLERK Infusion [facility] [place] [address] [place] [address] Multiple myeloma in remission (HCC) (Primary Dx) 10/11/2024 Telephone [facility] Radiation Oncology [address] [place] [address] [place] [address] Florence Acosta MD 10/11/2024 Orders Only [facility] Bone Marrow Transplant [address] [facility] 6 [place] [phone] Jarrod Garcia, NIGEL 10/11/2024 Orders Only [facility] Bone Marrow Transplant [address] [facility] 6 [place] [phone] Rosalina Zaragozasay, [facility] 10/06/2024 Orders Only [facility] Bone Marrow Transplant [address] [facility] 6 [place] [phone] Rupa Zaragoza, [facility] 10/06/2024 Orders Only [facility] Bone Marrow Transplant [address] [facility] 6 [place] [phone] HlaRupa ascencio, [facility] 10/06/2024 Telephone [facility] Radiation Oncology [address] [place] [address] Marleny Melo NP 10/06/2024 Orders Only [facility] Bone Marrow Transplant [facility] [address] [phone] Zafar Gary, RN Multiple myeloma in remission (HCC) (Primary Dx) 10/06/2024 Orders Only [facility] Radiation Oncology [address] [place] [address] Marleny Melo NP Breast nodule (Primary Dx); Inconclusive mammogram; Multiple myeloma in remission (HCC) 10/05/2024 1:44 PM EXPORT CLERK - 10/05/2024 11:59 PM EXPORT CLERK Hospital Encounter [facility] [address] [place] [address] Hx of breast cancer; Breast pain Discharge Disposition: Discharge to home or self care 10/05/2024 9:33 AM EXPORT CLERK - 10/05/2024 11:59 PM EXPORT CLERK Hospital Encounter [facility] [address] [place] [phone] 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); Multiple myeloma not having achieved remission (HCC) Discharge Disposition: Discharge to home or self care 10/05/2024 9:45 AM EXPORT CLERK Clinical Support [facility] [address] [place] [address] 10/05/2024 10:15 AM EXPORT CLERK Office Visit [facility] Bone Marrow Transplant [address] [place] [address] Ovi Rodriguez MD Multiple myeloma in remission (HCC) (Primary Dx); 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) 10/05/2024 1:00 PM EXPORT CLERK - 10/05/2024 11:59 PM EXPORT CLERK Hospital Encounter [facility] ([facility]) [address] [place] [address] Hx of breast cancer; Breast pain Discharge Disposition: Discharge to home or self care 10/05/2024 3:00 PM EXPORT CLERK Therapy [facility] Occupational Therapy [address] [place] [phone] Nu Dawson OT Weakness (Primary Dx); Decreased activities of daily living (ADL) 10/01/2024 8:44 AM EXPORT CLERK - 10/01/2024 11:59 PM EXPORT CLERK Hospital Encounter [facility] ([facility]) [address] [place] [address] Discharge Disposition: Discharge to home or self care 10/01/2024 8:44 AM EXPORT CLERK - 10/01/2024 11:59 PM EXPORT CLERK Hospital Encounter [facility] ([facility]) [address] [place] [address] 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) Discharge Disposition: Discharge to home or self care 10/01/2024 Plan of Care Documentation [facility] Occupational Therapy [address] [place] [phone] 09/30/2024 2:00 PM EXPORT CLERK Therapy [facility] Occupational Therapy [address] [place] [phone] Nu Dawson OT Weakness (Primary Dx); Decreased activities of daily living (ADL); Deficit in activities of daily living (ADL) 09/30/2024 3:00 PM EXPORT CLERK Therapy [facility] Physical Therapy [address] [place] [address] Claudette Rosen DPT Multiple myeloma not having achieved remission (HCC) (Primary Dx); Hx of spinal cord compression 09/29/2024 8:43 PM EXPORT CLERK - 09/29/2024 11:59 PM EXPORT CLERK Hospital Encounter [facility] ([facility]) [address] [place] [address] Discharge Disposition: Discharge to home or self care 09/29/2024 8:42 PM EXPORT CLERK - 09/29/2024 11:59 PM EXPORT CLERK Hospital Encounter [facility] ([facility] [address] [place] [address] Discharge Disposition: Discharge to home or self care 09/29/2024 8:00 PM EXPORT CLERK - 09/29/2024 11:59 PM EXPORT CLERK Hospital Encounter [facility] ([facility]) [address] [place] [address] Discharge Disposition: Discharge to home or self care 09/29/2024 7:57 PM EXPORT CLERK - 09/29/2024 11:59 PM EXPORT CLERK Hospital Encounter [facility] ([facility]) [address] [place] [address] Discharge Disposition: Discharge to home or self care 09/29/2024 Telephone [facility] Radiation Oncology [address] [place] [address] for Advanced Medicine [facility] [address] Marleny Melo NP 09/28/2024 Telephone [facility] Oncology [address] [place] [address] Farida Mckeon RMA 09/28/2024 Orders Only [facility] Bone Marrow Transplant [address] [place] [address] Zafar Gary, RN 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) 09/28/2024 Telephone [facility] Bone Marrow Transplant [address] [phone] Jarrod Garcia DNP 09/27/2024 12:05 PM EXPORT CLERK - 09/27/2024 11:59 PM EXPORT CLERK Hospital Encounter [facility] ([facility]) [address] [place] [address] Hx of spinal cord compression; Multiple myeloma in remission (HCC); Bilateral low back pain without sciatica, unspecified chronicity Discharge Disposition: Discharge to home or self care 09/24/2024 Orders Only [facility] Scanning, Provider 09/21/2024 Telephone [facility] Bone Marrow Transplant [facility] [address] [phone] Jarrod Garcia DNP 09/21/2024 Orders Only [facility] Bone Marrow Transplant [address] [place] [phone] Sarita Patiño [facility] 09/21/2024 Orders Only [facility] Bone Marrow Transplant [address] [place] [address] Zafar Gary, RN Multiple myeloma not having achieved remission (HCC) (Primary Dx) 09/17/2024 Orders Only [facility] Bone Marrow Transplant [facility] [address] [phone] Sarita Patiño [facility] 09/14/2024 2:28 PM EXPORT CLERK - 09/14/2024 11:59 PM EXPORT CLERK Hospital Encounter [facility] PATHOLOGY [address] [address] 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) Discharge Disposition: Discharge to home or self care 09/14/2024 Orders Only [facility] [address] [address] Ovi Rodriguez MD 09/14/2024 Orders Only [facility] Oncology [address] [place] [address] Ovi Rodriguez MD 09/14/2024 1:00 PM EXPORT CLERK Infusion [facility] [address] [place] [address] 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); Multiple myeloma not having achieved remission (HCC) 09/14/2024 11:30 AM EXPORT CLERK Office Visit [facility] Bone Marrow Transplant [facility] [place] [address] Jarrod Garcia DNP 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); Multiple myeloma not having achieved remission (HCC); Abscess 09/14/2024 12:00 PM EXPORT CLERK Infusion [facility] [address] [place] [address] Multiple myeloma not having achieved remission (HCC) (Primary Dx) 09/14/2024 11:00 AM EXPORT CLERK Clinical Support [facility] [address] [place] [address] 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) 09/14/2024 9:32 AM EXPORT CLERK - 09/14/2024 11:59 PM EXPORT CLERK Hospital Encounter [facility] [address] [place] [address] Multiple myeloma not having achieved remission (HCC); 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); Vitamin D deficiency Discharge Disposition: Discharge to home or self care 09/07/2024 Orders Only [facility] Bone Marrow Transplant [address] [place] [address] Zafar Gary, RN 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) 09/02/2024 Telephone [facility] Radiation Oncology [address] [facility] [place] [address] Florence Acosta MD 09/02/2024 Telephone [facility] Radiation Oncology [address] [place] [address] Marleny Melo NP 09/02/2024 Telephone [facility] Radiation Oncology [facility] [place] [address] Marleny Melo NP 08/30/2024 10:00 AM EXPORT CLERK Therapy [facility] Physical [address] [address] Claudette Rosen, DPT Multiple myeloma not having achieved remission (HCC) (Primary Dx); Hx of spinal cord compression 08/26/2024 1:07 PM EXPORT CLERK - 08/26/2024 11:59 PM EXPORT CLERK Hospital Encounter [facility] [address] [place] [address] Breast pain; Hx of breast cancer Discharge Disposition: Discharge to home or self care 08/26/2024 1:07 PM EXPORT CLERK - 08/26/2024 11:59 PM EXPORT CLERK Hospital Encounter [facility]) [address] [place] [address] Breast pain; Hx of breast cancer Discharge Disposition: Discharge to home or self care 08/23/2024 11:00 AM EXPORT CLERK Therapy [facility] Physical Therapy [address] [place] [phone] Claudette Rosen DPYo Multiple myeloma not having achieved remission (HCC) (Primary Dx); Hx of spinal cord compression from Last 3 Months Allergies Active Allergy Reactions Criticality Noted Date Comments Latex Rash Medium 07/07/2015 Morphine Other (See comments) Low 05/27/2024 Constipation Oxycodone Vomiting Low 05/27/2024 Medications EPINEPHrine (EPIPEN) 0.3 mg/0.3 mL auto-injection syringeIndicatio ns:Anaphylaxis 017 Active ONETOUCH VERIO stripIndications :Diabetes Mellitus TEST BID 3 Active ONETOUCH DELICA LANCETS 33 gauge misc UTD BID 3 Active ezetimibe (ZETIA) 10 mg tabletIndication s:hyperlipidemia Take 1 tablet (10 mg total) by mouth daily Active xemmvdyl-hur-isi n-FA-vit K-lut 8 mg iron-400 mcg-50 mcg tabletIndication s:supplement Active naloxone (NARCAN) 4 mg/actuation spray,non-aeroso lIndications:Opi oid Toxicity Active omega-3 fatty acids-fish oil 300-1,000 mg [...] tablet (10 mg total) by mouth daily 024 2024 Active magnesium oxide (MAG-OX) 400 mg (241.3 mg elemental magnesium) tabletIndication s:hypomagnesemia Take 0.5 tablets (200 mg total) by mouth daily 024 2024 Active senna (SENOKOT) 8.6 mg tabletIndication s:constipation Take 1 tablet by mouth 2 (two) times a day 024 2024 Active levothyroxine (SYNTHROID) 112 mcg tabletIndication s:hypothyroidism Take 1 tablet (112 mcg total) by mouth liquor tester before breakfast Active diclofenac sodium (VOLTAREN) 1 [...] RESPONSE Active Easy Touch 32 gauge x 5/32 needleIndication s:Diabetes Mellitus USE TO INJECT FOUR [...] call provider to discuss adjustments Active vit C,N-Au-cqlbm-lut ein-zeaxan 250-90-40-1 mg capsuleIndicatio ns:eye health Take 1 capsule by mouth 2 (two) times a day. 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 She might have a fibrin sheath, but with 1 of the lines out there might be a baptist of blood flow. He said he doesn't think we will gain much by doing an evaluation. He suggests waiting, seeing if the line restores flow, and then if not they can schedule her for evaluation later Local Oncologist Contact Dr. Mario Mendez [facility] in [place], [place] Post-Discharge Office Visit (H30) [facility] - 06/29 @ [facility] Miscellaneous Notes: 12/01/23- Called Dr. Hammer [...] and Progress note to Dr. Hammer (F: [phone]) Problem Noted Date Diagnosed Date HTN (hypertension) [...] 12/01/2023 Cancer Staging:Clinical stage from 11/14/2023:RISS Stage I(Saib-1-enbmhjfbeutyi (mg/L): 2.7, Albumin (g/dL): 4.5, ISS: Stage [...] of unk nown significance (MGUS) 11/10/2018 01/20/2024 Immunizations Immunization Administration Dates Next Due COVID-19 mRNA (Populis) 0.3 m L (30 mcg) vaccine (12 [...] 05/18/2018,05/17/2018 ZOSTER LIVE 08/05/2017,07/16/2016 ZOSTER Recombinant 05/10/2019,03/03/2019 Social History Tobacco Use Types Packs/Day Years [...] materials from doctor or pharmacy Never 08/04/2024 [facility] Utilities Answer Date Recorded In the past 12 months has th e [employer], gas, oil, or water [employer] threatened to shut off services in your [...] often do you attend chur ch or taoism services? Never 06/09/2024 Do you belong to any clubs o r organizations such as temple groups, unions, fraternal or athletic groups, or [...] a group home (including now)? No 11/27/2023 Housing Stability Vital Sign Answer Tyson e Recorded In the last 12 months, was t here a time when you were not able to pay the mortgage or rent on time? No 06/09/2024 In the past 12 months, how m any times have you moved where you were living? 0 06/09/2024 At any time in the past 12 m [place], were you homeless or living in a group home (including now)? No 06/09/2024 Personal Safety Answer Date Recorded Have you ever been in or are you currently in a harmful physical or emotional relationship or is someone making you feel afraid or unsafe? Denies 06/23/2024 Comments No Sex and Gender Information Value Date Recorded Sex Assigned at Not on file Legal Sex Female 11:17 AM EXPORT CLERK Gender Identity Not on file Sexual Orientation [...] 06/07/2024 6:26 PM CDT Plan of Treatment Not on file Procedures Procedure Name Priority Date/Time Associated Diagnosis [...] AM CDT EGFR STAT 10/12/2024 11:19 AM EXPORT CLERK Multiple myeloma in remission (HCC) DIFFERENTIAL AUTO Routine 10/12/2024 11:19 AM EXPORT CLERK Multiple myeloma in remission (HCC) CBC WITH AUTO DIFFERENTIAL Routine 10/12/2024 11:19 AM EXPORT CLERK Multiple myeloma in remission (HCC) COMPREHENSIVE METABOLIC PANEL STAT 10/12/2024 11:19 AM EXPORT CLERK Multiple myeloma in remission (HCC) TYPE AND SCREEN Routine 10/12/2024 11:19 AM EXPORT CLERK Multiple myeloma not having achieved remission (HCC) DIAGNOSTIC MAMMOGRAM RIGHT W BRANNON Schedule Routine, Read Routine (OP Routine) 10/05/2024 2:19 PM EXPORT CLERK Hx of breast cancer Breast pain US BREAST RIGHT LIMITED Schedule Routine, Read Routine (OP Routine) 10/05/2024 1:51 PM EXPORT CLERK Hx of breast cancer Breast pain IMMUNOGLOBULIN FREE LIGHT CHAINS Routine 10/05/2024 10:00 AM EXPORT CLERK 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) PROTEIN ELECTROPHORESIS, WITH REFLEX, SERUM Routine 10/05/2024 10:00 AM EXPORT CLERK 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) EGFR Routine 10/05/2024 10:00 AM EXPORT CLERK 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) DIFFERENTIAL AUTO Routine 10/05/2024 10:00 AM EXPORT CLERK 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) CBC WITH AUTO DIFFERENTIAL Routine 10/05/2024 10:00 AM EXPORT CLERK 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) COMPREHENSIVE METABOLIC PANEL Routine 10/05/2024 10:00 AM EXPORT CLERK 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) IGA Routine 10/05/2024 10:00 AM EXPORT CLERK 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) IGG Routine 10/05/2024 10:00 AM EXPORT CLERK 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) IGM Routine 10/05/2024 10:00 AM EXPORT CLERK 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) LACTATE DEHYDROGENASE Routine 10/05/2024 10:00 AM EXPORT CLERK 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) TYPE AND SCREEN Routine 10/05/2024 10:00 AM EXPORT CLERK Multiple myeloma not having achieved remission (HCC) CLINICAL PATHOLOGY REPORT Routine 10/05/2024 10:00 AM EXPORT CLERK PET/CT FDG SKULL TO THIGH Schedule Routine, Read Routine (OP Routine) 10/01/2024 11:24 AM EXPORT CLERK 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) NEURO MR OUTSIDE REFERENCE Routine 09/29/2024 8:43 PM EXPORT CLERK NEURO MR OUTSIDE REFERENCE Routine 09/29/2024 8:42 PM EXPORT CLERK NEURO CT OUTSIDE REFERENCE Routine 09/29/2024 8:00 PM EXPORT CLERK NEURO CT OUTSIDE REFERENCE Routine 09/29/2024 7:57 PM EXPORT CLERK MRI SPINE TOTAL COMPLETE W WO CONTRAST Schedule Routine, Read Routine (OP Routine) 09/27/2024 2:45 PM EXPORT CLERK Hx of spinal cord compression Multiple myeloma in remission (HCC) Bilateral low back pain without sciatica, unspecified chronicity SCAN - PATHOLOGY 09/24/2024 CLONOSEQ Routine 09/15/2024 11:49 AM EXPORT CLERK HEMATOLOGIC MOLECULAR ALGORITHM Routine 09/15/2024 11:49 AM EXPORT CLERK 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) SURGICAL PATHOLOGY Routine 09/14/2024 2: 28 PM EXPORT CLERK 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) FLOW LEUKEMIA/LYMPHOMA Routine 09/14/2024 2:27 PM EXPORT CLERK 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) CYTOGENETICS TRACKING ORDER Routine 09/14/2024 2:27 PM EXPORT CLERK 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) SPECIMEN TRACKING Routine 09/14/2024 12:03 PM EXPORT CLERK 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) CLINICAL PATHOLOGY REPORT Routine 09/14/2024 11:11 AM EXPORT CLERK EGFR Routine 09/14/2024 11:11 AM EXPORT CLERK 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) DIFFERENTIAL AUTO Routine 09/14/2024 11:11 AM EXPORT CLERK 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) BETA 2 MICROGLOBULIN SERUM Routine 09/14/2024 11:11 AM EXPORT CLERK 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) CBC WITH AUTO DIFFERENTIAL Routine 09/14/2024 11:11 AM EXPORT CLERK 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) COMPREHENSIVE METABOLIC PANEL Routine 09/14/2024 11:11 AM EXPORT CLERK 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) IGA Routine 09/14/2024 11:11 AM EXPORT CLERK 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) IGG Routine 09/14/2024 11:11 AM EXPORT CLERK 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) IGM Routine 09/14/2024 11:11 AM EXPORT CLERK 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) IMMUNOTYPING Routine 09/14/2024 11:11 AM EXPORT CLERK 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) IMMUNOGLOBULIN FREE LIGHT CHAINS Routine 09/14/2024 11:11 AM EXPORT CLERK 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) LACTATE DEHYDROGENASE Routine 09/14/2024 11:11 AM EXPORT CLERK 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) PROTEIN ELECTROPHORESIS, WITH REFLEX, SERUM Routine 09/14/2024 11:11 AM EXPORT CLERK 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) VITAMIN D 25 HYDROXY Routine 09/14/2024 11:11 AM EXPORT CLERK 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) Vitamin D deficiency TYPE AND SCREEN Routine 09/14/2024 11:11 AM EXPORT CLERK Multiple myeloma not having achieved remission (HCC) CYTOGENETICS Routine 09/14/2024 12:00 AM EXPORT CLERK US BREAST RIGHT LIMITED Schedule Routine, Read Routine (OP Routine) 08/26/2024 2:39 PM EXPORT CLERK Breast pain Hx of breast cancer DIAGNOSTIC MAMMOGRAM BILATERAL W BRANNON Schedule Routine, Read Routine (OP Routine) 08/26/2024 2:03 PM EXPORT CLERK Breast pain Hx of breast cancer HEMOGLOBIN [...] - 6.5 K/cumm Comment:Testing performed by : [facility] [place] [address] Imm gran abs 0.0 0.0 - 0.1 K/cumm CERNER Comment:Testing performed by : [facility] [place] [address] Lymphocyte abs 1.0 0.8 - 3.3 K/cumm CERNER Comment:Testing performed by : [facility] [place] [address] Monocyte abs 0.6 0.2 - 0.8 K/cumm CERNER Comment:Testing performed by : [facility] [place] [address] Eosinophil abs 0.6(H) 0.0 - 0.5 K/cumm CERNER Comment:Testing performed by : [facility] [place] [address] Basophil abs 0.1 0.0 - 0.1 K/cumm CERNER Comment:Testing performed by : [facility] [place] [address] Neutrophil pct 57.3 % CERNER Comment: Interpretive Data Percent cell count reference ranges are not reported, since discordance with absolute values may lead to misinterpretation of CBC data. Current Interpretive Data was last revised on 2017. Testing performed by: [facility] [place] [address] Imm gran pct 0.6 % [facility] Comment: Interpretive Data Percent cell count reference ranges are not reported, since discordance with absolute values may lead to misinterpretation of CBC data. Current Interpretive Data was last revised on 2017. Testing performed by: [facility] [place] [address] Lymphocyte pct 18.3 % [facility] Comment: Interpretive Data Percent cell count reference ranges are not reported, since discordance with absolute values may lead to misinterpretation of CBC data. Current Interpretive Data was last revised on 2017. Testing performed by: [facility] [place] [address] Monocyte pct 11.7 % CERNER Comment: Interpretive Data Percent cell count reference ranges are not reported, since discordance with absolute values may lead to misinterpretation of CBC data. Current Interpretive Data was last revised on 2017. Testing performed by: [facility] [place] [address] Eosinophil pct 10.6 % [facility] Comment: Interpretive Data Percent cell count reference ranges are not reported, since discordance with absolute values may lead to misinterpretation of CBC data. Current Interpretive Data was last revised on 2017. Testing performed by: [facility] [place] [address] Basophil pct 1.5 % [facility] Comment: Interpretive Data Percent cell count reference ranges are not reported, since discordance with absolute values may lead to misinterpretation of CBC data. Current Interpretive Data was last revised on 2017. Testing performed by: [facility] [place] [address] Blood 11/09/2024 12:0 0 PM CDT 11/09/2024 12:06 PM CDT us Ovi Rodriguez MD LAB BLOOD ORDERABLES Fin al Result DEBORAH [id number] [address] Department [place] [address] * (ABNORMAL) CBC with auto differential (11/09/2024 12:00 PM CDT) WBC 5.3 3.8 - 9.9 K/cumm Comment:Testing performed by : [facility] [place] [address] Hgb 11.6(L) 11.9 - 15.5 g/dL CERNER CH Comment:Testing performed by : [facility] [place] [address] Hct 34.4(L) 35.6 - 45.5 % CERNER CH Comment:Testing performed by : [facility] [place] [address] Plt 174 150 - 400 K/cumm CERNER CH Comment:Testing performed by : [facility] [place] [address] MPV 9.3 9.1 - 12.3 fL CERNER CH Comment:Testing performed by : [facility] [place] [address] RBC 3.70(L) 3.90 - 5.20 M/cumm CERNER CH Comment:Testing performed by : [facility] [place] [address] MCV 93.0 81.3 - 96.4 fL CERNER CH Comment:Testing performed by : [facility] [place] [address] MCH 31.4 27.1 - 33.3 pg CERNER CH Comment:Testing performed by : [facility] [place] [address] MCHC 33.7 32.3 - 35.7 g/dL CERNER CH Comment:Testing performed by : [facility] [place] [address] RDW CV 13.1 11.1 - 14.9 % CERNER CH Comment:Testing performed by : [facility] [place] [address] RDW SD 44.5 35.7 - 48.1 fL CERNER CH Comment:Testing performed by : [facility] [place] [address] NRBC abs 0.00 0.00 - 0.01 K/cumm CERNER CH Comment:Testing performed by : [facility], [place] [address] Blood 11/09/2024 12:0 0 PM CDT 11/09/2024 12:06 PM CDT us Ovi Rodriguez MD LAB BLOOD ORDERABLES Fin al Result DEBORAH [address] Department of Laboratories [place] [id number] * Clinical pathology report (11/09/2024 10:05 AM CDT) Miscellaneous 11/09/2024 10: 05 AM CDT 11/11/2024 8:36 AM CDT Narrative 11/11/2024 4:31 PM CDT EPIC results best viewed via link to PDF [facility] Department of Pathology [address] [place] [id number] Final Report Note to Patients: This [...] the details. Patient Name: FRANCESCO JEAN Address: [address] [place] [address] Gender: F : 1955 (Age: 69) Service: Location: N : [id number] [place] [employer] [facility] #: [id number] Patient Type: EP REF LAB SERIES Taken: 11/09/2024 Received: [...] determined by the Surgical Pathology Department at [facility] as part of an ongoing clinical quality analyst program and in compliance with federally mandated [...] characteristics determined by the Surgical Pathology Department [facility]. It has not been cleared or approved [...] was last reviewed 2021. Testing performed by: [facility] at [facility], [place] [address] Blood 11/09/2024 10:0 5 AM CDT 11/09/2024 10:10 AM CDT Ovi Rodriguez MD LAB BLOOD ORDERABLES Fin al Result Performing Organization Address [facility] de Phone Number [facility] [phone] [address] Department of [employer] [place], [place] [phone] * Immunoglobulin free light chains (11/09/2024 10:05 AM CDT) Ventura/Lambda ratio 1.40 0.26 - 1.65 Ventura free light chain 1.44 0.33 - 1.94 mg/dL DEBORAH Comment: Interpretive Data The Iza Ig Ventura FLC assay procedure was used. Results from different manufacturers or methods may not be comparable. Serial testing should be performed using the same method. Lambda free light chain 1.06 0.57 - 2.63 mg/dL [facility] Comment: Interpretive Data The Iza Ig Lambda FLC assay procedure was used. Results from different manufacturers or methods may not be comparable. Serial testing should be performed using the same method. Blood 11/09/2024 10:0 5 AM CDT 11/09/2024 11:45 AM CDT Ovi Rodriguez MD LAB BLOOD ORDERABLES Fin al Result Performing Organization Address [facility] [[email or web address]] Co de Phone Number [facility] [phone] [address] Department [place] [address] * (ABNORMAL) Type and screen (11/09/2024 10:05 AM CDT) Loida, indirect Positive(A) ABO Rh A Positive [facility] Blood 11/09/2024 10:0 5 AM CDT 11/09/2024 10:56 AM CDT Narrative CERNER CH - 11/09/2024 12:45 PM CDT Has the patient had Daratumumab or Isatuximab in the past 6 months?->Unknown Oiv Rodriguez MD LAB BLOOD BANK TEST JESS YOUNG Final Result Performing Organization Address [facility]/ZIP Co de Phone Number DEBORAH MATTA [phone] [address] Department of Laboratories [place], [place] [phone] * (ABNORMAL) Protein electrophoresis with reflex, serum with interpretation (11/09/2024 10:05 AM CDT) Pathologist [facility] Protein, sr 5.8(L) 6.2 - 8.2 g/dL [...] ORDERABLES Fin al Result Performing Organization Address [facility]/ZIP Co de Phone Number DEBORAH MATTA [phone] [address] Department [place] [address] * Lactate dehydrogenase (LD) (11/09/2024 10:05 AM CDT) Pathologist [facility] Lactate dehydrogenase (LDH) 179 100 - 250 Units/L Comment:Testing performed by : [facility], [place] [address] Blood 11/09/2024 10:0 5 AM CDT 11/09/2024 10:10 AM CDT Ovi Rodriguez MD LAB BLOOD ORDERABLES Mohan jeanette Result - Final Performing Organization Address [facility] [[email or web address]] Co de Phone Number DEBORAH MATTA [phone] [facility] [place] [address] * (ABNORMAL) IgA (11/09/2024 10:05 AM CDT) Immunoglobulin A 68(L) 70 - 400 mg/dL Blood 11/09/2024 10:0 5 AM CDT 11/09/2024 10:50 AM CDT Ovi Rodriguez MD LAB BLOOD ORDERABLES Fin al Result Performing Organization Address [place] de Phone Number DEBORAH MATTA [phone] [facility] [place] [address] * (ABNORMAL) IgM (11/09/2024 10:05 AM CDT) Immunoglobulin M <25(L) 40 - 150 mg/dL Blood 11/09/2024 10:0 5 AM CDT 11/09/2024 10:50 AM CDT Ovi Rodriguez MD LAB BLOOD ORDERABLES Fin al Result Performing Organization Address [place] de Phone Number DEBORAH MATTA [phone] [facility] [place] [address] * (ABNORMAL) IgG (11/09/2024 10:05 AM CDT) Immunoglobulin G <300(L) 700 - 1,600 mg/dL Blood 11/09/2024 10:0 5 AM CDT 11/09/2024 10:50 AM CDT Ovi Rodriguez MD LAB BLOOD ORDERABLES Fin al Result Performing Organization Address [facility] [[email or web address]] Co de Phone Number DEBORAH MATTA [phone] [facility] [place] [address] * (ABNORMAL) Comprehensive metabolic panel (11/09/2024 10:05 AM CDT) Sodium 139 135 - 145 mmol/L Comment:Testing performed by : [facility] [place] [address] Potassium, pl 4.5 3.3 - 4.9 mmol/L CERNER CH Comment:Testing performed by : [facility] [place] [address] Chloride 104 97 - 110 mmol/L CERNER CH Comment:Testing performed by : [facility] [place] [address] CO2 26 22 - 32 mmol/L CERNER CH Comment:Testing performed by : [facility] [place] [address] Anion gap 9 2 - 15 mmol/L CERNER CH Comment:Testing performed by : [facility] [place] [address] BUN 22 6 - 25 mg/dL CERNER CH Comment:Testing performed by : [facility] [place] [address] Creatinine 0.76 0.60 - 1.10 mg/dL CERNER CH Comment:Testing performed by : [facility] [place] [address] Glucose 117 70 - 199 mg/dL CERNER [...] was last revised 2022. Testing performed by: [facility] [place] [address] Calcium 9.3 8.5 - 10.3 mg/dL CERNER CH Comment:Testing performed by : [facility] [place] [address] Bilirubin, total 0.2 0.1 - 1.2 mg/dL CERNER CH Comment:Testing performed by : [facility] [place] [address] Protein, pl 6.2(L) 6.5 - 8.5 g/dL DEBORAH MATTA Comment:Testing performed by : [facility] [place] [address] Albumin 3.9 3.5 - 5.0 g/dL DEBORAH MATTA Comment:Testing performed by : [facility] [place] [address] Alk phos 62 40 - 130 Units/L DEBORAH MATTA Comment:Testing performed by : [facility] [place] [address] ALT 19 7 - 45 Units/L DEBORAH MATTA Comment:Testing performed by : [facility] [place] [address] AST 20 10 - 45 Units/L DEBORAH MATTA Comment:Testing performed by : [facility] [place] [place] [address] Blood 11/09/2024 10:0 5 AM CDT 11/09/2024 10:10 AM CDT us Ovi Rodriguez MD LAB BLOOD ORDERABLES Mohan jeanette Result - Final DEBORAH MATTA [address] [address] Department [place] [address] * eGFR (11/09/2024 9:51 AM CDT) eGFR [...] was last reviewed 2021. Testing performed by: [facility] [place] [address] Blood 11/09/2024 9:51 AM CDT 11/09/2024 10:10 AM CDT Henry Gross MD LAB BLOOD ORDERABLES Final R esult DEBORAH MATTA [address] [address] Department [place] [address] * Albumin Creatinine Ratio, Urine (11/09/2024 9:51 AM CDT) Albumin Ur <12.0 mg/L Comment: Interpretive Data No reference range established. Current interpretive data was last revised 2019. Creatinine Ur 26.0 mg/dL DEBORAH MATTA Comment: Interpretive Data No reference range established. Current interpretive data was last revised 2019. Albumin Creatinine Ratio, Ur See Comment 1 - 29 DEBORAH MATTA Comment:Unable to calculate Urine 11/09/2024 9:51 AM CDT 11/09/2024 10:51 AM CDT Henry Gross MD LAB URINE ORDERABLES Final R esult DEBORAH MATTA [id number] [address] Department [employer] [place], [place] [id number] * Vitamin D 25 hydroxy (11/09/2024 9:51 AM CDT) Vitamin D 25-OH 32 30 - 80 ng/mL Blood 11/09/2024 9:51 AM CDT 11/09/2024 11:45 AM CDT Henry Gross MD LAB BLOOD ORDERABLES Final R esult Performing Organization Address [facility] [[email or web address]] Co de Phone Number DEBORAH MATTA [phone] [facility] [employer] [place], [place] [phone] * TSH (11/09/2024 9:51 AM CDT) Thyroid Stimulating Hormone 3.13 0.30 - 4.20 mcIUnit/mL Blood 11/09/2024 9:51 AM CDT 11/09/2024 10:50 AM CDT Henry Gross MD LAB BLOOD ORDERABLES Final R esult Performing Organization Address [facility] [[email or web address]] Co de Phone Number DEBORAH MATTA [phone] [facility] [employer] [place], [place] [phone] * T4, free (11/09/2024 9:51 AM CDT) Free T4 1.40 0.90 - 1.70 ng/dL Blood 11/09/2024 9:51 AM CDT 11/09/2024 10:50 AM CDT Henry Gross MD LAB BLOOD ORDERABLES Final R esult Performing Organization Address [facility] [[email or web address]] Co de Phone Number DEBORAH MATTA [address] [employer] [place], [place] [phone] * Lipid panel (11/09/2024 9:51 AM CDT) [...] on 2018. Triglycerides 105 <=149 mg/dL DEBORAH Comment: Interpretive Data Ages < or = [...] on 2018. HDL 69 >=40 mg/dL DEBORAH Comment: Interpretive Data Ages < or = [...] 2018. LDL, calculated 73 <=129 mg/dL DEBORAH Comment: Interpretive Data Ages < or = [...] 3. Dariel Crawford et al. LARRY Cardiol. 2020 December 30;5(5):540-548. doi: 10.1001/[email or web address].2020.0013 Current Interpretive Data was last revised on 2024. Non-HDL Cholesterol 92 mg/dL CERNER CH Comment: Interpretive Data Ages < or = [...] last revised on 2018. Chol/HDL ratio 2 CERNER CH Blood 11/09/2024 9:51 AM CDT 11/09/2024 10:50 AM CDT us Henry Gross MD LAB BLOOD ORDERABLES Final R esult DEBORAH [address] [address] Department [place] [address] * (ABNORMAL) Comprehensive metabolic panel (11/09/2024 9:51 AM CDT) Sodium 138 135 - 145 mmol/L Comment:Testing performed by : [facility] [place] [address] Potassium, pl 4.5 3.3 - 4.9 mmol/L CERNER CH Comment:Testing performed by : [facility] [place] [address] Chloride 104 97 - 110 mmol/L CERNER CH Comment:Testing performed by : [facility] [place] [address] CO2 25 22 - 32 mmol/L CERNER CH Comment:Testing performed by : [facility] [place] [address] Anion gap 9 2 - 15 mmol/L CERNER CH Comment:Testing performed by : [facility] [place] [address] BUN 22 6 - 25 mg/dL CERNER CH Comment:Testing performed by : [facility] [place] [address] Creatinine 0.76 0.60 - 1.10 mg/dL CERNER CH Comment:Testing performed by : [facility] [place] [address] Glucose 117 70 - 199 mg/dL CERNER [...] was last revised 2022. Testing performed by: [facility] [place] [address] Calcium 9.2 8.5 - 10.3 mg/dL CERNER CH Comment:Testing performed by : [facility] [place] [address] Bilirubin, total 0.2 0.1 - 1.2 mg/dL CERNER CH Comment:Testing performed by : [facility] [place] [address] Protein, pl 6.0(L) 6.5 - 8.5 g/dL CERNER CH Comment:Testing performed by : [facility] [place] [address] Albumin 4.0 3.5 - 5.0 g/dL CERNER CH Comment:Testing performed by : [facility] [place] [address] Alk phos 62 40 - 130 Units/L CERNER CH Comment:Testing performed by : [facility] [place] [address] ALT 18 7 - 45 Units/L CERNER CH Comment:Testing performed by : [facility] [place] [address] AST 20 10 - 45 Units/L CERNER CH Comment:Testing performed by : [facility] [place] [address] Blood 11/09/2024 9:51 AM CDT 11/09/2024 9:52 AM CDT Henry Gross MD LAB BLOOD ORDERABLES Final R esult Performing Organization Address City/[facility]/ZIP Co de Phone Number DEBORAH [address] [address] Department [place] [address] * eGFR (10/12/2024 11:19 AM EXPORT CLERK) eGFR >90 >=60 mL/min/1. 73 m2 Comment: [...] was last reviewed 2021. Testing performed by: [facility] [place] [address] Blood 10/12/2024 11:1 9 AM EXPORT CLERK 10/12/2024 11:25 AM EXPORT CLERK us Ovi Rodriguez MD LAB BLOOD ORDERABLES Fin al Result Performing Organization Address City/[facility]/ZIP Co de Phone Number DEBORAH [address] [address] Department of [place] [address] * (ABNORMAL) Differential, auto (10/12/2024 11:19 AM EXPORT CLERK) [facility] Neutrophil abs 9.1(H) 1.5 - 6.5 K/cumm Comment:Testing performed by : [facility] [place] [address] Imm gran abs 0.0 0.0 - 0.1 K/cumm CERNER CH Comment:Testing performed by : [facility] [place] [address] Lymphocyte abs 1.4 0.8 - 3.3 K/cumm CERNER CH Comment:Testing performed by : [facility] [place] [address] Monocyte abs 0.9(H) 0.2 - 0.8 K/cumm CERNER CH Comment:Testing performed by : [facility] [place] [address] Eosinophil abs 1.5(H) 0.0 - 0.5 K/cumm CERNER CH Comment:Testing performed by : [facility] [place] [address] Basophil abs 0.1 0.0 - 0.1 K/cumm CERNER CH Comment:Testing performed by : [facility] [place] [address] Neutrophil pct 70.0 % CERNER CH Comment: Interpretive Data Percent cell count reference ranges are not reported, since discordance with absolute values may lead to misinterpretation of CBC data. Current Interpretive Data was last revised on 2017. Testing performed by: [facility] [place] [address] Imm gran pct 0.3 % CERNER CH Comment: Interpretive Data Percent cell count reference ranges are not reported, since discordance with absolute values may lead to misinterpretation of CBC data. Current Interpretive Data was last revised on 2017. Testing performed by: [facility] [place] [address] Lymphocyte pct 10.7 % CERNER CH Comment: Interpretive Data Percent cell count reference ranges are not reported, since discordance with absolute values may lead to misinterpretation of CBC data. Current Interpretive Data was last revised on 2017. Testing performed by: [facility] [place] [address] Monocyte pct 7.1 % CERNER CH Comment: Interpretive Data Percent cell count reference ranges are not reported, since discordance with absolute values may lead to misinterpretation of CBC data. Current Interpretive Data was last revised on 2017. Testing performed by: [facility] [place] [address] Eosinophil pct 11.4 % DEBORAH MATTA Comment: Interpretive Data Percent cell count reference ranges are not reported, since discordance with absolute values may lead to misinterpretation of CBC data. Current Interpretive Data was last revised on 2017. Testing performed by: [facility] [place] [address] Basophil pct 0.5 % DEBORAH MATTA Comment: Interpretive Data Percent cell count reference ranges are not reported, since discordance with absolute values may lead to misinterpretation of CBC data. Current Interpretive Data was last revised on 2017. Testing performed by: [facility] [place] [address] Blood 10/12/2024 11:1 9 AM EXPORT CLERK 10/12/2024 11:23 AM EXPORT CLERK us Ovi Rodriguez MD LAB BLOOD ORDERABLES Fin al Result DEBORAH [address] [address] Department [place] [address] * (ABNORMAL) CBC with auto differential (10/12/2024 11:19 AM EXPORT CLERK) WBC 13.0(H) 3.8 - 9.9 K/cumm Comment:Testing performed by : [facility] [place] [address] Hgb 11.5(L) 11.9 - 15.5 g/dL DEBORAH MATTA Comment:Testing performed by : [facility] [place] [address] Hct 34.1(L) 35.6 - 45.5 % DEBORAH MATTA Comment:Testing performed by : [facility] [place] [address] Plt 198 150 - 400 K/cumm DEBORAH MATTA Comment:Testing performed by : [facility] [place] [address] MPV 9.1 9.1 - 12.3 fL CERNER CH Comment:Testing performed by : [facility] [place] [address] RBC 3.59(L) 3.90 - 5.20 M/cumm CERNER CH Comment:Testing performed by : [facility] [place] [address] MCV 95.0 81.3 - 96.4 fL CERJUAN CH Comment:Testing performed by : [facility] [place] [address] MCH 32.0 27.1 - 33.3 pg CERJUAN CH Comment:Testing performed by : [facility] [place] [address] MCHC 33.7 32.3 - 35.7 g/dL CERJUAN CH Comment:Testing performed by : [facility] [place] [address] RDW CV 12.5 11.1 - 14.9 % DEBORAH CH Comment:Testing performed by : [facility] [place] [address] RDW SD 43.8 35.7 - 48.1 fL CERJUAN CH Comment:Testing performed by : [facility] [place] [address] NRBC abs 0.00 0.00 - 0.01 K/cumm DEBORAH CH Comment:Testing performed by : [facility] [place] [address] Blood 10/12/2024 11:1 9 AM EXPORT CLERK 10/12/2024 11:23 AM EXPORT CLERK us Ovi Rodriguez MD LAB BLOOD ORDERABLES Fin al Result [facility] [address] [address] Department [place] [address] * (ABNORMAL) Type and screen (10/12/2024 11:19 AM EXPORT CLERK) ABO Rh A Positive Loida, indirect Positive(A) DEBORAH MATTA Blood 10/12/2024 11:1 9 AM EXPORT CLERK 10/12/2024 1:26 PM EXPORT CLERK Narrative [facility] - 10/12/2024 2:20 PM EXPORT CLERK Has the patient had Daratumumab or Isatuximab in the past 6 months?->Unknown Ovi Rodriguez MD LAB BLOOD BANK TEST JESS YOUNG Final Result [facility] [address] [address] Department [place] [address] * (ABNORMAL) Comprehensive metabolic panel (10/12/2024 11:19 AM EXPORT CLERK) Sodium 141 135 - 145 mmol/L Comment:Testing performed by : [facility] [place] [address] Potassium, pl 4.4 3.3 - 4.9 mmol/L [facility] Comment:Testing performed by : [facility] [place] [address] Chloride 103 97 - 110 mmol/L [facility] Comment:Testing performed by : [facility] [place] [address] CO2 28 22 - 32 mmol/L [facility] Comment:Testing performed by : [facility] [place] [address] Anion gap 10 2 - 15 mmol/L [facility] Comment:Testing performed by : [facility] [place] [address] BUN 18 6 - 25 mg/dL [facility] Comment:Testing performed by : [facility] [place] [address] Creatinine 0.65 0.60 - 1.10 mg/dL [facility] Comment:Testing performed by : [facility] [place] [address] Glucose 134 70 - 199 mg/dL [facility] Comment: Interpretive Data Fasting glucose >/= 126 [...] was last revised 2022. Testing performed by: [facility] [place] [address] Calcium 10.1 8.5 - 10.3 mg/dL CERNER CH Comment:Testing performed by : [facility] [place] [address] Bilirubin, total 0.3 0.1 - 1.2 mg/dL CERNER CH Comment:Testing performed by : [facility] [place] [address] Protein, pl 6.3(L) 6.5 - 8.5 g/dL CERNER CH Comment:Testing performed by : [facility] [place] [address] Albumin 4.2 3.5 - 5.0 g/dL CERNER CH Comment:Testing performed by : [facility] [place] [address] Alk phos 72 40 - 130 Units/L CERNER CH Comment:Testing performed by : [facility] [place] [address] ALT 11 7 - 45 Units/L CERNER CH Comment:Testing performed by : [facility] [place] [address] AST 17 10 - 45 Units/L CERNER CH Comment:Testing performed by : [facility] [place] [address] Blood 10/12/2024 11:1 9 AM EXPORT CLERK 10/12/2024 11:23 AM EXPORT CLERK us Ovi Rodriguez MD LAB BLOOD ORDERABLES Fin al Result [facility] [address] [address] Department [place] [address] * Diagnostic Mammogram Right W Brannon (10/05/2024 2:19 PM EXPORT CLERK) Anatomical Region Laterality Modality Breast Right Mammography 10/05/2024 2:43 PM EXPORT CLERK Impressions 10/05/2024 3:15 PM EXPORT CLERK Slight interval evolution of likely fat necrosis/hematoma [...] Mitzy Abdalla M.D. Narrative 10/05/2024 3:15 PM EXPORT CLERK EXAMINATION: RIGHT UNILATERAL DIGITAL DIAGNOSTIC MAMMOGRAM AND [...] by: Mitzy Abdalla M.D. us Marleny Melo HAND CLOTH EXAMINER IMG MAMMO PROCEDURES Final Resul t * US Breast Right Limited (10/05/2024 1:51 PM EXPORT CLERK) Anatomical Region Laterality Modality Breast Right Ultrasound 10/05/2024 2:43 PM EXPORT CLERK Impressions 10/05/2024 3:15 PM EXPORT CLERK Slight interval evolution of likely fat necrosis/hematoma [...] Mitzy Abdalla M.D. Narrative 10/05/2024 3:15 PM EXPORT CLERK EXAMINATION: RIGHT UNILATERAL DIGITAL DIAGNOSTIC MAMMOGRAM AND [...] by: Mitzy Abdalla M.D. us Marleny Melo HAND CLOTH EXAMINER IMG MAMMO PROCEDURES Final Resul t * (ABNORMAL) Immunoglobulin free light chains (10/05/2024 10:00 AM EXPORT CLERK) Ventura/Lambda ratio 2.00(H) 0.26 - 1.65 Ventura free light chain 0.63 0.33 - 1.94 mg/dL DEBORAH Comment: Interpretive Data The Iza Ig Ventura FLC assay procedure was used. Results from different manufacturers or methods may not be comparable. Serial testing should be performed using the same method. Lambda free light chain 0.31(L) 0.57 - 2.63 mg/dL CERNER CH Comment: Interpretive Data The Iza Ig Lambda FLC assay procedure was used. Results from different manufacturers or methods may not be comparable. Serial testing should be performed using the same method. Blood 10/05/2024 10:0 0 AM EXPORT CLERK 10/05/2024 11:28 AM EXPORT CLERK Jarrod Tia Garcia [facility] LAB BLOOD ORDERABLES Amanda l Result Performing Organization Address City/[facility]/ZIP Co de Phone Number DEBORAH MATTA [id number] [address] Department [place] [address] * (ABNORMAL) Protein electrophoresis with reflex, serum with interpretation (10/05/2024 10:00 AM EXPORT CLERK) Pathologist [facility] Protein, sr 6.0(L) 6.2 - 8.2 g/dL [...] See Cl Path Rpt CERNER CH Blood 10/05/2024 10:0 0 AM EXPORT CLERK 10/05/2024 11:28 AM EXPORT CLERK Jarrod Garcia [facility] LAB BLOOD ORDERABLES Amanda l Result Performing Organization Address City/[facility]/ZIP Co de Phone Number DEBORAH MATTA [address] [address] Department [place] [address] * eGFR (10/05/2024 10:00 AM EXPORT CLERK) Pathologist [facility] eGFR >90 >=60 mL/min/1. 73 m2 Comment: [...] was last reviewed 2021. Testing performed by: [facility] [place] [address] Blood 10/05/2024 10:0 0 AM EXPORT CLERK 10/05/2024 10:06 AM EXPORT CLERK Jarrod Garcia [facility] LAB BLOOD ORDERABLES Amanda dillon Result DEBORAH [address] [address] Department of Laboratories [place], [place] [id number] * (ABNORMAL) Differential, auto (10/05/2024 10:00 AM EXPORT CLERK) Neutrophil abs 4.0 1.5 - 6.5 K/cumm Comment:Testing performed by : [facility] [place] [address] Imm gran abs 0.0 0.0 - 0.1 K/cumm DEBORAH Comment:Testing performed by : [facility] [place] [address] Lymphocyte abs 1.6 0.8 - 3.3 K/cumm DEBORAH Comment:Testing performed by : [facility] [place] [address] Monocyte abs 0.9(H) 0.2 - 0.8 K/cumm DEBORAH Comment:Testing performed by : [facility] [place] [address] Eosinophil abs 1.6(H) 0.0 - 0.5 K/cumm DEBORAH Comment:Testing performed by : [facility] [place] [address] Basophil abs 0.1 0.0 - 0.1 K/cumm CERNER CH Comment:Testing performed by : [facility] [place] [address] Neutrophil pct 49.3 % CERNER Comment: Interpretive Data Percent cell count reference ranges are not reported, since discordance with absolute values may lead to misinterpretation of CBC data. Current Interpretive Data was last revised on 2017. Testing performed by: [facility] [place] [address] Imm gran pct 0.4 % CERNER Comment: Interpretive Data Percent cell count reference ranges are not reported, since discordance with absolute values may lead to misinterpretation of CBC data. Current Interpretive Data was last revised on 2017. Testing performed by: [facility] [place] [address] Lymphocyte pct 19.0 % CERNER Comment: Interpretive Data Percent cell count reference ranges are not reported, since discordance with absolute values may lead to misinterpretation of CBC data. Current Interpretive Data was last revised on 2017. Testing performed by: [facility] [place] [address] Monocyte pct 11.4 % CERNER Comment: Interpretive Data Percent cell count reference ranges are not reported, since discordance with absolute values may lead to misinterpretation of CBC data. Current Interpretive Data was last revised on 2017. Testing performed by: [facility] [place] [address] Eosinophil pct 19.3 % CERNER Comment: Interpretive Data Percent cell count reference ranges are not reported, since discordance with absolute values may lead to misinterpretation of CBC data. Current Interpretive Data was last revised on 2017. Testing performed by: [facility] [place] [address] Basophil pct 0.6 % CERNER Comment: Interpretive Data Percent cell count reference ranges are not reported, since discordance with absolute values may lead to misinterpretation of CBC data. Current Interpretive Data was last revised on 2017. Testing performed by: [facility] [place] [address] Blood 10/05/2024 10:0 0 AM EXPORT CLERK 10/05/2024 10:06 AM EXPORT CLERK Jarrod Garcia [facility] LAB BLOOD ORDERABLES Amanda dillon Result DEBORAH [address] [address] Department of Laboratories [place] [id number] * (ABNORMAL) CBC with auto differential (10/05/2024 10:00 AM EXPORT CLERK) WBC 8.2 3.8 - 9.9 K/cumm Comment:Testing performed by : [facility] [place] [address] Hgb 11.8(L) 11.9 - 15.5 g/dL CERNER CH Comment:Testing performed by : [facility] [place] [address] Hct 35.0(L) 35.6 - 45.5 % CERNER CH Comment:Testing performed by : [facility] [place] [address] Plt 220 150 - 400 K/cumm CERNER CH Comment:Testing performed by : [facility] [place] [address] MPV 9.1 9.1 - 12.3 fL CERNER CH Comment:Testing performed by : [facility] [place] [address] RBC 3.65(L) 3.90 - 5.20 M/cumm CERNER CH Comment:Testing performed by : [facility] [place] [address] MCV 95.9 81.3 - 96.4 fL CERNER CH Comment:Testing performed by : [facility] [place] [address] MCH 32.3 27.1 - 33.3 pg CERNER CH Comment:Testing performed by : [facility] [place] [address] MCHC 33.7 32.3 - 35.7 g/dL CERNER CH Comment:Testing performed by : [facility] [place] [address] RDW CV 12.7 11.1 - 14.9 % DEBORAH MATTA Comment:Testing performed by : [facility] [place] [address] RDW SD 44.7 35.7 - 48.1 fL DEBORAH MATTA Comment:Testing performed by : [facility] [place] [address] NRBC abs 0.00 0.00 - 0.01 K/cumm DEBORHA MATTA Comment:Testing performed by : [facility] [place] [address] Blood 10/05/2024 10:0 0 AM EXPORT CLERK 10/05/2024 10:06 AM EXPORT CLERK Jarrod Garcia [facility] LAB BLOOD ORDERABLES Amanda l Result Performing Organization Address [facility] [[email or web address]] Co de Phone Number DEBORAH [address] [address] Department [place] [address] * Lactate dehydrogenase (LD) (10/05/2024 10:00 AM EXPORT CLERK) Lactate dehydrogenase (LDH) 183 100 - 250 Units/L Comment:Testing performed by : [facility] [place] [address] Blood 10/05/2024 10:0 0 AM EXPORT CLERK 10/05/2024 10:06 AM EXPORT CLERK Jarrod Garcia [facility] LAB BLOOD ORDERABLES Edit ed Result - Final Performing Organization Address [facility] [[email or web address]] Co de Phone Number DEBORAH [address] [address] Department of [place] [address] * (ABNORMAL) IgA (10/05/2024 10:00 AM EXPORT CLERK) Immunoglobulin A <50(L) 70 - 400 mg/dL Blood 10/05/2024 10:0 0 AM EXPORT CLERK 10/05/2024 10:44 AM EXPORT CLERK Jarrod Garcia [facility] LAB BLOOD ORDERABLES Amanda l Result Performing Organization Address [facility] [[email or web address]] Co de Phone Number DEBORAH [phone] [place] [address] * (ABNORMAL) IgM (10/05/2024 10:00 AM EXPORT CLERK) Pathologist [facility] Immunoglobulin M <25(L) 40 - 150 mg/dL Blood 10/05/2024 10:0 0 AM EXPORT CLERK 10/05/2024 10:44 AM EXPORT CLERK Jarrod Garcia DNP LAB BLOOD ORDERABLES Amanda l Result DEBORAH [address] [place] [address] * (ABNORMAL) IgG (10/05/2024 10:00 AM EXPORT CLERK) Pathologist [facility] Immunoglobulin G <300(L) 700 - 1,600 mg/dL Blood 10/05/2024 10:0 0 AM EXPORT CLERK 10/05/2024 10:44 AM EXPORT CLERK Jarrod Garcia [facility] LAB BLOOD ORDERABLES Amanda l Result Performing Organization Address [facility] [[email or web address]] Co de Phone Number DEBORAH [phone] [place] [address] * (ABNORMAL) Comprehensive metabolic panel (10/05/2024 10:00 AM EXPORT CLERK) [facility] Sodium 142 135 - 145 mmol/L Comment:Testing performed by : [facility] [place] [address] Potassium, pl 4.6 3.3 - 4.9 mmol/L CERJUAN CH Comment:Testing performed by : [facility] [place] [address] Chloride 105 97 - 110 mmol/L CERJUAN CH Comment:Testing performed by : [facility] [place] [address] CO2 26 22 - 32 mmol/L CERJUAN CH Comment:Testing performed by : [facility] [place] [address] Anion gap 11 2 - 15 mmol/L DEBORAH CH Comment:Testing performed by : [facility] [place] [address] BUN 18 6 - 25 mg/dL CERNER CH Comment:Testing performed by : [facility] [place] [address] Creatinine 0.67 0.60 - 1.10 mg/dL CERNER CH Comment:Testing performed by : [facility] [place] [address] Glucose 131 70 - 199 mg/dL CERNER CH Comment: [...] was last revised 2022. Testing performed by: [facility] [place] [address] Calcium 9.5 8.5 - 10.3 mg/dL CERNER CH Comment:Testing performed by : [facility] [place] [address] Bilirubin, total 0.2 0.1 - 1.2 mg/dL CERNER CH Comment:Testing performed by : [facility] [place] [address] Protein, pl 6.2(L) 6.5 - 8.5 g/dL CERNER CH Comment:Testing performed by : [facility] [place] [address] Albumin 4.2 3.5 - 5.0 g/dL CERNER CH Comment:Testing performed by : [facility] [place] [address] Alk phos 73 40 - 130 Units/L CERNER CH Comment:Testing performed by : [facility] [place] [address] ALT 13 7 - 45 Units/L CERNER CH Comment:Testing performed by : [facility] [place] [address] AST 19 10 - 45 Units/L CERNER CH Comment:Testing performed by : [facility] [place] [address] Blood 10/05/2024 10:0 0 AM EXPORT CLERK 10/05/2024 10:06 AM EXPORT CLERK Jarrod Garcia [facility] LAB BLOOD ORDERABLES Edit ed Result - Final DEBORAH MATTA [address] [address] Department [place] [address] * (ABNORMAL) Type and screen (10/05/2024 10:00 AM EXPORT CLERK) ABO Rh A Positive Loida, indirect Positive(A) DEBORAH Blood 10/05/2024 10:0 0 AM EXPORT CLERK 10/05/2024 10:47 AM EXPORT CLERK Narrative DEBORAH - 10/05/2024 1:00 PM EXPORT CLERK Has the patient had Daratumumab or Isatuximab in the past 6 months?->Unknown Ovi Rodriguez MD LAB BLOOD BANK TEST ORDE RABLES Final Result Performing Organization Address City/[facility]/ZIP Co de Phone Number DEBORAH MATTA [address] [facility] Department [place] [address] * Clinical pathology report (10/05/2024 10:00 AM EXPORT CLERK) Miscellaneous 10/05/2024 10: 00 AM EXPORT CLERK 10/07/2024 8:33 AM EXPORT CLERK Narrative 10/10/2024 10:56 AM EXPORT CLERK EPIC results best viewed via link to PDF [facility] Department of Pathology [address] [place] [id number] Final Report Note to Patients: This [...] questions and explain the details. Patient Name: MIRANDAFRANCESCO Address: [address] [place] [address] Gender: F : 1955 (Age: 69) Service: Location: Hospital #: [id number] Patient Type: CH EP REF LAB SERIES Taken: 10/05/2024 Received: 10/07/2024 [...] determined by the Surgical Pathology Department at [facility] as part of an ongoing clinical quality analyst program and in compliance with federally mandated [...] characteristics determined by the Surgical Pathology Department [facility]. It has not been cleared or approved by the U. S. Food and Drug Administration. REPORT IMAGES AND SCANNED DOCUMENTS, IF INCLUDED, ONLY VIEWABLE IN PDF VERSION OF REPORTe o Jarrod Garcia [facility] LAB PATHOLOGY ORDERABLES Final Result * PET/CT FDG Skull to Thigh (10/01/2024 11:24 AM EXPORT CLERK) Anatomical Region Laterality Modality N/A Positron Emissio n Tomography (PET) 10/01/2024 11:5 8 AM EXPORT CLERK Impressions 10/01/2024 12:23 PM EXPORT CLERK 1. Near complete resolution of previously hypermetabolic osseous lesions as described above in keeping with patient's known myeloma. 2. No new hypermetabolic osseous lesion. Dictated by: Familia Hodge MD The radiology attending physician has personally reviewed this study, and had reviewed and/or edited this written report and agrees with it. Electronically signed by: Aleks Cesar DO Narrative 10/01/2024 12:23 PM EXPORT CLERK EXAMINATION: TUMOR FDG-PET/CT IMAGING DATE OF STUDY: 10/01/2024 SCANNER: [facility] [employer] (NV1). This is a high-resolution scanner, which [...] obtained. The study was interpreted on the [employer] workstation. The mean liver SUV (reported for quality assurance supervisor purposes) is 3.0. The total scanned area [...] reanastomosis. Right vastus lateralis lipoma. Procedure Note Aleks Cesar, - 10/01/2024 EXAMINATION: TUMOR FDG-PET/CT IMAGING DATE OF STUDY: 10/01/2024 SCANNER: [facility] [employer] (NV1). This is a high-resolution scanner, which [...] obtained. The study was interpreted on the [employer] workstation. The mean liver SUV (reported for quality assurance supervisor purposes) is 3.0. The total scanned area [...] it. Electronically signed by: Aleks Cesar DO Ovi Rodriguez MD IMG PET PROCEDURES Final Result * Neuro MR Outside Reference (09/29/2024 8:43 PM EXPORT CLERK) Impressions [facility] - 09/29/2024 8:43 PM EXPORT CLERK These images are for Reference purposes only and have not been reviewed by [facility] Radiology. There will be no report generated by a [facility] Radiologist. Narrative [facility] - 09/29/2024 8:43 PM EXPORT CLERK EXAMINATION: Images For Reference Purposes Only [place] Acosta [place] [facility] [place]ED[place] Final R esult Performing Organization Address [facility] de Phone Number [email or web address] * Neuro MR Outside Reference (09/29/2024 8:42 PM EXPORT CLERK) Impressions [facility] - 09/29/2024 8:42 PM EXPORT CLERK These images are for Reference purposes only and have not been reviewed by [facility] Radiology. There will be no report generated by a [facility] Radiologist. Narrative [facility] - 09/29/2024 8:42 PM EXPORT CLERK EXAMINATION: Images For Reference Purposes Only Florence Acosta MD IMG MRI PROCEDURES Final R esult Performing Organization Address [facility] [[email or web address]] Co de Phone Number [email or web address] * Neuro CT Outside Reference (09/29/2024 8:00 PM EXPORT CLERK) Impressions [email or web address] - 09/29/2024 8:00 PM EXPORT CLERK These images are for Reference purposes only and have not been reviewed by [facility] Radiology. There will be no report generated by a [facility] Radiologist. Narrative [facility] - 09/29/2024 8:00 PM EXPORT CLERK EXAMINATION: Images For Reference Purposes Only Florence Acosta MD IMG CT PROCEDURES Final Re sult Performing Organization Address City/[facility] [[email or web address]] Co de Phone Number [email or web address] * Neuro CT Outside Reference (09/29/2024 7:57 PM EXPORT CLERK) Impressions [email or web address] - 09/29/2024 7:57 PM EXPORT CLERK These images are for Reference purposes only and have not been reviewed by [facility] Radiology. There will be no report generated by a [facility] Radiologist. Narrative [facility] - 09/29/2024 7:57 PM EXPORT CLERK EXAMINATION: Images For Reference Purposes Only Florence Acosta MD IMG CT PROCEDURES Final Re sult Performing Organization Address [facility] [[email or web address]] Co de Phone Number [email or web address] * MRI Spine Total Complete W WO Contrast (09/27/2024 2:45 PM EXPORT CLERK) Anatomical Region Laterality Modality Spine N/A Magnetic Resonan ce 09/27/2024 5:21 PM EXPORT CLERK Impressions 09/27/2024 5:23 PM EXPORT CLERK 1. Multiple pathologic fractures, including new fractures [...] Rosas Arroyo M.D. Narrative 09/27/2024 5:23 PM EXPORT CLERK EXAMINATION: 1. Magnetic resonance imaging (MRI) of [...] it. Electronically signed by: Rosas Arroyo M.D. Marleny Melo NP IMG MRI PROCEDURES Final Result * SCAN - PATHOLOGY (09/24/2024) Provider Scanning Edited Result - Final * ClonoSeq (09/15/2024 11:49 AM EXPORT CLERK) [facility] See attached scanned report for results. Bone marrow 09/15/2024 11:4 9 AM EXPORT CLERK 09/15/2024 3:43 PM EXPORT CLERK Ovi Rodriguez MD LAB PATHOLOGY ORDERABLES Final Result Performing Organization Address City/[facility]/ZIP Co de Phone Number [facility] Department [place] [address] * Hematologic Molecular Algorithm Bone marrow (09/15/2024 11:49 AM EXPORT CLERK) [facility] Heme Molecular Algorithm Received Bone marrow 09/15/2024 11:4 9 AM EXPORT CLERK 09/15/2024 12:35 PM EXPORT CLERK Narrative [facility] - 09/22/2024 11:37 AM EXPORT CLERK Tube information: Arjay top Clinical History / Treatment Plan:->MM s/p auto sct Select diagnosis - - Appropriate molecular tests will be performed based on histopathological diagnosis.->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; No additional testing indicated Ovi Rodriguez MD LAB BODY FLUIDS AND STOO LS ORDERABLES Final Result Performing Organization Address City/[facility]/ZIP Co de Phone Number [facility] Department [place] [address] * Surgical pathology (09/14/2024 2:28 PM EXPORT CLERK) Bone marrow (Bone Marrow Biopsy) 09/14/2024 2:28 PM EXPORT CLERK 09/15/2024 9:38 AM EXPORT CLERK Narrative PATHOLOGY [facility] - 09/16/2024 3:39 PM EXPORT CLERK EPIC results best viewed via link to PDF [facility] Laura Esposito Laboratory of Surgical Pathology [facility], [place] [address] Note to Patients: This report may contain [...] Gender: F : 1955 (Age: 69) Address: [address] [place], [place] [id number] Hospital #: [id number] Taken:09/14/2024 Received:09/15/2024 Reported: 09/16/2024 Patient Type: [facility] SPECIMEN Service: Laboratory Location: Physician(s): Ovi [...] flow cytometry specimen was examined for internal quality assurance supervisor purposes. Flow cytometry was performed using antibodies to the following cellular antigens: CD45, CD19, CD20, Ventura, Lambda, CD38, CD138, CD56. Total antigens analyzed: 8 By this signature, I attest that the above diagnosis is based upon my personal examination of the slides(and/or other material indicated in the diagnosis). Dick Dunaway, M.D.Report Electronically Reviewed and Signed Out By Dick Dunaway M.D. 09/16/2024 15:37:05Janet Castanon M.D. The performance characteristics of some immunohistochemical stains, fluorescence in-situ hybridization tests and immunophenotyping by flow cytometry cited in this report (if any) were determined by the Surgical Pathology and Flow Cytometry Departments at [facility] as part of an ongoing clinical quality analyst program and in compliance with federally mandated [...] Surgical Pathology and Flow Cytometry Departments of [facility]. It has not been cleared or approved by the U. S. Food and Drug Administration. IMAGES AND SCANNED DOCUMENTS, IF INCLUDED, ONLY VIEWABLE IN PDF VERSION OF REPORT Ovi Rodriguez MD LAB PATHOLOGY ORDERABLES Final Result [facility] [address] [place], [place] [phone] * Cytogenetics Specimen Tracking Bone marrow (09/14/2024 2:27 PM EXPORT CLERK) [employer] Tracking Order Received Bone marrow 09/14/2024 2:27 PM EXPORT CLERK 09/15/2024 3:41 PM EXPORT CLERK Narrative DEBORAH [facility] - 09/15/2024 3:42 PM EXPORT CLERK Please read the Cytogenetics Epic requisition for specimen collection requirements. Ovi Rodriguez MD LAB BODY FLUIDS AND STOO LS ORDERABLES Final Result [facility] Department [place] [address] * Flow Leukemia/Lymphoma Bone marrow (09/14/2024 2:27 PM EXPORT CLERK) Pathologist [facility] Espinoza Stain Test Completed Leukemia/Lymp dacia Result See separate Surgical Pathology report. DEBORAH [facility] Bone marrow 09/14/2024 2:27 PM EXPORT CLERK 09/15/2024 1:01 PM EXPORT CLERK Narrative [facility] - 09/16/2024 12:28 PM EXPORT CLERK Tube information: Green top (Sodium Heparin) Ovi Rodriguez MD LAB PATHOLOGY ORDERABLES Final Result [facility] Department [place] [address] * Specimen tracking (09/14/2024 12:03 PM EXPORT CLERK) [facility] Specimen Bone Marrow Comment:Testing performed by : [facility] [place] [address] Specimen sent to Other DEBORAH Comment: Sent STAT to [place] Testing performed by: [facility] [place] [address] Date sent [id number] DEBORAH Comment:Testing performed by : [facility] [place] [address] Other 09/14/2024 12:0 3 PM EXPORT CLERK 09/14/2024 3:44 PM EXPORT CLERK Narrative DEBORAH - 09/14/2024 4:05 PM EXPORT CLERK BM received at 1520 at [facility]. Sent Stat to [place]. us Ovi Rodriguez MD LAB BLOOD ORDERABLES Fin al Result [facility] [address] [address] Department [place] [address] * Immunotyping, serum (09/14/2024 11:11 AM EXPORT CLERK) Pathologist [facility] Immunofixation See Cl Path Rpt Blood 09/14/2024 11:1 1 AM EXPORT CLERK 09/14/2024 11:54 AM EXPORT CLERK Ovi Rodriguez MD LAB BLOOD ORDERABLES Fin al Result DEBORAH [address] [facility] Department [place] [address] * Clinical pathology report (09/14/2024 11:11 AM EXPORT CLERK) Miscellaneous 09/14/2024 11: 11 AM EXPORT CLERK 09/16/2024 8:05 AM EXPORT CLERK Narrative 09/17/2024 2:41 PM EXPORT CLERK EPIC results best viewed via link to PDF [facility] Department of Pathology [address] [place] [address] Final Report Note to Patients: This report [...] the details. Patient Name: FRANCESCO JEAN Address: [address] [place] [address] Gender: F : 1955 (Age: 69) Service: Location: N : [id number] [place] [employer] [facility] #: [id number] Patient Type: EP REF LAB SERIES Taken: 09/14/2024 Received: [...] PhDReport Electronically Reviewed and Signed Out By Cahcorro Etienne MD PhD 09/17/2024 14:40:00 The performance characteristics of some immunohistochemical stains, fluorescence in-situ hybridization tests and immunophenotyping by flow cytometry cited in this report (if any) were determined by the Surgical Pathology Department at [facility] as part of an ongoing clinical quality analyst program and in compliance with federally mandated [...] characteristics determined by the Surgical Pathology Department [facility]. It has not been cleared or approved by the U. S. Food and Drug Administration. REPORT IMAGES AND SCANNED DOCUMENTS, IF INCLUDED, ONLY VIEWABLE IN PDF VERSION OF REPORTe o Ovi Rodriguez MD LAB PATHOLOGY ORDERABLES Final Result * eGFR (09/14/2024 11:11 AM EXPORT CLERK) eGFR >90 >=60 mL/min/1. 73 m2 Comment: [...] Inclusion of Race in Diagnosing Kidney Disease, WILIAN 2020). The CKD-EPI equation should not be used for patients with unstable renal function and has not been validated in children and those over 70. Current interpretive data was last reviewed 2021. Testing performed by: [facility] [place] [address] Blood 09/14/2024 11:1 1 AM EXPORT CLERK 09/14/2024 11:14 AM EXPORT CLERK us Ovi Rodriguez MD LAB BLOOD ORDERABLES Fin al Result [facility] [address] [address] Department of Laboratories [place], [place] [id number] * (ABNORMAL) Differential, auto (09/14/2024 11:11 AM EXPORT CLERK) Neutrophil abs 4.9 1.5 - 6.5 K/cumm Comment:Testing performed by : [facility] [place] [address] Imm gran abs 0.0 0.0 - 0.1 K/cumm CERNER Comment:Testing performed by : [facility] [place] [address] Lymphocyte abs 1.4 0.8 - 3.3 K/cumm CERNER CH Comment:Testing performed by : [facility] [place] [address] Monocyte abs 1.1(H) 0.2 - 0.8 K/cumm CERNER CH Comment:Testing performed by : [facility] [place] [address] Eosinophil abs 0.9(H) 0.0 - 0.5 K/cumm CERNER CH Comment:Testing performed by : [facility] [place] [address] Basophil abs 0.1 0.0 - 0.1 K/cumm CERNER CH Comment:Testing performed by : [facility] [place] [address] Neutrophil pct 58.2 % CERNER CH Comment: Interpretive Data Percent cell count reference ranges are not reported, since discordance with absolute values may lead to misinterpretation of CBC data. Current Interpretive Data was last revised on 2017. Testing performed by: [facility] [place] [address] Imm gran pct 0.4 % [facility] Comment: Interpretive Data Percent cell count reference ranges are not reported, since discordance with absolute values may lead to misinterpretation of CBC data. Current Interpretive Data was last revised on 2017. Testing performed by: [facility] [place] [address] Lymphocyte pct 16.6 % [facility] Comment: Interpretive Data Percent cell count reference ranges are not reported, since discordance with absolute values may lead to misinterpretation of CBC data. Current Interpretive Data was last revised on 2017. Testing performed by: [facility] [place] [address] Monocyte pct 12.7 % CERNER Comment: Interpretive Data Percent cell count reference ranges are not reported, since discordance with absolute values may lead to misinterpretation of CBC data. Current Interpretive Data was last revised on 2017. Testing performed by: [facility] [place] [address] Eosinophil pct 11.0 % [facility] Comment: Interpretive Data Percent cell count reference ranges are not reported, since discordance with absolute values may lead to misinterpretation of CBC data. Current Interpretive Data was last revised on 2017. Testing performed by: [facility] [place] [address] Basophil pct 1.1 % [facility] Comment: Interpretive Data Percent cell count reference ranges are not reported, since discordance with absolute values may lead to misinterpretation of CBC data. Current Interpretive Data was last revised on 2017. Testing performed by: [facility] [place] [address] Blood 09/14/2024 11:1 1 AM EXPORT CLERK 09/14/2024 11:14 AM EXPORT CLERK us Ovi Rodriguez MD LAB BLOOD ORDERABLES Fin al Result [facility] [address] [address] Department [place] [address] * (ABNORMAL) Immunoglobulin free light chains (09/14/2024 11:11 AM EXPORT CLERK) Pathologist [facility] Ventura/Lambda ratio 2.70(H) 0.26 - 1.65 Ventura free light chain 0.67 0.33 - 1.94 mg/dL DEBORAH Comment: Interpretive Data The Iza Ig Ventura FLC assay procedure was used. Results from [...] same method. Blood 09/14/2024 11:1 1 AM EXPORT CLERK 09/14/2024 11:54 AM EXPORT CLERK Ovi Rodriguez MD LAB BLOOD ORDERABLES Fin al Result DEBORAH [address] [address] Department [place] [address] * (ABNORMAL) CBC with auto differential (09/14/2024 11:11 AM EXPORT CLERK) [facility] WBC 8.4 3.8 - 9.9 K/cumm Comment:Testing performed by : [facility] [place] [address] Hgb 11.9 11.9 - 15.5 g/dL DEBORAH Comment:Testing performed by : [facility] at [place] [id number] Hct 36.0 35.6 - 45.5 % DEBORAH Comment:Testing performed by : [facility] [place] [address] Plt 205 150 - 400 K/cumm DEBORAH Comment:Testing performed by : [facility] [place] [address] MPV 8.9(L) 9.1 - 12.3 fL DEBORAH Comment:Testing performed by : [facility] [place] [address] RBC 3.74(L) 3.90 - 5.20 M/cumm DEBORAH Comment:Testing performed by : [facility] [place] [address] MCV 96.3 81.3 - 96.4 fL DEBORAH CH Comment:Testing performed by : [facility] [place] [address] MCH 31.8 27.1 - 33.3 pg DEBORAH CH Comment:Testing performed by : [facility] [place] [address] MCHC 33.1 32.3 - 35.7 g/dL DEBORAH CH Comment:Testing performed by : [facility] [place] [address] RDW CV 13.1 11.1 - 14.9 % DEBORAH CH Comment:Testing performed by : [facility] [place] [address] RDW SD 46.5 35.7 - 48.1 fL DEBORAH CH Comment:Testing performed by : [facility] [place] [address] NRBC abs 0.00 0.00 - 0.01 K/cumm DEBORAH MATTA Comment:Testing performed by : [facility] [place] [address] Blood 09/14/2024 11:1 1 AM EXPORT CLERK 09/14/2024 11:14 AM EXPORT CLERK Ovi Rodriguez MD LAB BLOOD ORDERABLES Fin al Result DEBORAH [facility] [address] [address] Department of [place] [address] * Vitamin D 25 hydroxy (09/14/2024 11:11 AM EXPORT CLERK) Vitamin D 25-OH 38 30 - 80 ng/mL Blood 09/14/2024 11:1 1 AM EXPORT CLERK 09/14/2024 11:54 AM EXPORT CLERK Ovi Rodriguez MD LAB BLOOD ORDERABLES Fin al Result DEBORAH [facility] [address] [address] Department [place] [address] * (ABNORMAL) Type and screen (09/14/2024 11:11 AM EXPORT CLERK) Loida, indirect Positive(A) ABO Rh A Positive CERNER CH Blood 09/14/2024 11:1 1 AM EXPORT CLERK 09/14/2024 12:05 PM EXPORT CLERK Narrative CERNER CH - 09/14/2024 2:25 PM EXPORT CLERK Has the patient had Daratumumab or Isatuximab in the past 6 months?->Unknown Ovi Rodriguez MD LAB BLOOD BANK TEST ORDE RABLES Final Result DEBORAH [facility] [address] [address] [place] [address] * (ABNORMAL) Protein electrophoresis with reflex, serum (09/14/2024 11:11 AM EXPORT CLERK) Pathologist [facility] Protein, sr 6.2 6.2 - 8.2 g/dL Albumin 4.1 3.2 - 5.0 g/dL CERNER CH Alpha-1 globulin 0.3 0.2 - 0.4 g/dL CERNER CH Alpha-2 globulin 0.9 0.5 - 1.0 g/dL CERNER CH Beta-1 globulin 0.4 0.3 - 0.6 g/dL CERNER CH Beta-2 globulin 0.3 0.2 - 0.6 g/dL CERNER CH Gamma globulin 0.2(L) 0.5 - 1.7 g/dL CERNER CH SPEP interp See Cl Path Rpt CERNER CH Blood 09/14/2024 11:1 1 AM EXPORT CLERK 09/14/2024 11:54 AM EXPORT CLERK Ovi Rodriguez MD LAB BLOOD ORDERABLES Fin al Result DEBORAH [facility]TA [address] [address] [place] [address] * Lactate dehydrogenase (LD) (09/14/2024 11:11 AM EXPORT CLERK) Pathologist [facility] Lactate dehydrogenase (LDH) 189 100 - 250 Units/L Comment:Testing performed by : [facility] at [facility], [place] [address] Blood 09/14/2024 11:1 1 AM EXPORT CLERK 09/14/2024 11:14 AM EXPORT CLERK Ovi Rodriguez MD LAB BLOOD ORDERABLES Mohan jeanette Result - Final Performing Organization Address [facility] [[email or web address]] Co de Phone Number [facility] [address] [address] Department [place] [address] * (ABNORMAL) IgA (09/14/2024 11:11 AM EXPORT CLERK) Immunoglobulin A <50(L) 70 - 400 mg/dL Blood 09/14/2024 11:1 1 AM EXPORT CLERK 09/14/2024 11:55 AM EXPORT CLERK Ovi Rodriguez MD LAB BLOOD ORDERABLES Fin al Result Performing Organization Address [place] de Phone Number DEBORAH [address] [address] Department [place] [address] * (ABNORMAL) IgM (09/14/2024 11:11 AM EXPORT CLERK) Immunoglobulin M <25(L) 40 - 150 mg/dL Blood 09/14/2024 11:1 1 AM EXPORT CLERK 09/14/2024 11:55 AM EXPORT CLERK Ovi Rodriguez MD LAB BLOOD ORDERABLES Fin al Result Performing Organization Address [facility] [[email or web address]] Co de Phone Number [facility] [address] [address] Department [place] [address] * (ABNORMAL) IgG (09/14/2024 11:11 AM EXPORT CLERK) Immunoglobulin G <300(L) 700 - 1,600 mg/dL Blood 09/14/2024 11:1 1 AM EXPORT CLERK 09/14/2024 11:55 AM EXPORT CLERK Ovi Rodriguez MD LAB BLOOD ORDERABLES Fin al Result Performing Organization Address [facility] de Phone Number DEBORAH MATTA [address] [address] Department [place] [address] * Beta 2 microglobulin, serum (09/14/2024 11:11 AM EXPORT CLERK) Pathologist [facility] Beta 2 Microglobulin, Serum 2.10 1.00 - 2.50 mg/L Comment: Interpretive Data The Iza Beta-2 microglobulin assay procedure was used. Results from different manufacturers or methods may not be comparable. Serial testing should be performed using the same method. Testing performed by: [facility], [address] [place]., [address] Blood 09/14/2024 11:1 1 AM EXPORT CLERK 09/14/2024 9:51 PM EXPORT CLERK Ovi Rodriguez MD LAB BLOOD ORDERABLES Fin al Result Performing Organization Address [facility] de Phone Number DEBORAH MATTA [address] [address] Department [place] [address] * (ABNORMAL) Comprehensive metabolic panel (09/14/2024 11:11 AM EXPORT CLERK) Pathologist [facility] Sodium 140 135 - 145 mmol/L Comment:Testing performed by : [facility] [place] [address] Potassium, pl 4.4 3.3 - 4.9 mmol/L CERNER CH Comment:Testing performed by : [facility] [place] [address] Chloride 103 97 - 110 mmol/L CERNER CH Comment:Testing performed by : [facility] [place] [address] CO2 26 22 - 32 mmol/L CERNER CH Comment:Testing performed by : [facility] [place] [address] Anion gap 11 2 - 15 mmol/L CERNER CH Comment:Testing performed by : [facility] [place] [address] BUN 21 6 - 25 mg/dL CERNER CH Comment:Testing performed by : [facility] [place] [address] Creatinine 0.60 0.60 - 1.10 mg/dL CERNER CH Comment:Testing performed by : [facility] [place] [address] Glucose 109 70 - 199 mg/dL CERNER [...] was last revised 2022. Testing performed by: [facility] [place] [address] Calcium 9.7 8.5 - 10.3 mg/dL CERNER CH Comment:Testing performed by : [facility] [place] [address] Bilirubin, total 0.3 0.1 - 1.2 mg/dL CERNER CH Comment:Testing performed by : [facility] [place] [address] Protein, pl 6.4(L) 6.5 - 8.5 g/dL CERNER CH Comment:Testing performed by : [facility] [place] [address] Albumin 4.2 3.5 - 5.0 g/dL CERNER CH Comment:Testing performed by : [facility] [place] [address] Alk phos 71 40 - 130 Units/L CERNER CH Comment:Testing performed by : [facility] [place] [address] ALT 11 7 - 45 Units/L CERNER CH Comment:Testing performed by : [facility] [place] [address] AST 16 10 - 45 Units/L CERNER CH Comment:Testing performed by : [facility] [place] [address] Blood 09/14/2024 11:1 1 AM EXPORT CLERK 09/14/2024 11:14 AM EXPORT CLERK Ovi Rodriguez MD LAB BLOOD ORDERABLES Mohan jeanette Result - Final DEBORAH [facility]TA [address] [address] Department [place] [address] * Cytogenetics (09/14/2024 12:00 AM EXPORT CLERK) Bone Marrow Biopsy 09/14/2024 09/14/2024 Narrative 09/21/2024 4:06 PM EXPORT CLERK EPIC results best viewed via link to PDF [facility] Department of Pathol [address] [place] [address] Patient Information Name: FRANCESCO JEAN Gender: F : 1955 (Age: 69) Tissue: Bone Marrow w/ FISH Visit Information Hospital #: [id number] Facility: [facility] Service: [facility] Location: [facility] OUTREACH Patient Type: [facility] Specimen Information: Culture #: [id number] Date Collected: [...] Hybridization (FISH) analysis are performed using the [employer] Imaging System. Report Electronically Reviewed and Signed Out By Dave Arzola, PhD, FACMGDate Reported: 09/21/2024ssociate Professor, Division of Genomic & Molecular Pathology us Ovi Rodriguez MD LAB GENETIC TESTING Amanda l Result * US Breast Right Limited (08/26/2024 2:39 PM EXPORT CLERK) Anatomical Region Laterality Modality Breast Right Ultrasound 08/26/2024 2:45 PM EXPORT CLERK Impressions 08/26/2024 2:45 PM EXPORT CLERK Right breast mass 10 o'clock position has [...] Ericka Mccormack M.D. Narrative 08/26/2024 2:45 PM EXPORT CLERK EXAMINATION: BILATERAL DIGITAL DIAGNOSTIC MAMMOGRAM INCLUDING CAD [...] Mammogram Bilateral W Brannon (08/26/2024 2:03 PM EXPORT CLERK) Anatomical Region Laterality Modality Breast Bilateral Mammography 08/26/2024 2:45 PM EXPORT CLERK Impressions 08/26/2024 2:45 PM EXPORT CLERK Right breast mass 10 o'clock position has [...] Ericka Mccormack M.D. Narrative 08/26/2024 2:45 PM EXPORT CLERK EXAMINATION: BILATERAL DIGITAL DIAGNOSTIC MAMMOGRAM INCLUDING CAD [...] by: Ericka Mccormack M.D. us Marleny Melo HAND CLOTH EXAMINER IMG MAMMO PROCEDURES Final Resul t * (ABNORMAL) Hemoglobin A1c (05/28/2024 8:28 AM CDT) Hgb A1C 6.7(H) 4.0 - 5.6 % Estimated Average Glucose 146 mg/dL DEBORAH [facility] Comment: The ADA recommends reporting an estimated [...] ORDERABLES Fin al Result Performing Organization Address City/State/[facility] [[email or web address]] Co de Phone Number [facility] Department [place] [address] * Dexa Axial and Forearm Bone Density Scan (04/28/2024 2:49 PM CDT) Anatomical Region Laterality Modality Wrist, Body N/A Radiographic Lexi ging Narrative 04/28/2024 10:39 PM CDT Patient Name: Francesco Jean Date of : 1955 Date of scan: 04/28/2024 Bone mineral density was performed on a [employer] Discovery Densitometer. Based on machine cross-calibration and [...] by the International Society of Clinical Densitometry. [id number] Ovi Rodriguez MD IM DXA PROCEDURES Final Result from Last 3 Months or Most Recently Relevant to Health Maintenance Insurance [employer] [facility] Address: [address] [address] [place] [address] [employer] MEDICARE RISK Advance Directives For more information, please contact: [phone] Documents on File Type Date Recorded Patient Ross Lift Operator Expl anation ADVANCE DIRECTIVE 05/06/2024 3:59 PM Advanc e Directive * Full Code (Latest Code Status on File) Date Activated Date Inactivated Comments 06/07/2024 7:11 PM 06/25/2024 4:55 PM * Full Code Date Activated Date Inactivated Comments 05/31/2024 11:19 AM 06/01/2024 5:22 AM * Full Code Date Activated Date Inactivated Comments 11/14/2023 4:39 PM 12/02/2023 8:58 PM Care Teams Facilities Project Manager Relationship Specialty Start Date End Date Mali Corona MD [address] [facility] [address] [place] [address] PCP - General Family Practice 12/11/23 Ovi Rodriguez MD [address] [facility] [phone] [place] [address] Medical Oncologist/Warehouse Shift Supervisor Medical Oncology 11/28/23 Florence Acosta MD [address] [facility] [phone] [place] [address] Radiation Oncologist Radiation Oncology 12/08/23 Tony Hammer MD [address] [place] [address] Referring Physician Hematology 01/07/24 Claudette Rosen DPT [address] [facility] [address] [place] [address] Physical Therapist Physical Therapy 12/12/24
--- OUTSIDE RECORDS SUMMARY | 2024-11-16 11:26 | XMS_ITS ---
Author Organization [facility] 8 [facility] Address [address] [facility] [address] [place] [address] Phone Care Team Providers Care Equipment Man Name Role Phone Ovi Rodriguez MD Unavailable [phone] Florence Acosta MD Unavailable [phone] Mali Corona MD Primary Care Provider Tony Hammer MD Unavailable [phone] Claudette Rosen DPT Unavailable [phone] Active Problems Patient Care Coordination No te Formatting of this note is d ifferent from the original. BMT Inpatient Care Coordination [place] [address] Treatment Plan Reason for Admission Auto Transplant/IEC [...] Medical Assistants Post-Discharge Follow-Up Living Situation/Distance from [place], [place] (35 min) Caregiver Spouse + family Lab/Transfusion Frequency Venous Access & Care Port 06/24/24- Re: port positional & IR evaluation: IR attending thinks 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 She might have a fibrin sheath, but with 1 of the lines out there might be a yarsani of blood flow. He said he doesn't think we will gain much by doing an evaluation. He suggests waiting, seeing if the line restores flow, and then if not they can schedule her for evaluation later Local Oncologist Contact Dr. Mario Hammer - Jenny in [place], [place] Post-Discharge Office Visit (H30) [facility] [place] @ [facility] Miscellaneous Notes: 12/01/23- Called Dr. Hammer ) [...] and Progress note to Dr. 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 Daratumumab SUBCUTANEOUS / Lenalidomide Maintenance - 28 Day Cycles - Myeloma* Plan Start Date:10/11/2024 Plan Provider:Ovi Rodriguez MD Linked Problems Multiple myeloma in [facility] ([facility]) Treatment Medications Current Day (Day 1 , Cycle 3 - Planned for 12/07/2024) Next Day (Day 1, Cycle 4 - Planned for 01/04/2025) daratumumab-fihj (DARZALEX FASPRO) (DARZALEX FASPRO)daratumumab-fih j (DARZALEZ FASPRO) (DARZELEX FASPRO)lenalidomide (REVLIMID) daratumumab-fihj (DARZALEX FASPRO) 1,800 mg -30,000 units hyaluronidase subcutaneous injectionlenalidomide (REVLIMID) 10 mg capsule daratumumab-fihj (DARZALEX FASPRO) 1,800 mg -30,000 units hyaluronidase subcutaneous injectionlenalidomide (REVLIMID) 10 mg capsule Electrolyte Replacement & Hydration Therapy Plan* Plan Start Date:12/02/2023 Plan Provider:Ovi Rodriguez MD Linked Problems Multiple myeloma in [facility] ([facility]) Treatment Medications No medications scheduled. 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 IV Maintenance Therapy Plan & Alteplase (CATHFLO ACTIVASE) - orders for occluded catheters* Plan Start Date:02/03/2024 Plan Provider:Ovi Rodriguez MD Linked Problems Multiple myeloma in [facility] ([facility]) Treatment Medications No medications scheduled. Post-SCT Vaccinations - Medicare* Plan Start Date:12/07/2024 Plan Provider:Ovi Rodriguez MD Linked Problems Multiple myeloma in [facility] ([facility]) Treatment Medications Current Day (Day 1 , 1st Series (at least 6 months post-SCT) - Planned for 12/07/2024) Next Day (Day 8, 1st Series (at least 6 months post-SCT) - Planned for 12/14/2024) No medications scheduled. No medications schedul ed. No medications scheduled. Zoledronic Acid - Myeloma* Plan Start Date:02/03/2024 Plan Provider:Ovi Rodriguez MD Linked Problems Multiple myeloma in [facility] ([facility]) Treatment Medications Current Day (Day 1 , Cycle 9 - Planned for 12/07/2024) Next Day (Day 1, Cycle 10 - Planned for 01/04/2025) No medications scheduled. No medications schedul ed. No medications scheduled. Past Treatment and Therapy Plans BMT/ONC IP BLOOD PRODUCTS Plan Name Start Date Discontinue Date Treatment Medications Discontinue Reason Plan Provider BMT Adult Blood and Platelet Administration for Inpatient 06/25/2024 No medications scheduled. Patient Discharged Ovi Rodriguez MD Oncology Chemotherapy Treatment Plan Name Start Date Discontinue Date Treatment Medications Discontinue Reason Plan Provider Cycles Post-SCT Vaccinations 12/08/2024 11/10/2024 No medications scheduled. Future Plan Deleted Ovi Rodriguez MD Treatment not started Post SCT/CAR-T COVID-19 Vaccination 10/05/2024 11/10/2024 No medications scheduled. Patient Merge Ovi Rodriguez MD 2 of 3 cycles completed INPT - Melphalan - BMT 4 06/28/2024 melphalan (ALKERAN) IVPB in 250 mL Therapy Complete Ovi Rodriguez MD 1 of 1 cycle started Daratumumab SUBCUTANEOUS / Lenalidomide / Dexamethasone - 28 Day Cycles - Myeloma 4 05/27/2024 daratumumab-f ihj (DARZALEX FASPRO) (DARZALEX FASPRO)daratu mumab-fihj (DARZALEZ FASPRO) (DARZELEX FASPRO)lenali domide (REVLIMID) Therapy Complete Ovi Rodriguez MD 4 of 12 cycles started Oncology Treatment (3) Plan Name Start Date Discontinue Date Treatment Medications Discontinue Reason Plan Provider Cycles BMT - Standard Hematopoietic Progenitor Cell Mobilization for Autologous SCT in MM - GCSF and Motixafortide 4 06/28/2024 motixafortide (APHEXDA) Therapy Complete Ovi Rodriguez MD 1 of 1 cycle started PHERESIS Plan Name Start Date Discontinue Date Treatment Medications Discontinue Reason Plan Provider Apheresis Cellular Therapy Cell Collection 06/01/2024 09/14/2024 No medications scheduled. Therapy Complete Ovi Rodriguez MD Radiation Treatments * Course C1_Tspine_202311/19/2023 - 12/02/2023 Treatment Period Energy Fraction Dose Fractions Total Dose Plans Planned T4-T6 SPINE 11/19/2023 - 12/02/2023 250 10 / 2,500 Reference Points Delivered DPV_T4-T6 11/19/2023 - 12/02/2023 2,500 Lifetime Dose Tracking * Chemical Lifetime Dose Automatic Entry Manual Entr y Fluoro Time 0.9 minutes 0.9 minutes 0 minutes Air kerma at the reference point (Ka,r) 10 mGy 1 0 mGy 0 mGy DLP 4,463 mGycm 4,463 mGycm 0 mGycm Resolved Problems Problem Noted Date Diagnosed Date [...]
[2024-11-16 12:24] LABS: Alanine Aminotransferase 42 U/L (6-35); Albumin Level 4.1 g/dL (3.5-5.1); Alkaline Phosphatase 79 U/L (38-126); Anion Gap 8 mmol/L (4-12); Aspartate Amino Transferase 24 U/L (14-36); Bilirubin,Total 0.3 mg/dL (0.2-1.3); Blood Urea Nitrogen 21 mg/dL (7-17); Calcium 9.3 mg/dL (8.4-10.2); Carbon Dioxide 29 mmol/L (22-30); Chloride 103 mmol/L (98-107); Estimated Glomerular Filt Rate > 60; Glucose 153 mg/dL (65-110); Potassium 4.7 mmol/L (3.4-5.0); Sodium 140 mmol/L (137-145)
[2024-11-16 12:25] LABS: INR 0.9; Prothrombin Time 12.3 Seconds (11.1-14.7)
[2024-11-16 12:26] LABS: Partial Thromboplastin Time 22.9 Seconds (22.3-36.8)
[2024-11-16 12:42] LABS: Hematocrit 36.1 % (37.0-47.0); Hemoglobin 11.7 g/dL (12.0-15.0); Mean Corpuscular HGB Conc 32.4 g/dl (32-36); Mean Corpuscular Hemoglobin 30.6 pg (26-34); Mean Corpuscular Volume 94.5 fl (80-100); Mean Platelet Volume 10.4 fl (7.4-10.4); Platelet Count Result 151 k/mm3 (150-375); Red Blood Count 3.82 M/mm3 (4.2-5.4); Red Cell Distribution Width 13.5 % (11.5-14.5); White Blood Count 5.4 K/mm3 (4.5-10.0)
== END 2024-11-16 10:06 | disposition home or self-care (01) ==
PROVIDERS: PCP Family Medicine; Visit Provider Anesthesiology Pain Medicine
DX: S22.009A Unspecified fracture of unspecified thoracic vertebra, initial encounter for closed fracture (principal); X58.XXXA Exposure to other specified factors, initial encounter; Z01.818 Encounter for other preprocedural examination; R94.31 Abnormal electrocardiogram [ECG] [EKG]
CPT/HCPCS: 36415; 71046; 80053; 85027; 85610; 85730; 93005

== ENCOUNTER 2024-11-23 02:18 | Day surgery (SDC) | payer MEDICARE, SELFPAY ==
--- NOTE | 2024-11-08 15:04 | PC.NURSE ---
Report to the Outpatient Waiting Room, entrance under the green pavilion located off [facility], at time _11:30 AM on date _11/23/24 . Planned Procedure Time: _1:30 PM .? Time changes happen often and if your time is changed the preop area will call you the afternoon before. - You and your visitor will be asked to self-screen and do not enter if you have any COVID symptoms. Please call surgeon if you need to reschedule. - A mask is optional within the hospital at this time. NOTHING TO EAT OR DRINK AFTER MIDNIGHT PER DR GUZMAN Take only the following medications with a SIP of water on the morning of surgery: _AMLODIPINE,LEVOTHYROXINE, LORAZEPAM IF NEEDED,METOPROLOL DO NOT STOP ANY OF YOUR OTHER PRESCRIPTION MEDICATIONS PRIOR TO SURGERY EXCEPT THE FOLLOWING Hold all vitamins and supplements for 3 days per anesthesiologist. LAST DOSE 11/19/24 Medications to discontinue per physician _ HOLD ASPIRIN 3 DAYS __PRE OP PER DR GUZMAN_AND __IBUPROFEN 3 DAYS PRE OP PER DR GUZMAN Date to take last dose____11/19/24 Please no make-up, nail british virgin islander, hairspray, perfume, deodorant, or body powder the day of surgery.? No jewelry (including any body piercings) or valuables the day of surgery, leave them at home.? Please take a shower or bath the night before, AND the morning of, surgery with an antibacterial soap.? Wear comfortable, loose fitting clothing.? Children are encouraged to wear pajamas. - Jewelry must be removed prior to entering the operating room.? Rings and piercings that are not removed may be cut off. - The hospital will not accept responsibility for valuables.? - Please leave all valuables, including medications, at home the day of surgery. If you are going home after surgery, a licensed boat driver must drive you home.? - NO public transportation without another adult if you receive anesthesia. - We recommend that an adult stay with you for 24 hours following discharge. - We also recommend that you do not drive, make important decision, drink alcoholic beverages, or take any drugs that were not prescribed by your health care provider for at least 24 hours after your discharge time. Follow any additional instructions given to you from your surgeon. Telephone instructions given to __PATIENT and asked if any additional questions and then verbalized understanding. Patient advised to call surgeon office or pre surgery nurse liaison [phone] if any additional questions.
[2024-11-08 15:49] VITALS: BMI 29.8
[2024-11-23] VITALS (9 sets, daily range): BP systolic 102–164; BP diastolic 46–73; PULSE 67–82; RESP 13–24; TEMP 36.3–36.6; O2SAT 94–100
--- NOTE | ~2024-11-23 | XR_ITS ---
EXAMINATION: XR fluoroscopy no charge DATE: 11/23/2024 12:30 CDT INDICATION: KYPHOPLASTY . TECHNIQUE: 36 fluoroscopic images of the thoracic spine were obtained during kyphoplasty, performed b amy Grady MD. I was not present during the procedure. Fluoroscopy exposure time was 611.2 se conds. Air Kerma 573.47 mGy. DAP 9.8 mGym2. COMPARISON: None FINDINGS/IMPRESSION: Fluoroscopic documentation of kyphoplasty. Please refer to the operative note for complete procedural details . Reviewed, dictated and finalized at location K.
--- OUTSIDE RECORDS SUMMARY | 2024-11-23 02:20 | XMS_ITS | Encounter Summary ---
Author Organization [facility] SHOAIB Marie [facility] Address [address] [place] [address] Care Team Providers Care Data Visualization Developer Name Role Phone Desiree Woodruff MD Primary Care Pro vider Encounter Details Date Type Department Care Team (Late st Contact Info) Description 11/04/2023 Telephone [facility] Oncology and Hematology - [place] [address] [facility] [address] [place] [address] Tony Hammer MD [address] [facility] [address] [place] [address] Social History Tobacco Use Types Packs/Day Years Used Date Smoking Tobacco: Never Smokeless Tobacco: Never Alcohol Use Standard Drinks/Week Comments Yes 0 (1 standard drink = 0.6 oz pur e alcohol) Comments No Sex and Gender Information Value Date Recorded Sex Assigned at Not on file Legal Sex Female 1:30 PM FELTMAKER AND WEIGHER Gender Identity Not on file Sexual Orientation Not on file documented as of this encounter Plan of Treatment Not on file documented as of this encounter Visit Diagnoses Not on filedocumented in this encounter Care Teams Data Visualization Developer Relationship Specialty Start Date End Date Desiree Woodruff MD PCP - General Family Practice 08/13/19 documented as of this encounter
--- OUTSIDE RECORDS SUMMARY | 2024-11-23 02:20 | XMS_ITS | Clinical Summary ---
Author Organization [facility] Address [address] [place] [address] Phone Care Team Providers Care Varnish Cooker Name Role Phone Mali Corona MD Primary Care Provider Mali Corona MD Unavailable [phone] Allergies Active Allergy Reactions Criticality Noted Date [...] drink = 0.6 oz pur e alcohol) [facility] Utilities Answer Date Recorded In the past 12 months has [employer], gas, oil, or water [employer] threatened to shut off services in your home? Patient declined 10/09/2023 Social Connection and Isolation Panel [NHANES] A nswer Date Recorded In a typical week, how many times do you talk on the phone with family, friends, or neighbors? Patient declined 10/09/2023 How often do you get togethe r with friends or relatives? Patient declined 10/09/2023 How often do you attend gnosticism or evangelical serv ices? Patient declined 10/09/2023 Do you belong to any clubs o r organizations such as gnosticism groups, unions, fraternal or athletic groups, or [...] medical care, and heating? Patient declined 10/09/2023 [facility] - [...] or slept in a intermediate (including now)? Patient declined 10/09/2023 Sexually Active Control Partners Comments Not Currently Comments No Sex and Gender Information Value Date Recorded Sex Assigned at Not on file Legal Sex Female 12:06 PM YARN EXAMINER SKEINS Gender Identity Not on file Sexual Orientation Not on file Last Filed Vital Signs Vital Sign Reading Time Taken Comments Blood Pressure 150/81 10/10/2023 5:27 AM YARN EXAMINER SKEINS Pulse 117 10/10/2023 8:16 AM YARN EXAMINER SKEINS Temperature 36.6 C (97.9 F) 10/10/2023 5:27 AM YARN EXAMINER SKEINS Respiratory Rate 22 10/10/2023 5:27 AM YARN EXAMINER SKEINS Oxygen Saturation 91% 10/10/2023 8:16 AM YARN EXAMINER SKEINS Inhaled Oxygen Concentration - - Weight 90.7 kg (200 lb) 10/09/2023 10:43 PM YARN EXAMINER SKEINS Height 170.2 cm (5' 7 ) 10/09/2023 10:43 PM YARN EXAMINER SKEINS Body Mass Index 31.32 10/09/2023 10:43 PM YARN EXAMINER SKEINS Plan of Treatment Health Maintenance Due Date [...] this topic Medical Devices Implanted Type Area Candle Cutter Device Identifier Shelf Expiration Date Model / Serial / Lot [employer] M4 Director Of Student Services With [employer] Implanted:Qty: 2 on 10/09/2023 by Altagracia Rodríguez MD at [facility] N/A: Spine Lumbar BAIRON 10/01/2024 [id number] / [id number] / [id number] Procedures Procedure Name Priority Date/Time Associated Diagnosis Comments CMP (COMPREHENSIVE METABOLIC PANEL) STAT 10/09/2023 2:33 PM YARN EXAMINER SKEINS HEMOGLOBIN A1C W/ ESTIMATED GLUCOSE STAT 10/09/2023 2:33 PM YARN EXAMINER SKEINS from Last 3 Months or Most Recently Relevant to Health Maintenance Results * (ABNORMAL) Hemoglobin A1C w/ Estimated Glucose (10/09/2023 2:33 PM YARN EXAMINER SKEINS) HGB-A1C 6.8(H) 4.0 - 6.0 % 10/09/2023 3:09 PM YARN EXAMINER SKEINS [facility] Est Average Glucose 148.5 mg/dL 10/09/2023 3:09 PM YARN EXAMINER SKEINS [facility] Blood Venipuncture / Unknown 10/09/2023 2:33 PM YARN EXAMINER SKEINS 10/09/2023 2:39 PM YARN EXAMINER SKEINS Narrative [facility] - 10/09/2023 3:09 PM YARN EXAMINER SKEINS HEMOGLOBIN A1C: DIABETIC PATIENTS: WELL-CONTROLLED: 6.2 - 7.0 INTERMEDIATE WELL-CONTROLLED: 7.0 - 9.0 POORLY-CONTROLLED: >9.0 us Kathya Hayes MD CHEMISTRY ORDERABLES Final Re sult [facility] [address] [place] [address] * (ABNORMAL) CMP (Comprehensive Metabolic Panel) (10/09/2023 2:33 PM YARN EXAMINER SKEINS) SODIUM 141 136 - 145 mmol/L 10/09/2023 3:09 PM [facility] POTASSIUM 3.9 3.5 - 5.1 mmol/L 10/09/2023 3:09 PM [facility] CHLORIDE 106 98 - 107 mmol/L 10/09/2023 3:09 PM [facility] CO2, VENOUS 25 22 - 30 mmol/L 10/09/2023 3:09 PM [facility] ANION GAP 13.9 <18.0 mmol/L 10/09/2023 3:09 PM [facility] GLUCOSE 109(H) 70 - 99 mg/dL 10/09/2023 3:09 PM [facility] BUN 13 10 - 20 mg/dL 10/09/2023 3:09 PM [facility] CREATININE, BLOOD 0.73 0.60 - 1.00 mg/dL 10/09/2023 3:09 PM [facility] BUN/CREATININE RATIO 18 12 - 20 ratio 10/09/2023 3:09 PM [facility] TOTAL PROTEIN 7.8 6.3 - 8.2 g/dL 10/09/2023 3:09 PM [facility] ALBUMIN 3.9 3.5 - 5.0 g/dL 10/09/2023 3:09 PM [facility] A/G RATIO 1.0 1.0 - 2.2 10/09/2023 3:09 PM YARN EXAMINER SKEINS [facility] CALCIUM 9.0 8.7 - 10.5 mg/dL 10/09/2023 3:09 PM YARN EXAMINER SKEINS [facility] T BILI 0.3 0.2 - 1.2 mg/dL 10/09/2023 3:09 PM YARN EXAMINER SKEINS [facility] SGOT (AST) 44(H) 5 - 34 U/L 10/09/2023 3:09 PM YARN EXAMINER SKEINS [facility] SGPT (ALT) 44 0 - 55 U/L 10/09/2023 3:09 PM YARN EXAMINER SKEINS [facility] ALKALINE PHOSPHATASE 81 40 - 150 U/L 10/09/2023 3:09 PM YARN EXAMINER SKEINS [facility] GFR, ESTIMATED >60 >=60 10/09/2023 3:09 PM [facility] Comment: Creatinine Clearance is the preferred criteria for selecting drug dose adjustments in renally impaired patients. The GFR is provided as additional pertinent clinical information. GFR is reported in mL/min/1.73 sq m. Calculation based on the Chronic Kidney Disease Epidemiology Collaboration (CKD- EPI) equation refit without adjustment for race. GFR, EST. >60 >=60 024 3:09 PM YARN EXAMINER SKEINS [facility] GFR, EST. NONAFRICAN >60 >=60 10/09/2023 3:09 PM [facility] Blood Venipuncture / Unknown 10/09/2023 2:33 PM YARN EXAMINER SKEINS 10/09/2023 2:39 PM YARN EXAMINER SKEINS us Kathya Hayes MD CHEMISTRY ORDERABLES Final Re sult [facility] [address] [place] [address] from Last 3 Months or Most Recently Relevant to Health Maintenance Insurance MEDICARE C [facility] Advance Directives * Full Code (Latest Code Status on File) Date Activated Date Inactivated Comments 10/09/2023 2:07 PM 10/10/2023 3:51 PM CPR-Full Treat ment: FULL ARREST: Attempt Resuscitation/CPR wit intubation and mechanical ventilation. PRE-ARREST: Use entire range of life support measures to stabilize the patient. Care Teams Varnish Cooker Relationship Specialty Start Date End Date Mali Corona MD [address] [place] [address] [address] [place] [address] PCP - General Family Medicine 10/09/23 Mali Corona MD [address] [place] [address] [address] [place] [address] Family Medicine 10/09/23
--- OUTSIDE RECORDS SUMMARY | 2024-11-23 02:20 | XMS_ITS | Encounter Summary ---
Author Organization [facility] Address [address] [place] [address] Care Team Providers Care Heel Shaper Name Role Phone Ovi Rodriguez MD Unavailable [phone] Florence Acosta MD Unavailable [phone] Mali Corona MD Primary Care Provider Tony Hammer MD Unavailable [phone] Claudette Rosen DPT Unavailable [phone] Encounter Details Date Type Department Care Team (Late st Contact Info) Description 10/11/2024 Telephone [facility] Advanced Medicine Radiation Oncology [address] [facility] Advanced Medicine [place], [place] [id number] Florence Acosta MD [address] [facility] [place] [address] [place] [address] Social History Tobacco Use Types Packs/Day Years [...] doctor or pharmacy Never 08/04/2024 [facility] Utilities Answer Date Recorded In the past [...] often do you attend chur ch or moravian services? Never 06/09/2024 Do you belong to any clubs o r organizations such as bahai groups, unions, fraternal or athletic groups, or [...] place to sleep or slept in a fpc (including now)? No 11/27/2023 Housing Stability Vital Sign Answer Tyson e Recorded In the last 12 months, was t here a time when you were not able to pay the mortgage or rent on time? No 06/09/2024 In the past 12 months, how m any times have you moved where you were living? 0 06/09/2024 At any time in the past [address] [facility], were you homeless or living in a fpc (including now)? No 06/09/2024 Personal Safety Answer Date Recorded Have you ever been in or are you currently in a harmful physical or emotional relationship or is someone making you feel afraid or unsafe? 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 Gender Identity Not on file Sexual Orientation Not on file documented as of this encounter Plan of Treatment Not on file documented as of this encounter Visit Diagnoses Not on filedocumented in this encounter Care Teams Heel Shaper Relationship Specialty Start Date End Date Mali Corona MD [facility] [address] [facility] [address] [place] [address] PCP - General Family Practice 12/11/23 Ovi Rodriguez MD [address] [phone] [place] [address] Medical Oncologist/Reception Centre Manager Medical Oncology 11/28/23 Florence Acosta MD [address] [facility] [phone] [place] [address] Radiation Oncologist Radiation Oncology 12/08/23 Tony Hammer MD [address] [facility] [address] [place] [address] Referring Physician Hematology 01/07/24 Claudette Rosne DPT [address] [facility] [address] [place] [address] Physical Therapist Physical Therapy 08/12/24 documented as of this encounter
--- OUTSIDE RECORDS SUMMARY | 2024-11-23 02:21 | XMS_ITS | Encounter Summary ---
Author Organization [facility] Address [facility] [place] [address] Care Team Providers Care Sustainable Design Consultant Name Role Phone Unavailable Primary Care Provider Unavailabl e Encounter Details Date Type Department Care Team (Late st Contact Info) Description 11/07/2023 Therapy Plan [facility] [address] [address] Mali Corona MD [address] [facility] [address] [place] [address] Social History Tobacco Use Types Packs/Day Years Used Date Smoking Tobacco: Never Assessed Comments Unknown Sex and Gender Information Value Date Recorded Sex Assigned at Not on file 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
--- OUTSIDE RECORDS SUMMARY | 2024-11-23 02:21 | XMS_ITS | Referral Summary ---
Author Organization [facility] 8 [facility] Address [address] [place] [address] Phone Care Team Providers Care Geothermal Field Technician Name Role Phone Ovi Rodriguez MD Unavailable [phone] Florence Acosta MD Unavailable [phone] Mali Corona MD Primary Care Provider Tony Hammer MD Unavailable [phone] Claudette Rosen DPT Unavailable [phone] Encounters Date Type Department Care Team Description 11/17/2024 11:00 AM CDT Office Visit [facility] Orthopaedic Surgery [facility] 12th [place] [address] [place] [phone] Piper Quintero MD Chronic pain syndrome (Primary Dx); Compression fracture of thoracic vertebra, unspecified thoracic vertebral level, initial encounter (HCC); Neuropathic pain of chest; Pain in the abdomen 11/16/2024 Telephone [facility] Orthopaedic Surgery [facility] 12th [place] [address] [place] [phone] Piper Quintero MD 11/15/2024 Orders Only [facility] Bone Marrow Transplant [address] [facility] Floor 6 [place] [phone] Zafar Gary RN Multiple myeloma in remission (HCC) (Primary Dx) 11/10/2024 Orders Only [facility] Bone Marrow Transplant [address] [facility] 6 [place] [address] Sarita Patiño [facility] 11/09/2024 Orders Only [facility] Bone Marrow Transplant [address] [facility] 6 [place] [phone] Sarita Patiño, [facility] 11/09/2024 9:32 AM CDT - 11/09/2024 11:59 PM CDT Hospital Encounter [facility] Lab [address] [place] [phone] Multiple myeloma in remission (HCC) Discharge Disposition: Discharge to home or self care 11/09/2024 1:00 PM CDT Infusion [place] [address] [place] [address] Multiple myeloma in remission (HCC) 11/09/2024 12:45 PM CDT Infusion [place] [address] [place] [address] Multiple myeloma in remission (HCC) 11/09/2024 10:45 AM CDT Infusion [place] [address] [place] [address] Multiple myeloma in remission (HCC) (Primary Dx) 11/09/2024 9:45 AM CDT Clinical Support [place] [address] [place] [address] Multiple myeloma in remission (HCC) 11/09/2024 10:15 AM CDT Office Visit [facility] Bone Marrow Transplant [facility] [address] [place] [address] Jarrod Garcia, NIGEL Multiple myeloma in remission (HCC) (Primary Dx); Multiple myeloma not having achieved remission (HCC) 11/09/2024 7:45 AM CDT - 11/09/2024 11:59 PM CDT Hospital Encounter [facility] Lab [address] [place] [phone] Multiple myeloma in remission (HCC); Multiple myeloma not having achieved remission (HCC) Discharge Disposition: Discharge to home or self care 10/28/2024 11:00 AM VTC TECHNICIAN Therapy [facility] Physical Therapy [address] [place] [address] Claudette Rosen, DILLON Multiple myeloma not having achieved remission (HCC) (Primary Dx); Hx of spinal cord compression 10/26/2024 Telephone [facility] Orthopaedic Surgery [address] [facility] 12th [place] [address] [place] [address] Omid Hurtado PA 10/25/2024 Orders Only [facility] Bone Marrow Transplant [address] [facility] Floor 6 [place] [phone] Rupa Zaragoza, [facility] 10/14/2024 Orders Only [facility] Bone Marrow Transplant [address] [facility] Floor 6 [place] [phone] Rupa Zaragoza, [facility] 10/12/2024 Orders Only [facility] Oncology [address] [facility] Floor 6 [place] [phone] Ovi Rodriguez MD 10/12/2024 11:05 AM VTC TECHNICIAN - 10/12/2024 11:59 PM VTC TECHNICIAN Hospital Encounter [facility] [address] [place] [address] [place] [address] Multiple myeloma not having achieved remission (HCC); Multiple myeloma in remission (HCC) Discharge Disposition: Discharge to home or self care 10/12/2024 Orders Only [facility] Bone Marrow Transplant [address] [facility] 6 [place] [address] Rupa Zaragoza, [facility] 10/12/2024 Orders Only [facility] Bone Marrow Transplant [facility] [place] [address] Zafar Gary, RN Multiple myeloma in remission (HCC) (Primary Dx) 10/12/2024 3:00 PM VTC TECHNICIAN Infusion [facility] [place] [address] [place] [address] Multiple myeloma in remission (HCC) 10/12/2024 1:00 PM VTC TECHNICIAN Infusion [facility] [place] [address] [place] [address] Multiple myeloma in remission (HCC) 10/12/2024 11:15 AM VTC TECHNICIAN Clinical Support [facility] [address] [place] [address] [address] Multiple myeloma in remission (HCC) 10/12/2024 12:00 PM VTC TECHNICIAN Infusion [facility] [address] [place] [address] Multiple myeloma in remission (HCC) (Primary Dx) 10/11/2024 Telephone [facility] Advanced Medicine Radiation Oncology [address] [facility] [place] [address] Florence Acosta MD 10/11/2024 Orders Only [facility] Bone Marrow Transplant [address] [facility] 6 [place] [address] Jarrod Garcia DNP 10/11/2024 Orders Only [facility] Bone Marrow Transplant [address] [facility] 6 [place] [address] Rupa Zaragoza, [facility] 10/06/2024 Orders Only [facility] Bone Marrow Transplant [address] [facility] 6 [place] [address] Rupa Zaragoza, [facility] 10/06/2024 Orders Only [facility] Bone Marrow Transplant [address] [facility] 6 [place] [address] Rupa Zaragoza, [facility] 10/06/[address] [facility] Radiation Oncology [address] [facility] [place] [address] Marleny Melo NP 10/06/2024 Orders Only [facility] Bone Marrow Transplant [address] [facility] 6 [place] [address] Zafar Gary, RN Multiple myeloma in remission (HCC) (Primary Dx) 10/06/[address] [facility] Radiation Oncology [address] [facility] [place] [address] Marleny Melo NP Breast nodule (Primary Dx); Inconclusive mammogram; Multiple myeloma in remission (HCC) 10/05/2024 1:44 PM VTC TECHNICIAN - 10/05/2024 11:59 PM VTC TECHNICIAN Hospital Encounter 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); Multiple myeloma not having achieved remission (HCC) Discharge Disposition: Discharge to home or self care 10/05/2024 9:45 AM VTC TECHNICIAN Clinical Support [facility] at [address] [address] 10/05/2024 10:15 AM VTC TECHNICIAN Office Visit [facility] Bone Marrow Transplant [address] [place] [phone] Ovi Rodriguez MD Multiple myeloma in remission (HCC) (Primary Dx); 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 ([facility]) [address] [place] [address] Hx of breast cancer; Breast pain Discharge Disposition: Discharge to home or self care 10/05/2024 3:00 PM VTC TECHNICIAN Therapy [facility] Occupational Therapy [address] [place] [phone] Nu Dawson OT Weakness (Primary Dx); Decreased activities of daily living (ADL) 10/01/2024 8:44 AM VTC TECHNICIAN - 10/01/2024 11:59 PM VTC TECHNICIAN Hospital Encounter [facility] ([facility]) [address] [place] [address] Discharge Disposition: Discharge to home or self care 10/01/2024 8:44 AM VTC TECHNICIAN - 10/01/2024 11:59 PM VTC TECHNICIAN Hospital Encounter [facility] ([facility]) [address] [place] [address] 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) Discharge Disposition: Discharge to home or self care 10/01/2024 Plan of Care Documentation [facility] Occupational Therapy [address] [place] [phone] 09/30/2024 2:00 PM VTC TECHNICIAN Therapy [facility] Occupational Therapy [address] [place] [phone] Nu Dawson OT Weakness (Primary Dx); Decreased activities of daily living (ADL); Deficit in activities of daily living (ADL) 09/30/2024 3:00 PM VTC TECHNICIAN Therapy [facility] Physical Therapy [address] [place] [phone] Claudette Rosen DPT Multiple myeloma not having achieved remission (HCC) (Primary Dx); Hx of spinal cord compression 09/29/2024 8:43 PM VTC TECHNICIAN - 09/29/2024 11:59 PM VTC TECHNICIAN Hospital Encounter [facility] ([facility]) [address] [place] [address] Discharge Disposition: Discharge to home or self care 09/29/2024 8:42 PM VTC TECHNICIAN - 09/29/2024 11:59 PM VTC TECHNICIAN Hospital Encounter [facility] ([facility]) [address] [place] [address] Discharge Disposition: Discharge to home or self care 09/29/2024 8:00 PM VTC TECHNICIAN - 09/29/2024 11:59 PM VTC TECHNICIAN Hospital Encounter [facility] ([facility]) [address] [place] [address] Discharge Disposition: Discharge to home or self care 09/29/2024 7:57 PM VTC TECHNICIAN - 09/29/2024 11:59 PM VTC TECHNICIAN Hospital Encounter [facility] ([facility]) [address] [place] [address] Discharge Disposition: Discharge to home or self care 09/29/2024 Telephone [facility] Advanced Medicine Radiation Oncology [address] [facility] [place] [address] Marleny Melo NP 09/28/2024 Telephone [facility] Oncology [address] [place] [address] Farida Mckeon RMA 09/28/2024 Orders Only [facility] Bone Marrow Transplant [facility] [place] [address] Zafar Gary, RN 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) 09/28/2024 Telephone [facility] Bone Marrow Transplant [address] [place] [phone] Jarrod Garcia DNP 09/27/2024 12:05 PM VTC TECHNICIAN - 09/27/2024 11:59 PM VTC TECHNICIAN Hospital Encounter [facility]) [address] [place] [address] Hx of spinal cord compression; Multiple myeloma in remission (HCC); Bilateral low back pain without sciatica, unspecified chronicity Discharge Disposition: Discharge to home or self care 09/24/2024 Orders Only [facility] ONCOLOGY Scanning, Provider 09/21/2024 Telephone [facility] Bone Marrow Transplant [address] [place] [phone] Jarrod Garcia DNP 09/21/2024 Orders Only [facility] Bone Marrow Transplant [address] [place] [phone] Sarita Patiño RPh 09/21/2024 Orders Only [facility] Bone Marrow Transplant [address] [place] [address] Zafar Gary, RN Multiple myeloma not having achieved remission (HCC) (Primary Dx) 09/17/2024 Orders Only [facility] Bone Marrow Transplant [facility] [address] [phone] Sarita Patiño RPh 09/14/2024 2:28 PM VTC TECHNICIAN - 09/14/2024 11:59 PM VTC TECHNICIAN Hospital Encounter [facility] PATHOLOGY [address] [facility] 3rd [place] [address] 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) Discharge Disposition: Discharge to home or self care 09/14/2024 Orders Only [facility] [address] [place] [address] Ovi Rodriguez MD 09/14/2024 Orders Only [facility] Oncology [address] [place] [address] Ovi Rodriguez MD 09/14/2024 1:00 PM VTC TECHNICIAN Infusion [facility] [address] [place] [address] 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); Multiple myeloma not having achieved remission (HCC) 09/14/2024 11:30 AM VTC TECHNICIAN Office Visit [facility] Bone Marrow Transplant [address] [place] [address] [place] [address] Jarrod Garcia DNP 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 [address] [place] [address] Claudette Rosen DPT Multiple myeloma not having achieved remission (HCC) (Primary Dx); Hx of spinal cord compression 08/26/2024 1:07 PM VTC TECHNICIAN - 08/26/2024 11:59 PM VTC TECHNICIAN Hospital Encounter [facility] [address] [place] [address] Breast pain; Hx of breast cancer Discharge Disposition: Discharge to home or self care 08/26/2024 1:07 PM VTC TECHNICIAN - 08/26/2024 11:59 PM VTC TECHNICIAN Hospital Encounter [facility]) [address] [place] [address] Breast pain; Hx of breast cancer Discharge Disposition: Discharge to home or self care from Last 3 Months Allergies Active Allergy Reactions Criticality Noted Date Comments Latex Rash Medium 07/07/2015 Morphine Other (See comments) Low 05/27/2024 Constipation Oxycodone Vomiting Low 05/27/2024 Medications EPINEPHrine (EPIPEN) 0.3 mg/0.3 mL auto-injection syringeIndicatio ns:Anaphylaxis 017 Active ONETOUCH VERIO stripIndications :Diabetes Mellitus TEST BID 3 02/13/2 019 Active ONETOUCH DELICA LANCETS 33 gauge misc UTD BID 3 Active ezetimibe (ZETIA) 10 mg tabletIndication s:hyperlipidemia Take 1 tablet (10 mg total) by mouth daily Active kkokuyfi-enk-bde n-FA-vit K-lut 8 mg iron-400 mcg-50 mcg [...] 1 tablet (112 mcg total) by mouth transformation specialist before breakfast Active diclofenac sodium (VOLTAREN) 1 [...] RESPONSE Active Easy Touch 32 gauge x needleIndication s:Diabetes Mellitus USE TO INJECT FOUR TIMES DAILY Active lisinopriL (PRINIVIL,ZESTRI L) 30 mg tabletIndication s:hypertension Take 5 mg by mouth daily pt taking 1/[address] Edouard instuctions Active nystatin 100,000 unit/mL suspensionIndica tions:oral candidiasis Take 5 mL (500,000 Units total) by mouth 4 (four) times a day 473 mL Active Additional Information Patient not taking.Reported on 11/17/2024 cholecalciferol 25 mcg (1,000 unit) tabletIndication s:Vitamin [...] call provider to discuss adjustments Active vit C,R-Zv-nihwl-lut ein-zeaxan 250-90-40-1 mg capsuleIndicatio ns:eye health Take 1 capsule by mouth 2 (two) times a day. Indications: eye health Active al & mag hydroxide with simethicone-diph enhydramine-lido mary ellen (MAGIC MOUTHWASH) suspension 1-4-1Riisyjeljyr :Multiple myeloma not having achieved remission (HCC) Swish and swallow 15 mL every 4 (four) hours as needed (swish and swallow every 4 hours as needed) 280 mL 2 Active Additional Information Patient not taking.Reported on 11/17/2024 traMADoL (ULTRAM) 50 mg tabletIndication s:Pain Take 1 tablet (50 mg total) by mouth every 6 (six) hours as needed for pain 90 tablet Active metoprolol XL (TOPROL-XL) 50 mg extended release tablet Take 1 tablet (50 mg total) by mouth daily 024 Active melatonin 3 mg tablet,disintegr ating Take [...] Inpatient Care Coordination Overview Diagnosis [place] Floor [address] Treatment Plan Reason for Admission Auto Transplant/IEC [...] Medical Assistants Post-Discharge Follow-Up Living Situation/Distance from [place], [place] (35 min) Caregiver Spouse + family Lab/Transfusion Frequency Venous Access & Care Port 06/24/24- Re: port positional & IR evaluation: IR attending thinks 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 She might have a fibrin sheath, but with 1 of the lines out there might be a taoist of blood flow. He said he doesn't think we will gain much by doing an evaluation. He suggests waiting, seeing if the line restores flow, and then if not they can schedule her for evaluation later Local Oncologist Contact Dr. Mario Mendez [facility] in [place], [place] Post-Discharge Office Visit (H30) [facility] - 06/29 @ [facility] Miscellaneous Notes: 12/01/23- Called Dr. Hammer [...] and Progress note to Dr. Hammer (F: [phone]) Problem Noted Date Diagnosed Date HTN (hypertension) [...] 12/01/2023 Cancer Staging:Clinical stage from 11/14/2023:RISS Stage I(Amue-2-ixxdlkseujhqb (mg/L): 2.7, Albumin (g/dL): 4.5, ISS: Stage [...] Immunization Administration Dates Next Due COVID-19 mRNA (KnexxLocal) 0.3 m L (30 mcg) vaccine (12 [...] materials from doctor or pharmacy Never 08/04/2024 [facility] Utilities Answer Date Recorded In the past 12 months has th e [employer], gas, oil, or water company threatened to [...] often do you attend chur ch or congregational services? Never 06/09/2024 Do you belong to any clubs o r organizations such as roman catholic groups, unions, fraternal or athletic groups, or [...] place to sleep or slept in a residential (including now)? No 11/27/2023 Housing Stability Vital Sign Answer Tyosn e Recorded In the last 12 months, was t here a time when you were not able to pay the mortgage or rent on time? No 06/09/2024 In the past 12 months, how m any times have you moved where you were living? 0 06/09/2024 At any time in the past [facility], were you homeless or living in a residential (including now)? No 06/09/2024 Personal Safety Answer Date Recorded Have you ever been in or are you currently in a harmful physical or emotional relationship or is someone making you feel afraid or unsafe? Denies 06/23/2024 Comments No Sex and Gender Information Value Date Recorded Sex Assigned at Not on file Legal Sex Female 11:17 AM VTC TECHNICIAN Gender Identity Not on file Sexual Orientation Not on file Last Filed Vital Signs Vital Sign Reading Time Taken Comments Blood Pressure 135/58 11/17/2024 12:53 PM CDT Pulse 83 11/17/2024 12:53 PM CDT Temperature 36.1 C (97 F) 11/09/2024 2:00 PM CDT Respiratory Rate 18 11/17/2024 12:53 PM CDT Oxygen Saturation 97% 11/09/2024 2:00 PM CDT Inhaled Oxygen Concentration - - Weight 87.5 kg (193 lb) 11/17/2024 12:53 PM CDT Height 167.6 cm (5' 6 ) 11/17/2024 12:53 PM CDT Body Mass Index 31.15 11/17/2024 12:53 PM CDT Plan of Treatment Not on [...] AM CDT EGFR STAT 10/12/2024 11:19 AM VTC TECHNICIAN Multiple myeloma in remission (HCC) DIFFERENTIAL AUTO Routine 10/12/2024 11:19 AM VTC TECHNICIAN Multiple myeloma in remission (HCC) CBC WITH AUTO DIFFERENTIAL Routine 10/12/2024 11:19 AM VTC TECHNICIAN Multiple myeloma in remission (HCC) COMPREHENSIVE METABOLIC PANEL STAT 10/12/2024 11:19 AM VTC TECHNICIAN Multiple myeloma in remission (HCC) TYPE AND SCREEN Routine 10/12/2024 11:19 AM VTC TECHNICIAN Multiple myeloma not having achieved remission (HCC) DIAGNOSTIC MAMMOGRAM RIGHT W BRANNON Schedule Routine, Read Routine (OP Routine) 10/05/2024 2:19 PM VTC TECHNICIAN Hx of breast cancer Breast pain US BREAST RIGHT LIMITED Schedule Routine, Read Routine (OP Routine) 10/05/2024 1:51 PM VTC TECHNICIAN Hx of breast cancer Breast pain IMMUNOGLOBULIN FREE LIGHT CHAINS Routine 10/05/2024 10:00 AM VTC TECHNICIAN 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) PROTEIN ELECTROPHORESIS, WITH REFLEX, SERUM Routine 10/05/2024 10:00 AM VTC TECHNICIAN 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) EGFR Routine 10/05/2024 10:00 AM VTC TECHNICIAN 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) DIFFERENTIAL AUTO Routine 10/05/2024 10:00 AM VTC TECHNICIAN 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) CBC WITH AUTO DIFFERENTIAL Routine 10/05/2024 10:00 AM VTC TECHNICIAN 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) COMPREHENSIVE METABOLIC PANEL Routine 10/05/2024 10:00 AM VTC TECHNICIAN 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) IGA Routine 10/05/2024 10:00 AM VTC TECHNICIAN 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) IGG Routine 10/05/2024 10:00 AM VTC TECHNICIAN 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) IGM Routine 10/05/2024 10:00 AM VTC TECHNICIAN 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) LACTATE DEHYDROGENASE Routine 10/05/2024 10:00 AM VTC TECHNICIAN 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) TYPE AND SCREEN Routine 10/05/2024 10:00 AM VTC TECHNICIAN Multiple myeloma not having achieved remission (HCC) CLINICAL PATHOLOGY REPORT Routine 10/05/2024 10:00 AM VTC TECHNICIAN PET/CT FDG SKULL TO THIGH Schedule Routine, Read Routine (OP Routine) 10/01/2024 11:24 AM VTC TECHNICIAN 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) NEURO MR OUTSIDE REFERENCE Routine 09/29/2024 8:43 PM VTC TECHNICIAN NEURO MR OUTSIDE REFERENCE Routine 09/29/2024 8:42 PM VTC TECHNICIAN NEURO CT OUTSIDE REFERENCE Routine 09/29/2024 8:00 PM VTC TECHNICIAN NEURO CT OUTSIDE REFERENCE Routine 09/29/2024 7:57 PM VTC TECHNICIAN MRI SPINE TOTAL COMPLETE W WO CONTRAST Schedule Routine, Read Routine (OP Routine) 09/27/2024 2:45 PM VTC TECHNICIAN Hx of spinal cord compression Multiple myeloma in remission (HCC) Bilateral low back pain without sciatica, unspecified chronicity SCAN - PATHOLOGY 09/24/2024 CLONOSEQ Routine 09/15/2024 11:49 AM VTC TECHNICIAN HEMATOLOGIC MOLECULAR ALGORITHM Routine 09/15/2024 11:49 AM VTC TECHNICIAN 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) SURGICAL PATHOLOGY Routine 09/14/2024 2: 28 PM VTC TECHNICIAN 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) FLOW LEUKEMIA/LYMPHOMA Routine 09/14/2024 2:27 PM VTC TECHNICIAN 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) CYTOGENETICS TRACKING ORDER Routine 09/14/2024 2:27 PM VTC TECHNICIAN 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) SPECIMEN TRACKING Routine 09/14/2024 12:03 PM VTC TECHNICIAN 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) CLINICAL PATHOLOGY REPORT Routine 09/14/2024 11:11 AM VTC TECHNICIAN EGFR Routine 09/14/2024 11:11 AM VTC TECHNICIAN 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) DIFFERENTIAL AUTO Routine 09/14/2024 11:11 AM VTC TECHNICIAN 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) BETA 2 MICROGLOBULIN SERUM Routine 09/14/2024 11:11 AM VTC TECHNICIAN 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) CBC WITH AUTO DIFFERENTIAL Routine 09/14/2024 11:11 AM VTC TECHNICIAN 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) COMPREHENSIVE METABOLIC PANEL Routine 09/14/2024 11:11 AM VTC TECHNICIAN 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) IGA Routine 09/14/2024 11:11 AM VTC TECHNICIAN 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) IGG Routine 09/14/2024 11:11 AM VTC TECHNICIAN 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) IGM Routine 09/14/2024 11:11 AM VTC TECHNICIAN 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) IMMUNOTYPING Routine 09/14/2024 11:11 AM VTC TECHNICIAN 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) IMMUNOGLOBULIN FREE LIGHT CHAINS Routine 09/14/2024 11:11 AM VTC TECHNICIAN 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) LACTATE DEHYDROGENASE Routine 09/14/2024 11:11 AM VTC TECHNICIAN 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) PROTEIN ELECTROPHORESIS, WITH REFLEX, SERUM Routine 09/14/2024 11:11 AM VTC TECHNICIAN 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) VITAMIN D 25 HYDROXY Routine 09/14/2024 11:11 AM VTC TECHNICIAN 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0 0.0 - 0.1 K/cumm CERNER CH Comment:Testing performed by : [facility] [place] [address] Lymphocyte abs 1.0 0.8 - 3.3 K/cumm CERNER CH Comment:Testing performed by : [facility] [place] [address] Monocyte abs 0.6 0.2 - 0.8 K/cumm CERNER CH Comment:Testing performed by : [facility] [place] [address] Eosinophil abs 0.6(H) 0.0 - 0.5 K/cumm CERNER CH Comment:Testing performed by : [facility] [place] [address] Basophil abs 0.1 0.0 - 0.1 K/cumm CERNER CH Comment:Testing performed by : [facility] [place] [address] Neutrophil pct 57.3 % CERNER CH Comment: Interpretive Data Percent cell count reference ranges are not reported, since discordance with absolute values may lead to misinterpretation of CBC data. Current Interpretive Data was last revised on 2017. Testing performed by: [facility] [place] [address] Imm gran pct 0.6 % CERNER CH Comment: Interpretive Data Percent cell count reference ranges are not reported, since discordance with absolute values may lead to misinterpretation of CBC data. Current Interpretive Data was last revised on 2017. Testing performed by: [facility] [place] [address] Lymphocyte pct 18.3 % CERNER CH Comment: Interpretive Data Percent cell count reference ranges are not reported, since discordance with absolute values may lead to misinterpretation of CBC data. Current Interpretive Data was last revised on 2017. Testing performed by: [facility] [place] [address] Monocyte pct 11.7 % CERNER CH Comment: Interpretive Data Percent cell count reference ranges are not reported, since discordance with absolute values may lead to misinterpretation of CBC data. Current Interpretive Data was last revised on 2017. Testing performed by: [facility] [place] [address] Eosinophil pct 10.6 % CERNER CH Comment: Interpretive Data Percent cell count reference ranges are not reported, since discordance with absolute values may lead to misinterpretation of CBC data. Current Interpretive Data was last revised on 2017. Testing performed by: [facility] [place] [address] Basophil pct 1.5 % CERNER CH Comment: Interpretive Data Percent cell count reference ranges are not reported, since discordance with absolute values may lead to misinterpretation of CBC data. Current Interpretive Data was last revised on 2017. Testing performed by: [facility] [place] [address] Blood 11/09/2024 12:0 0 PM CDT 11/09/2024 12:06 PM CDT us Ovi Rodriguez MD LAB BLOOD ORDERABLES Fin al Result DEBORAH MATTA [address] [address] Department [place] [address] * (ABNORMAL) CBC with auto differential (11/09/2024 12:00 PM CDT) WBC 5.3 3.8 - 9.9 K/cumm Comment:Testing performed by : [facility] [place] [address] Hgb 11.6(L) 11.9 - 15.5 g/dL CERNER CH Comment:Testing performed by : [facility] [place] [address] Hct 34.4(L) 35.6 - 45.5 % CERNER CH Comment:Testing performed by : [facility] [place] [address] Plt 174 150 - 400 K/cumm CERNER CH Comment:Testing performed by : [facility] [place] [address] MPV 9.3 9.1 - 12.3 fL CERNER CH Comment:Testing performed by : [facility] [place] [address] RBC 3.70(L) 3.90 - 5.20 M/cumm CERNER CH Comment:Testing performed by : [facility] [place] [address] MCV 93.0 81.3 - 96.4 fL CERNER CH Comment:Testing performed by : [facility] [place] [address] MCH 31.4 27.1 - 33.3 pg CERNER CH Comment:Testing performed by : [facility] [place] [address] MCHC 33.7 32.3 - 35.7 g/dL CERNER CH Comment:Testing performed by : [facility] [place] [address] RDW CV 13.1 11.1 - 14.9 % CERNER CH Comment:Testing performed by : [facility] [place] [id number] RDW SD 44.5 35.7 - 48.1 fL DEBORAH MATTA Comment:Testing performed by : [facility] [place] [address] NRBC abs 0.00 0.00 - 0.01 K/cumm DEBORAH MATTA Comment:Testing performed by : [facility] [place] [address] Blood 11/09/2024 12:0 0 PM CDT 11/09/2024 12:06 PM CDT us Ovi Rodriguez MD LAB BLOOD ORDERABLES Fin al Result DEBORAH MATTA [address] [facility] Department [place] [address] * Clinical pathology report (11/09/2024 10:05 AM CDT) Miscellaneous 11/09/2024 10: 05 AM CDT 11/11/2024 8:36 AM CDT Narrative 11/11/2024 4:31 PM CDT EPIC results best viewed via link to PDF [facility] of Pathology [address] [place] [id number] Final Report Note to Patients: This [...] the details. Patient Name: FRANCESCO JEAN Address: [address] [place] [address] Gender: F : 1955 (Age: 69) Service: Location: [facility] #: [id number] Patient Type: CH EP REF LAB SERIES [...] determined by the Surgical Pathology Department at [facility] as part of an ongoing quality control lab tech program and in compliance with federally mandated [...] determined by the Surgical Pathology Department [facility]. It has not been cleared or approved [...] was last reviewed 2021. Testing performed by: [facility], [place] [address] Blood 11/09/2024 10:0 5 AM CDT 11/09/2024 10:10 AM CDT Ovi Rodriguez MD LAB BLOOD ORDERABLES Fin al Result Performing Organization Address [facility] de Phone Number DEBORAH [address] [address] [facility] [employer] [place], [place] [phone] * Immunoglobulin free light chains (11/09/2024 10:05 AM CDT) Gascoyne/Lambda ratio 1.40 0.26 - 1.65 Gascoyne free light chain 1.44 0.33 - 1.94 mg/dL DEBORAH Comment: Interpretive Data The Iza Ig Gascoyne FLC assay procedure was used. Results from different manufacturers or methods may not be comparable. Serial testing should be performed using the same method. Lambda free light chain 1.06 0.57 - 2.63 mg/dL DEBORAH Comment: Interpretive Data The Iza Ig Lambda FLC assay procedure was used. Results from different manufacturers or methods may not be comparable. Serial testing should be performed using the same method. Blood 11/09/2024 10:0 5 AM CDT 11/09/2024 11:45 AM CDT Ovi Rodriguez MD LAB BLOOD ORDERABLES Fin al Result Performing Organization Address City/[facility] Co de Phone Number DEBORAH [address] [address] [facility] [place] [address] * (ABNORMAL) Type and screen (11/09/2024 10:05 AM CDT) Loida, indirect Positive(A) ABO Rh A Positive CERNER CH Blood 11/09/2024 10:0 5 AM CDT 11/09/2024 10:56 AM CDT Narrative CERNER CH - 11/09/2024 12:45 PM CDT Has the patient had Daratumumab or Isatuximab in the past 6 months?->Unknown Ovi Rodriguez MD LAB BLOOD BANK TEST ORDE RABLES Final Result DEBORAH MATTA [address] [place] [address] * (ABNORMAL) Protein electrophoresis with [...] 5 AM CDT 11/09/2024 11:45 AM CDT Oiv Rodriguez MD LAB BLOOD ORDERABLES Fin al Result KURTJUAN MATTA [address] [address] [place] [address] * Lactate dehydrogenase (LD) (11/09/2024 10:05 AM CDT) Pathologist [facility] Lactate dehydrogenase (LDH) 179 100 - 250 Units/L Comment:Testing performed by : [facility], [place] [address] Blood 11/09/2024 10:0 5 AM CDT 11/09/2024 10:10 AM CDT Ovi Rodriguez MD LAB BLOOD ORDERABLES Mohan jeanette Result - Final Performing Organization Address [facility]/ZIP Co de Phone Number DEBORAH MATTA [address] [address] [place] [address] * (ABNORMAL) IgA (11/09/2024 10:05 AM CDT) Immunoglobulin A 68(L) 70 - 400 mg/dL Blood 11/09/2024 10:0 5 AM CDT 11/09/2024 10:50 AM CDT Ovi Rodriguez MD LAB BLOOD ORDERABLES Fin al Result Performing Organization Address [facility] Co de Phone Number DEBORAH MATTA [address] [address] Department [place] [place], [place] [phone] * (ABNORMAL) IgM (11/09/2024 10:05 AM CDT) Immunoglobulin M <25(L) 40 - 150 mg/dL Blood 11/09/2024 10:0 5 AM CDT 11/09/2024 10:50 AM CDT Ovi Rodriguez MD LAB BLOOD ORDERABLES Fin al Result Performing Organization Address [facility] Co de Phone Number DEBORAH MATTA [address] [address] [place] [address] * (ABNORMAL) IgG (11/09/2024 10:05 AM CDT) Immunoglobulin G <300(L) 700 - 1,600 mg/dL Blood 11/09/2024 10:0 5 AM CDT 11/09/2024 10:50 AM CDT us Ovi Rodriguez MD LAB BLOOD ORDERABLES Fin al Result [facility] [address] [address] Department [place] [address] * (ABNORMAL) Comprehensive metabolic panel (11/09/2024 10:05 AM CDT) Sodium 139 135 - 145 mmol/L Comment:Testing performed by : [facility] [place] [address] Potassium, pl 4.5 3.3 - 4.9 mmol/L CERNER Comment:Testing performed by : [facility] [place] [address] Chloride 104 97 - 110 mmol/L CERNER Comment:Testing performed by : [facility] [place] [address] CO2 26 22 - 32 mmol/L CERNER Comment:Testing performed by : [facility] [place] [address] Anion gap 9 2 - 15 mmol/L [facility] Comment:Testing performed by : [facility] [place] [address] BUN 22 6 - 25 mg/dL CERNER Comment:Testing performed by : [facility] [place] [address] Creatinine 0.76 0.60 - 1.10 mg/dL [facility] Comment:Testing performed by : [facility] [place] [address] Glucose 117 70 - 199 mg/dL [facility] Comment: Interpretive Data Fasting glucose >/= 126 [...] was last revised 2022. Testing performed by: [facility] [place] [address] Calcium 9.3 8.5 - 10.3 mg/dL CERNER CH Comment:Testing performed by : [facility] [place] [address] Bilirubin, total 0.2 0.1 - 1.2 mg/dL CERNER CH Comment:Testing performed by : [facility] [place] [address] Protein, pl 6.2(L) 6.5 - 8.5 g/dL CERNER CH Comment:Testing performed by : [facility] [place] [address] Albumin 3.9 3.5 - 5.0 g/dL CERNER CH Comment:Testing performed by : [facility] [place] [address] Alk phos 62 40 - 130 Units/L CERNER CH Comment:Testing performed by : [facility] [place] [address] ALT 19 7 - 45 Units/L CERNER CH Comment:Testing performed by : [facility] [place] [address] AST 20 10 - 45 Units/L CERNER CH Comment:Testing performed by : [facility] [place] [address] Blood 11/09/2024 10:0 5 AM CDT 11/09/2024 10:10 AM CDT Ovi Rodriguez MD LAB BLOOD ORDERABLES Mohan jeanette Result - Final [facility] [address] [address] Department [place] [address] * eGFR (11/09/2024 9:51 AM [...] was last reviewed 2021. Testing performed by: [facility], [place] [address] Blood 11/09/2024 9:51 AM CDT 11/09/2024 10:10 AM CDT Henry Gross MD LAB BLOOD ORDERABLES Final R esult Performing Organization Address City/[facility] Co de Phone Number DEBORAH MATTA [address] [place] [address] * Albumin Creatinine Ratio, Urine [...] ORDERABLES Final R esult Performing Organization Address [facility] Co de Phone Number DEBORAH MATTA [address] [address] [place] [address] * Vitamin D 25 hydroxy (11/09/2024 9:51 AM CDT) Vitamin D 25-OH 32 30 - 80 ng/mL Blood 11/09/2024 9:51 AM CDT 11/09/2024 11:45 AM CDT Henry Gross MD LAB BLOOD ORDERABLES Final R esult Performing Organization Address [facility] Co de Phone Number DEBORAH MATTA [address] [address] [facility] [address] [place], [place] [phone] * TSH (11/09/2024 9:51 AM CDT) Pathologist [facility] Thyroid Stimulating Hormone 3.13 0.30 - 4.20 mcIUnit/mL Blood 11/09/2024 9:51 AM CDT 11/09/2024 10:50 AM CDT Henry Gross MD LAB BLOOD ORDERABLES Final R esult Performing Organization Address [facility] de Phone Number KURTJUAN MATTA [address] [address] [employer] [place] [address] * T4, free (11/09/2024 9:51 AM CDT) [facility] Free T4 1.40 0.90 - 1.70 ng/dL Blood 11/09/2024 9:51 AM CDT 11/09/2024 10:50 AM CDT Henry Gross MD LAB BLOOD ORDERABLES Final R esult Performing Organization Address [facility] Co de Phone Number DEBORAH MATTA [address] [address] [facility] [address] [place], [place] [phone] * Lipid panel (11/09/2024 9:51 AM CDT) Pathologist [facility] Cholesterol 161 30 - 199 mg/dL Comment: [...] mg/dL High: >160 mg/dL Calculated using the Vieira LDL-C estimating equation. This equation was implemented [...] revised on 2018. Chol/HDL ratio 2 DEBORAH Blood 11/09/2024 9:51 AM CDT 11/09/2024 10:50 AM CDT us Henry Gross MD LAB BLOOD ORDERABLES Final R esult DEBORAH [address] [address] [place] [address] * (ABNORMAL) Comprehensive metabolic panel (11/09/2024 9:51 AM CDT) Sodium 138 135 - 145 mmol/L Comment:Testing performed by : [facility] [place] [address] Potassium, pl 4.5 3.3 - 4.9 mmol/L DEBORAH MATTA Comment:Testing performed by : [facility] [place] [address] Chloride 104 97 - 110 mmol/L CERNER CH Comment:Testing performed by : [facility] [place] [address] CO2 25 22 - 32 mmol/L CERNER CH Comment:Testing performed by : [facility] [place] [address] Anion gap 9 2 - 15 mmol/L CERNER CH Comment:Testing performed by : [facility] [place] [address] BUN 22 6 - 25 mg/dL CERNER CH Comment:Testing performed by : [facility] [place] [address] Creatinine 0.76 0.60 - 1.10 mg/dL CERNER CH Comment:Testing performed by : [facility] [place] [address] Glucose 117 70 - 199 mg/dL CERNER [...] was last revised 2022. Testing performed by: [facility] [place] [address] Calcium 9.2 8.5 - 10.3 mg/dL CERNER CH Comment:Testing performed by : [facility] [place] [address] Bilirubin, total 0.2 0.1 - 1.2 mg/dL CERNER CH Comment:Testing performed by : [facility] [place] [address] Protein, pl 6.0(L) 6.5 - 8.5 g/dL CERNER CH Comment:Testing performed by : [facility] [place] [address] Albumin 4.0 3.5 - 5.0 g/dL CERNER CH Comment:Testing performed by : [facility] [place] [address] Alk phos 62 40 - 130 Units/L CERNER CH Comment:Testing performed by : [facility] [place] [address] ALT 18 7 - 45 Units/L DEBORAH MATTA Comment:Testing performed by : [facility], [place] [address] AST 20 10 - 45 Units/L DEBORAH MATTA Comment:Testing performed by : [facility] [place] [address] Blood 11/09/2024 9:51 AM CDT 11/09/2024 9:52 AM CDT us Henry Gross MD LAB BLOOD ORDERABLES Final R esult DEBORAH MATTA [address] [address] [place] [address] * eGFR (10/12/2024 11:19 AM VTC TECHNICIAN) eGFR >90 >=60 mL/min/1. 73 m2 Comment: [...] was last reviewed 2021. Testing performed by: [facility] [place] [address] Blood 10/12/2024 11:1 9 AM VTC TECHNICIAN 10/12/2024 11:25 AM VTC TECHNICIAN us Ovi Rodriguez MD LAB BLOOD ORDERABLES Fin al Result [facility] [address] [address] Department of Laboratories [place] [phone] * (ABNORMAL) Differential, auto (10/12/2024 11:19 AM VTC TECHNICIAN) Neutrophil abs 9.1(H) 1.5 - 6.5 K/cumm Comment:Testing performed by : [facility] [place] [address] Imm gran abs 0.0 0.0 - 0.1 K/cumm CERNER CH Comment:Testing performed by : [facility] [place] [address] Lymphocyte abs 1.4 0.8 - 3.3 K/cumm CERNER CH Comment:Testing performed by : [facility] [place] [address] Monocyte abs 0.9(H) 0.2 - 0.8 K/cumm CERNER CH Comment:Testing performed by : [facility] [place] [address] Eosinophil abs 1.5(H) 0.0 - 0.5 K/cumm CERNER CH Comment:Testing performed by : [facility] [place] [address] Basophil abs 0.1 0.0 - 0.1 K/cumm CERNER CH Comment:Testing performed by : [facility] [place] [address] Neutrophil pct 70.0 % CERNER Comment: Interpretive Data Percent cell count reference ranges are not reported, since discordance with absolute values may lead to misinterpretation of CBC data. Current Interpretive Data was last revised on 2017. Testing performed by: [facility] [place] [address] Imm gran pct 0.3 % CERNER Comment: Interpretive Data Percent cell count reference ranges are not reported, since discordance with absolute values may lead to misinterpretation of CBC data. Current Interpretive Data was last revised on 2017. Testing performed by: [facility] [place] [address] Lymphocyte pct 10.7 % CERNER Comment: Interpretive Data Percent cell count reference ranges are not reported, since discordance with absolute values may lead to misinterpretation of CBC data. Current Interpretive Data was last revised on 2017. Testing performed by: [facility] [place] [address] Monocyte pct 7.1 % DEBORAH MATTA Comment: Interpretive Data Percent cell count reference ranges are not reported, since discordance with absolute values may lead to misinterpretation of CBC data. Current Interpretive Data was last revised on 2017. Testing performed by: [facility] [place] [address] Eosinophil pct 11.4 % DEBORAH MATTA Comment: Interpretive Data Percent cell count reference ranges are not reported, since discordance with absolute values may lead to misinterpretation of CBC data. Current Interpretive Data was last revised on 2017. Testing performed by: [facility] [place] [address] Basophil pct 0.5 % DEBORAH MATTA Comment: Interpretive Data Percent cell count reference ranges are not reported, since discordance with absolute values may lead to misinterpretation of CBC data. Current Interpretive Data was last revised on 2017. Testing performed by: [facility] [place] [address] Blood 10/12/2024 11:1 9 AM VTC TECHNICIAN 10/12/2024 11:23 AM VTC TECHNICIAN Ovi Rodriguez MD LAB BLOOD ORDERABLES Fin al Result DEBORAH MATTA [address] [address] Department [place] [address] * (ABNORMAL) CBC with auto differential (10/12/2024 11:19 AM VTC TECHNICIAN) WBC 13.0(H) 3.8 - 9.9 K/cumm Comment:Testing performed by : [facility] [place] [address] Hgb 11.5(L) 11.9 - 15.5 g/dL DEBORAH MATTA Comment:Testing performed by : [facility] [place] [address] Hct 34.1(L) 35.6 - 45.5 % CERNER CH Comment:Testing performed by : [facility] [place] [address] Plt 198 150 - 400 K/cumm CERNER CH Comment:Testing performed by : [facility] [place] [address] MPV 9.1 9.1 - 12.3 fL CERNER CH Comment:Testing performed by : [facility] [place] [address] RBC 3.59(L) 3.90 - 5.20 M/cumm CERNER CH Comment:Testing performed by : [facility] [place] [address] MCV 95.0 81.3 - 96.4 fL CERNER CH Comment:Testing performed by : [facility] [place] [address] MCH 32.0 27.1 - 33.3 pg CERNER CH Comment:Testing performed by : [facility] [place] [address] MCHC 33.7 32.3 - 35.7 g/dL CERNER CH Comment:Testing performed by : [facility] [place] [address] RDW CV 12.5 11.1 - 14.9 % CERNER CH Comment:Testing performed by : [facility] [place] [address] RDW SD 43.8 35.7 - 48.1 fL CERNER CH Comment:Testing performed by : [facility] [place] [address] NRBC abs 0.00 0.00 - 0.01 K/cumm CERNER CH Comment:Testing performed by : [facility] [place] [address] Blood 10/12/2024 11:1 9 AM VTC TECHNICIAN 10/12/2024 11:23 AM VTC TECHNICIAN us Ovi Rodriguez MD LAB BLOOD ORDERABLES Fin al Result DEBORAH [address] [address] Department of Laboratories [place], [place] [phone] * (ABNORMAL) Type and screen (10/12/2024 11:19 AM VTC TECHNICIAN) ABO Rh A Positive Loida, indirect Positive(A) CERNER CH Blood 10/12/2024 11:1 9 AM VTC TECHNICIAN 10/12/2024 1:26 PM VTC TECHNICIAN Narrative CERNER CH - 10/12/2024 2:20 PM VTC TECHNICIAN Has the patient had Daratumumab or Isatuximab in the past 6 months?->Unknown Ovi Rodriguez MD LAB BLOOD BANK TEST ORDE HANNAH [facility] [address] [address] Department of [place] [address] * (ABNORMAL) Comprehensive metabolic panel (10/12/2024 11:19 AM VTC TECHNICIAN) Pathologist [facility] Sodium 141 135 - 145 mmol/L Comment:Testing performed by : [facility] [place] [id number] Potassium, pl 4.4 3.3 - 4.9 mmol/L CERNER CH Comment:Testing performed by : [facility] [place] [address] Chloride 103 97 - 110 mmol/L CERNER CH Comment:Testing performed by : [facility] [place] [id number] CO2 28 22 - 32 mmol/L CERNER CH Comment:Testing performed by : [facility] [place] [address] Anion gap 10 2 - 15 mmol/L CERNER CH Comment:Testing performed by : [facility] [place] [id number] BUN 18 6 - 25 mg/dL CERNER CH Comment:Testing performed by : [facility] [place] [id number] Creatinine 0.65 0.60 - 1.10 mg/dL CERNER CH Comment:Testing performed by : [facility] [place] [id number] Glucose 134 70 - 199 mg/dL CERNER [...] was last revised 2022. Testing performed by: [facility] [place] [address] Calcium 10.1 8.5 - 10.3 mg/dL CERNER CH Comment:Testing performed by : [facility] [place] [address] Bilirubin, total 0.3 0.1 - 1.2 mg/dL CERNER CH Comment:Testing performed by : [facility] [place] [address] Protein, pl 6.3(L) 6.5 - 8.5 g/dL CERNER CH Comment:Testing performed by : [facility] [place] [address] Albumin 4.2 3.5 - 5.0 g/dL CERNER CH Comment:Testing performed by : [facility] [place] [address] Alk phos 72 40 - 130 Units/L CERNER CH Comment:Testing performed by : [facility] [place] [address] ALT 11 7 - 45 Units/L CERNER CH Comment:Testing performed by : [facility] [place] [address] AST 17 10 - 45 Units/L CERNER CH Comment:Testing performed by : [facility] [place] [address] Blood 10/12/2024 11:1 9 AM VTC TECHNICIAN 10/12/2024 11:23 AM VTC TECHNICIAN us Ovi Rodriguez MD LAB BLOOD ORDERABLES Fin al Result [facility] [address] [address] Department of Laboratories [place], [place] [id number] * Diagnostic Mammogram Right W Brannon (10/05/2024 2:19 PM VTC TECHNICIAN) Anatomical Region Laterality Modality Breast Right Mammography 10/05/2024 2:43 PM VTC TECHNICIAN Impressions 10/05/2024 3:15 PM VTC TECHNICIAN Slight interval evolution of likely fat necrosis/hematoma [...] Mitzy Abdalla M.D. Narrative 10/05/2024 3:15 PM VTC TECHNICIAN EXAMINATION: RIGHT UNILATERAL DIGITAL DIAGNOSTIC MAMMOGRAM AND [...] by: Mitzy Abdalla M.D. us Marleny Melo CONTENT DEVELOPER IMG MAMMO PROCEDURES Final Resul t * US Breast Right Limited (10/05/2024 1:51 PM VTC TECHNICIAN) Anatomical Region Laterality Modality Breast Right Ultrasound 10/05/2024 2:43 PM VTC TECHNICIAN Impressions 10/05/2024 3:15 PM VTC TECHNICIAN Slight interval evolution of likely fat necrosis/hematoma [...] Mitzy Abdalla M.D. Narrative 10/05/2024 3:15 PM VTC TECHNICIAN EXAMINATION: RIGHT UNILATERAL DIGITAL DIAGNOSTIC MAMMOGRAM AND [...] it. Electronically signed by: Mitzy Abdalla M.D. Marlenysandeep Melo NP IMG MAMMO PROCEDURES Final Resul t * (ABNORMAL) Immunoglobulin free light chains (10/05/2024 10:00 AM VTC TECHNICIAN) Gascoyne/Lambda ratio 2.00(H) 0.26 - 1.65 Gascoyne free light chain 0.63 0.33 - 1.94 mg/dL CERNER CH Comment: Interpretive Data The Iza Ig Gascoyne FLC assay procedure was used. Results from [...] same method. Blood 10/05/2024 10:0 0 AM VTC TECHNICIAN 10/05/2024 11:28 AM VTC TECHNICIAN Jarrod Garcia [facility] LAB BLOOD ORDERABLES Amanda l Result Performing Organization Address [facility] Co de Phone Number KURTJUAN MATTA [address] [place] [address] * (ABNORMAL) Protein electrophoresis with reflex, serum with interpretation (10/05/2024 10:00 AM VTC TECHNICIAN) Protein, sr 6.0(L) 6.2 - 8.2 g/dL [...] CERNER CH Blood 10/05/2024 10:0 0 AM VTC TECHNICIAN 10/05/2024 11:28 AM VTC TECHNICIAN Jarrod Garcia [facility] LAB BLOOD ORDERABLES Amanda l Result Performing Organization Address City/[facility] Co de Phone Number DEBORAH MATTA [address] [address] [place] [address] * eGFR (10/05/2024 10:00 AM VTC TECHNICIAN) eGFR >90 >=60 mL/min/1. 73 m2 Comment: [...] was last reviewed 2021. Testing performed by: [place] [address] Blood 10/05/2024 10:0 0 AM VTC TECHNICIAN 10/05/2024 10:06 AM VTC TECHNICIAN Jarrod Garcia [facility] LAB BLOOD ORDERABLES Amanda l Result DEBORAH [address] [address] Department [place] [address] * (ABNORMAL) Differential, auto (10/05/2024 10:00 AM VTC TECHNICIAN) Pathologist [facility] Neutrophil abs 4.0 1.5 - 6.5 K/cumm Comment:Testing performed by : [facility] [place] [address] Imm gran abs 0.0 0.0 - 0.1 K/cumm DEBORAH MATTA Comment:Testing performed by : [facility] [place] [address] Lymphocyte abs 1.6 0.8 - 3.3 K/cumm DEBORAH MATTA Comment:Testing performed by : [facility] [place] [address] Monocyte abs 0.9(H) 0.2 - 0.8 K/cumm CERNER CH Comment:Testing performed by : [facility] [place] [address] Eosinophil abs 1.6(H) 0.0 - 0.5 K/cumm CERNER CH Comment:Testing performed by : [facility] [place] [address] Basophil abs 0.1 0.0 - 0.1 K/cumm CERNER CH Comment:Testing performed by : [facility] [place] [address] Neutrophil pct 49.3 % CERNER CH Comment: Interpretive Data Percent cell count reference ranges are not reported, since discordance with absolute values may lead to misinterpretation of CBC data. Current Interpretive Data was last revised on 2017. Testing performed by: [facility] [place] [id number] Imm gran pct 0.4 % CERNER CH Comment: Interpretive Data Percent cell count reference ranges are not reported, since discordance with absolute values may lead to misinterpretation of CBC data. Current Interpretive Data was last revised on 2017. Testing performed by: [facility] [place] [address] Lymphocyte pct 19.0 % CERNER CH Comment: Interpretive Data Percent cell count reference ranges are not reported, since discordance with absolute values may lead to misinterpretation of CBC data. Current Interpretive Data was last revised on 2017. Testing performed by: [facility] [place] [address] Monocyte pct 11.4 % CERNER CH Comment: Interpretive Data Percent cell count reference ranges are not reported, since discordance with absolute values may lead to misinterpretation of CBC data. Current Interpretive Data was last revised on 2017. Testing performed by: [facility] [place] [id number] Eosinophil pct 19.3 % CERNER CH Comment: Interpretive Data Percent cell count reference ranges are not reported, since discordance with absolute values may lead to misinterpretation of CBC data. Current Interpretive Data was last revised on 2017. Testing performed by: [facility] [place] [id number] Basophil pct 0.6 % CERNER CH Comment: Interpretive Data Percent cell count reference ranges are not reported, since discordance with absolute values may lead to misinterpretation of CBC data. Current Interpretive Data was last revised on 2017. Testing performed by: [facility] [place] [address] Blood 10/05/2024 10:0 0 AM VTC TECHNICIAN 10/05/2024 10:06 AM VTC TECHNICIAN Jarrod Garcia [facility] LAB BLOOD ORDERABLES Amanda l Result DEBORAH [address] [address] Department [place] [address] * (ABNORMAL) CBC with auto differential (10/05/2024 10:00 AM VTC TECHNICIAN) WBC 8.2 3.8 - 9.9 K/cumm Comment:Testing performed by : [facility] [place] [address] Hgb 11.8(L) 11.9 - 15.5 g/dL CERNER CH Comment:Testing performed by : [facility] [place] [address] Hct 35.0(L) 35.6 - 45.5 % CERNER CH Comment:Testing performed by : [facility] [place] [address] Plt 220 150 - 400 K/cumm CERNER CH Comment:Testing performed by : [facility] [place] [address] MPV 9.1 9.1 - 12.3 fL CERNER CH Comment:Testing performed by : [facility] [place] [address] RBC 3.65(L) 3.90 - 5.20 M/cumm CERNER CH Comment:Testing performed by : [facility] [place] [address] MCV 95.9 81.3 - 96.4 fL CERNER CH Comment:Testing performed by : [facility] [place] [address] MCH 32.3 27.1 - 33.3 pg CERNER CH Comment:Testing performed by : [facility], [place] [address] MCHC 33.7 32.3 - 35.7 g/dL DEBORAH MATTA Comment:Testing performed by : [facility] [place] [address] RDW CV 12.7 11.1 - 14.9 % DEBORAH MATTA Comment:Testing performed by : [facility] [place] [address] RDW SD 44.7 35.7 - 48.1 fL DEBORAH MATTA Comment:Testing performed by : [facility] [place] [address] NRBC abs 0.00 0.00 - 0.01 K/cumm DEBORAH MATTA Comment:Testing performed by : [facility] [place] [address] Blood 10/05/2024 10:0 0 AM VTC TECHNICIAN 10/05/2024 10:06 AM VTC TECHNICIAN Jarrod Garcia [facility] LAB BLOOD ORDERABLES Amanda l Result Performing Organization Address [facility] Co de Phone Number DEBORAH MATTA [address] [place] [address] * Lactate dehydrogenase (LD) (10/05/2024 10:00 AM VTC TECHNICIAN) Lactate dehydrogenase (LDH) 183 100 - 250 Units/L Comment:Testing performed by : [facility] [place] [address] Blood 10/05/2024 10:0 0 AM VTC TECHNICIAN 10/05/2024 10:06 AM VTC TECHNICIAN Jarrod Garcia [facility] LAB BLOOD ORDERABLES Edit ed Result - Final Performing Organization Address [facility]/ZIP Co de Phone Number DEBORAH [address] [address] [facility] [place] [place], [place] [id number] * (ABNORMAL) IgA (10/05/2024 10:00 AM VTC TECHNICIAN) Immunoglobulin A <50(L) 70 - 400 mg/dL Blood 10/05/2024 10:0 0 AM VTC TECHNICIAN 10/05/2024 10:44 AM VTC TECHNICIAN Jarrod Garcia [facility] LAB BLOOD ORDERABLES Amanda l Result Performing Organization Address [facility] Co de Phone Number DEBORAH [address] [address] [facility] [place] [address] * (ABNORMAL) IgM (10/05/2024 10:00 AM VTC TECHNICIAN) Pathologist [facility] Immunoglobulin M <25(L) 40 - 150 mg/dL Blood 10/05/2024 10:0 0 AM VTC TECHNICIAN 10/05/2024 10:44 AM VTC TECHNICIAN Jarrod Garcia [facility] LAB BLOOD ORDERABLES Amanda l Result Performing Organization Address [facility] de Phone Number KURTJUAN [address] [address] [place] [address] * (ABNORMAL) IgG (10/05/2024 10:00 AM VTC TECHNICIAN) Pathologist [facility] Immunoglobulin G <300(L) 700 - 1,600 mg/dL Blood 10/05/2024 10:0 0 AM VTC TECHNICIAN 10/05/2024 10:44 AM VTC TECHNICIAN Jarrod Weber Garcia [facility] LAB BLOOD ORDERABLES Amanda l Result Performing Organization Address [facility] de Phone Number KURTJUAN [address] [place] [address] * (ABNORMAL) Comprehensive metabolic panel (10/05/2024 10:00 AM VTC TECHNICIAN) Pathologist [facility] Sodium 142 135 - 145 mmol/L Comment:Testing performed by : [facility] [place] [address] Potassium, pl 4.6 3.3 - 4.9 mmol/L DEBORAH Comment:Testing performed by : [facility] [place] [address] Chloride 105 97 - 110 mmol/L DEBORAH Comment:Testing performed by : [facility] [place] [address] CO2 26 22 - 32 mmol/L CERNER CH Comment:Testing performed by : [facility] [place] [address] Anion gap 11 2 - 15 mmol/L CERNER CH Comment:Testing performed by : [facility] [place] [address] BUN 18 6 - 25 mg/dL CERNER CH Comment:Testing performed by : [facility] [place] [address] Creatinine 0.67 0.60 - 1.10 mg/dL CERNER CH Comment:Testing performed by : [facility] [place] [address] Glucose 131 70 - 199 mg/dL CERNER [...] was last revised 2022. Testing performed by: [facility] [place] [address] Calcium 9.5 8.5 - 10.3 mg/dL CERNER CH Comment:Testing performed by : [facility] [place] [address] Bilirubin, total 0.2 0.1 - 1.2 mg/dL CERNER CH Comment:Testing performed by : [facility] [place] [address] Protein, pl 6.2(L) 6.5 - 8.5 g/dL CERNER CH Comment:Testing performed by : [facility] [place] [address] Albumin 4.2 3.5 - 5.0 g/dL CERNER CH Comment:Testing performed by : [facility] [place] [address] Alk phos 73 40 - 130 Units/L CERNER CH Comment:Testing performed by : [facility] [place] [id number] ALT 13 7 - 45 Units/L DEBORAH Comment:Testing performed by : [facility] [place] [address] AST 19 10 - 45 Units/L DEBORAH MATTA Comment:Testing performed by : [facility] [place] [address] Blood 10/05/2024 10:0 0 AM VTC TECHNICIAN 10/05/2024 10:06 AM VTC TECHNICIAN Jarrod Garcia DNP LAB BLOOD ORDERABLES Edit ed Result - Final DEBORAH MATTA [address] [address] [place] [address] * (ABNORMAL) Type and screen (10/05/2024 10:00 AM VTC TECHNICIAN) ABO Rh A Positive Loida, indirect Positive(A) DEBORAH Blood 10/05/2024 10:0 0 AM VTC TECHNICIAN 10/05/2024 10:47 AM VTC TECHNICIAN Narrative DEBORAH - 10/05/2024 1:00 PM VTC TECHNICIAN Has the patient had Daratumumab or Isatuximab in the past 6 months?->Unknown Ovi Rodriguez MD LAB BLOOD BANK TEST JESS YOUNG Final Result DEBORAH MATTA [address] [place] [address] * Clinical pathology report (10/05/2024 10:00 AM VTC TECHNICIAN) Miscellaneous 10/05/2024 10: 00 AM VTC TECHNICIAN 10/07/2024 8:33 AM VTC TECHNICIAN Narrative 10/10/2024 10:56 AM VTC TECHNICIAN EPIC results best viewed via link to PDF [facility] of [facility]ology [address] [place] [address] Final Report Note to Patients: This [...] the details. Patient Name: FRANCESCO JEAN Address: [address] [place] [address] Gender: F : 1955 (Age: 69) Service: Location: N : [id number] [facility] #: [id number] Patient Type: CH EP REF LAB SERIES [...] determined by the Surgical Pathology Department at [facility] as part of an ongoing quality control lab tech program and in compliance with federally mandated [...] determined by the Surgical Pathology Department [facility]. It has not been cleared or approved by the U. S. Food and Drug Administration. REPORT IMAGES AND SCANNED DOCUMENTS, IF INCLUDED, ONLY VIEWABLE IN PDF VERSION OF REPORTe o Jarrod Garcia [facility] LAB PATHOLOGY ORDERABLES Final Result * PET/CT FDG Skull to Thigh (10/01/2024 11:24 AM VTC TECHNICIAN) Anatomical Region Laterality Modality N/A Positron Emissio n Tomography (PET) 10/01/2024 11:5 8 AM VTC TECHNICIAN Impressions 10/01/2024 12:23 PM VTC TECHNICIAN 1. Near complete resolution of previously hypermetabolic osseous lesions as described above in keeping with patient's known myeloma. 2. No new hypermetabolic osseous lesion. Dictated by: Familia Hdoge MD The radiology attending physician has personally reviewed this study, and had reviewed and/or edited this written report and agrees with it. Electronically signed by: DO Greta Spain 10/01/2024 12:23 PM VTC TECHNICIAN EXAMINATION: TUMOR FDG-PET/CT IMAGING DATE OF STUDY: 10/01/2024 SCANNER: [facility] [employer] (NV1). This is a high-resolution scanner, which [...] obtained. The study was interpreted on the [employer] workstation. The mean liver SUV (reported for quality assurance lead purposes) is 3.0. The total scanned area [...] Right vastus lateralis lipoma. Procedure Note Aleks Cesar DO - 10/01/2024 EXAMINATION: TUMOR FDG-PET/CT IMAGING DATE OF STUDY: 10/01/2024 SCANNER: [facility] [employer] (NV1). This is a high-resolution scanner, which [...] obtained. The study was interpreted on the [employer] workstation. The mean liver SUV (reported for quality assurance lead purposes) is 3.0. The total scanned area [...] Neuro MR Outside Reference (09/29/2024 8:43 PM VTC TECHNICIAN) Impressions RAD_PACS_[facility] - 09/29/2024 8:43 PM VTC TECHNICIAN These images are for Reference purposes only and have not been reviewed by [facility]. There will be no report generated by a [facility] Radiologist. Narrative RAD_PACS_[facility] - 09/29/2024 8:43 PM VTC TECHNICIAN EXAMINATION: Images For Reference Purposes Only Florence Acosta MD [facility] MRI PROCEDURES Final R esult Performing Organization Address [facility] Co de Phone Number [email or web address] * Neuro MR Outside Reference (09/29/2024 8:42 PM VTC TECHNICIAN) Impressions RAD_PACS_[facility] - 09/29/2024 8:42 PM VTC TECHNICIAN These images are for Reference purposes only and have not been reviewed by [facility] Radiology. There will be no report generated by a [facility] Radiologist. Narrative RAD_PACS_[facility] - 09/29/2024 8:42 PM VTC TECHNICIAN EXAMINATION: Images For Reference Purposes Only Florence Acosta MD IM MRI PROCEDURES Final R esult Performing Organization Address [facility] Co de Phone Number [email or web address] * Neuro CT Outside Reference (09/29/2024 8:00 PM VTC TECHNICIAN) Impressions RAD_PACS_[facility] - 09/29/2024 8:00 PM VTC TECHNICIAN These images are for Reference purposes only and have not been reviewed by [facility] Radiology. There will be no report generated by a [facility] Radiologist. Narrative RAD_PACS_[facility]J - 09/29/2024 8:00 PM VTC TECHNICIAN EXAMINATION: Images For Reference Purposes Only Florence Acosta MD IMG CT PROCEDURES Final Re sult Performing Organization Address [facility] de Phone Number [email or web address] * Neuro CT Outside Reference (09/29/2024 7:57 PM VTC TECHNICIAN) Impressions RAD_[facility] - 09/29/2024 7:57 PM VTC TECHNICIAN These images are for Reference purposes only and have not been reviewed by [facility] Radiology. There will be no report generated by a [facility] Radiologist. Narrative RAD_PACS_[facility] - 09/29/2024 7:57 PM VTC TECHNICIAN EXAMINATION: Images For Reference Purposes Only Florence Acosta MD IMG CT PROCEDURES Final Re sult Performing Organization Address [facility] de Phone Number [email or web address] * MRI Spine Total Complete W WO Contrast (09/27/2024 2:45 PM VTC TECHNICIAN) Anatomical Region Laterality Modality Spine N/A Magnetic Resonan ce 09/27/2024 5:21 PM VTC TECHNICIAN Impressions 09/27/2024 5:23 PM VTC TECHNICIAN 1. Multiple pathologic fractures, including new fractures [...] Rosas Arroyo M.D. Narrative 09/27/2024 5:23 PM VTC TECHNICIAN EXAMINATION: 1. Magnetic resonance imaging (MRI) of [...] - Final * ClonoSeq (09/15/2024 11:49 AM VTC TECHNICIAN) ClonoSeq See attached scanned report for results. Bone marrow 09/15/2024 11:4 9 AM VTC TECHNICIAN 09/15/2024 3:43 PM VTC TECHNICIAN Ovi Rodriguez MD LAB PATHOLOGY ORDERABLES Final Result Performing Organization Address City/State/[facility] Co de Phone Number [facility] [place] [address] * Hematologic Molecular Algorithm Bone marrow (09/15/2024 11:49 AM VTC TECHNICIAN) Heme Molecular Algorithm Received Bone marrow 09/15/2024 11:4 9 AM VTC TECHNICIAN 09/15/2024 12:35 PM VTC TECHNICIAN Narrative DEBORAH LIM - 09/22/2024 11:37 AM VTC TECHNICIAN Tube information: Trinidad top Clinical History / Treatment Plan:->MM s/p auto sct Select diagnosis - - Appropriate molecular tests will be performed based on histopathological diagnosis.->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; No additional testing indicated us Ovi Rodriguez MD LAB BODY FLUIDS AND STOO LS ORDERABLES Final Result DEBORAH [facility] [place] [address] * Surgical pathology (09/14/2024 2:28 PM VTC TECHNICIAN) Bone marrow (Bone Marrow Biopsy) 09/14/2024 2:28 PM VTC TECHNICIAN 09/15/2024 9:38 AM VTC TECHNICIAN Narrative PATHOLOGY [facility] - 09/16/2024 3:39 PM VTC TECHNICIAN EPIC results best viewed via link to PDF [facility] Espos[facility] Laboratory [place] [address] Note to Patients: This report may contain [...] Gender: F : 1955 (Age: 69) Address: [address] [place], [place] [id number] Hospital #: [id number] Taken:09/14/2024 Received:09/15/2024 Reported: 09/16/2024 Patient Type: [facility] SPECIMEN Service: Laboratory Location: Physician(s): Ovi Rodriguez [...] specimen was examined for internal quality assurance lead purposes. Flow cytometry was performed using antibodies to the following cellular antigens: CD45, CD19, CD20, Gascoyne, Lambda, CD38, CD138, CD56. Total antigens analyzed: [...] Surgical Pathology and Flow Cytometry Departments at [facility] as part of an ongoing quality control lab tech program and in compliance with federally mandated [...] Surgical Pathology and Flow Cytometry Departments of [facility]. It has not been cleared or approved by the U. S. Food and Drug Administration. IMAGES AND SCANNED DOCUMENTS, IF INCLUDED, ONLY VIEWABLE IN PDF VERSION OF REPORT us Ovi Rodriguez MD LAB PATHOLOGY ORDERABLES Final Result PATHOLOGY [facility] 3rd Floor [place], [place] [phone] * Cytogenetics Specimen Tracking Bone marrow (09/14/2024 2:27 PM VTC TECHNICIAN) Cytotenetics Tracking Order Received Bone marrow 09/14/2024 2:2 7 PM VTC TECHNICIAN 09/15/2024 3:41 PM VTC TECHNICIAN N[facility]ative [facility] - 09/15/2024 3:42 PM VTC TECHNICIAN Please read the Cytogenetics Epic requisition for specimen collection requirements. Ovi Rodriguez MD LAB BODY FLUIDS AND STOO LS ORDERABLES Final Result Performing Organization Address [facility] Co de Phone Number [facility] [place] [address] * Flow Leukemia/Lymphoma Bone marrow (09/14/2024 2:27 PM VTC TECHNICIAN) Espinoza Stain Test Completed Leukemia/Lymp dacia Result See separate Surgical Pathology report. [facility] Bone marrow 09/14/2024 2:27 PM VTC TECHNICIAN 09/15/2024 1:01 PM VTC TECHNICIAN Narrative [facility] - 09/16/2024 12:28 PM VTC TECHNICIAN Tube information: Green top (Sodium Heparin) Ovi Rodriguez MD LAB PATHOLOGY ORDERABLES Final Result Performing Organization Address [facility] Co de Phone Number [facility] [place] [address] * Specimen tracking (09/14/2024 12:03 PM VTC TECHNICIAN) Specimen Bone Marrow Comment:Testing performed by : [facility] [place] [address] Specimen sent to Other DEBORAH Comment: Sent STAT to [facility] Testing performed by: [facility] [place] [address] Date sent [id number] DEBORAH Comment:Testing performed by : [facility] [place] [address] Other 09/14/2024 12:0 3 PM VTC TECHNICIAN 09/14/2024 3:44 PM VTC TECHNICIAN Narrative DEBORAH - 09/14/2024 4:05 PM VTC TECHNICIAN BM received at 1520 at [facility]. Sent Stat to Toussaint. Ovi Rodriguez MD LAB BLOOD ORDERABLES Fin al Result Performing Organization Address City/[facility]/ZIP Co de Phone Number DEBORAH MATTA [address] [address] [place] [address] * Immunotyping, serum (09/14/2024 11:11 AM VTC TECHNICIAN) Immunofixation See Cl Path Rpt Blood 09/14/2024 11:1 1 AM VTC TECHNICIAN 09/14/2024 11:54 AM VTC TECHNICIAN us Ovi Rodriguez MD LAB BLOOD ORDERABLES Fin al Result DEBORAH MATTA [address] [address] Department [place] [address] * Clinical pathology report (09/14/2024 11:11 AM VTC TECHNICIAN) Miscellaneous 09/14/2024 11: 11 AM VTC TECHNICIAN 09/16/2024 8:05 AM VTC TECHNICIAN Narrative 09/17/2024 2:41 PM VTC TECHNICIAN EPIC results best viewed via link to PDF [facility] Department of Pathology [address] [place] [id number] Final Report Note to Patients: This [...] the details. Patient Name: FRANCESCO JEAN Address: [address] [place] [address] Gender: F : 1955 (Age: 69) Service: Location: [facility] #: [id number] Patient Type: EP REF LAB SERIES Taken: [...] determined by the Surgical Pathology Department at [facility] as part of an ongoing quality control lab tech program and in compliance with federally mandated [...] determined by the Surgical Pathology Department [facility]. It has not been cleared or approved by the U. S. Food and Drug Administration. REPORT IMAGES AND SCANNED DOCUMENTS, IF INCLUDED, ONLY VIEWABLE IN PDF VERSION OF REPORTe o us Ovi Rodriguez MD LAB PATHOLOGY ORDERABLES Final Result * eGFR (09/14/2024 11:11 AM VTC TECHNICIAN) eGFR >90 >=60 mL/min/1. 73 m2 Comment: [...] was last reviewed 2021. Testing performed by: [facility] [place] [address] Blood 09/14/2024 11:1 1 AM VTC TECHNICIAN 09/14/2024 11:14 AM VTC TECHNICIAN us Ovi Rodriguez MD LAB BLOOD ORDERABLES Fin al Result DEBORAH [address] [address] Department of Laboratories [place], [place] [id number] * (ABNORMAL) Differential, auto (09/14/2024 11:11 AM VTC TECHNICIAN) Neutrophil abs 4.9 1.5 - 6.5 K/cumm Comment:Testing performed by : [facility] [place] [address] Imm gran abs 0.0 0.0 - 0.1 K/cumm DEBORAH Comment:Testing performed by : [facility] [place] [address] Lymphocyte abs 1.4 0.8 - 3.3 K/cumm DEBORAH Comment:Testing performed by : [facility] [place] [address] Monocyte abs 1.1(H) 0.2 - 0.8 K/cumm DEBORAH Comment:Testing performed by : [facility] [place] [address] Eosinophil abs 0.9(H) 0.0 - 0.5 K/cumm DEBORAH Comment:Testing performed by : [facility] [place] [address] Basophil abs 0.1 0.0 - 0.1 K/cumm CERNER CH Comment:Testing performed by : [facility] [place] [address] Neutrophil pct 58.2 % CERNER CH Comment: Interpretive Data Percent cell count reference ranges are not reported, since discordance with absolute values may lead to misinterpretation of CBC data. Current Interpretive Data was last revised on 2017. Testing performed by: [facility] [place] [address] Imm gran pct 0.4 % CERNER CH Comment: Interpretive Data Percent cell count reference ranges are not reported, since discordance with absolute values may lead to misinterpretation of CBC data. Current Interpretive Data was last revised on 2017. Testing performed by: [facility] [place] [address] Lymphocyte pct 16.6 % CERNER CH Comment: Interpretive Data Percent cell count reference ranges are not reported, since discordance with absolute values may lead to misinterpretation of CBC data. Current Interpretive Data was last revised on 2017. Testing performed by: [facility] [place] [address] Monocyte pct 12.7 % CERNER Comment: Interpretive Data Percent cell count reference ranges are not reported, since discordance with absolute values may lead to misinterpretation of CBC data. Current Interpretive Data was last revised on 2017. Testing performed by: [facility] [place] [address] Eosinophil pct 11.0 % CERNER CH Comment: Interpretive Data Percent cell count reference ranges are not reported, since discordance with absolute values may lead to misinterpretation of CBC data. Current Interpretive Data was last revised on 2017. Testing performed by: [facility] [place] [address] Basophil pct 1.1 % CERNER Comment: Interpretive Data Percent cell count reference ranges are not reported, since discordance with absolute values may lead to misinterpretation of CBC data. Current Interpretive Data was last revised on 2017. Testing performed by: [facility] [place] [address] Blood 09/14/2024 11:1 1 AM VTC TECHNICIAN 09/14/2024 11:14 AM VTC TECHNICIAN Ovi Rodriguez MD LAB BLOOD ORDERABLES Fin al Result Performing Organization Address [facility] de Phone Number DEBORAH MATTA [address] [address] [facility] [place] [address] * (ABNORMAL) Immunoglobulin free light chains (09/14/2024 11:11 AM VTC TECHNICIAN) [facility] [place]/Lambda ratio 2.70(H) 0.26 - 1.65 [place] free light chain 0.67 0.33 - 1.94 mg/dL DEBORAH Comment: Interpretive Data The Iaz Ig [place] FLC assay procedure was used. Results from [...] same method. Blood 09/14/2024 11:1 1 AM VTC TECHNICIAN 09/14/2024 11:54 AM VTC TECHNICIAN Ovi Rodriguez MD LAB BLOOD ORDERABLES Fin al Result Performing Organization Address [facility] de Phone Number DEBORAH MATTA [address] [facility] [place] [address] * (ABNORMAL) CBC with auto differential (09/14/2024 11:11 AM VTC TECHNICIAN) [facility] WBC 8.4 3.8 - 9.9 K/cumm Comment:Testing performed by : [facility] [place] [address] Hgb 11.9 11.9 - 15.5 g/dL DEBORAH Comment:Testing performed by : [facility] [place] [address] Hct 36.0 35.6 - 45.5 % DEBORAH Comment:Testing performed by : [facility] [place] [address] Plt 205 150 - 400 K/cumm DEBORAH Comment:Testing performed by : [facility] [place] [address] MPV 8.9(L) 9.1 - 12.3 fL DEBORAH CH Comment:Testing performed by : [facility] [place] [address] RBC 3.74(L) 3.90 - 5.20 M/cumm CERJUAN CH Comment:Testing performed by : [facility] [place] [address] MCV 96.3 81.3 - 96.4 fL DEBORAH CH Comment:Testing performed by : [facility] [place] [address] MCH 31.8 27.1 - 33.3 pg CERJUAN CH Comment:Testing performed by : [facility] [place] [address] MCHC 33.1 32.3 - 35.7 g/dL DEBORAH CH Comment:Testing performed by : [facility] [place] [address] RDW CV 13.1 11.1 - 14.9 % DEBORAH CH Comment:Testing performed by : [facility] [place] [address] RDW SD 46.5 35.7 - 48.1 fL DEBORAH CH Comment:Testing performed by : [facility] [place] [address] NRBC abs 0.00 0.00 - 0.01 K/cumm DEBORAH CH Comment:Testing performed by : [facility] [place] [address] Blood 09/14/2024 11:1 1 AM VTC TECHNICIAN 09/14/2024 11:14 AM VTC TECHNICIAN us Ovi Rodriguez MD LAB BLOOD ORDERABLES Fin al Result DEBORAH [address] [address] Department [place] [address] * Vitamin D 25 hydroxy (09/14/2024 11:11 AM VTC TECHNICIAN) Vitamin D 25-OH 38 30 - 80 ng/mL Blood 09/14/2024 11:1 1 AM VTC TECHNICIAN 09/14/2024 11:54 AM VTC TECHNICIAN Ovi Rodriguez MD LAB BLOOD ORDERABLES Fin al Result Performing Organization Address [facility] Co de Phone Number DEBORAH MATTA [address] [address] Department [place] [address] * (ABNORMAL) Type and screen (09/14/2024 11:11 AM VTC TECHNICIAN) Pathologist [facility] [place], indirect Positive(A) ABO Rh A Positive CERNER CH Blood 09/14/2024 11:1 1 AM VTC TECHNICIAN 09/14/2024 12:05 PM VTC TECHNICIAN [facility]ative [facility] 09/14/2024 2:25 PM VTC TECHNICIAN Has the patient had Daratumumab or Isatuximab in the past 6 months?->Unknown Ovi Rodriguez MD LAB BLOOD BANK TEST ORDE RABLES Final Result Performing Organization Address [facility] de Phone Number DEBORAH MATTA [address] [address] [place] [address] * (ABNORMAL) Protein electrophoresis with reflex, serum (09/14/2024 11:11 AM VTC TECHNICIAN) [facility] Protein, sr 6.2 6.2 - 8.2 g/dL [...] CERNER CH Blood 09/14/2024 11:1 1 AM VTC TECHNICIAN 09/14/2024 11:54 AM VTC TECHNICIAN Ovi Rodriguez MD LAB BLOOD ORDERABLES Fin al Result Performing Organization Address [facility] Co de Phone Number DEBORAH MATTA [address] [address] [facility] [place] [address] * Lactate dehydrogenase (LD) (09/14/2024 11:11 AM VTC TECHNICIAN) Lactate dehydrogenase (LDH) 189 100 - 250 Units/L Comment:Testing performed by : [facility] [place] [address] Blood 09/14/2024 11:1 1 AM VTC TECHNICIAN 09/14/2024 11:14 AM VTC TECHNICIAN Ovi Rodriguez MD LAB BLOOD ORDERABLES Mohan jeanette Result - Final Performing Organization Address [facility] Co de Phone Number DEBORAH MATTA [address] [place] [address] * (ABNORMAL) IgA (09/14/2024 11:11 AM VTC TECHNICIAN) Immunoglobulin A <50(L) 70 - 400 mg/dL Blood 09/14/2024 11:1 1 AM VTC TECHNICIAN 09/14/2024 11:55 AM VTC TECHNICIAN Ovi Rodriguez MD LAB BLOOD ORDERABLES Fin al Result Performing Organization Address [facility] Co de Phone Number DEBORAH MATTA [address] [address] [address] * (ABNORMAL) IgM (09/14/2024 11:11 AM VTC TECHNICIAN) Immunoglobulin M <25(L) 40 - 150 mg/dL Blood 09/14/2024 11:1 1 AM VTC TECHNICIAN 09/14/2024 11:55 AM VTC TECHNICIAN Ovi Rodriguez MD LAB BLOOD ORDERABLES Fin al Result Performing Organization Address [facility] Co de Phone Number DEBORAH [address] [place] [address] * (ABNORMAL) IgG (09/14/2024 11:11 AM VTC TECHNICIAN) Immunoglobulin G <300(L) 700 - 1,600 mg/dL Blood 09/14/2024 11:1 1 AM VTC TECHNICIAN 09/14/2024 11:55 AM VTC TECHNICIAN Ovi Rodriguez MD LAB BLOOD ORDERABLES Fin al Result Performing Organization Address City/[facility]/ZIP Co de Phone Number DEBORAH MATTA [address] [address] [place] [address] * Beta 2 microglobulin, serum (09/14/2024 11:11 AM VTC TECHNICIAN) Pathologist [facility] Beta 2 Microglobulin, Serum 2.10 1.00 - 2.50 mg/L Comment: Interpretive Data The Iza Beta-2 microglobulin assay procedure was used. Results from different manufacturers or methods may not be comparable. Serial testing should be performed using the same method. Testing performed by: [facility], [address] [place] [address]., [address] Blood 09/14/2024 11:1 1 AM VTC TECHNICIAN 09/14/2024 9:51 PM VTC TECHNICIAN Ovi Rodriguez MD LAB BLOOD ORDERABLES Fin al Result Performing Organization Address [facility] Co de Phone Number KURTJUAN MATTA [address] [address] Department [place] [address] * (ABNORMAL) Comprehensive metabolic panel (09/14/2024 11:11 AM VTC TECHNICIAN) Pathologist [facility] Sodium 140 135 - 145 mmol/L Comment:Testing performed by : [facility] [place] [address] Potassium, pl 4.4 3.3 - 4.9 mmol/L DEBORAH Comment:Testing performed by : [facility] [place] [address] Chloride 103 97 - 110 mmol/L DEBORAH CH Comment:Testing performed by : [facility] [place] [address] CO2 26 22 - 32 mmol/L DEBORAH Comment:Testing performed by : [facility] [place] [address] Anion gap 11 2 - 15 mmol/L CERNER CH Comment:Testing performed by : [facility] [place] [address] BUN 21 6 - 25 mg/dL CERNER CH Comment:Testing performed by : [facility] [place] [address] Creatinine 0.60 0.60 - 1.10 mg/dL CERNER CH Comment:Testing performed by : [facility] [place] [address] Glucose 109 70 - 199 mg/dL CERNER [...] was last revised 2022. Testing performed by: [facility] [place] [address] Calcium 9.7 8.5 - 10.3 mg/dL CERNER CH Comment:Testing performed by : [facility] [place] [address] Bilirubin, total 0.3 0.1 - 1.2 mg/dL CERNER CH Comment:Testing performed by : [facility] [place] [address] Protein, pl 6.4(L) 6.5 - 8.5 g/dL CERNER CH Comment:Testing performed by : [facility] [place] [address] Albumin 4.2 3.5 - 5.0 g/dL CERNER CH Comment:Testing performed by : [facility] [place] [address] Alk phos 71 40 - 130 Units/L CERNER CH Comment:Testing performed by : [facility] [place] [address] ALT 11 7 - 45 Units/L CERNER CH Comment:Testing performed by : [facility], [place] [address] AST 16 10 - 45 Units/L DEBORAH MATTA Comment:Testing performed by : [facility], [place] [address] Blood 09/14/2024 11:1 1 AM VTC TECHNICIAN 09/14/2024 11:14 AM VTC TECHNICIAN Ovi Rodriguez MD LAB BLOOD ORDERABLES Mohan jeanette Result - Final DEBORAH MATTA [address] [address] [place] [address] * Cytogenetics (09/14/2024 12:00 AM VTC TECHNICIAN) Bone Marrow Biopsy 09/14/2024 09/14/2024 Narrative 09/21/2024 4:06 PM VTC TECHNICIAN EPIC results best viewed via link to PDF [facility] Department of Pathol [address] [place] [address] Patient Information Name: FRANCESCO JEAN Gender: F : 1955 (Age: 69) Tissue: Bone Marrow w/ FISH Visit Information Hospital #: [id number] Facility: [facility] Service: [facility] Location: [facility] Patient Type: [facility] Specimen Information: Culture #: [id number] Date Collected: [...] Hybridization (FISH) analysis are performed using the Leica Cytovision Imaging System. Report Electronically Reviewed and Signed Out By Dave Arzola, PhD, FACMGDate Reported: 09/21/2024ssociate Professor, Division of Genomic & Molecular Pathology Ovi Rodriguez MD LAB GENETIC TESTING Amanda l Result * US Breast Right Limited (08/26/2024 2:39 PM VTC TECHNICIAN) Anatomical Region Laterality Modality Breast Right Ultrasound 08/26/2024 2:45 PM VTC TECHNICIAN Impressions 08/26/2024 2:45 PM VTC TECHNICIAN Right breast mass 10 o'clock position has [...] Ericka Mccormack M.D. Narrative 08/26/2024 2:45 PM VTC TECHNICIAN EXAMINATION: BILATERAL DIGITAL DIAGNOSTIC MAMMOGRAM INCLUDING CAD [...] addressed. Electronically signed by: Ericka Mccormack M.D. Marleny Melo NP IMG MAMMO PROCEDURES Final Resul t * Diagnostic Mammogram Bilateral W Brannon (08/26/2024 2:03 PM VTC TECHNICIAN) Anatomical Region Laterality Modality Breast Bilateral Mammography 08/26/2024 2:45 PM VTC TECHNICIAN Impressions 08/26/2024 2:45 PM VTC TECHNICIAN Right breast mass 10 o'clock position has [...] Ericka Mccormack M.D. Narrative 08/26/2024 2:45 PM VTC TECHNICIAN EXAMINATION: BILATERAL DIGITAL DIAGNOSTIC MAMMOGRAM INCLUDING CAD [...] by: Ericka Mccormack M.D. us Marleny Melo CONTENT DEVELOPER IMG MAMMO PROCEDURES Final Resul t * [...] MD LAB BLOOD ORDERABLES Fin al Result [facility] [place] [address] * Dexa Axial and Forearm Bone Density Scan (04/28/2024 2:49 PM CDT) Anatomical Region Laterality Modality Wrist, Body N/A Radiographic Lexi ging Narrative 04/28/2024 10:39 PM CDT Patient Name: Francesco Jean Date of : 1955 Date of scan: 04/28/2024 Bone mineral density was performed on a CodeCom[employer] Discovery Densitometer. Based on machine cross-calibration and [...] and scan interpretation were performed by Erica Rsos M.D. who is certified by the International Society of Clinical Densitometry. [id number] Ovi Rodriguez MD IMG DXA PROCEDURES Final Result from Last 3 Months or Most Recently Relevant to Health Maintenance Insurance Member Subscriber Plan / Payer (Ef fective 2021-Present) Name:Francesco Jean Relation to Subscriber:Self Name:Francesco Jean Payer ID:[id number] (NAIC) Type:[facility] MED[facility] Address: [place] [id number] [place] [phone] UHC MEDICARE ADVANTAGE Member Subscriber Plan / Payer (Ef fective 2024-Present) Name:Francesco Jean Relation to Subscriber:Self Name:Francesco Jean Payer ID:[id number] (NAIC) Type:[facility] MEDIC[facility] Address: [place] [id number] [place] [phone] TRANSPLANT [employer] MEDICARE RISK Advance Directives For more information, please contact: [phone] Documents on File Type Date Recorded Patient Wildlife Biostation Research Ecologist Expl anation ADVANCE DIRECTIVE 05/06/2024 3:59 PM Advanc e Directive * Full Code (Latest Code Status on File) Date Activated Date Inactivated Comments 06/07/2024 7:11 PM 06/25/2024 4:55 PM * Full Code Date Activated Date Inactivated Comments 05/31/2024 11:19 AM 06/01/2024 5:22 AM * Full Code Date Activated Date Inactivated Comments 11/14/2023 4:39 PM 12/02/2023 8:58 PM Care Teams Geothermal Field Technician Relationship Specialty Start Date End Date Mali Corona MD [address] [place] [address] PCP - General Family Practice 12/11/23 Ovi Rodriguez MD [address] [id number] [place], [place] [id number] Medical Oncologist/Chainstitch Seat Joiner Medical Oncology 11/28/23 Florence Acosta MD [address] [facility] [address] [id number] [place] [address] Radiation Oncologist Radiation Oncology 12/08/23 Tony Hammer MD [address] [facility] [address] [place] [address] Referring Physician Hematology 01/07/24 Claudette Rosen DPT [address] [place] [address] Physical Therapist Physical Therapy 08/12/24
--- OUTSIDE RECORDS SUMMARY | 2024-11-23 02:21 | XMS_ITS | Continuity of Care Document ---
Author Organization [facility] Address [address] [place] [address] [place] [address] Phone Care Team Providers Care Watch Hairspring Assembler Name Role Phone Jack AHUJA MD, Ovi [...] Providers Copied on Encounter [facility] [address] [place], [place], [id number] tel:[phone] [facility] Optical EXAM EARS & HEARING NEC 1 [address]ior. [facility] [place] [place], [address], [place]. tel:[phone] OFFICE CONSULTATION [facility] [address] [place], [place], [id number] tel:[phone] [facility] Punctate keratitisVitreou s degenerationDrus en (degenerative) of retinaIncipient senile cataract 1 Jack Dior. [facility] [place] [place], [address], [place]. tel:[phone] Family History Family Member Type Diagnosis Age At Onset No Information Payers Payer name Insurance type Covered alliance party ID Authoriza tion(s) No Information Social History [...]
--- OUTSIDE RECORDS SUMMARY | 2024-11-23 02:21 | XMS_ITS | Clinical Summary ---
Author Organization [facility] 8 [facility] Address 8 [facility] [address] [place] [address] Phone Care Team Providers Care Manager Business Information Name Role Phone Ovi Rodriguez MD Unavailable [phone] Florence Acosta MD Unavailable [phone] Mali Corona MD Primary Care Provider Tony Hammer MD Unavailable [phone] Caludette Rosen DPT Unavailable [phone] Allergies Active Allergy Reactions Criticality Noted Date [...] (10 mg total) by mouth daily Active iaenvbss-lpt-zge n-FA-vit K-lut 8 mg iron-400 mcg-50 mcg [...] 1 tablet (112 mcg total) by mouth apartment rental agent before breakfast Active diclofenac sodium (VOLTAREN) 1 [...] call provider to discuss adjustments Active vit C,H-Hw-yorkf-lut ein-zeaxan 250-90-40-1 mg capsuleIndicatio ns:eye health Take 1 capsule by mouth 2 (two) times a day. 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 She might have a fibrin sheath, but with 1 of the lines out there might be a mormonism of blood flow. He said he doesn't think we will gain much by doing an evaluation. He suggests waiting, seeing if the line restores flow, and then if not they can schedule her for evaluation later Local Oncologist Contact Dr. Mario Alvarado in [place], [place] Post-Discharge Office Visit (H30) [facility] - 06/29 @ [facility] Miscellaneous Notes: 12/01/23- Called Dr. [...] and Progress note to Dr. Hammer (F: [phone]) Problem Noted Date Diagnosed Date HTN (hypertension) [...] 12/01/2023 Cancer Staging:Clinical stage from 11/14/2023:RISS Stage I(Htip-5-ubfbpargijpds (mg/L): 2.7, Albumin (g/dL): 4.5, ISS: Stage [...] Description 11/17/2024 11:00 AM CDT Office Visit [facility] Orthopaedic Surgery [address] [place] [address] 12th [place] [address] [place] [address] Piper Quintero MD Chronic pain syndrome (Primary Dx); Compression fracture of thoracic vertebra, unspecified thoracic vertebral level, initial encounter (HCC); Neuropathic pain of chest; Pain in the abdomen 11/16/2024 Telephone [facility] Orthopaedic Surgery [address] [place] [address] 12th [place] [address] [place] [address] Piper Quintero MD 11/15/2024 Orders Only [facility] Bone Marrow Transplant [facility] [address] [address] Zafar Gary, RN Multiple myeloma in remission (HCC) (Primary Dx) 11/10/2024 Orders Only [facility] Bone Marrow Transplant [facility] [address] [address] Sarita Patiño RPh 11/09/2024 1:00 PM CDT Infusion [facility] [address] [place] [address] Multiple myeloma in remission (HCC) 11/09/2024 12:45 PM CDT Infusion [facility] [address] [place] [address] Multiple myeloma in remission (HCC) 11/09/2024 10:45 AM CDT Infusion [facility] [address] [place] [address] Multiple myeloma in remission (HCC) (Primary Dx) 11/09/2024 10:15 AM CDT Office Visit [facility] Bone Marrow Transplant [address] [place] [phone] Jarrod Garcia, NIGEL Multiple myeloma in remission (HCC) (Primary Dx); Multiple myeloma not having achieved remission (HCC) 11/09/2024 9:45 AM CDT Clinical Support [facility] Cancer [address] [address] Multiple myeloma in remission (HCC) 11/09/2024 9:32 AM CDT - 11/09/2024 11:59 PM CDT Hospital Encounter [facility] Lab [address] [place] [address] Multiple myeloma in remission (HCC) Discharge Disposition: Discharge to home or self care 11/09/2024 7:45 AM CDT - 11/09/2024 11:59 PM CDT Hospital Encounter [facility] Lab [address] [place] [address] Multiple myeloma in remission (HCC); Multiple myeloma not having achieved remission (HCC) Discharge Disposition: Discharge to home or self care 11/09/2024 Orders Only [facility] Bone Marrow Transplant [facility] 6 [place] [phone] Sarita Patiño [facility] 10/28/2024 11:00 AM ACADEMIC HOSPITALIST Therapy [facility] Physical Therapy [address] [facility] [address] [place] [address] Claudette Rosen, DPT Multiple myeloma not having achieved remission (HCC) (Primary Dx); Hx of spinal cord compression 10/26/2024 Telephone [facility] Orthopaedic Surgery [address] [facility] Advanced Medicine 12th [place] [address] [place] [address] Omid Hurtado PA 10/25/2024 Orders Only [facility] Bone Marrow Transplant [address] [facility] Floor 6 [place] [phone] Rupa Zaragoza [facility] 10/14/2024 Orders Only [facility] Bone Marrow Transplant [address] [facility] 6 [place] [address] Rupa Zaragoza RP 10/12/2024 3:00 PM ACADEMIC HOSPITALIST Infusion [facility] [address] [place] [address] Multiple myeloma in remission (HCC) 10/12/2024 1:00 PM ACADEMIC HOSPITALIST Infusion [facility] [place] [address] [place] [address] Multiple myeloma in remission (HCC) 10/12/2024 12:00 PM ACADEMIC HOSPITALIST Infusion [facility] [address] [place] [address] Multiple myeloma in remission (HCC) (Primary Dx) 10/12/2024 11:15 AM ACADEMIC HOSPITALIST Clinical Support [place] [address] [place] [address] Multiple myeloma in remission (HCC) 10/12/2024 11:05 AM ACADEMIC HOSPITALIST - 10/12/2024 11:59 PM ACADEMIC HOSPITALIST Hospital Encounter [facility] [address] [place] [address] Multiple myeloma not having achieved remission (HCC); Multiple myeloma in remission (HCC) Discharge Disposition: Discharge to home or self care 10/12/2024 Orders Only [facility] Oncology [address] [facility] 6 [place] [phone] Ovi Rodriguez MD 10/12/2024 Orders Only [facility] Bone Marrow Transplant [address] [facility] 6 [place] [address] Rupa Zaragoza [facility] 10/12/2024 Orders Only [facility] Bone Marrow Transplant [address] [facility] [place] [phone] Zafar Gary, RN Multiple myeloma in remission (HCC) (Primary Dx) 10/11/2024 Telephone [facility] Radiation Oncology [address] [place] [address] Advanced Medicine [place], [place] [phone] Florence Acosta MD 10/11/2024 Orders Only [facility] Bone Marrow Transplant [address] [phone] Jarrod Garcia DNP 10/11/2024 Orders Only [facility] Bone Marrow Transplant [address] [phone] HlasonuRupa, [facility] 10/06/2024 Orders Only [facility] Bone Marrow Transplant [facility] [address] [phone] HlasonuRupa, [facility] 10/06/2024 Orders Only [facility] Bone Marrow Transplant [address] [place] [phone] HlasonuRosalinaRupa, [facility] 10/06/2024 [facility] Advanced Medicine Radiation Oncology [address] [place] [address] Marleny Melo NP 10/06/2024 Orders Only [facility] Bone Marrow Transplant [facility] [address] [phone] Zafar Gary RN Multiple myeloma in remission (HCC) (Primary Dx) 10/06/2024 Orders Only [facility] Advanced [facility] Radiation Oncology [address] [place] [address] Marleny Melo NP Breast nodule (Primary Dx); Inconclusive mammogram; Multiple myeloma in remission (HCC) 10/05/2024 3:00 PM ACADEMIC HOSPITALIST Therapy [facility] Occupational Therapy [address] [place] [phone] Nu Dawson OT Weakness (Primary Dx); Decreased activities of daily living (ADL) 10/05/2024 1:44 PM ACADEMIC HOSPITALIST - 10/05/2024 11:59 PM ACADEMIC HOSPITALIST Hospital Encounter [facility] Advanced [facility] [address] [place] [address] Hx of breast cancer; Breast pain Discharge Disposition: Discharge to home or self care 10/05/2024 1:00 PM ACADEMIC HOSPITALIST - 10/05/2024 11:59 PM ACADEMIC HOSPITALIST Hospital Encounter 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 Radiology [facility] [address] [place] [address] Discharge Disposition: Discharge to home or self care 10/01/2024 8:44 AM ACADEMIC HOSPITALIST - 10/01/2024 11:59 PM ACADEMIC HOSPITALIST Hospital Encounter 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) Discharge Disposition: Discharge to home or self care 10/01/2024 Plan of Care Documentation [facility] Occupational Therapy [address] [place] [phone] 09/30/2024 3:00 PM ACADEMIC HOSPITALIST Therapy [facility] Physical Therapy [address] [place] [phone] Claudette Rosen DPT Multiple myeloma not having achieved remission (HCC) (Primary Dx); Hx of spinal cord compression 09/30/2024 2:00 PM ACADEMIC HOSPITALIST Therapy [facility] Occupational Therapy [address] [facility] [address] [place] [address] Nu Dawson OT Weakness (Primary Dx); Decreased activities of daily living (ADL); Deficit in activities of daily living (ADL) 09/29/2024 8:43 PM ACADEMIC HOSPITALIST - 09/29/2024 11:59 PM ACADEMIC HOSPITALIST Hospital Encounter [facility] [address] [place] [address] Discharge Disposition: Discharge to home or self care 09/29/2024 8:42 PM ACADEMIC HOSPITALIST - 09/29/2024 11:59 PM ACADEMIC HOSPITALIST Hospital Encounter [facility] [address] [place] [address] Discharge Disposition: Discharge to home or self care 09/29/2024 8:00 PM ACADEMIC HOSPITALIST - 09/29/2024 11:59 PM ACADEMIC HOSPITALIST Hospital Encounter [facility] [address] [place] [address] Discharge Disposition: Discharge to home or self care 09/29/2024 7:57 PM ACADEMIC HOSPITALIST - 09/29/2024 11:59 PM ACADEMIC HOSPITALIST Hospital Encounter [facility] [address] [place] [address] Discharge Disposition: Discharge to home or self care 09/29/2024 Telephone [facility] Advanced [facility] Radiation Oncology [address] [place] [address] for Advanced Medicine [facility] [place] [address] Marleny Melo NP 09/28/2024 Telephone [facility] Oncology [address] [place] [address] Farida Mckeon RMA 09/28/2024 Orders Only [facility] Bone Marrow Transplant [address] [place] [address] Zafar Gary, RN 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) [address] [place] [address] Hx of spinal cord compression; Multiple myeloma in remission (HCC); Bilateral low back pain without sciatica, unspecified chronicity Discharge Disposition: Discharge to home or self care 09/24/2024 Orders Only [facility] ONCOLOGY Scanning, Provider 09/21/2024 Telephone [facility] Bone Marrow Transplant [facility] 6 [place] [address] Jarrod Garcia DNP 09/21/2024 Orders Only [facility] Bone Marrow Transplant [address] [place] [phone] Sarita Patiño [facility] 09/21/2024 Orders Only [facility] Bone Marrow Transplant [address] [place] [address] Zafar Gary, RN Multiple myeloma not having achieved remission (HCC) (Primary Dx) 09/17/2024 Orders Only [facility] Bone Marrow Transplant [facility] [address] [address] Sarita Patiño [facility] 09/14/2024 2:28 PM ACADEMIC HOSPITALIST - 09/14/2024 11:59 PM ACADEMIC HOSPITALIST Hospital Encounter [facility] [address] [address] 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) 09/14/2024 9:32 AM ACADEMIC HOSPITALIST - 09/14/2024 11:59 PM ACADEMIC HOSPITALIST Hospital Encounter [facility] [address] [place] [address] Multiple myeloma not having achieved remission (HCC); 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); Vitamin D deficiency Discharge Disposition: Discharge to home or self care 09/14/2024 Orders Only [facility] [address] [place] [address] Ovi Rodriguez MD 09/14/2024 Orders Only [facility] Oncology [address] [place] [address] Ovi Rodriguez MD 09/07/2024 Orders Only [facility] Bone Marrow Transplant [facility] [place] [address] Zafar Gary RN 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) 09/02/2024 Telephone [facility] Radiation Oncology [facility] [place] [address] Florence Acosta MD 09/02/2024 Telephone [facility] Radiation Oncology [facility] [place] [address] Marleny Melo NP 09/02/2024 Telephone [facility] Radiation Oncology [facility] [place] [address] Marleny Melo NP 08/30/2024 10:00 AM ACADEMIC HOSPITALIST Therapy [facility] Physical Therapy [address] [facility] [address] [place] [address] Claudette Rosen DPT Multiple myeloma not having achieved remission (HCC) (Primary Dx); Hx of spinal cord compression 08/26/2024 1:07 PM ACADEMIC HOSPITALIST - 08/26/2024 11:59 PM ACADEMIC HOSPITALIST Hospital Encounter [facility] [address] [place] [address] Breast pain; Hx of breast cancer Discharge Disposition: Discharge to home or self care 08/26/2024 1:07 PM ACADEMIC HOSPITALIST - 08/26/2024 11:59 PM ACADEMIC HOSPITALIST Hospital Encounter [facility] [address] [place] [address] Breast pain; Hx of breast cancer Discharge Disposition: Discharge to home or self care from Last 3 Months Immunizations Immunization Administration Dates Next Due COVID-19 mRNA ([employer]) 0.3 m L (30 mcg) vaccine (12 [...] 08/31/1984 Right shoulder COLONOSCOPY 09/01/2017 - 08/31/20182003, 2004, 2007 TUNNELED LINE PLACEMENT > 5 YEARS 05/31/2024 [...] materials from doctor or pharmacy Never 08/04/2024 C Utilities Answer Date Recorded In the past 12 months has th e [employer], gas, oil, or water company threatened to [...] any clubs o r organizations such as pentecostalism groups, unions, fraternal or athletic groups, or [...] any time in the past 12 m [facility], were you homeless or living in [...] on file Legal Sex Female 11:17 AM ACADEMIC HOSPITALIST Gender Identity Not on file Sexual Orientation [...] 11/17/2024 12:53 PM CDT Plan of Treatment Health Maintenance Due Date Last Done Comments Colon Cancer Screening-Colonoscopy 1953 Hepatitis C Screening 1955 Dilated Eye Exam 1953 Foot Exam 1953 Hepatitis B Screening 1971 Well Visit 65+ 2018 Hemoglobin A1C 11/25/2024 05/28/2024, 08/2 04/2024, 11/14/2023 Covid-19 Vaccine ( season) 2025 11/09/2024, 10/12/2024, 05/19/2024, Additional history exists Depression Screening 05/27/2025 05/27/2024, 11/13/19 24 Fall Risk Assessment 06/25/2025 06/25/2024 Breast Cancer [...] history exists Pneumococcal vaccine 65+ Completed 07/16/2022, 05/2019 Influenza Vaccine Completed 10/12/2024, , 05/30/2022, [...] AM CDT EGFR STAT 10/12/2024 11:19 AM ACADEMIC HOSPITALIST Multiple myeloma in remission (HCC) DIFFERENTIAL AUTO Routine 10/12/2024 11:19 AM ACADEMIC HOSPITALIST Multiple myeloma in remission (HCC) CBC WITH AUTO DIFFERENTIAL Routine 10/12/2024 11:19 AM ACADEMIC HOSPITALIST Multiple myeloma in remission (HCC) COMPREHENSIVE METABOLIC PANEL STAT 10/12/2024 11:19 AM ACADEMIC HOSPITALIST Multiple myeloma in remission (HCC) TYPE AND SCREEN Routine 10/12/2024 11:19 AM ACADEMIC HOSPITALIST Multiple myeloma not having achieved remission (HCC) DIAGNOSTIC MAMMOGRAM RIGHT W BRANNON Schedule Routine, Read Routine (OP Routine) 10/05/2024 2:19 PM ACADEMIC HOSPITALIST Hx of breast cancer Breast pain US BREAST RIGHT LIMITED Schedule Routine, Read Routine (OP Routine) 10/05/2024 1:51 PM ACADEMIC HOSPITALIST Hx of breast cancer Breast pain IMMUNOGLOBULIN FREE LIGHT CHAINS Routine 10/05/2024 10:00 AM ACADEMIC HOSPITALIST 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) PROTEIN ELECTROPHORESIS, WITH REFLEX, SERUM Routine 10/05/2024 10:00 AM ACADEMIC HOSPITALIST 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) EGFR Routine 10/05/2024 10:00 AM ACADEMIC HOSPITALIST 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) DIFFERENTIAL AUTO Routine 10/05/2024 10:00 AM ACADEMIC HOSPITALIST 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) CBC WITH AUTO DIFFERENTIAL Routine 10/05/2024 10:00 AM ACADEMIC HOSPITALIST 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) COMPREHENSIVE METABOLIC PANEL Routine 10/05/2024 10:00 AM ACADEMIC HOSPITALIST 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) IGA Routine 10/05/2024 10:00 AM ACADEMIC HOSPITALIST 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) IGG Routine 10/05/2024 10:00 AM ACADEMIC HOSPITALIST 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) IGM Routine 10/05/2024 10:00 AM ACADEMIC HOSPITALIST 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) LACTATE DEHYDROGENASE Routine 10/05/2024 10:00 AM ACADEMIC HOSPITALIST 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) TYPE AND SCREEN Routine 10/05/2024 10:00 AM ACADEMIC HOSPITALIST Multiple myeloma not having achieved remission (HCC) CLINICAL PATHOLOGY REPORT Routine 10/05/2024 10:00 AM ACADEMIC HOSPITALIST PET/CT FDG SKULL TO THIGH Schedule Routine, Read Routine (OP Routine) 10/01/2024 11:24 AM ACADEMIC HOSPITALIST 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) NEURO MR OUTSIDE REFERENCE Routine 09/29/2024 8:43 PM ACADEMIC HOSPITALIST NEURO MR OUTSIDE REFERENCE Routine 09/29/2024 8:42 PM ACADEMIC HOSPITALIST NEURO CT OUTSIDE REFERENCE Routine 09/29/2024 8:00 PM ACADEMIC HOSPITALIST NEURO CT OUTSIDE REFERENCE Routine 09/29/2024 7:57 PM ACADEMIC HOSPITALIST MRI SPINE TOTAL COMPLETE W WO CONTRAST Schedule Routine, Read Routine (OP Routine) 09/27/2024 2:45 PM ACADEMIC HOSPITALIST Hx of spinal cord compression Multiple myeloma in remission (HCC) Bilateral low back pain without sciatica, unspecified chronicity SCAN - PATHOLOGY 09/24/2024 CLONOSEQ Routine 09/15/2024 11:49 AM ACADEMIC HOSPITALIST HEMATOLOGIC MOLECULAR ALGORITHM Routine 09/15/2024 11:49 AM ACADEMIC HOSPITALIST 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) SURGICAL PATHOLOGY Routine 09/14/2024 2: 28 PM ACADEMIC HOSPITALIST 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) FLOW LEUKEMIA/LYMPHOMA Routine 09/14/2024 2:27 PM ACADEMIC HOSPITALIST 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) CYTOGENETICS TRACKING ORDER Routine 09/14/2024 2:27 PM ACADEMIC HOSPITALIST 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) SPECIMEN TRACKING Routine 09/14/2024 12:03 PM ACADEMIC HOSPITALIST 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) CLINICAL PATHOLOGY REPORT Routine 09/14/2024 11:11 AM ACADEMIC HOSPITALIST EGFR Routine 09/14/2024 11:11 AM ACADEMIC HOSPITALIST 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) DIFFERENTIAL AUTO Routine 09/14/2024 11:11 AM ACADEMIC HOSPITALIST 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) BETA 2 MICROGLOBULIN SERUM Routine 09/14/2024 11:11 AM ACADEMIC HOSPITALIST 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) CBC WITH AUTO DIFFERENTIAL Routine 09/14/2024 11:11 AM ACADEMIC HOSPITALIST 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) COMPREHENSIVE METABOLIC PANEL Routine 09/14/2024 11:11 AM ACADEMIC HOSPITALIST 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) IGA Routine 09/14/2024 11:11 AM ACADEMIC HOSPITALIST 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) IGG Routine 09/14/2024 11:11 AM ACADEMIC HOSPITALIST 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) IGM Routine 09/14/2024 11:11 AM ACADEMIC HOSPITALIST 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) IMMUNOTYPING Routine 09/14/2024 11:11 AM ACADEMIC HOSPITALIST 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) IMMUNOGLOBULIN FREE LIGHT CHAINS Routine 09/14/2024 11:11 AM ACADEMIC HOSPITALIST 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) LACTATE DEHYDROGENASE Routine 09/14/2024 11:11 AM ACADEMIC HOSPITALIST 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) PROTEIN ELECTROPHORESIS, WITH REFLEX, SERUM Routine 09/14/2024 11:11 AM ACADEMIC HOSPITALIST 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) VITAMIN D 25 HYDROXY Routine 09/14/2024 11:11 AM ACADEMIC HOSPITALIST 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) Vitamin D deficiency TYPE AND SCREEN Routine 09/14/2024 11:11 AM ACADEMIC HOSPITALIST Multiple myeloma not having achieved remission (HCC) CYTOGENETICS Routine 09/14/2024 12:00 AM ACADEMIC HOSPITALIST US BREAST RIGHT LIMITED Schedule Routine, Read Routine (OP Routine) 08/26/2024 2:39 PM ACADEMIC HOSPITALIST Breast pain Hx of breast cancer DIAGNOSTIC MAMMOGRAM BILATERAL W BRANNON Schedule Routine, Read Routine (OP Routine) 08/26/2024 2:03 PM ACADEMIC HOSPITALIST Breast pain Hx of breast cancer HEMOGLOBIN [...] - 6.5 K/cumm Comment:Testing performed by : [facility] [place] [address] Imm gran abs 0.0 0.0 - 0.1 K/cumm CERNER CH Comment:Testing performed by : [facility] [place] [address] Lymphocyte abs 1.0 0.8 - 3.3 K/cumm CERNER CH Comment:Testing performed by : [facility] [place] [address] Monocyte abs 0.6 0.2 - 0.8 K/cumm CERNER CH Comment:Testing performed by : [facility] [place] [address] Eosinophil abs 0.6(H) 0.0 - 0.5 K/cumm CERNER CH Comment:Testing performed by : [facility] [place] [address] Basophil abs 0.1 0.0 - 0.1 K/cumm CERNER CH Comment:Testing performed by : [facility] [place] [address] Neutrophil pct 57.3 % CERNER CH Comment: Interpretive Data Percent cell count reference ranges are not reported, since discordance with absolute values may lead to misinterpretation of CBC data. Current Interpretive Data was last revised on 2017. Testing performed by: [facility] [place] [address] Imm gran pct 0.6 % CERNER CH Comment: Interpretive Data Percent cell count reference ranges are not reported, since discordance with absolute values may lead to misinterpretation of CBC data. Current Interpretive Data was last revised on 2017. Testing performed by: [facility] [place] [address] Lymphocyte pct 18.3 % CERNER CH Comment: Interpretive Data Percent cell count reference ranges are not reported, since discordance with absolute values may lead to misinterpretation of CBC data. Current Interpretive Data was last revised on 2017. Testing performed by: [facility] [place] [address] Monocyte pct 11.7 % CERNER CH Comment: Interpretive Data Percent cell count reference ranges are not reported, since discordance with absolute values may lead to misinterpretation of CBC data. Current Interpretive Data was last revised on 2017. Testing performed by: [facility] [place] [address] Eosinophil pct 10.6 % DEBORAH Comment: Interpretive Data Percent cell count reference ranges are not reported, since discordance with absolute values may lead to misinterpretation of CBC data. Current Interpretive Data was last revised on 2017. Testing performed by: [facility] [place] [address] Basophil pct 1.5 % DEBORAH Comment: Interpretive Data Percent cell count reference ranges are not reported, since discordance with absolute values may lead to misinterpretation of CBC data. Current Interpretive Data was last revised on 2017. Testing performed by: [facility] [place] [address] Blood 11/09/2024 12:0 0 PM CDT 11/09/2024 12:06 PM CDT Ovi Rodriguez MD LAB BLOOD ORDERABLES Fin al Result [facility] [address] [address] Department of Laboratories [place], [place] [id number] * (ABNORMAL) CBC with auto differential (11/09/2024 12:00 PM CDT) WBC 5.3 3.8 - 9.9 K/cumm Comment:Testing performed by : [facility] [place] [address] Hgb 11.6(L) 11.9 - 15.5 g/dL DEBORAH Comment:Testing performed by : [facility] [place] [address] Hct 34.4(L) 35.6 - 45.5 % DEBORAH Comment:Testing performed by : [facility] [place] [address] Plt 174 150 - 400 K/cumm DEBORAH Comment:Testing performed by : [facility] [place] [address] MPV 9.3 9.1 - 12.3 fL DEBORAH Comment:Testing performed by : [facility] [place] [address] RBC 3.70(L) 3.90 - 5.20 M/cumm DEBORAH CH Comment:Testing performed by : [facility] [place] [address] MCV 93.0 81.3 - 96.4 fL DEBORAH CH Comment:Testing performed by : [facility] [place] [address] MCH 31.4 27.1 - 33.3 pg CERJUAN CH Comment:Testing performed by : [facility] [place] [address] MCHC 33.7 32.3 - 35.7 g/dL DEBORAH CH Comment:Testing performed by : [facility] [place] [address] RDW CV 13.1 11.1 - 14.9 % DEBORAH CH Comment:Testing performed by : [facility] [place] [address] RDW SD 44.5 35.7 - 48.1 fL DEBORAH CH Comment:Testing performed by : [facility] [place] [address] NRBC abs 0.00 0.00 - 0.01 K/cumm DEBORAH CH Comment:Testing performed by : [facility] [place] [address] Blood 11/09/2024 12:0 0 PM CDT 11/09/2024 12:06 PM CDT us Ovi Rodriguez MD LAB BLOOD ORDERABLES Fin al Result [facility] [address] [address] [place] [address] * Clinical pathology report (11/09/2024 10:05 AM CDT) Miscellaneous 11/09/2024 10: 05 AM CDT 11/11/2024 8:36 AM CDT Narrative 11/11/2024 4:31 PM CDT EPIC results best viewed via link to PDF [facility] Department of Pathology [address] [place] [id number] Final Report Note to Patients: This report [...] the details. Patient Name: FRANCESCO JEAN Address: [address] [place] [address] Gender: F : 1955 (Age: 69) Service: Location: N : [id number] Hospital #: [id number] Patient Type: CH EP REF LAB SERIES [...] determined by the Surgical Pathology Department at [facility] as part of an ongoing quality review specialist program and in compliance with federally mandated [...] characteristics determined by the Surgical Pathology Department [facility]. It has not been cleared or approved [...] was last reviewed 2021. Testing performed by: [facility], [place] [address] Blood 11/09/2024 10:0 5 AM CDT 11/09/2024 10:10 AM CDT Ovi Rodriguez MD LAB BLOOD ORDERABLES Fin al Result DEBORAH MATTA [address] [address] [place] [address] * Immunoglobulin free light chains (11/09/2024 10:05 AM CDT) [place]/Lambda ratio 1.40 0.26 - 1.65 [place] free light chain 1.44 0.33 - 1.94 mg/dL [facility] Comment: Interpretive Data The Iza Ig [place] FLC assay procedure was used. Results from different manufacturers or methods may not be comparable. Serial testing should be performed using the same method. Lambda free light chain 1.06 0.57 - 2.63 mg/dL [facility] Comment: Interpretive Data The Iza Ig Lambda FLC assay procedure was used. Results from different manufacturers or methods may not be comparable. Serial testing should be performed using the same method. Blood 11/09/2024 10:0 5 AM CDT 11/09/2024 11:45 AM CDT Ovi Rordiguez MD LAB BLOOD ORDERABLES Fin al Result Performing Organization Address City/[facility]/ZIP Co de Phone Number [facility] [address] [address] [place] [address] * (ABNORMAL) Type and screen (11/09/2024 10:05 AM CDT) Pathologist [facility] Loid[place], indirect Positive(A) ABO Rh A Positive [facility] Blood 11/09/2024 10:0 5 AM CDT 11/09/2024 10:56 AM CDT Narrative [facility] - 11/09/2024 12:45 PM CDT Has the patient had Daratumumab or Isatuximab in the past 6 months?->Unknown Ovi Rodriguez MD LAB BLOOD BANK TEST ORDE RABLES Final Result Performing Organization Address City/[facility]/ZIP Co de Phone Number [facility] [address] [address] [place] [address] * (ABNORMAL) Protein electrophoresis with reflex, serum with interpretation (11/09/2024 10:05 AM CDT) Pathologist [facility] Protein, sr 5.8(L) 6.2 - 8.2 g/dL Albumin 3.8 3.2 - 5.0 g/dL [facility] Alpha-1 globulin 0.3 0.2 - 0.4 g/dL [facility] Alpha-2 globulin 0.7 0.5 - 1.0 g/dL [...] ORDERABLES Fin al Result Performing Organization Address [facility] Co de Phone Number KURTJUAN [address] [address] [place] [address] * Lactate dehydrogenase (LD) (11/09/2024 10:05 AM CDT) Lactate dehydrogenase (LDH) 179 100 - 250 Units/L Comment:Testing performed by : [facility], [place] [address] Blood 11/09/2024 10:0 5 AM CDT 11/09/2024 10:10 AM CDT Ovi Rodriguez MD LAB BLOOD ORDERABLES Mohan jeanette Result - Final Performing Organization Address [facility] de Phone Number [facility] [address] [address] [place] [address] * (ABNORMAL) IgA (11/09/2024 10:05 AM CDT) Immunoglobulin A 68(L) 70 - 400 mg/dL Blood 11/09/2024 10:0 5 AM CDT 11/09/2024 10:50 AM CDT Ovi Rodriguez MD LAB BLOOD ORDERABLES Fin al Result Performing Organization Address [facility] Co de Phone Number [facility] [address] [address] [place] [address] * (ABNORMAL) IgM (11/09/2024 10:05 AM CDT) Immunoglobulin M <25(L) 40 - 150 mg/dL Blood 11/09/2024 10:0 5 AM CDT 11/09/2024 10:50 AM CDT Ovi Rodriguez MD LAB BLOOD ORDERABLES Fin al Result Performing Organization Address [facility] Co de Phone Number KURTJUAN [address] [address] [place] [address] * (ABNORMAL) IgG (11/09/2024 10:05 AM CDT) Pathologist [facility] Immunoglobulin G <300(L) 700 - 1,600 mg/dL Blood 11/09/2024 10:0 5 AM CDT 11/09/2024 10:50 AM CDT Ovi Rodriguez MD LAB BLOOD ORDERABLES Fin al Result Performing Organization Address [facility] de Phone Number KURTJUAN [address] [address] [place] [address] * (ABNORMAL) Comprehensive metabolic panel (11/09/2024 10:05 AM CDT) Pathologist [facility] Sodium 139 135 - 145 mmol/L Comment:Testing performed by : [facility] [place] [address] Potassium, pl 4.5 3.3 - 4.9 mmol/L CERNER CH Comment:Testing performed by : [facility] [place] [address] Chloride 104 97 - 110 mmol/L CERNER CH Comment:Testing performed by : [facility] [place] [address] CO2 26 22 - 32 mmol/L CERNER CH Comment:Testing performed by : [facility] [place] [address] Anion gap 9 2 - 15 mmol/L CERNER CH Comment:Testing performed by : [facility] [place] [address] BUN 22 6 - 25 mg/dL CERNER CH Comment:Testing performed by : [facility] [place] [address] Creatinine 0.76 0.60 - 1.10 mg/dL CERNER CH Comment:Testing performed by : [facility] [place] [address] Glucose 117 70 - 199 mg/dL CERNER [...] was last revised 2022. Testing performed by: [facility] [place] [address] Calcium 9.3 8.5 - 10.3 mg/dL CERNER CH Comment:Testing performed by : [facility] [place] [address] Bilirubin, total 0.2 0.1 - 1.2 mg/dL CERNER CH Comment:Testing performed by : [facility] [place] [address] Protein, pl 6.2(L) 6.5 - 8.5 g/dL CERNER CH Comment:Testing performed by : [facility] [place] [address] Albumin 3.9 3.5 - 5.0 g/dL CERNER CH Comment:Testing performed by : [facility] [place] [address] Alk phos 62 40 - 130 Units/L CERNER CH Comment:Testing performed by : [facility] [place] [address] ALT 19 7 - 45 Units/L CERNER CH Comment:Testing performed by : [facility] [place] [address] AST 20 10 - 45 Units/L CERNER CH Comment:Testing performed by : [facility], [place] [address] Blood 11/09/2024 10:0 5 AM CDT 11/09/2024 10:10 AM CDT us Ovi Rodriguez MD LAB BLOOD ORDERABLES Mohan jeanette Result - Final Performing Organization Address [facility] Co de Phone Number DEBORAH MATTA [address] [address] [place] [address] * eGFR (11/09/2024 9:51 AM [...] was last reviewed 2021. Testing performed by: [facility], [place] [address] Blood 11/09/2024 9:51 AM CDT 11/09/2024 10:10 AM CDT us Henry Gross MD LAB BLOOD ORDERABLES Final R esult Performing Organization Address City/[facility]/ZIP Co de Phone Number DEBORAH MATTA [address] [address] Department of Laboratories [place], [place] [id number] * Albumin Creatinine Ratio, Urine (11/09/2024 9:51 [...] ORDERABLES Final R esult Performing Organization Address City/[facility] Co de Phone Number DEBORAH SIGRID [address] [address] [facility] [place] [address] * Vitamin D 25 hydroxy (11/09/2024 9:51 AM CDT) Pathologist [facility] Vitamin D 25-OH 32 30 - 80 ng/mL Blood 11/09/2024 9:51 AM CDT 11/09/2024 11:45 AM CDT Henry Gross MD LAB BLOOD ORDERABLES Final R esult Performing Organization Address [facility] Co de Phone Number KURTJUAN MATTA [address] [address] [facility] [place] [address] * TSH (11/09/2024 9:51 AM CDT) Thyroid Stimulating Hormone 3.13 0.30 - 4.20 mcIUnit/mL Blood 11/09/2024 9:51 AM CDT 11/09/2024 10:50 AM CDT Henry Gross MD LAB BLOOD ORDERABLES Final R esult Performing Organization Address City/[facility] Co de Phone Number KURTJUAN MATTA [address] [address] [facility] [place] [address] * T4, free (11/09/2024 9:51 AM CDT) Free T4 1.40 0.90 - 1.70 ng/dL Blood 11/09/2024 9:51 AM CDT 11/09/2024 10:50 AM CDT us Henry Gross MD LAB BLOOD ORDERABLES Final R esult DEBORAH [address] [address] [place] [address] * Lipid panel (11/09/2024 9:51 AM CDT) [...] MD LAB BLOOD ORDERABLES Final R esult [facility] [address] [address] [place] [address] * (ABNORMAL) Comprehensive metabolic panel (11/09/2024 9:51 AM CDT) Sodium 138 135 - 145 mmol/L Comment:Testing performed by : [facility] [place] [address] Potassium, pl 4.5 3.3 - 4.9 mmol/L CERNER Comment:Testing performed by : [facility] [place] [address] Chloride 104 97 - 110 mmol/L CERNER Comment:Testing performed by : [facility] [place] [address] CO2 25 22 - 32 mmol/L CERNER Comment:Testing performed by : [facility] [place] [address] Anion gap 9 2 - 15 mmol/L [facility] Comment:Testing performed by : [facility] [place] [address] BUN 22 6 - 25 mg/dL [facility] Comment:Testing performed by : [facility] [place] [address] Creatinine 0.76 0.60 - 1.10 mg/dL [facility] Comment:Testing performed by : [facility] [place] [address] Glucose 117 70 - 199 mg/dL [facility] Comment: Interpretive Data Fasting glucose >/= [...] classification and Diagnosis of Diabetes Diabetes Care 2022; 46: S19-S40. Current interpretive data was last revised 2022. Testing performed by: [facility] [place] [address] Calcium 9.2 8.5 - 10.3 mg/dL CERNER CH Comment:Testing performed by : [facility] [place] [address] Bilirubin, total 0.2 0.1 - 1.2 mg/dL CERNER CH Comment:Testing performed by : [facility] [place] [address] Protein, pl 6.0(L) 6.5 - 8.5 g/dL CERNER CH Comment:Testing performed by : [facility] [place] [address] Albumin 4.0 3.5 - 5.0 g/dL CERNER CH Comment:Testing performed by : [facility] [place] [address] Alk phos 62 40 - 130 Units/L CERNER CH Comment:Testing performed by : [facility] [place] [address] ALT 18 7 - 45 Units/L CERNER CH Comment:Testing performed by : [facility] [place] [address] AST 20 10 - 45 Units/L CERNER CH Comment:Testing performed by : [facility] [place] [address] Blood 11/09/2024 9:51 AM CDT 11/09/2024 9:52 AM CDT us Henry Gross MD LAB BLOOD ORDERABLES Final R esult [facility] [address] [address] [place] [address] * eGFR (10/12/2024 11:19 AM ACADEMIC HOSPITALIST) eGFR >90 >=60 mL/min/1. 73 m2 Comment: [...] was last reviewed 2021. Testing performed by: [facility] [place] [address] Blood 10/12/2024 11:1 9 AM ACADEMIC HOSPITALIST 10/12/2024 11:25 AM ACADEMIC HOSPITALIST us Ovi Rodriguez MD LAB BLOOD ORDERABLES Fin al Result DEBORAH [address] [address] [place] [address] * (ABNORMAL) Differential, auto (10/12/2024 11:19 AM ACADEMIC HOSPITALIST) Neutrophil abs 9.1(H) 1.5 - 6.5 K/cumm Comment:Testing performed by : [facility] [place] [address] Imm gran abs 0.0 0.0 - 0.1 K/cumm DEBORAH Comment:Testing performed by : [facility] [place] [address] Lymphocyte abs 1.4 0.8 - 3.3 K/cumm DEBORAH Comment:Testing performed by : [facility] [place] [address] Monocyte abs 0.9(H) 0.2 - 0.8 K/cumm DEBORAH Comment:Testing performed by : [facility] [place] [address] Eosinophil abs 1.5(H) 0.0 - 0.5 K/cumm DEBORAH Comment:Testing performed by : [facility] [place] [address] Basophil abs 0.1 0.0 - 0.1 K/cumm CERNER CH Comment:Testing performed by : [facility] [place] [address] Neutrophil pct 70.0 % CERNER CH Comment: Interpretive Data Percent cell count reference ranges are not reported, since discordance with absolute values may lead to misinterpretation of CBC data. Current Interpretive Data was last revised on 2017. Testing performed by: [facility] [place] [address] Imm gran pct 0.3 % CERNER CH Comment: Interpretive Data Percent cell count reference ranges are not reported, since discordance with absolute values may lead to misinterpretation of CBC data. Current Interpretive Data was last revised on 2017. Testing performed by: [facility] [place] [address] Lymphocyte pct 10.7 % CERNER CH Comment: Interpretive Data Percent cell count reference ranges are not reported, since discordance with absolute values may lead to misinterpretation of CBC data. Current Interpretive Data was last revised on 2017. Testing performed by: [facility] [place] [address] Monocyte pct 7.1 % CERNER Comment: Interpretive Data Percent cell count reference ranges are not reported, since discordance with absolute values may lead to misinterpretation of CBC data. Current Interpretive Data was last revised on 2017. Testing performed by: [facility] [place] [address] Eosinophil pct 11.4 % CERNER CH Comment: Interpretive Data Percent cell count reference ranges are not reported, since discordance with absolute values may lead to misinterpretation of CBC data. Current Interpretive Data was last revised on 2017. Testing performed by: [facility] [place] [address] Basophil pct 0.5 % CERNER CH Comment: Interpretive Data Percent cell count reference ranges are not reported, since discordance with absolute values may lead to misinterpretation of CBC data. Current Interpretive Data was last revised on 2017. Testing performed by: [facility] [place] [address] Blood 10/12/2024 11:1 9 AM ACADEMIC HOSPITALIST 10/12/2024 11:23 AM ACADEMIC HOSPITALIST us Ovi Rodriguez MD LAB BLOOD ORDERABLES Fin al Result DEBORAH [address] [address] [place] [address] * (ABNORMAL) CBC with auto differential (10/12/2024 11:19 AM ACADEMIC HOSPITALIST) WBC 13.0(H) 3.8 - 9.9 K/cumm Comment:Testing performed by : [facility] [place] [address] Hgb 11.5(L) 11.9 - 15.5 g/dL CERNER CH Comment:Testing performed by : [facility] [place] [address] Hct 34.1(L) 35.6 - 45.5 % CERNER CH Comment:Testing performed by : [facility] [place] [address] Plt 198 150 - 400 K/cumm CERNER CH Comment:Testing performed by : [facility] [place] [address] MPV 9.1 9.1 - 12.3 fL CERNER CH Comment:Testing performed by : [facility] [place] [address] RBC 3.59(L) 3.90 - 5.20 M/cumm CERNER CH Comment:Testing performed by : [facility] [place] [address] MCV 95.0 81.3 - 96.4 fL CERNER CH Comment:Testing performed by : [facility] [place] [address] MCH 32.0 27.1 - 33.3 pg CERNER CH Comment:Testing performed by : [facility] [place] [address] MCHC 33.7 32.3 - 35.7 g/dL CERNER CH Comment:Testing performed by : [facility] [place] [address] RDW CV 12.5 11.1 - 14.9 % CERNER CH Comment:Testing performed by : [facility] [place] [address] RDW SD 43.8 35.7 - 48.1 fL DEBORAH Comment:Testing performed by : [facility] [place] [address] NRBC abs 0.00 0.00 - 0.01 K/cumm DEBORAH Comment:Testing performed by : [facility] [place] [address] Blood 10/12/2024 11:1 9 AM ACADEMIC HOSPITALIST 10/12/2024 11:23 AM ACADEMIC HOSPITALIST Ovi Rodriguez MD LAB BLOOD ORDERABLES Fin al Result Performing Organization Address City/[facility] Co de Phone Number DEBORAH MATTA [address] [address] [address] * (ABNORMAL) Type and screen (10/12/2024 11:19 AM ACADEMIC HOSPITALIST) Pathologist [facility] ABO Rh A Positive [place], indirect Positive(A) DEBORAH Blood 10/12/2024 11:1 9 AM ACADEMIC HOSPITALIST 10/12/2024 1:26 PM ACADEMIC HOSPITALIST Narrative DEBORAH - 10/12/2024 2:20 PM ACADEMIC HOSPITALIST Has the patient had Daratumumab or Isatuximab in the past 6 months?->Unknown Ovi Rodriguez MD LAB BLOOD BANK TEST ORDE RABLES Final Result Performing Organization Address [facility] Co de Phone Number DEBORAH MATTA [address] [address] [place] [address] * (ABNORMAL) Comprehensive metabolic panel (10/12/2024 11:19 AM ACADEMIC HOSPITALIST) [facility] Sodium 141 135 - 145 mmol/L Comment:Testing performed by : [facility] [place] [address] Potassium, pl 4.4 3.3 - 4.9 mmol/L DEBORAH Comment:Testing performed by : [facility] [place] [address] Chloride 103 97 - 110 mmol/L CERNER CH Comment:Testing performed by : [facility] [place] [address] CO2 28 22 - 32 mmol/L CERNER CH Comment:Testing performed by : [facility] [place] [address] Anion gap 10 2 - 15 mmol/L CERNER CH Comment:Testing performed by : [facility] [place] [address] BUN 18 6 - 25 mg/dL CERNER CH Comment:Testing performed by : [facility] [place] [address] Creatinine 0.65 0.60 - 1.10 mg/dL CERNER CH Comment:Testing performed by : [place] [place] [address] Glucose 134 70 - 199 mg/dL CERNER [...] was last revised 2022. Testing performed by: [facility] [place] [address] Calcium 10.1 8.5 - 10.3 mg/dL CERNER CH Comment:Testing performed by : [facility] [place] [address] Bilirubin, total 0.3 0.1 - 1.2 mg/dL CERNER CH Comment:Testing performed by : [facility] [place] [address] Protein, pl 6.3(L) 6.5 - 8.5 g/dL CERNER CH Comment:Testing performed by : [facility] [place] [address] Albumin 4.2 3.5 - 5.0 g/dL CERNER CH Comment:Testing performed by : [facility] [place] [address] Alk phos 72 40 - 130 Units/L CERJUAN CH Comment:Testing performed by : [facility], [place] [address] ALT 11 7 - 45 Units/L CERJUAN CH Comment:Testing performed by : [facility], [place] [address] AST 17 10 - 45 Units/L CERNER CH Comment:Testing performed by : [facility], [place] [address] Blood 10/12/2024 11:1 9 AM ACADEMIC HOSPITALIST 10/12/2024 11:23 AM ACADEMIC HOSPITALIST us Ovi Rodriguez MD LAB BLOOD ORDERABLES Fin al Result DEBORAH [address] Department [place] [address] * Diagnostic Mammogram Right W Brannon (10/05/2024 2:19 PM ACADEMIC HOSPITALIST) Anatomical Region Laterality Modality Breast Right Mammography 10/05/2024 2:43 PM ACADEMIC HOSPITALIST Impressions 10/05/2024 3:15 PM ACADEMIC HOSPITALIST Slight interval evolution of likely fat necrosis/hematoma [...] Mitzy Abdalla M.D. Narrative 10/05/2024 3:15 PM ACADEMIC HOSPITALIST EXAMINATION: RIGHT UNILATERAL DIGITAL DIAGNOSTIC MAMMOGRAM AND [...] US Breast Right Limited (10/05/2024 1:51 PM ACADEMIC HOSPITALIST) Anatomical Region Laterality Modality Breast Right Ultrasound 10/05/2024 2:43 PM ACADEMIC HOSPITALIST Impressions 10/05/2024 3:15 PM ACADEMIC HOSPITALIST Slight interval evolution of likely fat necrosis/hematoma [...] Mitzy Abdalla M.D. Narrative 10/05/2024 3:15 PM ACADEMIC HOSPITALIST EXAMINATION: RIGHT UNILATERAL DIGITAL DIAGNOSTIC MAMMOGRAM AND [...] Electronically signed by: Mitzy Abdalla M.D. Marleny Lorie BAND MAKER IMG MAMMO PROCEDURES Final Resul t * (ABNORMAL) Immunoglobulin free light chains (10/05/2024 10:00 AM ACADEMIC HOSPITALIST) [place]/Lambda ratio 2.00(H) 0.26 - 1.65 [place] free light chain 0.63 0.33 - 1.94 mg/dL DEBORAH Comment: Interpretive Data The Iza Ig [place] FLC assay procedure was used. Results from [...] same method. Blood 10/05/2024 10:0 0 AM ACADEMIC HOSPITALIST 10/05/2024 11:28 AM ACADEMIC HOSPITALIST Jarrod Garcia [facility] LAB BLOOD ORDERABLES Amanda l Result DEBORAH [address] Department [place] [address] * (ABNORMAL) Protein electrophoresis with reflex, serum with interpretation (10/05/2024 10:00 AM ACADEMIC HOSPITALIST) Pathologist [facility] Protein, sr 6.0(L) 6.2 - 8.2 g/dL [...] CERNER CH Blood 10/05/2024 10:0 0 AM ACADEMIC HOSPITALIST 10/05/2024 11:28 AM ACADEMIC HOSPITALIST Jarrod Garcia [facility] LAB BLOOD ORDERABLES Amanda dillon Result DEBORAH MATTA [address] Department [place] [address] * eGFR (10/05/2024 10:00 AM ACADEMIC HOSPITALIST) eGFR >90 >=60 mL/min/1. 73 m2 Comment: [...] was last reviewed 2021. Testing performed by: [facility], [place] [address] Blood 10/05/2024 10:0 0 AM ACADEMIC HOSPITALIST 10/05/2024 10:06 AM ACADEMIC HOSPITALIST Jarrod Garcia [facility] LAB BLOOD ORDERABLES Amanda dillon Result [facility] [address] Department [place] [address] * (ABNORMAL) Differential, auto (10/05/2024 10:00 AM ACADEMIC HOSPITALIST) Neutrophil abs 4.0 1.5 - 6.5 K/cumm Comment:Testing performed by : [facility] [place] [address] Imm gran abs 0.0 0.0 - 0.1 K/cumm CERNER CH Comment:Testing performed by : [facility] [place] [address] Lymphocyte abs 1.6 0.8 - 3.3 K/cumm CERNER CH Comment:Testing performed by : [place] [place] [address] Monocyte abs 0.9(H) 0.2 - 0.8 K/cumm CERNER CH Comment:Testing performed by : [facility] [place] [address] Eosinophil abs 1.6(H) 0.0 - 0.5 K/cumm CERNER CH Comment:Testing performed by : [facility] [place] [address] Basophil abs 0.1 0.0 - 0.1 K/cumm CERNER CH Comment:Testing performed by : [facility] [place] [address] Neutrophil pct 49.3 % CERNER Comment: Interpretive Data Percent cell count reference ranges are not reported, since discordance with absolute values may lead to misinterpretation of CBC data. Current Interpretive Data was last revised on 2017. Testing performed by: [facility] [place] [address] Imm gran pct 0.4 % CERNER Comment: Interpretive Data Percent cell count reference ranges are not reported, since discordance with absolute values may lead to misinterpretation of CBC data. Current Interpretive Data was last revised on 2017. Testing performed by: [facility] [place] [address] Lymphocyte pct 19.0 % CERNER Comment: Interpretive Data Percent cell count reference ranges are not reported, since discordance with absolute values may lead to misinterpretation of CBC data. Current Interpretive Data was last revised on 2017. Testing performed by: [facility] [place] [address] Monocyte pct 11.4 % DEBORAH MATTA Comment: Interpretive Data Percent cell count reference ranges are not reported, since discordance with absolute values may lead to misinterpretation of CBC data. Current Interpretive Data was last revised on 2017. Testing performed by: [facility] [place] [address] Eosinophil pct 19.3 % DEBORAH MATTA Comment: Interpretive Data Percent cell count reference ranges are not reported, since discordance with absolute values may lead to misinterpretation of CBC data. Current Interpretive Data was last revised on 2017. Testing performed by: [facility] [place] [address] Basophil pct 0.6 % DEBORAH Comment: Interpretive Data Percent cell count reference ranges are not reported, since discordance with absolute values may lead to misinterpretation of CBC data. Current Interpretive Data was last revised on 2017. Testing performed by: [facility] [place] [address] Blood 10/05/2024 10:0 0 AM ACADEMIC HOSPITALIST 10/05/2024 10:06 AM ACADEMIC HOSPITALIST Jarrod Garcia [facility] LAB BLOOD ORDERABLES Amanda l Result DEBORAH MATTA [address] Department of Laboratories [place], [place] [id number] * (ABNORMAL) CBC with auto differential (10/05/2024 10:00 AM ACADEMIC HOSPITALIST) WBC 8.2 3.8 - 9.9 K/cumm Comment:Testing performed by : [facility] [place] [address] Hgb 11.8(L) 11.9 - 15.5 g/dL DEBORAH MATTA Comment:Testing performed by : [facility] [place] [address] Hct 35.0(L) 35.6 - 45.5 % CERNER CH Comment:Testing performed by : [place] [place] [address] Plt 220 150 - 400 K/cumm CERNER CH Comment:Testing performed by : [facility] [place] [address] MPV 9.1 9.1 - 12.3 fL CERNER CH Comment:Testing performed by : [place] [place] [address] RBC 3.65(L) 3.90 - 5.20 M/cumm CERNER CH Comment:Testing performed by : [facility] [place] [address] MCV 95.9 81.3 - 96.4 fL CERNER CH Comment:Testing performed by : [place] [place] [address] MCH 32.3 27.1 - 33.3 pg CERNER CH Comment:Testing performed by : [facility] [place] [address] MCHC 33.7 32.3 - 35.7 g/dL CERNER CH Comment:Testing performed by : [facility] [place] [address] RDW CV 12.7 11.1 - 14.9 % CERNER CH Comment:Testing performed by : [place] [place] [address] RDW SD 44.7 35.7 - 48.1 fL CERNER CH Comment:Testing performed by : [facility] [place] [address] NRBC abs 0.00 0.00 - 0.01 K/cumm CERNER CH Comment:Testing performed by : [facility] [place] [address] Blood 10/05/2024 10:0 0 AM ACADEMIC HOSPITALIST 10/05/2024 10:06 AM ACADEMIC HOSPITALIST Jarrod Garcia DNP LAB BLOOD ORDERABLES Amanda l Result DEBORAH [address] Department [place] [address] * Lactate dehydrogenase (LD) (10/05/2024 10:00 AM ACADEMIC HOSPITALIST) Lactate dehydrogenase (LDH) 183 100 - 250 Units/L Comment:Testing performed by : [facility], [place] [address] Blood 10/05/2024 10:0 0 AM ACADEMIC HOSPITALIST 10/05/2024 10:06 AM ACADEMIC HOSPITALIST Jarrod Garcia [facility] LAB BLOOD ORDERABLES Edit ed Result - Final Performing Organization Address [facility]/ZIP Co de Phone Number DEBORAH MATTA [address] [place] [address] * (ABNORMAL) IgA (10/05/2024 10:00 AM ACADEMIC HOSPITALIST) Pathologist [facility] Immunoglobulin A <50(L) 70 - 400 mg/dL Blood 10/05/2024 10:0 0 AM ACADEMIC HOSPITALIST 10/05/2024 10:44 AM ACADEMIC HOSPITALIST Jarrod Garcia [facility] LAB BLOOD ORDERABLES Amanda l Result Performing Organization Address [facility] Co de Phone Number KURTJUAN MATTA [address] [place] [address] * (ABNORMAL) IgM (10/05/2024 10:00 AM ACADEMIC HOSPITALIST) Immunoglobulin M <25(L) 40 - 150 mg/dL Blood 10/05/2024 10:0 0 AM ACADEMIC HOSPITALIST 10/05/2024 10:44 AM ACADEMIC HOSPITALIST Jarrod Garcia [facility] LAB BLOOD ORDERABLES Amanda l Result Performing Organization Address [facility] Co de Phone Number DEBORAH [address] [facility] [place], [place] [id number] * (ABNORMAL) IgG (10/05/2024 10:00 AM ACADEMIC HOSPITALIST) Immunoglobulin G <300(L) 700 - 1,600 mg/dL Blood 10/05/2024 10:0 0 AM ACADEMIC HOSPITALIST 10/05/2024 10:44 AM ACADEMIC HOSPITALIST Jarrod Garcia [facility] LAB BLOOD ORDERABLES Amanda dillon Result [facility] [address] Department [place] [address] * (ABNORMAL) Comprehensive metabolic panel (10/05/2024 10:00 AM ACADEMIC HOSPITALIST) Sodium 142 135 - 145 mmol/L Comment:Testing performed by : [facility] [place] [address] Potassium, pl 4.6 3.3 - 4.9 mmol/L [facility] Comment:Testing performed by : [place] [address] Chloride 105 97 - 110 mmol/L [facility] Comment:Testing performed by : [place] [address] CO2 26 22 - 32 mmol/L [facility] Comment:Testing performed by : [place] [place] [address] Anion gap 11 2 - 15 mmol/L [facility] Comment:Testing performed by : [place] [place] [address] BUN 18 6 - 25 mg/dL [facility] Comment:Testing performed by : [place] [place] [address] Creatinine 0.67 0.60 - 1.10 mg/dL [facility] Comment:Testing performed by : [place] [place] [address] Glucose 131 70 - 199 mg/dL [facility] Comment: Interpretive Data Fasting glucose >/= [...] was last revised 2022. Testing performed by: [facility] [place] [address] Calcium 9.5 8.5 - 10.3 mg/dL CERNER CH Comment:Testing performed by : [place] [place] [address] Bilirubin, total 0.2 0.1 - 1.2 mg/dL CERNER CH Comment:Testing performed by : [facility] [place] [address] Protein, pl 6.2(L) 6.5 - 8.5 g/dL CERNER CH Comment:Testing performed by : [facility] [place] [address] Albumin 4.2 3.5 - 5.0 g/dL CERNER CH Comment:Testing performed by : [facility] [place] [address] Alk phos 73 40 - 130 Units/L CERNER CH Comment:Testing performed by : [place] [place] [address] ALT 13 7 - 45 Units/L CERNER CH Comment:Testing performed by : [facility] [place] [address] AST 19 10 - 45 Units/L CERNER CH Comment:Testing performed by : [facility] [place] [address] Blood 10/05/2024 10:0 0 AM ACADEMIC HOSPITALIST 10/05/2024 10:06 AM ACADEMIC HOSPITALIST Jarrod Garcia [facility] LAB BLOOD ORDERABLES Edit ed Result - Final [facility] [address] Department [place] [address] * (ABNORMAL) Type and screen (10/05/2024 10:00 AM ACADEMIC HOSPITALIST) ABO Rh A Positive Loida, indirect Positive(A) CERNER CH Blood 10/05/2024 10:0 0 AM ACADEMIC HOSPITALIST 10/05/2024 10:47 AM ACADEMIC HOSPITALIST Narrative CERNER CH - 10/05/2024 1:00 PM ACADEMIC HOSPITALIST Has the patient had Daratumumab or Isatuximab in the past 6 months?->Unknown Ovi Rodriguez MD LAB BLOOD BANK TEST JESS YOUNG Final Result DEBORAH [address] [facility] [place] [address] * Clinical pathology report (10/05/2024 10:00 AM ACADEMIC HOSPITALIST) Miscellaneous 10/05/2024 10: 00 AM ACADEMIC HOSPITALIST 10/07/2024 8:33 AM ACADEMIC HOSPITALIST Narrative 10/10/2024 10:56 AM ACADEMIC HOSPITALIST [facility] results best viewed via link to PDF [facility] [address] [place] [address] Final Report Note to Patients: This [...] the details. Patient Name: FRANCESCO JEAN Address: [address] [place] [address] Gender: F : 1955 (Age: 69) Service: Location: N : [id number] Hospital #: [id number] Patient Type: EP REF LAB SERIES Taken: 10/05/2024 Received: [...] determined by the Surgical Pathology Department at [facility] as part of an ongoing quality review specialist program and in compliance with federally mandated [...] characteristics determined by the Surgical Pathology Department [facility]. It has not been cleared or approved by the U. S. Food and Drug Administration. REPORT IMAGES AND SCANNED DOCUMENTS, IF INCLUDED, ONLY VIEWABLE IN PDF VERSION OF REPORTe o [facility] LAB PATHOLOGY ORDERABLES Final Result * PET/CT FDG Skull to Thigh (10/01/2024 11:24 AM ACADEMIC HOSPITALIST) Anatomical Region Laterality Modality N/A Positron Emissio n Tomography (PET) 10/01/2024 11:5 8 AM ACADEMIC HOSPITALIST Impressions 10/01/2024 12:23 PM ACADEMIC HOSPITALIST 1. Near complete resolution of previously hypermetabolic osseous lesions as described above in keeping with patient's known myeloma. 2. No new hypermetabolic osseous lesion. Dictated by: Familia Hodge MD The radiology attending physician has personally reviewed this study, and had reviewed and/or edited this written report and agrees with it. Electronically signed by: DO Greta Spain 10/01/2024 12:23 PM ACADEMIC HOSPITALIST EXAMINATION: TUMOR FDG-PET/CT IMAGING DATE OF STUDY: 10/01/2024 SCANNER: [facility] N PET Vision (NV1). This is a [...] obtained. The study was interpreted on the UbiCast workstation. The mean liver SUV (reported for quality assurance clerk purposes) is 3.0. The total scanned area [...] reanastomosis. Right vastus lateralis lipoma. Procedure Note KatherineAleks alasan, DO - 10/01/2024 EXAMINATION: TUMOR FDG-PET/CT IMAGING DATE OF STUDY: 10/01/2024 SCANNER: [facility] Motionloft (NV1). This is a high-resolution scanner, which [...] obtained. The study was interpreted on the UbiCast workstation. The mean liver SUV (reported for quality assurance clerk purposes) is 3.0. The total scanned area [...] by: Aleks Cesar DO Ovi Rodriguez MD [facility] PET PROCEDURES Final Result * Neuro MR Outside Reference (09/29/2024 8:43 PM ACADEMIC HOSPITALIST) Impressions RAD_PACS_[facility] - 09/29/2024 8:43 PM ACADEMIC HOSPITALIST These images are for Reference purposes only and have not been reviewed by [facility] Radiology. There will be no report generated by a [facility] Radiologist. Narrative RAD_PACS_[facility] - 09/29/2024 8:43 PM ACADEMIC HOSPITALIST EXAMINATION: Images For Reference Purposes Only Florence Acosta MD IMG MRI PROCEDURES Final R esult [facility] * Neuro MR Outside Reference (09/29/2024 8:42 PM ACADEMIC HOSPITALIST) Impressions [facility] - 09/29/2024 8:42 PM ACADEMIC HOSPITALIST These images are for Reference purposes only and have not been reviewed by [facility] Radiology. There will be no report generated by a [facility] Radiologist. Narrative [facility] - 09/29/2024 8:42 PM ACADEMIC HOSPITALIST EXAMINATION: Images For Reference Purposes Only Florence Acosta MD IMG MRI PROCEDURES Final R esult Performing Organization Address [facility] de Phone Number [facility] * Neuro CT Outside Reference (09/29/2024 8:00 PM ACADEMIC HOSPITALIST) Impressions [facility] - 09/29/2024 8:00 PM ACADEMIC HOSPITALIST These images are for Reference purposes only and have not been reviewed by [facility] Radiology. There will be no report generated by a [facility] Radiologist. Narrative [facility] - 09/29/2024 8:00 PM ACADEMIC HOSPITALIST EXAMINATION: Images For Reference Purposes Only Result [facility] Florence Acosta MD IMG CT PROCEDURES Final Re sult Performing Organization Address [facility] de Phone Number [facility] * Neuro CT Outside Reference (09/29/2024 7:57 PM ACADEMIC HOSPITALIST) Impressions [facility] - 09/29/2024 7:57 PM ACADEMIC HOSPITALIST These images are for Reference purposes only and have not been reviewed by [facility] Radiology. There will be no report generated by a [facility] Radiologist. Narrative [facility] - 09/29/2024 7:57 PM ACADEMIC HOSPITALIST EXAMINATION: Images For Reference Purposes Only Florence Acosta MD IMG CT PROCEDURES Final Re sult Performing Organization Address [facility] de Phone Number [facility] * MRI Spine Total Complete W WO Contrast (09/27/2024 2:45 PM ACADEMIC HOSPITALIST) Anatomical Region Laterality Modality Spine N/A Magnetic Resonan ce 09/27/2024 5:21 PM ACADEMIC HOSPITALIST Impressions 09/27/2024 5:23 PM ACADEMIC HOSPITALIST 1. Multiple pathologic fractures, including new fractures [...] Rosas Arroyo M.D. Narrative 09/27/2024 5:23 PM ACADEMIC HOSPITALIST EXAMINATION: 1. Magnetic resonance imaging (MRI) of [...] - Final * ClonoSeq (09/15/2024 11:49 AM ACADEMIC HOSPITALIST) ClonoSeq See attached scanned report for results. Bone marrow 09/15/2024 11:4 9 AM ACADEMIC HOSPITALIST 09/15/2024 3:43 PM ACADEMIC HOSPITALIST Ovi Rodriguez MD LAB PATHOLOGY ORDERABLES Final Result Performing Organization Address City/[facility] Co de Phone Number [facility] [place] [address] * Hematologic Molecular Algorithm Bone marrow (09/15/2024 11:49 AM ACADEMIC HOSPITALIST) Heme Molecular Algorithm Received Bone marrow 09/15/2024 11:4 9 AM ACADEMIC HOSPITALIST 09/15/2024 12:35 PM ACADEMIC HOSPITALIST Narrative [facility] - 09/22/2024 11:37 AM ACADEMIC HOSPITALIST Tube information: [place] top Clinical History / Treatment Plan:->MM s/p auto sct Select diagnosis - - Appropriate molecular tests will be performed based on histopathological diagnosis.->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; No additional testing indicated Ovi Rodriguez MD LAB BODY FLUIDS AND STOO LS ORDERABLES Final Result Performing Organization Address [facility] Co de Phone Number [facility] Department [place] [address] * Surgical pathology (09/14/2024 2:28 PM ACADEMIC HOSPITALIST) Bone marrow (Bone Marrow Biopsy) 09/14/2024 2:28 PM ACADEMIC HOSPITALIST 09/15/2024 9:38 AM ACADEMIC HOSPITALIST Narrative PATHOLOGY [facility] - 09/16/2024 3:39 PM ACADEMIC HOSPITALIST EPIC results best viewed via link to PDF [facility] Laura Esposito Laboratory of Surgical [place] [address] Note to Patients: This report may contain [...] Gender: F : 1955 (Age: 69) Address: [address] [place] [id number] Hospital #: [id number] Taken:09/14/2024 Received:09/15/2024 Reported: 09/16/2024 Patient Type: [facility] SPECIMEN Service: Laboratory Location: Physician(s): Ovi [...] specimen was examined for internal quality assurance clerk purposes. Flow cytometry was performed using antibodies to the following cellular antigens: CD45, CD19, CD20, [place], Lambda, CD38, CD138, CD56. Total antigens analyzed: [...] Surgical Pathology and Flow Cytometry Departments at [facility] as part of an ongoing quality review specialist program and in compliance with federally mandated [...] Surgical Pathology and Flow Cytometry Departments of [facility]. It has not been cleared or approved by the U. S. Food and Drug Administration. IMAGES AND SCANNED DOCUMENTS, IF INCLUDED, ONLY VIEWABLE IN PDF VERSION OF REPORT Ovi Rodriguez MD LAB PATHOLOGY ORDERABLES Final Result PATHOLOGY [facility] 3rd Floor [place], [place] [phone] * Cytogenetics Specimen Tracking Bone marrow (09/14/2024 2:27 PM ACADEMIC HOSPITALIST) Pathologist [facility] Cytotenetics Tracking Order Received Bone marrow 09/14/2024 2:27 PM ACADEMIC HOSPITALIST 09/15/2024 3:41 PM ACADEMIC HOSPITALIST Narrative [facility] - 09/15/2024 3:42 PM ACADEMIC HOSPITALIST Please read the Cytogenetics Epic requisition for specimen collection requirements. Ovi Rodriguez MD LAB BODY FLUIDS AND STOO LS ORDERABLES Final Result Performing Organization Address [facility] Co de Phone Number [facility] [place] [address] * Flow Leukemia/Lymphoma Bone marrow (09/14/2024 2:27 PM ACADEMIC HOSPITALIST) Pathologist [facility] Espinoza Stain Test Completed Leukemia/Lymp dacia Result See separate Surgical Pathology report. [facility] Bone marrow 09/14/2024 2:27 PM ACADEMIC HOSPITALIST 09/15/2024 1:01 PM ACADEMIC HOSPITALIST Narrative [facility] - 09/16/2024 12:28 PM ACADEMIC HOSPITALIST Tube information: Green top (Sodium Heparin) Ovi Rodriguez MD LAB PATHOLOGY ORDERABLES Final Result Performing Organization Address City/[facility]/ZIP Co de Phone Number [place] [address] * Specimen tracking (09/14/2024 12:03 PM ACADEMIC HOSPITALIST) Specimen Bone Marrow Comment:Testing performed by : [facility], [place] [address] Specimen sent to Other DEBORAH MATTA Comment: Sent STAT to Norbert Testing performed by: [facility], [place] [address] Date sent [id number] DEBORAH MATTA Comment:Testing performed by : [facility], [place] [address] Other 09/14/2024 12:0 3 PM ACADEMIC HOSPITALIST 09/14/2024 3:44 PM ACADEMIC HOSPITALIST Narrative DEBORAH - 09/14/2024 4:05 PM ACADEMIC HOSPITALIST BM received at 1520 at [facility]. Sent Stat to [facility]. Ovi Rodriguez MD LAB BLOOD ORDERABLES Fin al Result Performing Organization Address City/[facility]/ZIP Co de Phone Number DEBORAH [address] [address] [facility] [place] [address] * Immunotyping, serum (09/14/2024 11:11 AM ACADEMIC HOSPITALIST) Immunofixation See Cl Path Rpt Blood 09/14/2024 11:1 1 AM ACADEMIC HOSPITALIST 09/14/2024 11:54 AM ACADEMIC HOSPITALIST Ovi Rodriguez MD LAB BLOOD ORDERABLES Fin al Result Performing Organization Address [facility] Co de Phone Number [facility] [address] [facility] [place] [address] * Clinical pathology report (09/14/2024 11:11 AM ACADEMIC HOSPITALIST) Miscellaneous 09/14/2024 11: 11 AM ACADEMIC HOSPITALIST 09/16/2024 8:05 AM ACADEMIC HOSPITALIST Narrative 09/17/2024 2:41 PM ACADEMIC HOSPITALIST EPIC results best viewed via link to PDF [facility] Department of Pathology [address] [place] [address] Final Report Note to Patients: This [...] the details. Patient Name: FRANCESCO JEAN Address: [address] [place] [address] Gender: F : 1955 (Age: 69) Service: Location: N : [id number] [facility] #: [id number] Patient Type: CH EP REF LAB SERIES [...] determined by the Surgical Pathology Department at [facility] as part of an ongoing quality review specialist program and in compliance with federally mandated [...] characteristics determined by the Surgical Pathology Department [facility]. It has not been cleared or approved by the U. S. Food and Drug Administration. REPORT IMAGES AND SCANNED DOCUMENTS, IF INCLUDED, ONLY VIEWABLE IN PDF VERSION OF REPORTe o Ovi Rodriguez MD LAB PATHOLOGY ORDERABLES Final Result * eGFR (09/14/2024 11:11 AM ACADEMIC HOSPITALIST) eGFR >90 >=60 mL/min/1. 73 m2 Comment: [...] was last reviewed 2021. Testing performed by: [facility] at [facility], [place] [address] Blood 09/14/2024 11:1 1 AM ACADEMIC HOSPITALIST 09/14/2024 11:14 AM ACADEMIC HOSPITALIST Ovi Rodriguez MD LAB BLOOD ORDERABLES Fin al Result DEBORAH MATTA [address] [address] Department [place] [address] * (ABNORMAL) Differential, auto (09/14/2024 11:11 AM ACADEMIC HOSPITALIST) Neutrophil abs 4.9 1.5 - 6.5 K/cumm Comment:Testing performed by : [facility] [place] [address] Imm gran abs 0.0 0.0 - 0.1 K/cumm CERNER CH Comment:Testing performed by : [facility] [place] [address] Lymphocyte abs 1.4 0.8 - 3.3 K/cumm CERNER CH Comment:Testing performed by : [facility] [place] [address] Monocyte abs 1.1(H) 0.2 - 0.8 K/cumm CERNER CH Comment:Testing performed by : [facility] [place] [address] Eosinophil abs 0.9(H) 0.0 - 0.5 K/cumm CERNER CH Comment:Testing performed by : [facility] [place] [address] Basophil abs 0.1 0.0 - 0.1 K/cumm CERNER CH Comment:Testing performed by : [facility] [place] [address] Neutrophil pct 58.2 % CERNER CH Comment: Interpretive Data Percent cell count reference ranges are not reported, since discordance with absolute values may lead to misinterpretation of CBC data. Current Interpretive Data was last revised on 2017. Testing performed by: [facility] [place] [address] Imm gran pct 0.4 % CERNER CH Comment: Interpretive Data Percent cell count reference ranges are not reported, since discordance with absolute values may lead to misinterpretation of CBC data. Current Interpretive Data was last revised on 2017. Testing performed by: [facility] [place] [address] Lymphocyte pct 16.6 % CERNER CH Comment: Interpretive Data Percent cell count reference ranges are not reported, since discordance with absolute values may lead to misinterpretation of CBC data. Current Interpretive Data was last revised on 2017. Testing performed by: [facility] [place] [address] Monocyte pct 12.7 % CERNER CH Comment: Interpretive Data Percent cell count reference ranges are not reported, since discordance with absolute values may lead to misinterpretation of CBC data. Current Interpretive Data was last revised on 2017. Testing performed by: [facility] [place] [address] Eosinophil pct 11.0 % DEBORAH Comment: Interpretive Data Percent cell count reference ranges are not reported, since discordance with absolute values may lead to misinterpretation of CBC data. Current Interpretive Data was last revised on 2017. Testing performed by: [facility] at [place] [id number] Basophil pct 1.1 % DEBORAH Comment: Interpretive Data Percent cell count reference ranges are not reported, since discordance with absolute values may lead to misinterpretation of CBC data. Current Interpretive Data was last revised on 2017. Testing performed by: [facility] [place] [address] Blood 09/14/2024 11:1 1 AM ACADEMIC HOSPITALIST 09/14/2024 11:14 AM ACADEMIC HOSPITALIST Ovi Rodriguez MD LAB BLOOD ORDERABLES Fin al Result DEBORAH [address] [address] Department [place] [address] * (ABNORMAL) Immunoglobulin free light chains (09/14/2024 11:11 AM ACADEMIC HOSPITALIST) [place]/Lambda ratio 2.70(H) 0.26 - 1.65 [place] free light chain 0.67 0.33 - 1.94 mg/dL DEBORAH Comment: Interpretive Data The Iza Ig [place] FLC assay procedure was used. Results from [...] same method. Blood 09/14/2024 11:1 1 AM ACADEMIC HOSPITALIST 09/14/2024 11:54 AM ACADEMIC HOSPITALIST Ovi Rodriguez MD LAB BLOOD ORDERABLES Fin al Result [facility] [address] [address] Department [place] [address] * (ABNORMAL) CBC with auto differential (09/14/2024 11:11 AM ACADEMIC HOSPITALIST) WBC 8.4 3.8 - 9.9 K/cumm Comment:Testing performed by : [facility] [place] [address] Hgb 11.9 11.9 - 15.5 g/dL CERNER CH Comment:Testing performed by : [facility] [place] [address] Hct 36.0 35.6 - 45.5 % CERNER CH Comment:Testing performed by : [facility] [place] [address] Plt 205 150 - 400 K/cumm CERNER CH Comment:Testing performed by : [facility] [place] [address] MPV 8.9(L) 9.1 - 12.3 fL CERNER CH Comment:Testing performed by : [facility] [place] [address] RBC 3.74(L) 3.90 - 5.20 M/cumm CERNER CH Comment:Testing performed by : [facility] [place] [address] MCV 96.3 81.3 - 96.4 fL CERNER CH Comment:Testing performed by : [facility] [place] [address] MCH 31.8 27.1 - 33.3 pg CERNER CH Comment:Testing performed by : [facility] [place] [address] MCHC 33.1 32.3 - 35.7 g/dL CERNER CH Comment:Testing performed by : [facility] [place] [address] RDW CV 13.1 11.1 - 14.9 % CERNER CH Comment:Testing performed by : [facility] [place] [address] RDW SD 46.5 35.7 - 48.1 fL CERNER CH Comment:Testing performed by : [facility] [place] [address] NRBC abs 0.00 0.00 - 0.01 K/cumm DEBORAH Comment:Testing performed by : [facility] at [facility], [place] [address] Blood 09/14/2024 11:1 1 AM ACADEMIC HOSPITALIST 09/14/2024 11:14 AM ACADEMIC HOSPITALIST Ovi Rodriguez MD LAB BLOOD ORDERABLES Fin al Result Performing Organization Address City/[facility] Co de Phone Number DEBORAH [address] [address] Department [place] [address] * Vitamin D 25 hydroxy (09/14/2024 11:11 AM ACADEMIC HOSPITALIST) [facility] Vitamin D 25-OH 38 30 - 80 ng/mL Blood 09/14/2024 11:1 1 AM ACADEMIC HOSPITALIST 09/14/2024 11:54 AM ACADEMIC HOSPITALIST Ovi Rodriguez MD LAB BLOOD ORDERABLES Fin al Result Performing Organization Address [facility] de Phone Number DEBORAH [address] [address] [place] [address] * (ABNORMAL) Type and screen (09/14/2024 11:11 AM ACADEMIC HOSPITALIST) Pathologist [facility] Loida, indirect Positive(A) ABO Rh A Positive DEBORAH Blood 09/14/2024 11:1 1 AM ACADEMIC HOSPITALIST 09/14/2024 12:05 PM ACADEMIC HOSPITALIST Narrative [facility] - 09/14/2024 2:25 PM ACADEMIC HOSPITALIST Has the patient had Daratumumab or Isatuximab in the past 6 months?->Unknown Ovi Rodriguez MD LAB BLOOD BANK TEST ORDE RABLES Final Result Performing Organization Address [facility] Co de Phone Number [facility] [address] [address] Department [place] [address] * (ABNORMAL) Protein electrophoresis with reflex, serum (09/14/2024 11:11 AM ACADEMIC HOSPITALIST) Protein, sr 6.2 6.2 - 8.2 g/dL [...] CERNER CH Blood 09/14/2024 11:1 1 AM ACADEMIC HOSPITALIST 09/14/2024 11:54 AM ACADEMIC HOSPITALIST Ovi Rodriguez MD LAB BLOOD ORDERABLES Fin al Result Performing Organization Address City/[facility]/ZIP Co de Phone Number DEBORAH [address] [address] Department of [place], [place] [id number] * Lactate dehydrogenase (LD) (09/14/2024 11:11 AM ACADEMIC HOSPITALIST) Pathologist [facility] Lactate dehydrogenase (LDH) 189 100 - 250 Units/L Comment:Testing performed by : [facility] at [facility], [place] [address] Blood 09/14/2024 11:1 1 AM ACADEMIC HOSPITALIST 09/14/2024 11:14 AM ACADEMIC HOSPITALIST Ovi Rodriguez MD LAB BLOOD ORDERABLES Mohan jeanette Result - Final [facility] [address] [address] Department [address] [place], [place] [id number] * (ABNORMAL) IgA (09/14/2024 11:11 AM ACADEMIC HOSPITALIST) Pathologist [facility] Immunoglobulin A <50(L) 70 - 400 mg/dL Blood 09/14/2024 11:1 1 AM ACADEMIC HOSPITALIST 09/14/2024 11:55 AM ACADEMIC HOSPITALIST Ovi Rodriguez MD LAB BLOOD ORDERABLES Fin al Result Performing Organization Address [facility] Co de Phone Number DEBORAH MATTA [address] [address] [facility] [place] [address] * (ABNORMAL) IgM (09/14/2024 11:11 AM ACADEMIC HOSPITALIST) Immunoglobulin M <25(L) 40 - 150 mg/dL Blood 09/14/2024 11:1 1 AM ACADEMIC HOSPITALIST 09/14/2024 11:55 AM ACADEMIC HOSPITALIST Ovi Rodriguez MD LAB BLOOD ORDERABLES Fin al Result Performing Organization Address [facility] de Phone Number DEBORAH MATTA [address] [address] [place] [address] * (ABNORMAL) IgG (09/14/2024 11:11 AM ACADEMIC HOSPITALIST) Immunoglobulin G <300(L) 700 - 1,600 mg/dL Blood 09/14/2024 11:1 1 AM ACADEMIC HOSPITALIST 09/14/2024 11:55 AM ACADEMIC HOSPITALIST Result [facility] Ovi Rodriguez MD LAB BLOOD ORDERABLES Fin al Result Performing Organization Address [facility] Phone Number DEBORAH MATTA [address] [address] [place] [address] * Beta 2 microglobulin, serum (09/14/2024 11:11 AM ACADEMIC HOSPITALIST) Beta 2 Microglobulin, Serum 2.10 1.00 - 2.50 mg/L Comment: Interpretive Data The Iza Beta-2 microglobulin assay procedure was used. Results from different manufacturers or methods may not be comparable. Serial testing should be performed using the same method. Testing performed by: [facility], [address] [place]., [address] Blood 09/14/2024 11:1 1 AM ACADEMIC HOSPITALIST 09/14/2024 9:51 PM ACADEMIC HOSPITALIST Ovi Rodriguez MD LAB BLOOD ORDERABLES Fin al Result [facility] [address] [address] Department [place] [address] * (ABNORMAL) Comprehensive metabolic panel (09/14/2024 11:11 AM ACADEMIC HOSPITALIST) Sodium 140 135 - 145 mmol/L Comment:Testing performed by : [facility] [place] [address] Potassium, pl 4.4 3.3 - 4.9 mmol/L [facility] Comment:Testing performed by : [facility] [place] [address] Chloride 103 97 - 110 mmol/L CERNER Comment:Testing performed by : [facility] [place] [address] CO2 26 22 - 32 mmol/L CERNER Comment:Testing performed by : [facility] [place] [address] Anion gap 11 2 - 15 mmol/L [facility] Comment:Testing performed by : [facility] [place] [address] BUN 21 6 - 25 mg/dL [facility] Comment:Testing performed by : [facility] [place] [address] Creatinine 0.60 0.60 - 1.10 mg/dL [facility] Comment:Testing performed by : [facility] [place] [address] Glucose 109 70 - 199 mg/dL [facility] Comment: Interpretive Data Fasting glucose >/= [...] was last revised 2022. Testing performed by: [facility] [place] [address] Calcium 9.7 8.5 - 10.3 mg/dL CERNER CH Comment:Testing performed by : [facility] [place] [address] Bilirubin, total 0.3 0.1 - 1.2 mg/dL CERNER CH Comment:Testing performed by : [facility] [place] [address] Protein, pl 6.4(L) 6.5 - 8.5 g/dL CERNER CH Comment:Testing performed by : [facility] [place] [address] Albumin 4.2 3.5 - 5.0 g/dL CERNER CH Comment:Testing performed by : [facility] [place] [address] Alk phos 71 40 - 130 Units/L CERNER CH Comment:Testing performed by : [facility] [place] [address] ALT 11 7 - 45 Units/L CERNER CH Comment:Testing performed by : [facility] [place] [address] AST 16 10 - 45 Units/L CERNER CH Comment:Testing performed by : [facility] [place] [address] Blood 09/14/2024 11:1 1 AM ACADEMIC HOSPITALIST 09/14/2024 11:14 AM ACADEMIC HOSPITALIST us Ovi Rodriguez MD LAB BLOOD ORDERABLES Mohan jeanette Result - Final [facility] [address] [address] Department of Laboratories [place], [place] [id number] * Cytogenetics (09/14/2024 12:00 AM ACADEMIC HOSPITALIST) Bone Marrow Biopsy 09/14/2024 09/14/2024 Narrative 09/21/2024 4:06 PM ACADEMIC HOSPITALIST [facility] results best viewed via link to PDF [facility] Department of Pathol [address] [place] [address] Patient Information Name: FRANCESCO JEAN Gender: F : 1955 (Age: 69) Tissue: Bone Marrow w/ FISH Visit Information Hospital #: [id number] Facility: [facility] Service: [facility] Location: [facility] Patient Type: DHIRAJ Specimen Information: Culture #: [id number] Date Collected: [...] Hybridization (FISH) analysis are performed using the 12Bis [facility] Imaging System. Report Electronically Reviewed and Signed Out By Dave Arzola, PhD, FACMGDate Reported: 09/21/2024ssociate Professor, Division of Genomic & Molecular Pathology Ovi Rodriguez MD LAB GENETIC TESTING Amanda l Result * US Breast Right Limited (08/26/2024 2:39 PM ACADEMIC HOSPITALIST) Anatomical Region Laterality Modality Breast Right Ultrasound 08/26/2024 2:45 PM ACADEMIC HOSPITALIST Impressions 08/26/2024 2:45 PM ACADEMIC HOSPITALIST Right breast mass 10 o'clock position has [...] Ericka Mccormack M.D. Narrative 08/26/2024 2:45 PM ACADEMIC HOSPITALIST EXAMINATION: BILATERAL DIGITAL DIAGNOSTIC MAMMOGRAM INCLUDING CAD [...] signed by: Ericka Mccormack M.D. Marleny Melo BAND MAKER IM MAMMO PROCEDURES Final Resul t * Diagnostic Mammogram Bilateral W Brannon (08/26/2024 2:03 PM ACADEMIC HOSPITALIST) Anatomical Region Laterality Modality Breast Bilateral Mammography 08/26/2024 2:45 PM ACADEMIC HOSPITALIST Impressions 08/26/2024 2:45 PM ACADEMIC HOSPITALIST Right breast mass 10 o'clock position has [...] Ericka Mccormack M.D. Narrative 08/26/2024 2:45 PM ACADEMIC HOSPITALIST EXAMINATION: BILATERAL DIGITAL DIAGNOSTIC MAMMOGRAM INCLUDING CAD [...] % Estimated Average Glucose 146 mg/dL DEBORAH [facility] Comment: The ADA recommends reporting an estimated [...] MD LAB BLOOD ORDERABLES Fin al Result CERNER [facility] [place] [address] * Dexa Axial and Forearm Bone Density Scan (04/28/2024 2:49 PM CDT) Anatomical Region Laterality Modality Wrist, Body N/A Radiographic Lexi ging Narrative 04/28/2024 10:39 PM CDT Patient Name: Francesco Jean Date of : 1955 Date of scan: 04/28/2024 Bone mineral density was performed on a HoloLogoneX Discovery Densitometer. Based on machine cross-calibration and [...] mineral density scan were prepared by Anna Guo)([facility])who is accredited by the International Society of Clinical Densitometry. The overall patient assessment and scan interpretation were performed by Erica Ross M.D. who is certified by the International Society of Clinical Densitometry. [id number] Ovi Rodriguez MD IMG DXA PROCEDURES Final Result from Last 3 Months or Most Recently Relevant to Health Maintenance Insurance [facility] MEDICARE ADVANTAGE [facility] MEDICARE ADVANTAGE TRANSPLANT [employer] MEDICARE RISK [address] [id number] Advance Directives For more information, please contact: [phone] Documents on File Type Date Recorded Patient Deportation Examiner Expl anation ADVANCE DIRECTIVE 05/06/2024 3:59 PM Advanc e Directive * Full Code (Latest Code Status on File) Date Activated Date Inactivated Comments 06/07/2024 7:11 PM 06/25/2024 4:55 PM * Full Code Date Activated Date Inactivated Comments 05/31/2024 11:19 AM 06/01/2024 5:22 AM * Full Code Date Activated Date Inactivated Comments 11/14/2023 4:39 PM 12/02/2023 8:58 PM Care Teams Manager Business Information Relationship Specialty Start Date End Date Mali Corona MD [address] [facility] [place] [address] [place] [address] PCP - General Family Practice 12/11/23 Ovi Rodriguez MD [address] [phone] [place] [address] Medical Oncologist/Blacksmith Helper Medical Oncology 11/28/23 Florence Acosta MD [address] [facility] [phone] [place] [address] Radiation Oncologist Radiation Oncology 12/08/23 Tony Hammer MD [address] [place] [id number] Referring Physician Hematology 01/07/24 Claudette Rosen, DPT [address] [facility] [address] [place] [address] Physical Therapist Physical Therapy 08/12/24
--- OUTSIDE RECORDS SUMMARY | 2024-11-23 02:21 | XMS_ITS | Clinical Summary ---
Author Organization [facility] Rosalia Garcia Address [address] [place] [address] Care Team Providers Care Manager Voice Name Role Phone Desiree Woodruff MD Primary [...] tablet Take 125 mcg by mouth daily backpackers manager. Acti ve cholecalcifer ol, Vitamin D3, 2,000 [...] 250 mg by mouth daily. Active multivit-min- kily-HW-qofil n 8 mg iron-400 mcg-300 mcg Tablet [...] Date Type Department Care Team Description 11/17/2024 External Device Data STL ABSTRACTION Provider, Abstract 11/15/2024 Orders Only [facility] Oncology and Hematology - [place] [address] [place] [address] Tony Hammer MD History of left breast cancer/ carcinoid Tumor 11/06/2024 External Device Data STL ABSTRACTION Provider, Abstract 11/05/2024 External Device Data STL ABSTRACTION Provider, Abstract 11/02/2024 External Device Data STL ABSTRACTION Provider, Abstract 11/01/2024 Orders Only [facility] Oncology and Hematology [facility] [address] [place] [phone] Tony Hammer MD History of left breast cancer/ carcinoid Tumor 10/19/2024 External Device Data STL ABSTRACTION Provider, Abstract 10/18/2024 Orders Only [facility] Oncology and Hematology [place] [address] [place] [phone] Tony Hammer MD History of left breast cancer/ carcinoid Tumor 10/04/2024 Orders Only [facility] Oncology and Hematology [facility] [address] [place] [phone] Tony Hammer MD History of left breast cancer/ carcinoid Tumor 09/23/2024 External Device Data STL ABSTRACTION Provider, Abstract 09/22/2024 External Device Data STL ABSTRACTION Provider, Abstract 09/21/2024 External Device Data STL ABSTRACTION Provider, Abstract 09/20/2024 Orders Only [facility] Oncology and Hematology - [place] [address] [place] [address] Tony Hammer MD History of left breast cancer/ carcinoid Tumor 09/14/2024 External Device Data STL ABSTRACTION Provider, Abstract 09/06/2024 Orders Only [facility] Oncology and Hematology - [place] [address] [place] [phone] Tony Hammer MD History of left breast [...] on file Legal Sex Female 1:30 PM 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 Gender Identity Not on file Sexual Orientation [...] cm (5' 5.5 ) 07/12/2021 1:36 PM 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 Body Mass Index 29.3 07/12/2021 1:36 PM 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 Plan of Treatment Health Maintenance Due Date [...] 11/09/2024, 10/12/2024 BREAST CANCER SCREENING 10/05/2025 10/05/19, 10/05/2024, 08/26/2024, Additional history exists DTAP/TDAP/TD VACCINES (3 - T d or Tdap) 05/18/2028 05/18/2018, 05/17/2018 ZOSTER VACCINE Completed 05/10/2019, 07/0 10/2018, 08/05/2017, Additional history exists PNEUMOCOCCAL VACCINE [...] SITES (10/30/2020) Anatomical Region Laterality Modality Other us Tony Hammer MD DIAGNOSTIC IMAGING ORDERABLES F inal Result from Last 3 Months or Most Recently Relevant to Health Maintenance Insurance RX [employer] RX Member Subscriber Plan / Payer (Ef fective 2023-Present) Name:Mirian Morgan Relation to Subscriber:Self Name:Mirian Morgan Payer ID:Not on file Group ID:[id number] Type:RX Medicare Part D Address: [address] Care Teams Manager Voice Relationship Specialty Start Date End Date Desiree Woodruff MD PCP - General Family Practice 08/13/19
--- OUTSIDE RECORDS SUMMARY | 2024-11-23 02:21 | XMS_ITS | Clinical Summary ---
Author Organization [facility] Address [facility] [place] [address] Care Team Providers Care Loss Prevention Investigator Name Role Phone Unavailable Primary Care Provider Unavailabl e Active Problems Problem Noted Date Diagnosed Date Senile osteoporosis 11/07/2023 Personal history of other drug therapy 4 Encounters Date Type Department Care Team Description 11/03/2024 Orders Only [place] [id number] Ronan Logan MD from Last 3 Months Social History Tobacco Use Types Packs/Day Years Used Date Smoking Tobacco: Never Assessed Comments Unknown Sex and Gender Information Value Date Recorded Sex Assigned at Not on file Legal Sex Female 1:01 PM CLERK 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
--- OUTSIDE RECORDS SUMMARY | 2024-11-23 02:21 | XMS_ITS ---
Author Organization [facility] 8 [facility] Address [address] [facility] [address] [place] [address] Phone Care Team Providers Care Automation Qa Tester Name Role Phone Ovi Rodriguez MD Unavailable [phone] Florence Acosta MD Unavailable [phone] Mali Corona MD Primary Care Provider Tony Hammer MD Unavailable [phone] Claudette Rosen DPT Unavailable [phone] Active Problems Patient Care Coordination No te Formatting of this note is d ifferent from the original. BMT Inpatient Care Coordination Overview Diagnosis MM Floor [address] Treatment Plan Reason for Admission Auto Transplant/IEC [...] Medical Assistants Post-Discharge Follow-Up Living Situation/Distance from [place], [place] (35 min) Caregiver Spouse + family Lab/Transfusion Frequency Venous Access & Care Port 06/24/24- Re: port positional & IR evaluation: IR attending thinks 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 She might have a fibrin sheath, but with 1 of the lines out there might be a latter-day of blood flow. He said he doesn't think we will gain much by doing an evaluation. He suggests waiting, seeing if the line restores flow, and then if not they can schedule her for evaluation later Local Oncologist Contact Dr. Mario Hammer - Jenny in [place], [place] Post-Discharge Office [place] (H30[place] [facility] [place] [facility] Miscellaneous Notes: 12/01/23- Called Dr. Hammer [...] and Progress note to Dr. Hammer (F: [phone]) Problem Noted Date Diagnosed Date HTN (hypertension) [...] 12/01/2023 Cancer Staging:Clinical stage from 11/14/2023:RISS Stage I(Fjms-6-ebtmyuegrhzcb (mg/L): 2.7, Albumin (g/dL): 4.5, ISS: Stage [...] Rodriguez MD Linked Problems Multiple myeloma in [facility] ([facility]) Treatment Medications No medications scheduled. Daratumumab SUBCUTANEOUS / Lenalidomide Maintenance - 28 Day Cycles - Myeloma* Plan Start Date:10/11/2024 Plan Provider:Ovi Rodriguez MD Linked Problems Multiple myeloma in [facility] ([facility]) Treatment Medications Current Day (Day 1 , [...] Rodriguez MD Linked Problems Multiple myeloma in [facility] ([facility]) Treatment Medications No medications scheduled. 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) Treatment Medications No medications scheduled. IV Maintenance Therapy Plan & Alteplase (CATHFLO ACTIVASE) - orders for occluded catheters* Plan Start Date:02/03/2024 Plan Provider:Ovi Rodriguez MD Linked Problems Multiple myeloma in [facility] ([facility]) Treatment Medications No medications scheduled. Post-SCT Vaccinations - Medicare* Plan Start Date:12/07/2024 Plan Provider:Ovi Rodriguez MD Linked Problems Multiple myeloma in [facility] ([facility]) Treatment Medications Current Day (Day 1 , 1st Series (at least 6 months post-SCT) - Planned for 12/07/2024) Next Day (Day 8, 1st Series (at least 6 months post-SCT) - Planned for 12/14/2024) No medications scheduled. No medications schedul ed. No medications scheduled. Zoledronic Acid - Myeloma* Plan Start Date:02/03/2024 Plan Provider:Ovi Rodriguez MD Linked Problems Multiple myeloma in [facility] ([facility]) Treatment Medications Current Day (Day 1 , [...]
--- OUTSIDE RECORDS SUMMARY | 2024-11-23 02:21 | XMS_ITS | Encounter Summary ---
Author Organization [facility] Healthcare Address [address] [place] [address] Care Team Providers Care Client Liaison Name Role Phone Ovi Rodriguez MD Unavailable [phone] Florence Acosta MD Unavailable [phone] Mali Corona MD Primary Care Provider Tony Hammer MD Unavailable [phone] Claudette Rosen DPT Unavailable [phone] Encounter Details Date Type Department Care Team (Late st Contact Info) Description 09/02/2024 Telephone [facility] Advanced Medicine Radiation Oncology [address] [facility] [place] [address] Florence Acosta MD [address] [facility] [address] [place] [address] Social History Tobacco Use Types Packs/Day Years [...] 08/04/2024 [facility] Utilities Answer Date Recorded In the past [...] often do you attend chur ch or mosque services? Never 06/09/2024 Do you belong to any clubs o r organizations such as yarsanism groups, unions, fraternal or athletic groups, or [...] place to sleep or slept in a care home (including now)? No 11/27/2023 Housing Stability [...] time in the past [address] [facility], were you homeless or living in a care home (including now)? No 06/09/2024 Personal Safety Answer Date Recorded Have you ever been in or are you currently in a harmful physical or emotional relationship or is someone making you feel afraid or unsafe? 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 Gender Identity Not on file Sexual Orientation Not on file documented as of this encounter Plan of Treatment Not on file documented as of this encounter Visit Diagnoses Not on filedocumented in this encounter Care Teams Client Liaison Relationship Specialty Start Date End Date Mali Corona MD [facility] [facility] [address] [place] [address] PCP - General Family Practice 12/11/23 Ovi Rodriguez MD [address] [phone] [place] [address] Medical Oncologist/Equipment Engineer Medical Oncology 11/28/23 Florence Acosta MD [address] [facility] [phone] [place] [address] Radiation Oncologist Radiation Oncology 12/08/23 Tony Hammer MD [address] [facility] [address] [place] [address] Referring Physician Hematology 01/07/24 Claudette Rosen DPT [address] [facility] [address] [place] [address] Physical Therapist Physical Therapy 08/12/24 documented as of this encounter
--- OUTSIDE RECORDS SUMMARY | 2024-11-23 02:21 | XMS_ITS | Encounter Summary ---
Author Organization [facility] Healthcare Address [address] [place] [address] Care Team Providers Care Ordnance Truck Installation Mechanic Name Role Phone Ovi Rodriguez MD Unavailable [phone] Florence Acosta MD Unavailable [phone] Mali Corona MD Primary Care Provider Tony Hammer MD Unavailable [phone] Claudette Rosen DPT Unavailable [phone] Encounter Details Date Type Department Care Team (Late st Contact Info) Description 06/10/2024 Telephone [facility] Advanced Medicine Radiation Oncology [address] [facility] [place] [address] Florence Acosta MD [address] [facility] [address] [place] [address] Social History Tobacco Use Types Packs/Day Years Used Date Smoking Tobacco: Never Smokeless Tobacco: Never Alcohol Use Standard Drinks/Week Comments Not Currently 0 (1 standard drink = 0.6 oz pur e alcohol) [facility] Utilities Answer Date Recorded In the past 12 months has [employer], gas, oil, or water company threatened to [...] often do you attend chur ch or holiness services? Never 06/09/2024 Do you belong to any clubs o r organizations such as latter-day groups, unions, fraternal or athletic groups, or [...] place to sleep or slept in a retirement (including now)? No 11/27/2023 Housing Stability Vital Sign Answer Tyson e Recorded In the last 12 months, was t here a time when you were not able to pay the mortgage or rent on time? No 06/09/2024 In the past 12 months, how m any times have you moved where you were living? 0 06/09/2024 At any time in the past 12 m [facility], were you homeless or living in a retirement (including now)? No 06/09/2024 Personal Safety Answer Date Recorded Have you ever been in or are you currently in a harmful physical or emotional relationship or is someone making you feel afraid or unsafe? Denies 11/14/2023 Comments No Sex and Gender Information Value Date Recorded Sex Assigned at Not on file Legal Sex Female 11:17 AM CONTOUR STITCHER Gender Identity Not on file Sexual Orientation [...] documented as of this encounter Care Teams Ordnance Truck Installation Mechanic Relationship Specialty Start Date End Date Mali Corona MD [address] [facility] [address] [place] [address] PCP - General Family Practice 12/11/23 Ovi Rodriguez MD [address] [phone] [place] [address] Medical Oncologist/Bottle And Glass Inspector Medical Oncology 11/28/23 Florence Acosta MD [address] [facility] [address] [phone] [place] [address] Radiation Oncologist Radiation Oncology 12/08/23 Tony Hammer MD [address] [place] [id number] Referring Physician Hematology 01/07/24 Claudette Rosen DPT [address] [facility] [address] [place] [address] Physical Therapist Physical Therapy 08/12/24 documented as of this encounter
--- OUTSIDE RECORDS SUMMARY | 2024-11-23 02:21 | XMS_ITS | Encounter Summary ---
Author Organization [facility] Address [address] [place] [address] Phone Care Team Providers Care Beam Machine Operator Name Role Phone Ovi Rodriguez MD Unavailable Florence Acosta MD Unavailable [phone] Mali Corona MD Primary Care Provider Tony Hammer MD Unavailable Claudette Rosen DPT Unavailable [phone] Encounter Details Date Type Department Care Team (Latest Contact Info) Description 12/23/2023 Orders Only [facility] Scanning, Provider Social History Tobacco Use Types Packs/Day Years Used Date Smoking Tobacco: Never Smokeless Tobacco: Never Alcohol Use Standard Drinks/Week Comments Not Currently 0 (1 standard drink = 0.6 oz pur e alcohol) [facility] Utilities Answer Date Recorded In the past 12 months has [employer], gas, oil, or water [employer] threatened to shut off services in your [...] How often do you attend chur or yarsanism services? More than 4 times per year [...] place to sleep or slept in a penitentiary (including now)? No 11/27/2023 Personal Safety Answer Date Recorded Have you ever been in or are you currently in a harmful physical or emotional relationship or is someone making you feel afraid or unsafe? 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 Gender Identity Not on file Sexual Orientation [...] documented as of this encounter Care Teams Beam Machine Operator Relationship Specialty Start Date End Date Mali Corona MD [address] [facility] [address] [place] [address] PCP - General Family Practice 12/11/23 Ovi Rodriguez MD [address] [facility] [phone] [place], [place] [id number] Medical Oncologist/Fruit Or Nut Grower Medical Oncology 11/28/23 Florence Acosta MD [address] [facility] [phone] [place] [address] Radiation Oncologist Radiation Oncology 12/08/23 Tony Hammer MD [address] [facility] [address] [place] [address] Referring Physician Hematology 01/07/24 Claudette Rosen DPT [address] [facility] [address] [place] [address] Physical Therapist Physical Therapy 08/12/24 documented as of this encounter
[2024-11-23] MEDS: LACTATED RINGERS 1,000 ML 30 ML IV CONT ×2 (09:35→13:18)
--- NOTE | 2024-11-23 09:38 | P.HP_ITS ---
History of Present Illness History of Present Illness Consent: Risks, benefits, and alternatives have been discussed and questions answered. Patient agrees to proceed with procedure. Chief complaint: wedge compression fx thoracic vertabrae, lymphoma Narrative: Mirian Morgan is a 69 year old female with chronic, recalcitrant and disabling bilateral thoracic back pain secondary to acute/subacute wedge compression fractures with nonunion with failure to respond to aggressive conservative measures including PT, oral and topical analgesics, opioid and nonopioid analgesics, rest, time and activity/behavioral modification over the past 10-12 weeks or longer who presents for balloon assisted vertebral augmentation with intraosseous bone biopsy of the T7, T10, T12 vertebral bodies under fluoroscopic guidance. Review of Systems Review of Systems: Patient denies any new infectious, allergic, cardiopulmonary, neurologic or constitutional symptoms or changes in activity tolerance or exercise capacity including new or progressive SOB/MUSE, peripheral edema, productive cough, dysuria, nausea/vomiting, diarrhea, weight change, fevers/chills/night sweats, new or progressive neurologic deficit, cognitive or mood changes since last seen, except as documented in the HPI. All systems reviewed & are unremarkable except as noted in HPI and below PMFSH Past Medical History Medical History Compression fracture of vertebra Lower leg pain Constipation due to pain medication Urinary incontinence, mixed Tortuous colon Slow transit constipation Hepatic steatosis GRETEL (obstructive sleep apnea) History of malignant carcinoid tumor of large intestine MGUS (monoclonal gammopathy of unknown significance) History of left breast cancer 05/2009 - s/p lumpectomy, radiation, & chemotherapy Normal colonoscopy Osteopenia Breast CA Vitamin D deficiency, unspecified Pure hypercholesterolemia, unspecified Hypothyroidism, acquired Essential hypertension Diabetes type 2, controlled Surgical History Surgical History History of stem cell transplant (~06/2024) History of wisdom tooth extraction (~1974) History of arthroscopy of left knee 1986 - s/p skiing accident History of tonsillectomy (~1958) History of appendectomy (~2003) History of right hemicolectomy (~2003) History of lumpectomy of left breast (~05/2009) Family History Family History Father Hypertension Family history of diabetes mellitus in first degree relative Family history of arthritis Family history of type 2 diabetes mellitus Mother Hypertension Family history of cardiac disorder Family history of arthritis Patient's mother is Sibling Diabetes mellitus Hypertension Family history of arthritis Family history of type 2 diabetes mellitus Other Family history of congestive heart failure Family history of emphysema Family history of glaucoma Social History Social History Social History: Patient lives in [place] with her Severino Allen. Smoking status: Never smoker Alcohol intake: current Drinks per week: 1 Alcohol use details: rarely Substance use: never Substance use type: does not use Do You Feel Safe in your Home?: Yes Lack of Transportation: No Lack of Food: Never True Current Housing: I Have Housing Concerned About Future Housing: No Difficulty Paying Gas/Electric Bills: No Difficulty Paying for Meds: No Currently Unemployed: No Education: Bachelor's Degree Difficulty w/ Childcare or Family Care: No Living arrangements: with family Additional living arrangements comments: [employer] Occupation/Education: retired Gender identity (if verbalized by the patient): Female Sexual Orientation (if Verbalized by the Patient): Straight or Heterosexual Spiritual care concerns: No Agree to blood products: Yes Meds Home Medications and Allergies Home Medications ?Medication ?Instructions ?Recorded ?Confirmed ?Type cholecalciferol (vitamin D3) 25 1,000 unit PO HS 02/09/20 11/23/24 History mcg (1,000 unit) capsule calcium ER 600 mg (as carb,cit)-D3 1 tablet PO BID 07/17/23 11/23/24 History 12.5 mcg (500 unit) tablet, ext.rel lorazepam 0.5 mg tablet 0.5 mg PO BID PRN Anxiety #60 tabs 11/11/23 11/23/24 Rx diclofenac sodium 1 % topical gel 4 g topical TID PRN Pain 12/02/23 11/22/24 History sennosides 8.6 mg tablet (senna) 8.6 mg PO BID PRN Constipation 12/02/23 11/22/24 History blood-glucose meter (Blood Glucose #1 ea 12/13/23 11/22/24 Rx Monitoring kit) simethicone 80 mg chewable tablet 80 mg PO QID PRN gas pain #30 tabs 12/13/23 11/22/24 Rx omega-3 fatty acids 1,000 mg 1,000 mg PO BID 12/19/23 11/23/24 History capsule vitamins A,C,A-tmwu-grffgg 4,296 1 cap PO BID 12/19/23 11/23/24 History mcg-226 mg-90 mg capsule (PreserVision AREDS) aspirin 81 mg tablet 81 mg PO DAILY 01/01/24 11/23/24 History lidocaine-prilocaine 2.5 %-2.5 % See Rx Instructions .Route .COMPLEX 01/01/24 11/22/24 History topical cream ondansetron HCl 8 mg tablet 8 mg PO Q6-8H PRN Nausea 01/01/24 11/22/24 History oxycodone-acetaminophen 5 mg-325 1 tablet PO Q6-8H PRN Pain 01/01/24 11/22/24 History mg tablet polyethylene glycol 3350 17 17 g PO DAILY 01/01/24 11/22/24 History gram/dose oral powder (Miralax) blood-glucose sensor (Dexcom G7 #9 ea 01/14/24 11/22/24 Rx Sensor device) valacyclovir 500 mg tablet 500 mg PO DAILY 01/29/24 11/23/24 History lactulose 20 gram oral packet 20 g PO BID PRN Constipation #30 ea 03/10/24 11/22/24 Rx (Kristalose) glucagon 1 mg/0.2 mL subcutaneous 1 mg (0.2 mL) subcut ONCE #0.4 mL 03/31/24 11/22/24 Rx auto-injector (Juan Ramon HypoPen 2-Pack) magnesium oxide 500 mg PO DAILY 04/26/24 11/23/24 History methocarbamol 500 mg tablet 500 mg PO TID PRN Spasms #90 tabs 04/26/24 11/22/24 Rx ezetimibe 10 mg tablet 10 mg PO DAILY 07/08/24 11/23/24 History levothyroxine 112 mcg tablet 112 mcg PO DAILY 07/08/24 11/23/24 History tramadol 50 mg tablet 50 mg PO PRN PRN pain 07/08/24 11/22/24 History furosemide 40 mg tablet 40 mg PO PRN PRN edema 08/06/24 11/22/24 History pen needle, diabetic 33 gauge x #600 ea 09/09/24 11/22/24 Rx (Comfort EZ Pen [facility]) sitagliptin phosphate 50 mg tablet 50 mg PO DAILY #90 tabs 09/17/24 11/23/24 Rx (Januvia) metoprolol succinate 50 mg 50 mg PO DAILY #90 tabs 09/20/24 11/23/24 Rx tablet,extended release 24 hr insulin lispro-aabc 100 unit/mL 3 unit (0.03 mL) subcut .TID 09/22/24 11/23/24 Rx subcutaneous pen (Clarissa Melendez before meals #15 mL U-100 Insulin) lisinopril 5 mg tablet 5 mg PO DAILY 10/19/24 11/23/24 History rosuvastatin 5 mg tablet See Rx Instructions .Route 11/02/24 11/23/24 Rx .COMPLEX #40 tabs lenalidomide 10 mg capsule 10 mg PO DAILY 11/08/24 11/23/24 History (Revlimid) acetaminophen 500 mg tablet 1,000 mg PO BID PRN Pain 11/22/24 11/23/24 History amlodipine 10 mg tablet 10 mg PO DAILY 11/22/24 11/23/24 History daratumumab 20 mg/mL intravenous 16 mg IV MONTHLY 11/22/24 11/23/24 History solution (Darzalex) ibuprofen 200 mg tablet 200 mg PO BID PRN Pain 11/22/24 11/23/24 History insulin degludec 100 unit/mL (3 4 unit subcut QHS 11/22/24 11/23/24 History mL) subcutaneous pen (Tresiba FlexTouch U-100 insulin) melatonin 5 mg tablet,immediate 5 mg PO QHS 11/22/24 11/23/24 History and extended release zoledronic acid 4 mg/5 mL 4 mg IV MONTHLY 11/22/24 11/22/24 History intravenous solution Allergies Allergy/AdvReac Type Severity Reaction Status Date / Time venom-wasp Allergy Severe swelling Verified 11/23/24 09:21 latex Allergy Mild rash Verified 11/23/24 09:21 Nnxmpas-IXU-YyI Reductase AdvReac Intermediate muscle Verified 11/23/24 09:21 Inhibitor cramping oxycodone AdvReac Mild Nausea Verified 11/23/24 09:21 Vital Signs Vital Signs - 24 hr 11/23/24 08:55 Temperature 97.8 F Pulse Rate 77 Respiratory Rate 16 Blood Pressure 130/61 Pulse Oximetry 100 Oxygen Delivery Room Air Exam Narrative: The patient's physical exam is essentially unchanged from prior examination on 10/19/2024. Specifically, patient demonstrates normal lung capacity, tidal volume and respiratory rate without wheezes, crackles, rales or rubs. Heart rate and rhythm are regular without murmurs, gallops or rubs. No JVD. Pulses 2+ globally without increasing peripheral edema. AAOx3 with no evidence of confusion, intoxication or altered mental state, NC/AT without acute distress or altered consciousness. Speech, cognition, mood, insight and judgment at baseline and within normal limits. Assessment and Plan Assessment and plan (1) Thoracic compression fracture: Qualifiers: Encounter type: subsequent encounter Thoracic vertebra fracture level: unspecified thoracic vertebra Fracture healing: with routine healing Qualified Code(s): S22.000D - Wedge compression fracture of unspecified thoracic vertebra, subsequent encounter for fracture with routine healing Code(s): S22.000A - Wedge compression fracture of unspecified thoracic vertebra, initial encounter for closed fracture Status: Acute Assessment and Plan: Proceed as planned with balloon assisted vertebral augmentation with intraosseous bone biopsy of the T7, T10, T12 vertebral bodies under fluoroscopic guidance. 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
[2024-11-23 09:41] LABS: Glucose Point of Care 128 mg/dl (65-105)
--- NOTE | 2024-11-23 09:42 | WPDHPUPDATE1 ---
History and Physical Update Update Date/Time: 11/23/24 09:42 History and Physical has been reviewed, including an updated exam of the patient. There are NO changes in the patient's condition. Risks, benefits, and alternatives have been discussed and questions answered. Patient agrees to proceed with procedure.
--- NOTE | 2024-11-23 09:43 | P.OP_ITS ---
Procedure Note - Detailed Date of Procedure 11/23/24 Pre-op Diagnosis wedge compression fx thoracic vertebrae, lymphoma Post-op Diagnosis Same Procedure Performed Percutaneous balloon-assisted vertebral augmentation of the T7, T10, T12 ve rtebral body under fluoroscopic guidance (Kyphoplasty) with intraosseous bone biopsy. Surgeon Jose Maria Grady MD Slab Polisher None. Anesthesia General (GETA with local anesthetic infiltration in the prone position.) Indications Osteoporotic vertebral compression fracture with greater than 25% deformity in the absence of neurologic deficit or significant central canal stenosis. Description of Procedure INFORMED CONSENT: Risks, benefits and alternatives to the procedure were discussed in detail with the patient who expressed explicit understanding and consent to proceed. Patient was informed verbally and in written form regarding the risks associated with the procedure including the low risk of serious local or systemic infection, bleeding/bruising, allergic reaction, pulmonary emb olus/edema, extravasation of cement requiring surgical intervention, worsening fracture, nerve or organ injury, paralysis, procedural site pain or discomfort, worsening pain and/or mobility, failure to treat and/or disfigurement. The patient expressed explicit understanding and consent to proceed. All materials required for the procedure were available prior to procedure start. Site and side were marked prior to procedure and confirmed in the presence of the unsedated patient. PROCEDURE IN DETAIL: After full informed consent was obtained, appropriate IV access was confirmed by Anesthesia without difficulty. The patient was escorted to the operative theater. Supplemental oxygen was initiated to maintain O2 saturation between 92-99%. Careful positioning was undertaken and ASA standard monitors were applied and checked routinely throughout the case. Prophylactic antibiotics were administered prior to procedure start. Patient was placed in the prone position in optimal extension using pillows and the thoracolumbar spine was prepared and draped in the usual sterile manner using tinted ChloraPrep scrub and allowed to dry completely for at least 3 minutes. Fluoro scopy in the AP and lateral position was used with perfect linear projections at the T12 level to identify/confirm the procedural level and presence of deformity. Percutaneous trocar was introduced from a rightward approach (transpedicular approach) via a small stab skin incision made at the entry site using a #11 scalpel following adequate anesthesia via infiltration of a 1:1 admixture of 2% PF lidocaine with epinephrine and 0.5% PF bupivacaine with a 2 inch 27-gauge needle after negative aspiration for blood or body fluid. Anesthesia was extended to periosteum at the intended procedural level with a 3.5 inch 22g Quincke spinal needle. A 10-gauge trocar with a yoon tip was introduced through the skin incision and docked on the right posterior pedicle of T12 in the superolateral (11 o'clock) position. Under live fluoroscopy while alternating between AP and lateral views, the trocar was advanced intermittently in the anterior, medial and inferior directions using a metal surgical mallet, taking care to advance only in the AP view, using lateral views to confirm depth and direction. In the AP view, as the tip of the trocar approached (but did not violate) the medial, inferior border of the pedicle, lateral view was utilized to confirm advancement of the trocar through the pedicle and into the posterior third of the vertebral body. Using the road service locksmith-provided bone biopsy device, an intravertebral core biopsy was obtained from each level treated and sent in an appropriately-labeled sterile specimen cup with formalin for pathological analysis. Trocar was then advanced in the lateral view, with appropriate trajectory and final placement identified/confirmed by intermittent evaluation in the AP view until the trocar tip reached the anterior 3rd of the vertebral body at or near midline without violation of the anterior or lateral vertebral garner. A 20 ml balloon catheter prefilled with Omnipaque 300 contrast medium was advanced to the anterior third of the vertebral body at or near midline in the medial and lateral views and inflated with contrast to a volume of 5 ml or less at an internal pressure of 400 psi or less, creating an appropriately sized cavity within the vertebral body with correct balloon location identified in both the AP and Lateral views. The cement introducer was then advanced into the far end of the cavity and the void was filled in a controlled fashion, in 0.5- 1.0 mL increments, monitoring in both the AP and Lateral views for appropriate cement position and fill, utilizing a total of 3-5 mm of polymethylmethacrylate containing nonionic contrast, stopping with any posterior spread or evidence of vascular, disc space or extra vertebral encroachment of cement. Once appropriate fill was confirmed in both the lateral and AP views, the cement introducer was withdrawn, stylette was reinserted and trocar removed in a stepwise fashion under live fluoroscopy in the lateral view to ensure lack of cement migration into the trocar tracts. The same procedure was repeated for all additional intended levels/structures treated, T7, T10 with identical methodology modified to compensate for different level/location, with similar results and no evidence of complication. Patient was allowed to remain in the prone position under relative thoracolumbar extension until cement had fully hardened, or approximately 15 minutes after initial mixing. The patient's skin was cleansed and the stab incision(s) were closed using benzoin and Steri-Strips in a luciano- crossing fashion and covered by a non-stick sponge pad and self-adherent clear, occlusive dressing. The patient tolerated this procedure well. Anesthesia was reversed without difficulty. The patient was transported to the recovery area in stable condition and without evidence of subsequent complication. Peripheral IV was discontinued. Patient was eventually discharged under their own power with pain satisfactorily controlled, without significant nausea or neurologic deficit and with full ability to ambulate, void and tolerate liquids by mouth. The patient was instructed to avoid excessive activity for the next 48 hours. Patient was restricted from driving for 48 hours. The patient was instructed to restart any anticoagulants 24 hours after the procedure unless otherwise directed by their prescribing physician. They were instructed to avoid heavy lifting, pushing, pulling or carrying weights greater than 5 pounds until released. They are to avoid any overhead work. The patient is to sponge bathe only for the next 48 hours. Top bandage can be removed after 48 hours. Steri- Strips are to remain in place until they fall off on their own or until removed by physician. After 48 hours and top bandage is removed, patient may resume showering. No bathing or soaking for one week or as released by physician. The patient is to monitor for signs of infection including fevers, chills, night sweats, redness, swelling or discharge at the procedural site. They are to m onitor for signs of neurologic change including new numbness, weakness or pain in the upper or lower extremities, headaches or loss of bowel or bladder control. Should they develop any of these symptoms they are to call our office immediately during office hours or report directly to the nearest emergency department if after hours or if no immediate answer. COMPLICATIONS: None. COMMENTS: None. EBL: Minimal. DRAINS: None. PACKING: None. PATHOLOGY: Intraosseous, intravertebral core bone biopsies individually labeled T7 T10 T12 vertebral body respectively, sent in preservative. Drains No Packing No Pathology Yes (See above) Complications No immediate complications Condition Stable Disposition PACU [facility] Billing Surgery - Charge Forward: Surgery Billing
--- NOTE | 2024-11-23 09:48 | WPDANESEPPF ---
Anes - Initial Pre Proc Eval Procedure: Operation Date: 11/23/24 11:00 Proposed Procedures p Balloon Assisted Vertebral Augmentation (Kyphoplasty) with Intra Osseous Bone Biopsy at T7, T10, T12 Vertebral Bodies Under Fluoroscopic Guidance - Jose Maria Grady MD Date/Time: 11/23/24 09:48 Surgeon: Jose Maria Grady MD Pre Op Diagnosis: wedge compression fx thoracic vertabrae, lymphoma Patient Data Age: 69 Gender: F Height: 1.68 m Weight: 86.1 kg Last Vital Signs Temp 36.6 C 11/23/24 08:55 Pulse 77 11/23/24 08:55 Resp 16 11/23/24 08:55 BP 130/61 11/23/24 08:55 Pulse Ox 100 11/23/24 08:55 O2 Del Method Room Air 11/23/24 08:55 Allergies Allergy/AdvReac Type Severity Reaction Status Date / Time venom-wasp Allergy Severe swelling Verified 11/23/24 09:21 latex Allergy Mild rash Verified 11/23/24 09:21 [id number]-[id number] Reductase AdvReac Intermediate muscle Verified 11/23/24 09:21 Inhibitor cramping oxycodone AdvReac Mild Nausea Verified 11/23/24 09:21 Home Medications ?Medication ?Instructions ?Recorded ?Confirmed ?Type cholecalciferol (vitamin D3) 25 1,000 unit PO HS 02/09/20 11/23/24 History mcg (1,000 unit) capsule calcium ER 600 mg (as carb,cit)-D3 1 tablet PO BID 07/17/23 11/23/24 History 12.5 mcg (500 unit) tablet, ext.rel lorazepam 0.5 mg tablet 0.5 mg PO BID PRN Anxiety #60 tabs 11/11/23 11/23/24 Rx diclofenac sodium 1 % topical gel 4 g topical TID PRN Pain 12/02/23 11/22/24 History sennosides 8.6 mg tablet (senna) 8.6 mg PO BID PRN Constipation 12/02/23 11/22/24 History blood-glucose meter (Blood Glucose #1 ea 12/13/23 11/22/24 Rx Monitoring kit) simethicone 80 mg chewable tablet 80 mg PO QID PRN gas pain #30 tabs 12/13/23 11/22/24 Rx omega-3 fatty acids 1,000 mg 1,000 mg PO BID 12/19/23 11/23/24 History capsule vitamins A,C,E-wlph-azuspv 4,296 1 cap PO BID 12/19/23 11/23/24 History mcg-226 mg-90 mg capsule (PreserVision AREDS) aspirin 81 mg tablet 81 mg PO DAILY 01/01/24 11/23/24 History lidocaine-prilocaine 2.5 %-2.5 % See Rx Instructions .Route .COMPLEX 01/01/24 11/22/24 History topical cream ondansetron HCl 8 mg tablet 8 mg PO Q6-8H PRN Nausea 01/01/24 11/22/24 History oxycodone-acetaminophen 5 mg-325 1 tablet PO Q6-8H PRN Pain 01/01/24 11/22/24 History mg tablet polyethylene glycol 3350 17 17 g PO DAILY 01/01/24 11/22/24 History gram/dose oral powder (Miralax) blood-glucose sensor (Dexcom G7 #9 ea 01/14/24 11/22/24 Rx Sensor device) valacyclovir 500 mg tablet 500 mg PO DAILY 01/29/24 11/23/24 History lactulose 20 gram oral packet 20 g PO BID PRN Constipation #30 ea 03/10/24 11/22/24 Rx (Kristalose) glucagon 1 mg/0.2 mL subcutaneous 1 mg (0.2 mL) subcut ONCE #0.4 mL 03/31/24 11/22/24 Rx auto-injector (Gvoke HypoPen 2-Pack) magnesium oxide 500 mg PO DAILY 04/26/24 11/23/24 History methocarbamol 500 mg tablet 500 mg PO TID PRN Spasms #90 tabs 04/26/24 11/22/24 Rx ezetimibe 10 mg tablet 10 mg PO DAILY 07/08/24 11/23/24 History levothyroxine 112 mcg tablet 112 mcg PO DAILY 07/08/24 11/23/24 History tramadol 50 mg tablet 50 mg PO PRN PRN pain 07/08/24 11/22/24 History furosemide 40 mg tablet 40 mg PO PRN PRN edema 08/06/24 11/22/24 History pen needle, diabetic 33 gauge x #600 ea 09/09/24 11/22/24 Rx (Comfort EZ Pen [place]) sitagliptin phosphate 50 mg tablet 50 mg PO DAILY #90 tabs 09/17/24 11/23/24 Rx (Januvia) metoprolol succinate 50 mg 50 mg PO DAILY #90 tabs 09/20/24 11/23/24 Rx tablet,extended release 24 hr insulin lispro-aabc 100 unit/mL 3 unit (0.03 mL) subcut .TID 09/22/24 11/23/24 Rx subcutaneous pen (Lyumjev KwikPen before meals #15 mL U-100 Insulin) lisinopril 5 mg tablet 5 mg PO DAILY 10/19/24 11/23/24 History rosuvastatin 5 mg tablet See Rx Instructions .Route 11/02/24 11/23/24 Rx .COMPLEX #40 tabs lenalidomide 10 mg capsule 10 mg PO DAILY 11/08/24 11/23/24 History (Revlimid) acetaminophen 500 mg tablet 1,000 mg PO BID PRN Pain 11/22/24 11/23/24 History amlodipine 10 mg tablet 10 mg PO DAILY 11/22/24 11/23/24 History daratumumab 20 mg/mL intravenous 16 mg IV MONTHLY 11/22/24 11/23/24 History solution (Darzalex) ibuprofen 200 mg tablet 200 mg PO BID PRN Pain 11/22/24 11/23/24 History insulin degludec 100 unit/mL (3 4 unit subcut QHS 11/22/24 11/23/24 History mL) subcutaneous pen (Tresiba FlexTouch U-100 insulin) melatonin 5 mg tablet,immediate 5 mg PO QHS 11/22/24 11/23/24 History and extended release zoledronic acid 4 mg/5 mL 4 mg IV MONTHLY 11/22/24 11/22/24 History intravenous solution Laboratory Tests 11/23/24 09:38 POC Capillary Glucose 128 H mg/dl (65-105) Patient hx anesthesia problems: none Family hx anesthesia problems: none Results Review: All pre-operative results and documents have been reviewed as part of the pre-operative evaluation. [facility] Past Medical History Medical History Compression fracture of vertebra Lower leg pain Constipation due to pain medication Urinary incontinence, mixed Tortuous colon Slow transit constipation Hepatic steatosis GRETEL (obstructive sleep apnea) History of malignant carcinoid tumor of large intestine MGUS (monoclonal gammopathy of unknown significance) History of left breast cancer 05/2009 - s/p lumpectomy, radiation, & chemotherapy Normal colonoscopy Osteopenia Breast CA Vitamin D deficiency, unspecified Pure hypercholesterolemia, unspecified Hypothyroidism, acquired Essential hypertension Diabetes type 2, controlled Surgical History Surgical History History of stem cell transplant (~06/2024) History of wisdom tooth extraction (~1974) History of arthroscopy of left knee 1986 - s/p skiing accident History of tonsillectomy (~1958) History of appendectomy (~2003) History of right hemicolectomy (~2003) History of lumpectomy of left breast (~05/2009) Family History Family History Father Hypertension Family history of diabetes mellitus in first degree relative Family history of arthritis Family history of type 2 diabetes mellitus Mother Hypertension Family history of cardiac disorder Family history of arthritis Patient's mother is Sibling Diabetes mellitus Hypertension Family history of arthritis Family history of type 2 diabetes mellitus Other Family history of congestive heart failure Family history of emphysema Family history of glaucoma Social History Social History Social History: Patient lives in [place] with her Severino Allen. Smoking status: Never smoker Alcohol intake: current Drinks per week: 1 Alcohol use details: rarely Substance use: never Substance use type: does not use Do You Feel Safe in your Home?: Yes Lack of Transportation: No Lack of Food: Never True Current Housing: I Have Housing Concerned About Future Housing: No Difficulty Paying Gas/Electric Bills: No Difficulty Paying for Meds: No Currently Unemployed: No Education: Bachelor's Degree Difficulty w/ Childcare or Family Care: No Living arrangements: with family Additional living arrangements comments: [employer] Occupation/Education: retired Gender identity (if verbalized by the patient): Female Sexual Orientation (if Verbalized by the Patient): Straight or Heterosexual Spiritual care concerns: No Agree to blood products: Yes Anes - Eval Final PreProcedure Day of Procedure 11/23/24 09:48 Patient weight: obese Heart: regular rate and rhythm Lungs: clear to auscultation Airway: Mallampati scale class II Neurological: alert and oriented Last oral intake: >/= 8 hours ASA classification: III Emergent: no Anesthetic plan: proceed Anesthesia type and monitoring: general ETT and standard monitoring Results Review: All pre-operative results and documents have been reviewed as part of the pre-operative evaluation. Informed Consent: The patient's anesthetic plan and its attendant risks and benefits were discussed with the patient/family/POA. Questions were solicited and answers provided to the satisfaction of the patient/family/POA.
[2024-11-23] MEDS: ceFAZolin 2 GM/D5W 50 ML 2 GM/50 ML BAG IVPB (11:52)
[2024-11-23] MEDS: BUPIVACAINE/EPINEPHRINE 0.5% 30 ML VIAL INFILTRATE (12:21)
[2024-11-23] MEDS: LIDOCAINE 2% PF LOCAL INJ 5 ML VIAL 10 ML INFILTRATE (12:22)
== END 2024-11-23 15:30 | disposition home or self-care (01) ==
PROVIDERS: PCP Family Medicine; Visit Provider Anesthesiology Pain Medicine
PROC: (CPT 22513; principal; 2024-11-23 11:00)
DX: M80.88XA Other osteoporosis with current pathological fracture, vertebra(e), initial encounter for fracture (principal); G89.29 Other chronic pain; E78.00 Pure hypercholesterolemia, unspecified; E03.9 Hypothyroidism, unspecified; I10 Essential (primary) hypertension; E11.9 Type 2 diabetes mellitus without complications; N39.46 Mixed incontinence; G47.33 Obstructive sleep apnea (adult) (pediatric); E66.9 Obesity, unspecified; Z68.30 Body mass index [BMI] 30.0-30.9, adult; Z79.82 Long term (current) use of aspirin; Z79.891 Long term (current) use of opiate analgesic; Z79.84 Long term (current) use of oral hypoglycemic drugs; Z79.4 Long term (current) use of insulin; Z79.1 Long term (current) use of non-steroidal anti-inflammatories (NSAID); Z98.890 Other specified postprocedural states; Z90.49 Acquired absence of other specified parts of digestive tract; Z94.84 Stem cells transplant status; Z87.19 Personal history of other diseases of the digestive system; Z85.038 Personal history of other malignant neoplasm of large intestine; Z85.3 Personal history of malignant neoplasm of breast; Z92.3 Personal history of irradiation; Z92.21 Personal history of antineoplastic chemotherapy; Z82.49 Family history of ischemic heart disease and other diseases of the circulatory system
CPT/HCPCS: 22513; 22515 ×2; 82948; 88307; 88311; 99199; J0330; J0690; J1100; J2003; J2405; J2704; J7120

== ENCOUNTER 2025-05-04 12:58 | Outpatient (RCR) | payer MEDICARE, SELFPAY | END 2025-07-19 11:21 | disposition home or self-care (01) | LOC: ANHDMC 12:58 | PROVIDERS: PCP Family Medicine; Visit Provider Internal Medicine | DX: E11.65 Type 2 diabetes mellitus with hyperglycemia (principal); Z71.89 Other specified counseling | CPT/HCPCS: G0108 ==